=== PATIENT | male | born 1955 | race Caucasian/White ===

== ENCOUNTER → 2019-01-05 | Outpatient (CLI) | payer MEDICARE ==
[2019-01-05 12:55] LABS: HEMATOCRIT 32.3 % (37.9-51.0); HEMOGLOBIN 10.9 g/dL (13.5-17.0); MEAN CORPUSCULAR HEMOGLOBIN 32.9 pg (27.0-33.4); MEAN CORPUSCULAR HGB CONC 33.8 g/dL (32.0-36.0); MEAN CORPUSCULAR VOLUME 97 fl (80-97); PLATELET COUNT 109 10^3/uL (150-450); RED BLOOD COUNT 3.33 10^6/uL (4.35-5.55); WHITE BLOOD COUNT 2.5 10^3/uL (4.0-10.5)
[2019-01-05 13:21] LABS: ALANINE AMINOTRANSFERASE 32 U/L (21-72); ALBUMIN 4.1 g/dL (3.5-5.0); ALKALINE PHOSPHATASE 86 U/L (38-126); ANION GAP 9 (5-19); ASPARTATE AMINO TRANSFERASE 22 U/L (17-59); BILIRUBIN,DIRECT 0.2 mg/dL (0.0-0.4); BILIRUBIN,TOTAL 0.6 mg/dL (0.2-1.3); BLOOD UREA NITROGEN 23 mg/dL (7-20); CALCIUM 9.2 mg/dL (8.4-10.2); CARBON DIOXIDE 27 mmol/L (22-30); CHLORIDE 104 mmol/L (98-107); GLUCOSE 143 mg/dL (75-110); POTASSIUM 4.3 mmol/L (3.6-5.0); SODIUM 139.6 mmol/L (137-145)
[2019-01-06 14:39] LABS: FREE KAPPA LIGHT CHAINS 277.8 mg/L (3.3-19.4); FREE LAMBDA LIGHT CHAINS 7.5 mg/L (5.7-26.3)
[2019-01-06 14:58] LABS: KAPPA LAMBDA RATIO 37.04 (0.26-1.65)
== END ==
LOC: OD 11:47
PROVIDERS: ATTEND Internal Medicine
DX: C90.00 Multiple myeloma not having achieved remission (principal)
CPT/HCPCS: 36415; 80053; 83883; 85027

== ENCOUNTER 2019-01-14 23:12 | Emergency (ER) | payer MEDICARE ==
--- NOTE | 2019-01-14 23:46 | ER Document Report ---
ED Medical Screen (RME) - General Chief Complaint: Respiratory Distress Stated Complaint: DIFFICULTY BREATHING Time Seen by Provider: 01/14/19 23:42 Primary Care Provider: VADIM MORTENSEN [Primary Care Provider] - Follow up as needed Notes: 63-year-old obese male with numerous medical problems mostly of concern right now is multiple myeloma on chemotherapy. Patient presents with upper respiratory symptoms for the past week and a half or 2 and this evening felt like he was not getting enough oxygen prior to arrival. He has a low-grade fever. He is dyspneic. I have treated and performed a rapid initial assessment of this patient. A comprehensive ED assessment and evaluation of the patient, analysis of test results and completion of medical decision making process will be conducted by additional ED providers. PHYSICAL EXAMINATION: GENERAL: Well-appearing, well-nourished and in no acute distress. A&Ox4. Answers questions appropriately. LUNGS: Diminished bilaterally HEART: Regular rate and rhythm without murmurs, rubs, gallops. ABDOMEN: Obese Extremities: Edematous NEUROLOGICAL: Normal speech, normal gait. PSYCH: Normal mood, normal affect. TRAVEL OUTSIDE OF THE [place] IN LAST 30 DAYS: No Past Medical History - Social History Chew tobacco use (# tins/day): No Frequency of alcohol use: None Drug Abuse: None Renal/ Medical History: Denies: Hx Peritoneal Dialysis Physical Exam - Vital signs Vitals: Temp Pulse Resp BP Pulse Ox 100.5 F H 80 28 H 137/69 H 97 01/14/19 23:16 01/14/19 23:16 01/14/19 23:16 01/14/19 23:16 01/14/19 23:16 Course - Vital Signs Vital signs: Temp Pulse Resp BP Pulse Ox 100.5 F H 80 28 H 137/69 H 97 01/14/19 23:16 01/14/19 23:16 01/14/19 23:16 01/14/19 23:16 01/14/19 23:16 Doctor's Discharge - Discharge Referrals: VADIM MORTENSEN [Primary Care Provider] - Follow up as needed
[2019-01-15] MEDS ORDERED: IPRATROPIUM/ALBUTEROL 0.5-2.5 MG/3 ML AMPUL NEB ONE (00:19)
[2019-01-15] MEDS ORDERED: ACETAMINOPHEN 325 MG TABLET PO ONE (00:20)
--- NOTE | 2019-01-15 00:23 | ER Document Report ---
ED General - General Chief Complaint: Respiratory Distress Stated Complaint: DIFFICULTY BREATHING Time Seen by Provider: 01/14/19 23:42 Primary Care Provider: VADIM MORTENSEN [NO LOCAL MD] - Follow up as needed Notes: Patient is a 63-year-old male who presents with complaint of cough and congestion. He said cough and congestion approximately week but today feel unwell and then spiked a fever and therefore came to the ER. He has a history of multiple myeloma. He is currently visiting from [place]. He is on dexamethaso ne 20 mg a week. He gets this on Friday. He also takes an oral chemotherapy medication. He said runny nose cough and congestion. Difficulty breathing worsened today and he felt as if he was not getting good air into his lungs. No abdominal pain. No chest pain. No other complaints at this time. He is a former smoker. No history of COPD or asthma. TRAVEL OUTSIDE OF THE [place] IN LAST 30 DAYS: No - Related Data Allergies/Adverse Reactions: acetaminophen Adverse Reaction (Verified 01/15/19 00:35) Past Medical History - Social History Smoking Status: Former Smoker Chew tobacco use (# tins/day): No Frequency of alcohol use: None Drug Abuse: None Family History: Reviewed & Not Pertinent Patient has suicidal ideation: No Patient has homicidal ideation: No - Past Medical History Cardiac Medical History: Reports: Hx Hypercholesterolemia, Hx Hypertension Denies: Hx Heart Attack Endocrine Medical History: Reports: Hx Diabetes Mellitus Type 2 Renal/ Medical History: Denies: Hx Peritoneal Dialysis Past Surgical History: Reports: Hx Appendectomy, Hx Kidney (Renal Surgery) - 1 removed as child, Hx Orthopedic Surgery - L knee, Hx Tonsillectomy Review of Systems - Review of Systems Notes: My Normal Review Basic REVIEW OF SYSTEMS: CONSTITUTIONAL : Fever EENT: Nasal congestion CARDIOVASCULAR: Denies chest pain. RESPIRATORY: Cough. Difficulty breathing. GASTROINTESTINAL: Denies abdominal pain. Denies nausea, vomiting, or diarrhea. MUSCULOSKELETAL: Denies neck or back pain or joint pain or swelling. SKIN: Denies rash or skin lesions. NEUROLOGICAL: Denies altered mental status or loss of consciousness. Denies headache. Denies weakness or paralysis or loss of use of either side. Denies problems with gait or speech. Denies sensory or motor loss. ALL OTHER SYSTEMS REVIEWED AND NEGATIVE. Physical Exam - Vital signs Vitals: Temp Pulse Resp BP Pulse Ox 100.5 F H 80 28 H 137/69 H 97 01/14/19 23:16 01/14/19 23:16 01/14/19 23:16 01/14/19 23:16 01/14/19 23:16 - Notes Notes: General Appearance: Well nourished, alert, cooperative, no acute distress, no obvious discomfort. Vitals: reviewed, See vital signs table. Head: no swelling or tenderness to the head Eyes: PERRL, EOMI, Conjuctiva clear Mouth: No decreasd moisture Throat: No tonsillar inflammation, No airway obstruction, No lymphadenopathy Lungs: Coarse breath sounds. Fair air exchange. Heart: Normal rate, Regular rythm, No murmur, no rub Abdomen: Normal BS, soft, No rigidity, No abdominal tenderness, Extremities: strength 5/5 in all extremities, good pulses in all extremities, no swelling or tenderness in the extremities, no edema. Skin: warm, dry, appropriate color, no rash Neuro: speech clear, oriented x 3, normal affect, responds appropriately to questions. Course - Re-evaluation Re-evalutation: 01/15/19 04:48 On reevaluation patient's lung soto are still coarse but is moving more air. He is no longer requiring oxygen at rest. His oxygen saturation is currently 93-94% at rest: however, typically wears 3 L of oxygen all the time even during the day. I will place him on this as this makes suction more around the range of 96-97%. Heart rate is under control. He is receiving a last bag of magnesium. After this I will ambulate him to see how he does. 01/15/19 04:53 - Vital Signs Vital signs: Temp Pulse Resp BP Pulse Ox 98.2 F 76 18 99/66 L 97 01/15/19 03:11 01/15/19 02:58 01/15/19 05:01 01/15/19 05:01 01/15/19 05:01 - Laboratory Result Diagrams: 01/15/19 00:20 01/15/19 00:20 Laboratory results interpreted by me: 01/15/19 01/15/19 00:20 00:20 RBC 3.64 L Hgb 11.6 L Hct 35.3 L RDW 14.7 H Plt Count 87 L Lymphocytes % (Manual) 12 L Monocytes % (Manual) 18 H Chloride 96 L Carbon Dioxide 34 H BUN 26 H Total Protein 5.9 L - EKG Interpretation by Me Additional EKG results interpreted by me: 01/15/19 00:46 EKG is reviewed and interpreted by me. EKG shows sinus rhythm with a rate of [address] segment elevation or depression. No ischemic T wave inversions. KS interval, QRS duration, QT intervals are within normal range. Discharge - Discharge Clinical Impression: Bronchitis Condition: Good Disposition: HOME, SELF-CARE Additional Instructions: INHALED BRONCHODILATORS: You have received a treatment of and/or prescription for an inhaled bronchodilator -- a medication which stimulates the airways in the lung to di late. This improves the flow of air in asthma, bronchitis, and emphysema. These medicines have some similarity to adrenaline, and can cause similar side effects: shakiness, racing heart, and a sense of nervousness. These side effects decrease with time. Contact your doctor if these side effects are severe. Do not over-use the medicine. Too-frequent use of the inhaler may make it ineffective. Call your doctor if the inhaler is not controlling your symptoms at the prescribed doses. STEROID MEDICATION: You have been given an injection of or oral medicine of the cortisone/st eroid class. This medication is used to control inflammation or allergy. Burt t is usually only given for a short period of time, until the acute process subsides. There are usually no side effects from short-term use of cortisone-like medications. Some persons feel an increased sense of well-being and are not sleepy at bedtime. Long-term use of cortisone medications is best avoided, unless required for a severe condition. If your condition does not remit, or relapses after the course of corticosteroid medication, you should consult your physician. ANTIBIOTIC THERAPY: You have been given an antibiotic prescription. It's important that you take all the medication, unless instructed otherwise by your physician. Failure to complete the entire course can result in relapse of your condition. Common side effects of antibiotics include nausea, intestinal cramping, or diarrhea. Women may develop vaginal yeast infections, and babies can get yeast (thrush) in the mouth following the use of antibiotics. Contact your physician if you develop significant side effects from this medication. Allergy to this antibiotic can result in hives, wheezing, faintness, or itching. If symptoms of allergy occur, stop the medication and call your doctor. AZITHROMYCIN: Azithromycin (Zithromax) is a broad spectrum antibiotic in the same class as erythromycin. It can treat a variety of bacterial infections, but is most frequently used for respiratory infections. Azithromycin is extremely long-lasting. It accumulates in body tissues and continues to kill bacteria for many days. In order to improve absorption, Azithromycin should be taken at least one hour before or two hours after a meal. It does not have the same strong tendency to upset the stomach as erythromycin and is usually very well tolerated. Patients who have had a rash or other true allergic reactions to erythromycin should not take this medication. Call if you develop gastrointes tinal distress, severe diarrhea, rash, hives, itching, or shortness of breath. If you smoke, you should stop smoking. The tar and chemicals in cigarette smoke are harmful. Smoking has been shown to cause: emphysema chronic bronchitis lung cancer mouth and throat cancer stomach and pancreas cancer premature aging defects In addition, smoking increases ear and lung infections in children of smokers. FOLLOW-UP CARE: If you have been referred to a physician for follow-up care, call the physicians office for an appointment as you were instructed or within the next two days. If you experience worsening or a significant change in your symptoms, notify the physician immediately or return to the Emergency Department at any time for re-evaluation. Please have a low threshold to return to ER if you have worsening difficulty breathing, tightness in your lungs not improving with albuterol treatment, whee zing or difficulty breathing not improving with albuterol inhaler. I have placed you on an antibiotic. Please take it as prescribed. Your next dose is not due till tomorrow. Please follow-up with your doctor in 3-5 days for reevaluation. He is using inhaler as 2 puffs as needed for wheezing and difficulty breathing not to exceed 2 puffs every 2 hours. Prescriptions: Azithromycin [Zithromax 250 mg Tablet] 250 mg PO DAILY #4 tablet
[2019-01-15] MEDS ORDERED: IBUPROFEN 600 MG TABLET PO ONE (00:40)
[2019-01-15 00:45] LABS: HEMATOCRIT 35.3 % (37.9-51.0); HEMOGLOBIN 11.6 g/dL (13.5-17.0); MEAN CORPUSCULAR HEMOGLOBIN 31.9 pg (27.0-33.4); MEAN CORPUSCULAR HGB CONC 32.8 g/dL (32.0-36.0); MEAN CORPUSCULAR VOLUME 97 fl (80-97); RED BLOOD COUNT 3.64 10^6/uL (4.35-5.55); RED CELL DISTRIBUTION WIDTH 14.7 % (11.5-14.0); WHITE BLOOD COUNT 4.1 10^3/uL (4.0-10.5)
[2019-01-15 00:49] LABS: PLATELET COUNT 87 10^3/uL (150-450)
[2019-01-15 00:51] LABS: BLOOD UREA NITROGEN 26 mg/dL (7-20); GLUCOSE 91 mg/dL (75-110)
[2019-01-15 00:52] LABS: ALANINE AMINOTRANSFERASE 33 U/L (21-72); ALKALINE PHOSPHATASE 62 U/L (38-126); ANION GAP 8 (5-19); ASPARTATE AMINO TRANSFERASE 26 U/L (17-59); BILIRUBIN,DIRECT 0.2 mg/dL (0.0-0.4); BILIRUBIN,TOTAL 0.6 mg/dL (0.2-1.3); CARBON DIOXIDE 34 mmol/L (22-30); CHLORIDE 96 mmol/L (98-107); POTASSIUM 4.8 mmol/L (3.6-5.0); SODIUM 137.5 mmol/L (137-145); TOTAL PROTEIN 5.9 g/dL (6.3-8.2)
[2019-01-15 01:04] LABS: ABSOLUTE LYMPHOCYTES# (MANUAL) 0.5 10^3/uL (0.5-4.7); ABSOLUTE MONOCYTES # (MANUAL) 0.7 10^3/uL (0.1-1.4); ABSOLUTE NEUTROPHILS# (MANUAL) 2.8 10^3/uL (1.7-8.2); BAND NEUTROPHILS % (MANUAL) 4 % (3-5); BASOPHILS % (MANUAL) 0 % (0-2); EOSINOPHILS % (MANUAL) 1 % (0-6); LYMPHOCYTES % (MANUAL) 12 % (13-45); MONOCYTES % (MANUAL) 18 % (3-13); SEGMENTED NEUTROPHILS % (MAN) 64 % (42-78); TOTAL CELLS COUNTED 100
[2019-01-15 01:06] LABS: PLATELET COMMENT DECREASED; RBC MORPHOLOGY COMMENT NORMO-CYTIC/CHROMIC; TOXIC VACUOLATION PRESENT
--- NOTE | 2019-01-15 01:22 | RADIOLOGY REPORT (SQ) ---
EXAM DESCRIPTION: XR CHEST 1 VIEW COMPLETED DATE/TME: 01/14/2019 23:42 CLINICAL HISTORY: 63 years, Male, SOB COMPARISON: None. NUMBER OF VIEWS: 1 TECHNIQUE: Portable chest LIMITATIONS: None. FINDINGS: Heart size is normal. Sevuqd-y-Mcee catheter in place. Osteopenia. No pneumothorax. Old right rib fractures are suggested. Minor scarring in the left midlung. IMPRESSION: No acute cardiopulmonary process copyright 2010 [employer]- All Rights Reserved
[2019-01-15 01:26] LABS: A TYPE INFLUENZA AG NEGATIVE (NEGATIVE); B INFLUENZA AG NEGATIVE (NEGATIVE)
[2019-01-15 01:41] LABS: VENOUS BLOOD BASE EXCESS 2.6 mmol/L; VENOUS BLOOD PCO2 46.6 mmHg (35-63); VENOUS BLOOD PH 7.4 (7.30-7.42)
[2019-01-15] MEDS ORDERED: ALBUTEROL SULFATE 0.083% NEB 2.5 MG/3 ML AMPUL NEB ONE (03:26)
[2019-01-15] MEDS: MAGNESIUM SULFATE/D5W 1 GM/100 ML RTUPB IV SCH ×2 (04:08→04:33)
[2019-01-15] MEDS ORDERED: AZITHROMYCIN 250 MG TABLET PO ONE (05:50)
[2019-01-15] MEDS ORDERED: ALBUTEROL SULFATE HFA (90 MCG/PUFF) 8 GM MDI (1 MDI/ER DISP) IH ONE (05:50)
[2019-01-15 07:00] VITALS: BP 107/70
--- NOTE | 2019-01-15 07:43 | EKG REPORT ---
SEVERITY:- NORMAL ECG - SINUS RHYTHM : Confirmed by: Meño Pinedo MD 15-Jan-2019 07:42:44
== END 2019-01-15 06:50 | disposition home or self-care (01) ==
LOC: ER 23:12
DX: J40 Bronchitis, not specified as acute or chronic (principal); R06.02 Shortness of breath; R05 Cough; R09.81 Nasal congestion; R09.89 Other specified symptoms and signs involving the circulatory and respiratory systems; Z87.891 Personal history of nicotine dependence; I10 Essential (primary) hypertension; E11.9 Type 2 diabetes mellitus without complications
CPT/HCPCS: 93005; 36591; 94640 ×2; 99285; 96365; 36415; 85025; 80053; 82803; 87804; 71045; 93010; A9270 ×4; J3475; J3490; J7620

== ENCOUNTER → 2019-01-19 | Outpatient (CLI) | payer MEDICARE ==
[2019-01-19 10:19] LABS: HEMATOCRIT 33.8 % (37.9-51.0); HEMOGLOBIN 11.4 g/dL (13.5-17.0); MEAN CORPUSCULAR HEMOGLOBIN 32.1 pg (27.0-33.4); MEAN CORPUSCULAR HGB CONC 33.7 g/dL (32.0-36.0); MEAN CORPUSCULAR VOLUME 95 fl (80-97); RED BLOOD COUNT 3.54 10^6/uL (4.35-5.55); WHITE BLOOD COUNT 2.1 10^3/uL (4.0-10.5)
[2019-01-19 10:46] LABS: ALANINE AMINOTRANSFERASE 36 U/L (21-72); ALBUMIN 3.9 g/dL (3.5-5.0); ALKALINE PHOSPHATASE 63 U/L (38-126); ANION GAP 9 (5-19); ASPARTATE AMINO TRANSFERASE 25 U/L (17-59); BILIRUBIN,DIRECT 0.2 mg/dL (0.0-0.4); BILIRUBIN,TOTAL 0.5 mg/dL (0.2-1.3); BLOOD UREA NITROGEN 20 mg/dL (7-20); CARBON DIOXIDE 29 mmol/L (22-30); CHLORIDE 101 mmol/L (98-107); GLUCOSE 116 mg/dL (75-110); PLATELET COUNT 94 10^3/uL (150-450); POTASSIUM 4.4 mmol/L (3.6-5.0); SODIUM 138.7 mmol/L (137-145); TOTAL PROTEIN 6.4 g/dL (6.3-8.2)
== END ==
LOC: OD 09:29
PROVIDERS: ATTEND Internal Medicine
DX: C90.00 Multiple myeloma not having achieved remission (principal)
CPT/HCPCS: 36415; 80053; 85027

== ENCOUNTER 2019-06-30 09:06 | Outpatient (CLI) | payer MEDICARE ==
[~2019-06-30 09:06] MED LIST: DENOSUMAB 120 MG in SYRINGE, DISPOSABLE, 1 EACH SUBCUT PRN; DENOSUMAB INJ/PF 120 MG/1.7 ML SDV SUBCUT PRN
[2019-06-30 09:26] VITALS: BP 118/78
== END 2019-06-30 09:54 | disposition home or self-care (01) ==
LOC: II 09:06 → 5TH 09:45 → II 09:54
PROVIDERS: ATTEND Internal Medicine Hematology & Oncology
PROC: 3E0130M Introduction of Antineoplastic, Monoclonal Antibody, into Subcutaneous Tissue, Percutaneous Approach (ICD-10-PCS; principal; 2019-06-30)
DX: C90.00 Multiple myeloma not having achieved remission (principal)
CPT/HCPCS: 96401; J3490; J0897

== ENCOUNTER → 2019-07-19 | Outpatient (CLI) | payer MEDICARE ==
--- NOTE | 2019-07-19 16:14 | RADIOLOGY REPORT (SQ) ---
EXAM DESCRIPTION: BONE SURVEY COMPLETE COMPLETED DATE/TIME: 07/19/2019 3:57 pm REASON FOR STUDY: C90.00 MULTIPLE MYELOMA NOT HAVING ACHIEVED REMISSION C90.00 MULTIPLE MYELOMA NOT HAVING ACHIEVED REMISSION COMPARISON: None. TECHNIQUE: Images of the axial and proximal appendicular skeleton are obtained, along with lateral s kull and frontal chest films. LIMITATIONS: None. FINDINGS: AP CHEST: There is a lytic lesion the distal left clavicle. Metastatic disease cannot be excluded. LATERAL SKULL: Lytic lesions in the frontal bone bilaterally. Metastatic disease cannot be excluded. Less likely these may represent venous lakes. AP BOTH HUMERI: No worrisome bone lesions. TWO-VIEW LUMBAR SPINE: L1 compression deformity. This could be osteoporotic or pathologic. Correlat ion with MRI is recommended. TWO-VIEW THORACIC SPINE: Multiple wedge deformities in the dorsal spine. No focal lytic or sclerotic lesions. These could be secondary to osteoporosis. Pathologic fractures cannot be excluded. AP PELVIS: No worrisome bone lesions. AP BOTH FEMURS: No worrisome bone lesions. OTHER: No other significant finding. IMPRESSION: 1. Lytic lesion in the distal left clavicle metastatic disease cannot be excluded. 2. Multiple lucencies in the frontal bones bilaterally. Metastatic disease cannot be excluded. 3. Multiple compression deformities in the dorsal and lumbar spine. This could be secondary to oste oporosis. Pathologic fractures cannot be excluded. TECHNICAL DOCUMENTATION: JOB ID: [id number]- All Rights Reserved Reading location - IP/workstation name: [email or web address]
== END ==
LOC: RAD 12:50
PROVIDERS: ATTEND Internal Medicine Hematology & Oncology
DX: C90.00 Multiple myeloma not having achieved remission (principal)
CPT/HCPCS: 77075

== ENCOUNTER 2019-11-03 10:43 | Inpatient (IN) | payer MEDICARE, OTHER ==
[2019-11-03] MEDS ORDERED: DEXTROSE 50%-WATER 25 GM/50 ML DISP.SYRIN IV PRN ×2 (14:06)
[2019-11-03] MEDS ORDERED: DEXTROSE 40% GEL 15 GM TUBE PO PRN ×2 (14:06)
[2019-11-03] MEDS ORDERED: GLUCAGON,HUMAN RECOMB 1 MG INJ IM PRN (14:06)
[2019-11-03] MEDS ORDERED: VANCOMYCIN HCL 0 MG in DEXTROSE 5%-WATER 250 ML IV NR (14:15)
--- NOTE | 2019-11-03 14:25 | PDOC H&P ---
History of Present Illness Admission Date/PCP: 11/03/19 10:43 ORA WILL MD History of Present Illness: VERONIQUE SOLIZ is a 64 year old male who has apparent cellulitis of the left lower leg. Patient states about 5 to 7 days ago he noticed a sore or scab on the left lower leg, though he is not sure of any particular trauma. And he has had more edema to the left lower leg as well as redness. Patient has a history of venous stasis and always has some edema to the lower extremities, he has more so now to the left lower leg as well as more redness. Patient has failed outpatient antibiotics Augmentin last 72 hours and therefore is admitted for IV antibiotics. Patient has a history of multiple myeloma that was diagnosed in around 2015. Patient has had surgery on his left knee with a arthroscopy in and I believe a total knee revision 2015. Appetite is see that was treated in February 2019. Patient also has chronic pain from his multiple myeloma for which she takes methadone 20 mg twice daily. According to the family patient is also had a history of CHF several years ago. I have told the family that we will initiate treatment for his cellulitis with IV antibiotics, following blood cultures. Also within the next day or 2 probably order a MRI or plain films of the left lower extremity looking for osteomyelitis. Also will possibly consult infectious disease in the next 48 to 72 hours based on culture results. Hematology/oncology will also see the patient daily. Past Medical History Cardiac Medical History: Reports: Hyperlipidema, Hypertension Denies: Myocardial Infarction Endocrine Medical History: Reports: Diabetes Mellitus Type 2 Past Surgical History Past Surgical History: Reports: Appendectomy, Orthopedic Surgery - L knee, Tonsillectomy Social History Smoking Status: Former Smoker - Advance Directive Resuscitation Status: Full Code Family History Family History: Reviewed & Not Pertinent Parental Family History Reviewed: No Children Family History Reviewed: No Sibling(s) Family History Reviewed.: No Medication/Allergy Home Medications: Azithromycin [Zithromax 250 mg Tablet] 250 mg PO DAILY #4 tablet 01/15/19 Allergies/Adverse Reactions: acetaminophen Adverse Reaction (Verified 01/15/19 00:35) Review of Systems Constitutional: ABSENT: chills, fever(s), headache(s), weight gain, weight loss Cardiovascular: ABSENT: chest pain, dyspnea on exertion, edema, orthropnea, palpitations Respiratory: ABSENT: cough, hemoptysis Integumentary: PRESENT: erythema, wounds, other - Edema left lower extremity 1- 2+ Neurological: ABSENT: abnormal gait, abnormal speech, confusion, dizziness, focal weakness, syncope Psychiatric: ABSENT: anxiety, depression, homidical ideation, suicidal ideation Physical Exam Vital Signs: Temp Pulse Resp BP Pulse Ox 98.7 F 66 19 128/66 H 98 11/03/19 10:52 11/03/19 10:52 11/03/19 10:52 11/03/19 10:52 11/03/19 10:52 Intake & Output 11/02/19 11/03/19 11/04/19 06:59 06:59 06:59 Weight 132.3 kg General appearance: PRESENT: no acute distress, well-developed, well-nourished Respiratory exam: PRESENT: clear to auscultation pat. ABSENT: rales, rhonchi, wheezes Cardiovascular exam: PRESENT: RRR. ABSENT: diastolic murmur, rubs, systolic murmur Extremities exam: PRESENT: tenderness, +2 edema - Of lower extremity, other - Venous stasis to the left lower leg She has a scab or eschar area to the lateral aspect of the left lower leg, no sign of drainage Neurological exam: PRESENT: alert, awake, oriented to person, oriented to place, oriented to time, oriented to situation, CN II-XII grossly intact. ABSENT: motor sensory deficit Psychiatric exam: PRESENT: appropriate affect, normal mood. ABSENT: homicidal ideation, suicidal ideation Assessment and Plan - Diagnosis (1) Cellulitis Is this a current diagnosis for this admission?: Yes (2) Venous stasis Is this a current diagnosis for this admission?: Yes (3) Multiple myeloma Is this a current diagnosis for this admission?: Yes (4) History of hepatitis C Is this a current diagnosis for this admission?: Yes (5) Chronic pain Is this a current diagnosis for this admission?: Yes (6) Thrombocytopenia Is this a current diagnosis for this admission?: Yes - Plan Summary Summary: Will have lab draw blood cultures, check baseline labs. Start patient on IV antibiotics. Possibly in the next 48 hours to radiographs of the left lower ex tremity, possibly consult infectious disease - Time Time Spent with patient: 35 or more minutes
--- NOTE | 2019-11-03 14:35 | RADIOLOGY REPORT (SQ) ---
EXAM DESCRIPTION: CHEST 2 VIEWS COMPLETED DATE/TIME: 11/03/2019 2:24 pm REASON FOR STUDY: hypoxia Myeloma COMPARISON: Bone survey 07/19/2019 AP chest 01/15/2019 EXAM PARAMETERS: NUMBER OF VIEWS: two views TECHNIQUE: Digital Frontal and Lateral radiographic views of the chest acquired. RADIATION DOSE: NA LIMITATIONS: none FINDINGS: LUNGS AND PLEURA: Focal increased density over the anterior right 3rd rib/ right-sided per manent central line. It is difficult to discern whether there is a rib lesion or lung lesions/focal right upper lobe infiltrate in this area. Remainder of the lungs are grossly clear. No pleural effusion. No pneumothorax. MEDIASTINUM AND HILAR STRUCTURES: No masses or contour abnormalities. HEART AND VASCULAR STRUCTURES: Heart normal size. No evidence for failure. BONES: Multiple bilateral rib fractures, lytic lesion versus fracture distal left clavicle HARDWARE: Right-sided permanent central line tip superior vena cava OTHER: No other significant finding. IMPRESSION: Increased density over the anterior 3rd rib on the right. Difficult to discern whether there is a focal infiltrate or pulmonary nodule or rib fracture. TECHNICAL DOCUMENTATION: JOB ID: [id number] [employer]- All Rights Reserved Reading location - IP/workstation name: [email or web address]
[2019-11-03] MEDS ORDERED: INFLUENZA QUAD (6MOS+) 2019-20 VAC 0.5 ML SYR IM ONE (15:27)
[2019-11-03 15:37] LABS: ABSOLUTE EOSINOPHILS # (AUTO) 0.1 10^3/uL (0.0-0.6); ABSOLUTE LYMPHOCYTES (AUTO) 0.7 10^3/uL (0.5-4.7); ABSOLUTE MONOCYTES (AUTO) 0.8 10^3/uL (0.1-1.4); ABSOLUTE NEUT (AUTO) 0.5 10^3/uL (1.7-8.2); EOSINOPHILS % (AUTO) 3.5 % (0-6); HEMATOCRIT 31.2 % (37.9-51.0); HEMOGLOBIN 10.7 g/dL (13.5-17.0); MEAN CORPUSCULAR HEMOGLOBIN 33.9 pg (27.0-33.4); MEAN CORPUSCULAR HGB CONC 34.1 g/dL (32.0-36.0); MEAN CORPUSCULAR VOLUME 100 fl (80-97); MONOCYTES % (AUTO) 35.9 % (3-13); RED BLOOD COUNT 3.14 10^6/uL (4.35-5.55); RED CELL DISTRIBUTION WIDTH 15.6 % (11.5-14.0); SEGMENTED NEUTROPHILS % (AUTO) 25.6 % (42-78); TOTAL CELLS COUNTED % (AUTO) 100 %; WHITE BLOOD COUNT 2.1 10^3/uL (4.0-10.5)
[2019-11-03 15:54] LABS: ALKALINE PHOSPHATASE 40 U/L (38-126); ANION GAP 9 (5-19); ASPARTATE AMINO TRANSFERASE 22 U/L (17-59); BILIRUBIN,DIRECT 0.2 mg/dL (0.0-0.4); BILIRUBIN,TOTAL 1.2 mg/dL (0.2-1.3); BLOOD UREA NITROGEN 21 mg/dL (7-20); CALCIUM 8.8 mg/dL (8.4-10.2); CARBON DIOXIDE 29 mmol/L (22-30); CHLORIDE 101 mmol/L (98-107); GLUCOSE 106 mg/dL (75-110); TOTAL PROTEIN 6.4 g/dL (6.3-8.2)
[2019-11-03 16:14] LABS: PLATELET COUNT 69 10^3/uL (150-450)
[2019-11-03] MEDS: INSULIN LISPRO 100 UNIT/ML 3 ML VIAL SUBCUT SCH ×2 (17:14→21:24)
[2019-11-03] MEDS: VANCOMYCIN HCL 1,000 MG in DEXTROSE 5%-WATER 250 ML IV SCH (17:32)
[2019-11-03 20:43] LABS: INTERNATIONAL RATION (INR) 1.11; PROTHROMBIN TIME 14.4 SEC (11.4-15.4)
[2019-11-03] MEDS: FUROSEMIDE 20 MG TABLET PO SCH (21:22)
[2019-11-03] MEDS: GABAPENTIN 300 MG CAPSULE PO SCH (21:23)
[2019-11-03] MEDS: CEFEPIME 1 GM/D5W RTU 1 GM/50 ML RTUPB IV SCH (21:23)
[2019-11-03] MEDS: METHADONE HCL 10 MG TABLET PO SCH (21:23)
[2019-11-03 22:07] LABS: APPEARANCE,URINE CLEAR; BILIRUBIN,URINE NEGATIVE (NEGATIVE); COLOR,URINE YELLOW; GLUCOSE, URINE NEGATIVE (NEGATIVE); KETONES,URINE NEGATIVE (NEGATIVE); PROTEIN,URINE NEGATIVE (NEGATIVE); UROBILINOGEN,URINE NEGATIVE mg/dL (<2.0)
[2019-11-04] MEDS: VANCOMYCIN HCL 1,000 MG in DEXTROSE 5%-WATER 250 ML IV SCH ×2 (05:13→17:08)
[2019-11-04] MEDS: INSULIN LISPRO 100 UNIT/ML 3 ML VIAL SUBCUT SCH ×4 (07:21→21:30)
[2019-11-04] MEDS: SPIRONOLACTONE 25 MG TABLET PO SCH (07:23)
[2019-11-04] MEDS ORDERED: POMALIDOMIDE 4 MG PO SCH (07:45)
--- NOTE | 2019-11-04 07:58 | PDOC CONSULTATION ---
Consultation Consult Date: 11/04/19 Provider Consulted: ORA WILL Consult reason:: Hematology/Oncology consultation was requested for patient on active chemotherapy for multiple myeloma with cellulites. History of Present Illness Admission Date/PCP: 11/03/19 10:43 ORA WILL MD History of Present Illness: VERONIQUE SOLIZ is a 64 year old male who was diagnosed with multiple myeloma in February of 2017. Most recently he has been receiving Kyprolis/Pomalyst/Dexamethasone with good response. Most recent doses were 2018. His treatment has been on hold for mild fever. 4 days ago, he presented to my office with a wound on his left lower leg which had become swollen, red, and painful. He was started on Augmentin for cellulitis, but after 3 days, there was no improvement and erythema was spreading. He is now admitted for IV antibiotics for the cellulitis. Today, he states that it is no worse, but no better. Still painful. No other complaints, except not able to sleep in the hospital. Past Medical History Cardiac Medical History: Reports: Hyperlipidema, Hypertension Denies: Myocardial Infarction Pulmonary Medical History: Reports: Sleep Apnea Endocrine Medical History: Reports: Diabetes Mellitus Type 2 Musculoskeltal Medical History: Reports: Other - osteoporosis Psychiatric Medical History: Reports: Depression Infectious Medical History: Reports: Hepatitis C Past Surgical History Past Surgical History: Reports: Appendectomy, Orthopedic Surgery - L knee, Tonsillectomy, Other - Nephrectomy, port placement Social History Occupation: retired punch operator Smoking Status: Former Smoker Electronic Cigarette use?: No Last Time Smoked: 1988. 30 pack year history Frequency of Alcohol Use: None Hx Recreational Drug Use: No Drugs: None Hx Prescription Drug Abuse: No Past Social History Note: 3 daughters, 3 grandkids, no pets. - Advance Directive Resuscitation Status: Full Code Family History Family History: Reviewed & Not Pertinent Parental Family History Reviewed: Yes - Parents both living Children Family History Reviewed: No Sibling(s) Family History Reviewed.: Yes - Sister with alcoholism Medication/Allergy Home Medications: Atorvastatin Calcium [Lipitor 20 mg Tablet] 20 mg PO QHS 11/03/19 Carfilzomib [Kyprolis] 0 mg IV .ON HOLD 11/03/19 Cholecalciferol (Vitamin D3) [Vitamin D3 2000 unit Tablet] 2,000 unit PO DAILY 11/03/19 Citalopram Hydrobromide [Celexa 40 mg Tablet] 40 mg PO DAILY 11/03/19 Dexamethasone [Decadron] 20 mg PO .ON HOLD 11/03/19 Docusate Sodium [Colace 100 mg Capsule] 100 mg PO DAILY 11/03/19 Furosemide [Lasix 40 mg Tablet] 40 mg PO QAM 11/03/19 Gabapentin [Neurontin 300 mg Capsule] 600 mg PO Q12 11/03/19 Metformin HCl [Glucophage] 500 mg PO [id number] 11/03/19 Methadone HCl [Dolophine 10 Mg Tablet] 20 mg PO Q12 11/03/19 Omeprazole Magnesium [Prilosec Otc] 20 mg PO QAM 11/03/19 Pomalidomide [Pomalyst] 4 mg PO .ON HOLD 11/03/19 Spironolactone [Aldactone] 50 mg PO DAILY 11/03/19 Allergies/Adverse Reactions: acetaminophen Adverse Reaction (Verified 01/15/19 00:35) Review of Systems Constitutional: PRESENT: fever(s), headache(s) Eyes: ABSENT: visual disturbances Ears: ABSENT: hearing changes Nose, Mouth, and Throat: ABSENT: sore throat Cardiovascular: ABSENT: chest pain Respiratory: ABSENT: dyspnea Gastrointestinal: ABSENT: nausea Genitourinary: ABSENT: dysuria Musculoskeletal: PRESENT: as per HPI Integumentary: PRESENT: as per HPI Neurological: ABSENT: confusion, weakness Hematologic/Lymphatic: ABSENT: easy bleeding Physical Exam Vital Signs: Temp Pulse Resp BP Pulse Ox 98.0 F 65 19 121/75 99 11/04/19 02:00 11/04/19 02:00 11/04/19 02:00 11/04/19 02:00 11/04/19 02:00 Intake & Output 11/03/19 11/04/19 11/05/19 06:59 06:59 06:59 Intake Total 910 Balance 910 Weight 132.5 kg General appearance: PRESENT: no acute distress, morbidly obese Head exam: PRESENT: normocephalic Eye exam: PRESENT: EOMI Mouth exam: PRESENT: tongue midline Neck exam: ABSENT: lymphadenopathy, tenderness Respiratory exam: PRESENT: clear to auscultation pat, unlabored Cardiovascular exam: PRESENT: RRR Extremities exam: PRESENT: other - Bilateral venous stasis changes. Left calf markedly swollen with erythema and pain. Neurological exam: PRESENT: alert, awake Psychiatric exam: PRESENT: appropriate affect Skin exam: PRESENT: normal color Results Laboratory Results: 11/03/19 14:40 11/03/19 14:40 11/03/19 11/03/19 11/03/19 14:40 14:40 21:33 WBC 2.1 L RBC 3.14 L Hgb 10.7 L Hct 31.2 L MCV 100 H MCH 33.9 H MCHC 34.1 RDW 15.6 H Plt Count 69 L Seg Neutrophils % 25.6 L Sodium 139.3 Potassium 5.0 Chloride 101 Carbon Dioxide 29 Anion Gap 9 BUN 21 H Creatinine 1.11 Est GFR ( Amer) > 60 Glucose 106 Calcium 8.8 Total Bilirubin 1.2 AST 22 Alkaline Phosphatase 40 Total Protein 6.4 Albumin 4.0 Urine Color YELLOW Urine Appearance CLEAR Urine pH 6.0 Ur Specific [place] 1.010 Urine Protein NEGATIVE Urine Glucose (UA) NEGATIVE Urine Ketones NEGATIVE Urine Blood NEGATIVE Urine RBC (Auto) 1 Impressions: Chest X-Ray 11/03/19 00:00 IMPRESSION: Increased density over the anterior 3rd rib on the right. Difficult to discern whether there is a focal infiltrate or pulmonary nodule or rib fracture. Assessment & Plan - Diagnosis (1) Cellulitis Qualifiers: Site of cellulitis of extremity: lower extremity Laterality: left Is this a current diagnosis for this admission?: Yes Plan: Agree with current antibiotics. Blood cultures pending. He has been afebrile. (2) History of hepatitis C Is this a current diagnosis for this admission?: Yes Plan: Was cleared as of February 2019. (3) Multiple myeloma Qualifiers: Multiple myeloma remission status: unspecified Qualified Code(s): C90.00 - Multiple myeloma not having achieved remission Is this a current diagnosis for this admission?: Yes Plan: He has had stable disease, but all chemo and Dex are on hold while on antibiotics for cellulites. - Plan Summary Plan Summary: Consider US of the leg, if no significant improvement.
[2019-11-04] MEDS ORDERED: FUROSEMIDE 40 MG TABLET PO SCH (08:00)
[2019-11-04 08:08] LABS: HEMATOCRIT 31.9 % (37.9-51.0); HEMOGLOBIN 10.7 g/dL (13.5-17.0); MEAN CORPUSCULAR HEMOGLOBIN 33.4 pg (27.0-33.4); MEAN CORPUSCULAR HGB CONC 33.5 g/dL (32.0-36.0); MEAN CORPUSCULAR VOLUME 100 fl (80-97); WHITE BLOOD COUNT 2.2 10^3/uL (4.0-10.5)
[2019-11-04] MEDS: METFORMIN HCL 500 MG TABLET PO SCH (08:21)
[2019-11-04 08:30] LABS: ANION GAP 10 (5-19); BLOOD UREA NITROGEN 17 mg/dL (7-20); CALCIUM 8.5 mg/dL (8.4-10.2); CARBON DIOXIDE 31 mmol/L (22-30); CHLORIDE 97 mmol/L (98-107); GLUCOSE 101 mg/dL (75-110); POTASSIUM 4.5 mmol/L (3.6-5.0)
[2019-11-04 08:42] LABS: ABSOLUTE LYMPHOCYTES# (MANUAL) 0.8 10^3/uL (0.5-4.7); ABSOLUTE MONOCYTES # (MANUAL) 0.6 10^3/uL (0.1-1.4); BASOPHILS % (MANUAL) 1 % (0-2); EOSINOPHILS % (MANUAL) 2 % (0-6); LYMPHOCYTES % (MANUAL) 36 % (13-45); SEGMENTED NEUTROPHILS % (MAN) 31 % (42-78); TOTAL CELLS COUNTED 100
[2019-11-04 08:55] LABS: ANISOCYTOSIS 1+; OVALOCYTES SLIGHT; PLATELET COMMENT DECREASED; POLYCHROMASIA SLIGHT
[2019-11-04 08:56] LABS: PLATELET COUNT 72 10^3/uL (150-450)
[2019-11-04 08:58] LABS: MONOCYTES % (MANUAL) 28 % (3-13)
[2019-11-04 09:18] LABS: ROULEAUX SLIGHT
[2019-11-04] MEDS ORDERED: (PENDING PHARMACY ID) (Spironolactone [Aldactone] 50 MG) PO SCH (10:00)
[2019-11-04] MEDS ORDERED: (PENDING PHARMACY ID) (Citalopram Hydrobromide [Celexa 40 Mg Tablet] 40 MG) PO SCH (10:00)
[2019-11-04] MEDS ORDERED: GABAPENTIN 300 MG CAPSULE PO SCH (10:00)
[2019-11-04] MEDS ORDERED: METFORMIN HCL 500 MG TABLET PO SCH (10:00)
[2019-11-04] MEDS ORDERED: (PENDING PHARMACY ID) (Cholecalciferol (Vitamin D3) [Vitamin D3 2000 Unit Tablet] 2,000 UN PO SCH (10:00)
[2019-11-04] MEDS ORDERED: METHADONE HCL 10 MG TABLET PO SCH (10:00)
[2019-11-04] MEDS: DOCUSATE SODIUM 100 MG CAPSULE PO SCH (10:02)
[2019-11-04] MEDS: GABAPENTIN 300 MG CAPSULE PO SCH ×2 (10:02→21:31)
[2019-11-04] MEDS: PANTOPRAZOLE SODIUM 20 MG TABLET.DR PO SCH (10:02)
[2019-11-04] MEDS: FUROSEMIDE 40 MG TABLET PO SCH (10:02)
[2019-11-04] MEDS: CEFEPIME 1 GM/D5W RTU 1 GM/50 ML RTUPB IV SCH ×2 (10:03→21:32)
[2019-11-04] MEDS: METHADONE HCL 10 MG TABLET PO SCH ×2 (10:03→21:31)
[2019-11-04] MEDS: CITALOPRAM HYDROBROMIDE 20 MG TABLET PO SCH (10:03)
[2019-11-04] MEDS: CHOLECALCIFEROL (D3) 1,000 UNIT (25 MCG) TABLET PO SCH (10:03)
--- NOTE | 2019-11-04 14:02 | PDOC PROGRESS REPORT ---
Subjective Progress Note for:: 11/04/19 Reason For Visit: CELLULITIS,MULTLIPLE MYELOMA,VENOUS STASIS,HISTORY 11/04/2019 Primary complaint is cellulitis of the left lower extremity, failure as outpatient treatment Physical Exam Vital Signs: Temp Pulse Resp BP Pulse Ox 98.7 F 64 19 121/69 100 11/04/19 10:00 11/04/19 10:00 11/04/19 10:00 11/04/19 10:00 11/04/19 10:00 Intake & Output 11/03/19 11/04/19 11/05/19 06:59 06:59 06:59 Intake Total 910 524 Balance 910 524 Weight 132.5 kg General appearance: PRESENT: no acute distress Respiratory exam: PRESENT: clear to auscultation pat. ABSENT: rales, rhonchi, wheezes Cardiovascular exam: PRESENT: RRR. ABSENT: diastolic murmur, rubs, systolic murmur Extremities exam: PRESENT: tenderness, +2 edema - Left lower extremity, other - Erythema Neurological exam: PRESENT: alert, awake, oriented to person, oriented to place, oriented to time, oriented to situation, CN II-XII grossly intact. ABSENT: motor sensory deficit Psychiatric exam: PRESENT: appropriate affect, normal mood. ABSENT: homicidal ideation, suicidal ideation Results Laboratory Results: 11/04/19 07:53 11/04/19 07:53 11/03/19 11/03/19 11/03/19 14:40 14:40 21:33 WBC 2.1 L RBC 3.14 L Hgb 10.7 L Hct 31.2 L MCV 100 H MCH 33.9 H MCHC 34.1 RDW 15.6 H Plt Count 69 L Seg Neutrophils % 25.6 L Sodium 139.3 Potassium 5.0 Chloride 101 Carbon Dioxide 29 Anion Gap 9 BUN 21 H Creatinine 1.11 Est GFR ( Amer) > 60 Glucose 106 Calcium 8.8 Total Bilirubin 1.2 AST 22 Alkaline Phosphatase 40 Total Protein 6.4 Albumin 4.0 Urine Color YELLOW Urine Appearance CLEAR Urine pH 6.0 Ur Specific [place] 1.010 Urine Protein NEGATIVE Urine Glucose (UA) NEGATIVE Urine Ketones NEGATIVE Urine Blood NEGATIVE Urine RBC (Auto) 1 11/04/19 11/04/19 07:53 07:53 WBC 2.2 L RBC 3.20 L Hgb 10.7 L Hct 31.9 L MCV 100 H MCH 33.4 MCHC 33.5 RDW 16.0 H Plt Count 72 L Seg Neutrophils % Not Reportable Sodium 138.2 Potassium 4.5 Chloride 97 L Carbon Dioxide 31 H Anion Gap 10 BUN 17 Creatinine 1.14 Est GFR ( Amer) > 60 Glucose 101 Calcium 8.5 Total Bilirubin AST Alkaline Phosphatase Total Protein Albumin Urine Color Urine Appearance Urine pH Ur Specific [place] Urine Protein Urine Glucose (UA) Urine Ketones Urine Blood Urine RBC (Auto) Impressions: Chest X-Ray 11/03/19 00:00 IMPRESSION: Increased density over the anterior 3rd rib on the right. D ifficult to discern whether there is a focal infiltrate or pulmonary nodule or rib fracture. Assessment and Plan - Diagnosis (1) Cellulitis Qualifiers: Site of cellulitis of extremity: lower extremity Laterality: left Is this a current diagnosis for this admission?: Yes (2) Venous stasis Is this a current diagnosis for this admission?: Yes (3) Multiple myeloma Qualifiers: Multiple myeloma remission status: unspecified Qualified Code(s): C90.00 - Multiple myeloma not having achieved remission Is this a current diagnosis for this admission?: Yes (4) History of hepatitis C Is this a current diagnosis for this admission?: Yes (5) Chronic pain Is this a current diagnosis for this admission?: Yes (6) Thrombocytopenia Is this a current diagnosis for this admission?: Yes - Plan Summary Summary: Will have lab draw blood cultures, check baseline labs. Start patient on IV antibiotics. Possibly in the next 48 hours to radiographs of the left lower extremity, possibly consult infectious disease 11/04/2019 We will repeat labs in the morning Blood cultures are still pending should have a pulmonary by tomorrow morning Patient is keeping his left lower leg elevated up on 2 pillows. Currently on vancomycin and cefepime, as well as IV Lasix Patient also on Lovenox, 40 mg subcu daily Patient on culture results as well as clinical findings may proceed with a venous Doppler tomorrow to the left lower extremity, and/or plain films to the tibia fibula and left ankle Patient has a significant history of venous stasis to both lower extremities for many years. Patient has had hardware in the left knee. Patient has had several wounds that were slow to heal in the past as well. Patient's daughter was in the room this morning during discussion - Time Time Spent with patient: 25-34 minutes
[2019-11-04] MEDS: FUROSEMIDE 20 MG TABLET PO SCH (21:32)
[2019-11-04] MEDS: ATORVASTATIN CALCIUM 20 MG TABLET PO SCH (21:32)
[2019-11-05] MEDS: VANCOMYCIN HCL 1,000 MG in DEXTROSE 5%-WATER 250 ML IV SCH ×2 (05:35→17:55)
[2019-11-05 06:11] LABS: INTERNATIONAL RATION (INR) 1.12; PROTHROMBIN TIME 14.5 SEC (11.4-15.4)
[2019-11-05 06:12] LABS: PARTIAL THROMBOPLASTIN TIME 28.6 SEC (23.5-35.8)
[2019-11-05 06:15] LABS: HEMOGLOBIN 10.8 g/dL (13.5-17.0); MEAN CORPUSCULAR HEMOGLOBIN 33.4 pg (27.0-33.4); MEAN CORPUSCULAR HGB CONC 33.8 g/dL (32.0-36.0); MEAN CORPUSCULAR VOLUME 99 fl (80-97); RED BLOOD COUNT 3.24 10^6/uL (4.35-5.55); RED CELL DISTRIBUTION WIDTH 15.8 % (11.5-14.0); WHITE BLOOD COUNT 2.3 10^3/uL (4.0-10.5)
[2019-11-05 06:29] LABS: ANION GAP 9 (5-19); BLOOD UREA NITROGEN 20 mg/dL (7-20); CALCIUM 8.7 mg/dL (8.4-10.2); CARBON DIOXIDE 31 mmol/L (22-30); CHLORIDE 98 mmol/L (98-107); GLUCOSE 116 mg/dL (75-110); POTASSIUM 4.6 mmol/L (3.6-5.0)
[2019-11-05 06:51] LABS: PLATELET COUNT 77 10^3/uL (150-450)
[2019-11-05 06:54] LABS: ABSOLUTE MONOCYTES # (MANUAL) 0.7 10^3/uL (0.1-1.4); BASOPHILS % (MANUAL) 0 % (0-2); EOSINOPHILS % (MANUAL) 3 % (0-6); LYMPHOCYTES % (MANUAL) 38 % (13-45); MONOCYTES % (MANUAL) 29 % (3-13); SEGMENTED NEUTROPHILS % (MAN) 26 % (42-78); TOTAL CELLS COUNTED 100
[2019-11-05 06:55] LABS: PLATELET COMMENT DECREASED
[2019-11-05 06:56] LABS: ROULEAUX SLIGHT
[2019-11-05] MEDS: INSULIN LISPRO 100 UNIT/ML 3 ML VIAL SUBCUT SCH ×4 (07:14→22:00)
[2019-11-05] MEDS: METFORMIN HCL 500 MG TABLET PO SCH (07:22)
[2019-11-05] MEDS: SPIRONOLACTONE 25 MG TABLET PO SCH (07:22)
--- NOTE | 2019-11-05 08:46 | PDOC PROGRESS REPORT ---
Subjective Progress Note for:: 11/05/19 Subjective:: Patient states leg is about the same. Not much change. ROS: He denies dyspnea, nausea, diarrhea. Will try to walk in wills today. Appetite is good. He asks that he NOT receive a diuretic before bed. Reason For Visit: CELLULITIS,MULTLIPLE MYELOMA,VENOUS STASIS,HISTORY Physical Exam Vital Signs: Temp Pulse Resp BP Pulse Ox 97.4 F 69 16 122/71 100 11/05/19 03:57 11/05/19 03:57 11/05/19 03:57 11/05/19 03:57 11/05/19 03:57 Intake & Output 11/04/19 11/05/19 11/06/19 06:59 06:59 06:59 Intake Total 910 1544 250 Balance 910 1544 250 Weight 132.5 kg 132.6 kg General appearance: PRESENT: obese Head exam: PRESENT: normocephalic Eye exam: PRESENT: EOMI Respiratory exam: PRESENT: unlabored Extremities exam: PRESENT: other - LLE with erythema and edema as previous Results Laboratory Results: 11/05/19 05:53 11/05/19 05:53 11/04/19 11/05/19 11/05/19 07:53 05:53 05:53 WBC 2.2 L 2.3 L RBC 3.20 L 3.24 L Hgb 10.7 L 10.8 L Hct 31.9 L 32.0 L MCV 100 H 99 H MCH 33.4 33.4 MCHC 33.5 33.8 RDW 16.0 H 15.8 H Plt Count 72 L 77 L Seg Neutrophils % Not Reportable Sodium 137.5 Potassium 4.6 Chloride 98 Carbon Dioxide 31 H Anion Gap 9 BUN 20 Creatinine 1.19 Est GFR ( Amer) > 60 Glucose 116 H Calcium 8.7 Impressions: Chest X-Ray 11/03/19 00:00 IMPRESSION: Increased density over the anterior 3rd rib on the right. Difficult to discern whether there is a focal infiltrate or pulmonary nodule or rib fracture. Assessment & Plan - Diagnosis (1) Cellulitis Qualifiers: Site of cellulitis of extremity: lower extremity Laterality: left Is this a current diagnosis for this admission?: Yes Plan: Continue antibiotics. Blood cultures are NGTD. (2) History of hepatitis C Is this a current diagnosis for this admission?: No (3) Multiple myeloma Qualifiers: Multiple myeloma remission status: unspecified Qualified Code(s): C90.00 - Multiple myeloma not having achieved remission Is this a current diagnosis for this admission?: Yes Plan: All treatment on hold. He still has pancytopenia and Neutropenia, but no fevers. - Time Time Spent with patient: 15-24 minutes - Plan Summary Plan Summary: I will change his qHS dose of Lasix to q Noon. Continue all other treatments. I have encouraged him to walk in wills as much as possible.
[2019-11-05] MEDS: ENOXAPARIN SODIUM INJ 40 MG/0.4 ML DISP.SYRIN SUBCUT SCH (09:34)
[2019-11-05] MEDS: CITALOPRAM HYDROBROMIDE 20 MG TABLET PO SCH (09:40)
[2019-11-05] MEDS: DOCUSATE SODIUM 100 MG CAPSULE PO SCH (09:41)
[2019-11-05] MEDS: METHADONE HCL 10 MG TABLET PO SCH ×2 (09:41→21:22)
[2019-11-05] MEDS: CHOLECALCIFEROL (D3) 1,000 UNIT (25 MCG) TABLET PO SCH (09:42)
[2019-11-05] MEDS: FUROSEMIDE 40 MG TABLET PO SCH (09:42)
[2019-11-05] MEDS: GABAPENTIN 300 MG CAPSULE PO SCH ×2 (09:42→21:23)
[2019-11-05] MEDS: PANTOPRAZOLE SODIUM 20 MG TABLET.DR PO SCH (09:42)
[2019-11-05] MEDS: CEFEPIME 1 GM/D5W RTU 1 GM/50 ML RTUPB IV SCH ×2 (09:42→21:22)
--- NOTE | 2019-11-05 11:56 | RADIOLOGY REPORT (SQ) ---
EXAM DESCRIPTION: ANKLE LEFT AP/LATERAL; TIB FIB BILAT 2 VIEWS COMPLETED DATE/TIME: 11/05/2019 11:36 am REASON FOR STUDY: R/O OSTEO COMPARISON: None. FINDINGS: Two views right tibia and fibula: Normal. Two views left tibia and fibula: Intact knee arthroplasty as assessed. Normal. Two views left ankle: Generalized soft tissue swelling. Otherwise normal. TECHNICAL DOCUMENTATION: JOB ID: [id number] Reading location - IP/workstation name: [email or web address]
--- NOTE | 2019-11-05 11:56 | RADIOLOGY REPORT (SQ) ---
EXAM DESCRIPTION: ANKLE LEFT AP/LATERAL; TIB FIB BILAT 2 VIEWS COMPLETED DATE/TIME: 11/05/2019 11:36 am REASON FOR STUDY: R/O OSTEO COMPARISON: None. FINDINGS: Two views right tibia and fibula: Normal. Two views left tibia and fibula: Intact knee arthroplasty as assessed. Normal. Two views left ankle: Generalized soft tissue swelling. Otherwise normal. TECHNICAL DOCUMENTATION: JOB ID: [id number] Reading location - IP/workstation name: [email or web address]
[2019-11-05] MEDS: FUROSEMIDE 20 MG TABLET PO SCH (12:38)
[2019-11-05 13:43] LABS: PATH REVIEW PATHOLOGIST REVIEWED
--- NOTE | 2019-11-05 13:57 | PDOC PROGRESS REPORT ---
Subjective Progress Note for:: 11/05/19 Reason For Visit: CELLULITIS,MULTLIPLE MYELOMA,VENOUS STASIS,HISTORY 11/05/2019 Loudest in the left lower leg, improving Physical Exam Vital Signs: Temp Pulse Resp BP Pulse Ox 98.2 F 69 18 111/67 99 11/05/19 12:00 11/05/19 12:00 11/05/19 12:00 11/05/19 12:00 11/05/19 12:00 Intake & Output 11/04/19 11/05/19 11/06/19 06:59 06:59 06:59 Intake Total 910 1544 540 Balance 910 1544 540 Weight 132.5 kg 132.6 kg General appearance: PRESENT: no acute distress Respiratory exam: PRESENT: clear to auscultation pat. ABSENT: rales, rhonchi, wheezes Cardiovascular exam: PRESENT: RRR. ABSENT: diastolic murmur, rubs, systolic murmur Extremities exam: PRESENT: tenderness - Significantly less edema of the left lower extremity, as well as less redness Family was in the room when I examined him and they agree, +1 edema Neurological exam: PRESENT: alert, awake, oriented to person, oriented to place, oriented to time, oriented to situation, CN II-XII grossly intact. ABSENT: motor sensory deficit Psychiatric exam: PRESENT: appropriate affect, normal mood. ABSENT: homicidal ideation, suicidal ideation Results Laboratory Results: 11/05/19 05:53 11/05/19 05:53 11/05/19 11/05/19 05:53 05:53 WBC 2.3 L RBC 3.24 L Hgb 10.8 L Hct 32.0 L MCV 99 H MCH 33.4 MCHC 33.8 RDW 15.8 H Plt Count 77 L Seg Neutrophils % Not Reportable Sodium 137.5 Potassium 4.6 Chloride 98 Carbon Dioxide 31 H Anion Gap 9 BUN 20 Creatinine 1.19 Est GFR ( Amer) > 60 Glucose 116 H Calcium 8.7 Impressions: Chest X-Ray 11/03/19 00:00 IMPRESSION: Increased density over the anterior 3rd rib on the right. Difficult to discern whether there is a focal infiltrate or pulmonary nodule or rib fracture. Assessment and Plan - Diagnosis (1) Cellulitis Qualifiers: Site of cellulitis of extremity: lower extremity Laterality: left Is this a current diagnosis for this admission?: Yes (2) Venous stasis Is this a current diagnosis for this admission?: Yes (3) Multiple myeloma Qualifiers: Multiple myeloma remission status: unspecified Qualified Code(s): C90.00 - Multiple myeloma not having achieved remission Is this a current diagnosis for this admission?: Yes (4) History of hepatitis C Is this a current diagnosis for this admission?: No (5) Chronic pain Is this a current diagnosis for this admission?: Yes (6) Thrombocytopenia Is this a current diagnosis for this admission?: Yes - Plan Summary Summary: Will have lab draw blood cultures, check baseline labs. Start patient on IV antibiotics. Possibly in the next 48 hours to radiographs of the left lower extremity, possibly consult infectious disease 11/04/2019 We will repeat labs in the morning Blood cultures are still pending should have a pulmonary by tomorrow morning Patient is keeping his left lower leg elevated up on 2 pillows. Currently on vancomycin and cefepime, as well as IV Lasix Patient also on Lovenox, 40 mg subcu daily Patient on culture results as well as clinical findings may proceed with a venous Doppler tomorrow to the left lower extremity, and/or plain films to the tibia fibula and left ankle Patient has a significant history of venous stasis to both lower extremities for many years. Patient has had hardware in the left knee. Patient has had several wounds that were slow to heal in the past as well. Patient's daughter was in the room this morning during discussion 11/05/2019 Vital signs stable temperature 97.4 pulse 69 blood pressure 122/71 O2 sat 100% Rays of the left lower extremity showed no evidence of osteomyelitis His left lower extremity edema and redness is improving Culture still no growth on the pulmonary reports Possibly DC IV antibiotics tomorrow switch to p.o. DC nighttime dose of Lasix - Time Time Spent with patient: 25-34 minutes
[2019-11-05 18:50] LABS: VANCOMYCIN,TROUGH 13.7 ug/mL (5.0-20.0)
[2019-11-05] MEDS: ATORVASTATIN CALCIUM 20 MG TABLET PO SCH (21:23)
[2019-11-06] MEDS: VANCOMYCIN HCL 1,000 MG in DEXTROSE 5%-WATER 250 ML IV SCH (05:43)
[2019-11-06] MEDS: INSULIN LISPRO 100 UNIT/ML 3 ML VIAL SUBCUT SCH ×4 (07:50→22:00)
[2019-11-06] MEDS: METFORMIN HCL 500 MG TABLET PO SCH (08:01)
[2019-11-06] MEDS: SPIRONOLACTONE 25 MG TABLET PO SCH (08:01)
[2019-11-06] MEDS: CITALOPRAM HYDROBROMIDE 20 MG TABLET PO SCH (10:09)
[2019-11-06] MEDS: METHADONE HCL 10 MG TABLET PO SCH ×2 (10:10→21:20)
[2019-11-06] MEDS: CHOLECALCIFEROL (D3) 1,000 UNIT (25 MCG) TABLET PO SCH (10:10)
[2019-11-06] MEDS: FUROSEMIDE 40 MG TABLET PO SCH (10:10)
[2019-11-06] MEDS: GABAPENTIN 300 MG CAPSULE PO SCH ×2 (10:10→21:20)
[2019-11-06] MEDS: PANTOPRAZOLE SODIUM 20 MG TABLET.DR PO SCH (10:11)
[2019-11-06] MEDS: DOCUSATE SODIUM 100 MG CAPSULE PO SCH (10:11)
[2019-11-06] MEDS: CEFEPIME 1 GM/D5W RTU 1 GM/50 ML RTUPB IV SCH (10:11)
--- NOTE | 2019-11-06 10:28 | PDOC PROGRESS REPORT ---
Subjective Progress Note for:: 11/06/19 Reason For Visit: CELLULITIS,MULTLIPLE MYELOMA,VENOUS STASIS,HISTORY 11/06/2019 Cellulitis left lower extremity Physical Exam Vital Signs: Temp Pulse Resp BP Pulse Ox 97.9 F 70 15 102/67 96 11/06/19 07:22 11/06/19 07:22 11/06/19 07:22 11/06/19 07:22 11/06/19 07:22 Intake & Output 11/05/19 11/06/19 11/07/19 06:59 06:59 06:59 Intake Total 1544 1530 250 Output Total 225 Balance 1544 1305 250 Weight 132.6 kg 129.6 kg General appearance: PRESENT: no acute distress, other - Patient sitting up on the side of the bed eating breakfast Respiratory exam: PRESENT: clear to auscultation pat. ABSENT: rales, rhonchi, wheezes Cardiovascular exam: PRESENT: RRR. ABSENT: diastolic murmur, rubs, systolic murmur Extremities exam: PRESENT: +1 edema - Left lower extremity, still slight redness, still discoloration secondary to venous stasis, chronic Neurological exam: PRESENT: alert, awake, oriented to person, oriented to place, oriented to time, oriented to situation, CN II-XII grossly intact. ABSENT: motor sensory deficit Psychiatric exam: PRESENT: appropriate affect, normal mood. ABSENT: homicidal ideation, suicidal ideation Results Laboratory Results: 11/05/19 05:53 11/05/19 17:48 11/05/19 17:48 Creatinine 1.05 Est GFR ( Amer) > 60 Impressions: Chest X-Ray 11/03/19 00:00 IMPRESSION: Increased density over the anterior 3rd rib on the right. Difficult to discern whether there is a focal infiltrate or pulmonary nodule or rib fracture. Assessment and Plan - Diagnosis (1) Cellulitis Qualifiers: Site of cellulitis of extremity: lower extremity Laterality: left Is this a current diagnosis for this admission?: Yes (2) Venous stasis Is this a current diagnosis for this admission?: Yes (3) Multiple myeloma Qualifiers: Multiple myeloma remission status: unspecified Qualified Code(s): C90.00 - Multiple myeloma not having achieved remission Is this a current diagnosis for this admission?: Yes (4) History of hepatitis C Is this a current diagnosis for this admission?: No (5) Chronic pain Is this a current diagnosis for this admission?: Yes (6) Thrombocytopenia Is this a current diagnosis for this admission?: Yes - Plan Summary Summary: Will have lab draw blood cultures, check baseline labs. Start patient on IV antibiotics. Possibly in the next 48 hours to radiographs of the left lower extremity, possibly consult infectious disease 11/04/2019 We will repeat labs in the morning Blood cultures are still pending should have a pulmonary by tomorrow morning Patient is keeping his left lower leg elevated up on 2 pillows. Currently on vancomycin and cefepime, as well as IV Lasix Patient also on Lovenox, 40 mg subcu daily Patient on culture results as well as clinical findings may proceed with a venous Doppler tomorrow to the left lower extremity, and/or plain films to the tibia fibula and left ankle Patient has a significant history of venous stasis to both lower extremities for many years. Patient has had hardware in the left knee. Patient has had several wounds that were slow to heal in the past as well. Patient's daughter was in the room this morning during discussion 11/05/2019 Vital signs stable temperature 97.4 pulse 69 blood pressure 122/71 O2 sat 100% XRays of the left lower extremity showed no evidence of osteomyelitis His left lower extremity edema and redness is improving Culture still show no growth on the preliminary reports Possibly DC IV antibiotics tomorrow switch to p.o. DC nighttime dose of Lasix 11/06/2019 Patient received his morning dose of vancomycin, will now DC IV vancomycin Patient received his morning dose of IV cefepime, will now DC IV cefepime Will change patient to p.o. Lasix O2 sats were between 96 and 98% on 3 L. This is what patient uses at home, which are 97.9 blood pressure 102/67, ALT 70 Going to start clindamycin 600 mg 3 times daily for 6 days, will be a total of 10 days of antibiotics since hospitalization - Time Time Spent with patient: 35 or more minutes
--- NOTE | 2019-11-06 11:24 | PDOC PROGRESS REPORT ---
Subjective Progress Note for:: 11/06/19 Subjective:: No acute events overnight Reason For Visit: CELLULITIS,MULTLIPLE MYELOMA,VENOUS STASIS,HISTORY Physical Exam Vital Signs: Temp Pulse Resp BP Pulse Ox 97.9 F 70 15 102/67 96 11/06/19 07:22 11/06/19 07:22 11/06/19 07:22 11/06/19 07:22 11/06/19 07:22 Intake & Output 11/05/19 11/06/19 11/07/19 06:59 06:59 06:59 Intake Total 1544 1530 250 Output Total 225 Balance 1544 1305 250 Weight 132.6 kg 129.6 kg General appearance: PRESENT: no acute distress, well-developed, well-nourished Head exam: PRESENT: atraumatic, normocephalic Eye exam: PRESENT: conjunctiva pink, EOMI, PERRLA. ABSENT: scleral icterus Ear exam: PRESENT: normal external ear exam Mouth exam: PRESENT: moist, tongue midline Neck exam: ABSENT: carotid bruit, JVD, lymphadenopathy, thyromegaly Respiratory exam: PRESENT: clear to auscultation pat. ABSENT: rales, rhonchi, wheezes Cardiovascular exam: PRESENT: RRR. ABSENT: diastolic murmur, rubs, systolic murmur Pulses: PRESENT: normal dorsalis pedis pul Vascular exam: PRESENT: normal capillary refill GI/Abdominal exam: PRESENT: normal bowel sounds, soft. ABSENT: distended, guarding, mass, organolmegaly, rebound, tenderness Rectal exam: PRESENT: deferred Extremities exam: PRESENT: full ROM. ABSENT: calf tenderness, clubbing, pedal edema Neurological exam: PRESENT: alert, awake, oriented to person, oriented to place, oriented to time, oriented to situation, CN II-XII grossly intact. ABSENT: motor sensory deficit Psychiatric exam: PRESENT: appropriate affect, normal mood. ABSENT: homicidal ideation, suicidal ideation Skin exam: PRESENT: dry, intact, warm. ABSENT: cyanosis, rash Results Laboratory Results: 11/05/19 05:53 11/05/19 17:48 11/05/19 17:48 Creatinine 1.05 Est GFR ( Amer) > 60 Impressions: Chest X-Ray 11/03/19 00:00 IMPRESSION: Increased density over the anterior 3rd rib on the right. Difficult to discern whether there is a focal infiltrate or pulmonary nodule or rib fracture. Assessment & Plan - Diagnosis (1) Multiple myeloma Qualifiers: Multiple myeloma remission status: not in remission Qualified Code(s): C90.00 - Multiple myeloma not having achieved remission Is this a current diagnosis for this admission?: Yes Plan: Holding therapy, patient is still pancytopenic, he will need to recover his counts before we can start therapy back and infection should improve as well. We told him that he would be off therapy for at least 2 weeks most likely but will need weekly CBCs through our office for the next few weeks as well. We will see him back in 1 to 2 weeks post discharge. - Time Time Spent with patient: 35 or more minutes
[2019-11-06] MEDS: ENOXAPARIN SODIUM INJ 40 MG/0.4 ML DISP.SYRIN SUBCUT SCH (12:36)
[2019-11-06] MEDS: FUROSEMIDE 20 MG TABLET PO SCH (17:00)
[2019-11-06] MEDS: CLINDAMYCIN HCL 150 MG CAPSULE PO SCH ×2 (17:00→21:27)
[2019-11-06] MEDS: ATORVASTATIN CALCIUM 20 MG TABLET PO SCH (21:20)
[2019-11-07] MEDS: CLINDAMYCIN HCL 150 MG CAPSULE PO SCH (05:46)
[2019-11-07 08:19] LABS: INTERNATIONAL RATION (INR) 1.12; PARTIAL THROMBOPLASTIN TIME 29.2 SEC (23.5-35.8); PROTHROMBIN TIME 14.5 SEC (11.4-15.4)
[2019-11-07 08:24] LABS: HEMATOCRIT 30.4 % (37.9-51.0); HEMOGLOBIN 10.3 g/dL (13.5-17.0); MEAN CORPUSCULAR HEMOGLOBIN 33.7 pg (27.0-33.4); MEAN CORPUSCULAR VOLUME 99 fl (80-97); RED BLOOD COUNT 3.07 10^6/uL (4.35-5.55); RED CELL DISTRIBUTION WIDTH 15.4 % (11.5-14.0)
[2019-11-07 08:35] LABS: ANION GAP 8 (5-19); BLOOD UREA NITROGEN 23 mg/dL (7-20); CALCIUM 8.4 mg/dL (8.4-10.2); CARBON DIOXIDE 34 mmol/L (22-30); CHLORIDE 97 mmol/L (98-107); GLUCOSE 126 mg/dL (75-110); POTASSIUM 4.3 mmol/L (3.6-5.0)
[2019-11-07 08:44] LABS: PLATELET COUNT 75 10^3/uL (150-450)
[2019-11-07 08:46] LABS: ABSOLUTE LYMPHOCYTES# (MANUAL) 0.7 10^3/uL (0.5-4.7); ABSOLUTE MONOCYTES # (MANUAL) 0.4 10^3/uL (0.1-1.4); BASOPHILS % (MANUAL) 2 % (0-2); EOSINOPHILS % (MANUAL) 4 % (0-6); LYMPHOCYTES % (MANUAL) 42 % (13-45); MONOCYTES % (MANUAL) 26 % (3-13); SEGMENTED NEUTROPHILS % (MAN) 26 % (42-78); TOTAL CELLS COUNTED 50
[2019-11-07 08:49] LABS: ANISOCYTOSIS SLIGHT; OVALOCYTES SLIGHT; PLATELET COMMENT DECREASED
[2019-11-07] MEDS: GABAPENTIN 300 MG CAPSULE PO SCH (09:54)
[2019-11-07] MEDS: PANTOPRAZOLE SODIUM 20 MG TABLET.DR PO SCH (09:54)
[2019-11-07] MEDS: SPIRONOLACTONE 25 MG TABLET PO SCH (09:55)
[2019-11-07] MEDS: DOCUSATE SODIUM 100 MG CAPSULE PO SCH (09:55)
[2019-11-07] MEDS: FUROSEMIDE 40 MG TABLET PO SCH (09:55)
[2019-11-07] MEDS: METFORMIN HCL 500 MG TABLET PO SCH (09:56)
[2019-11-07] MEDS: CITALOPRAM HYDROBROMIDE 20 MG TABLET PO SCH (09:56)
[2019-11-07] MEDS: CHOLECALCIFEROL (D3) 1,000 UNIT (25 MCG) TABLET PO SCH (09:56)
[2019-11-07] MEDS: METHADONE HCL 10 MG TABLET PO SCH (09:56)
[2019-11-07] MEDS: INSULIN LISPRO 100 UNIT/ML 3 ML VIAL SUBCUT SCH ×2 (09:57→11:12)
[2019-11-07] MEDS: ENOXAPARIN SODIUM INJ 40 MG/0.4 ML DISP.SYRIN SUBCUT SCH (10:02)
[2019-11-07] MEDS: FUROSEMIDE 20 MG TABLET PO SCH (12:17)
--- NOTE | 2019-11-07 12:32 | PDOC DISCHARGE SUMMARY ---
Impression - Admit/DC Date/PCP Admission Date/Primary Care Provider: 11/03/19 10:43 ORA WILL MD Discharge Date: 11/07/19 - Discharge Diagnosis (1) Cellulitis Is this a current diagnosis for this admission?: Yes (2) Venous stasis Is this a current diagnosis for this admission?: Yes (3) Multiple myeloma Is this a current diagnosis for this admission?: Yes (4) History of hepatitis C Is this a current diagnosis for this admission?: No (5) Chronic pain Is this a current diagnosis for this admission?: Yes (6) Thrombocytopenia Is this a current diagnosis for this admission?: Yes - Assessment Summary: Will have lab draw blood cultures, check baseline labs. Start patient on IV antibiotics. Possibly in the next 48 hours to radiographs of the left lower extremity, possibly consult infectious disease 11/04/2019 We will repeat labs in the morning Blood cultures are still pending should have a pulmonary by tomorrow morning Patient is keeping his left lower leg elevated up on 2 pillows. Currently on vancomycin and cefepime, as well as IV Lasix Patient also on Lovenox, 40 mg subcu daily Patient on culture results as well as clinical findings may proceed with a venous Doppler tomorrow to the left lower extremity, and/or plain films to the tibia fibula and left ankle Patient has a significant history of venous stasis to both lower extremities for many years. Patient has had hardware in the left knee. Patient has had several wounds that were slow to heal in the past as well. Patient's daughter was in the room this morning during discussion 11/05/2019 Vital signs stable temperature 97.4 pulse 69 blood pressure 122/71 O2 sat 100% XRays of the left lower extremity showed no evidence of osteomyelitis His left lower extremity edema and redness is improving Culture still show no growth on the preliminary reports Possibly DC IV antibiotics tomorrow switch to p.o. DC nighttime dose of Lasix 11/06/2019 Patient received his morning dose of vancomycin, will now DC IV vancomycin Patient received his morning dose of IV cefepime, will now DC IV cefepime Will change patient to p.o. Lasix O2 sats were between 96 and 98% on 3 L. This is what patient uses at home, which are 97.9 blood pressure 102/67, ALT 70 Going to start clindamycin 600 mg 3 times daily for 6 days, will be a total of 10 days of antibiotics since hospitalization 11/07/2019 Patient's left lower extremity continues to improve, less redness, less edema, and less pain. I written a prescription for clindamycin 100 mg 3 times daily for 6 days Patient will continue to keep his left leg elevated, moist heating pad as necessary Follow-up with Dr. Bonilla later this week. Continue his regular home meds Cultures are all negative, x-rays are negative for osteomyelitis - Additional Information Resuscitation Status: Full Code Discharge Diet: Diabetic Discharge Activity: Balance Activity w/Rest, Bedrest, No Driving, Keep Legs Elevated Referrals: ORA WILL MD [Primary Care Provider] - Prescriptions: Clindamycin HCl [Cleocin 150 mg Capsule] 300 mg PO Q8 5 Days #15 capsule Clindamycin HCl 300 mg PO Q8 5 Days #15 capsule Home Medications: Atorvastatin Calcium [Lipitor 20 mg Tablet] 20 mg PO QHS 11/03/19 Carfilzomib [Kyprolis] 0 mg IV .ON HOLD 11/03/19 Cholecalciferol (Vitamin D3) [Vitamin D3 2000 unit Tablet] 2,000 unit PO DAILY 11/03/19 Citalopram Hydrobromide [Celexa 40 mg Tablet] 40 mg PO DAILY 11/03/19 Dexamethasone [Decadron] 20 mg PO .ON HOLD 11/03/19 Docusate Sodium [Colace 100 mg Capsule] 100 mg PO DAILY 11/03/19 Furosemide [Lasix 40 mg Tablet] 40 mg PO QAM 11/03/19 Gabapentin [Neurontin 300 mg Capsule] 600 mg PO Q12 11/03/19 Metformin HCl [Glucophage] 500 mg PO [id number] 11/03/19 Methadone HCl [Dolophine 10 mg Tablet] 20 mg PO Q12 11/03/19 Omeprazole Magnesium [Prilosec Otc] 20 mg PO QAM 11/03/19 Pomalidomide [Pomalyst] 4 mg PO .ON HOLD 11/03/19 Spironolactone [Aldactone] 50 mg PO DAILY 11/03/19 Clindamycin HCl 300 mg PO Q8 5 Days #15 capsule 11/07/19 Clindamycin HCl [Cleocin 150 mg Capsule] 300 mg PO Q8 5 Days #15 capsule 11/07/19 Furosemide [Lasix 40 mg Tablet] 40 mg PO DAILY tablet 11/07/19 Gabapentin [Neurontin 300 mg Capsule] 600 mg PO Q12 capsule 11/07/19 Methadone HCl [Dolophine 10 mg Tablet] 20 mg PO Q12 tablet 11/07/19 Spironolactone [Aldactone 25 mg Tablet] 50 mg PO QAM tablet 11/07/19 History of Present Illiness History of Present Illness: VERONIQUE SOLIZ is a 64 year old male who has apparent cellulitis of the left lower leg. Patient states about 5 to 7 days ago he noticed a sore or scab on the left lower leg, though he is not sure of any particular trauma. And he has had more edema to the left lower leg as well as redness. Patient has a history of venous stasis and always has some edema to the lower extremities, he has more so now to the left lower leg as well as more redness. Patient has failed outpatient antibiotics Augmentin last 72 hours and therefore is admitted for IV antibiotics. Patient has a history of multiple myeloma that was diagnosed in around 2015. Patient has had surgery on his left knee with a arthroscopy in and I believe a total knee revision 2015. Appetite is see that was treated in February 2019. Patient also has chronic pain from his multiple myeloma for which she takes methadone 20 mg twice daily. According to the family patient is also had a history of CHF several years ago. I have told the family that we will initiate treatment for his cellulitis with IV antibiotics, following blood cultures. Also within the next day or 2 pr obably order a MRI or plain films of the left lower extremity looking for osteomyelitis. Also will possibly consult infectious disease in the next 48 to 72 hours based on culture results. Hematology/oncology will also see the patient daily. Physical Exam Vital Signs: Temp Pulse Resp BP Pulse Ox 98.2 F 65 15 114/65 98 11/07/19 10:53 11/07/19 10:53 11/07/19 10:53 11/07/19 10:53 11/07/19 10:53 Intake & Output 11/06/19 11/07/19 11/08/19 06:59 06:59 06:59 Intake Total 1530 1606 Output Total 225 600 Balance 1305 1006 Weight 129.6 kg 134.5 kg Results Laboratory Results: WBC 1.7 10^3/uL (4.0-10.5) L 11/07/19 07:45 RBC 3.07 10^6/uL (4.35-5.55) L 11/07/19 07:45 Hgb 10.3 g/dL (13.5-17.0) L 11/07/19 07:45 Hct 30.4 % (37.9-51.0) L 11/07/19 07:45 MCV 99 fl (80-97) H 11/07/19 07:45 MCH 33.7 pg (27.0-33.4) H 11/07/19 07:45 MCHC 34.0 g/dL (32.0-36.0) 11/07/19 07:45 RDW 15.4 % (11.5-14.0) H 11/07/19 07:45 Plt Count 75 10^3/uL (150-450) L 11/07/19 07:45 Lymph % (Auto) Not Reportable 11/07/19 07:45 [place] % (Auto) Not Reportable 11/07/19 07:45 Eos % (Auto) Not Reportable 11/07/19 07:45 Baso % (Auto) Not Reportable 11/07/19 07:45 Absolute Neuts (auto) Not Reportable 11/07/19 07:45 Absolute Lymphs (auto) Not Reportable 11/07/19 07:45 Absolute Monos (auto) Not Reportable 11/07/19 07:45 Absolute Eos (auto) Not Reportable 11/07/19 07:45 Absolute Basos (auto) Not Reportable 11/07/19 07:45 Total Counted 50 11/07/19 07:45 Seg Neutrophils % Not Reportable 11/07/19 07:45 Seg Neuts % (Manual) 26 % (42-78) L 11/07/19 07:45 Lymphocytes % (Manual) 42 % (13-45) 11/07/19 07:45 Atypical Lymphs % 4 % (0) 11/05/19 05:53 Monocytes % (Manual) 26 % (3-13) H 11/07/19 07:45 Eosinophils % (Manual) 4 % (0-6) 11/07/19 07:45 Basophils % (Manual) 2 % (0-2) 11/07/19 07:45 Abs Neuts (Manual) 0.4 10^3/uL (1.7-8.2) L 11/07/19 07:45 Abs Lymphs (Manual) 0.7 10^3/uL (0.5-4.7) 11/07/19 07:45 Abs Monocytes (Manual) 0.4 10^3/uL (0.1-1.4) 11/07/19 07:45 Absolute Eos (Manual) 0.1 10^3/uL (0.0-0.6) 11/07/19 07:45 Abs Basophils (Manual) 0.0 10^3/uL (0.0-0.2) 11/07/19 07:45 Platelet Comment DECREASED 11/07/19 07:45 Polychromasia SLIGHT 11/04/19 07:53 Basophilic Stippling PRESENT 11/04/19 07:53 Anisocytosis SLIGHT 11/07/19 07:45 Macrocytosis 1+ 11/05/19 05:53 Ovalocytes SLIGHT 11/07/19 07:45 Rouleaux SLIGHT 11/05/19 05:53 PT 14.5 SEC (11.4-15.4) 11/07/19 07:45 INR 1.12 11/07/19 07:45 APTT 29.2 SEC (23.5-35.8) 11/07/19 07:45 Sodium 138.5 mmol/L (137-145) 11/07/19 07:45 Potassium 4.3 mmol/L (3.6-5.0) 11/07/19 07:45 Chloride 97 mmol/L (98-107) L 11/07/19 07:45 Carbon Dioxide 34 mmol/L (22-30) H 11/07/19 07:45 Anion Gap 8 (5-19) 11/07/19 07:45 BUN 23 mg/dL (7-20) H 11/07/19 07:45 Creatinine 1.03 mg/dL (0.52-1.25) 11/07/19 07:45 Est GFR ( Amer) > 60 (>60) 11/07/19 07:45 Est GFR (MDRD) Non-Af > 60 (>60) 11/07/19 07:45 Glucose 126 mg/dL (75-110) H 11/07/19 07:45 POC Glucose 108 mg/dL (70-110) 11/06/19 16:06 Hemoglobin A1c % 5.1 % (4.7-6.0) 11/03/19 14:40 Calcium 8.4 mg/dL (8.4-10.2) 11/07/19 07:45 Total Bilirubin 1.2 mg/dL (0.2-1.3) 11/03/19 14:40 Direct Bilirubin 0.2 mg/dL (0.0-0.4) 11/03/19 14:40 Neonat Total Bilirubin Not Reportable 11/03/19 14:40 Neonat Direct Bilirubin Not Reportable 11/03/19 14:40 Neonat Indirect Bili Not Reportable 11/03/19 14:40 AST 22 U/L (17-59) 11/03/19 14:40 ALT 18 U/L (<50) 11/03/19 14:40 Alkaline Phosphatase 40 U/L (38-126) 11/03/19 14:40 Total Protein 6.4 g/dL (6.3-8.2) 11/03/19 14:40 Albumin 4.0 g/dL (3.5-5.0) 11/03/19 14:40 Urine Color YELLOW 11/03/19 21:33 Urine Appearance CLEAR 11/03/19 21:33 Urine pH 6.0 (5.0-9.0) 11/03/19 21:33 Ur Specific [place] 1.010 11/03/19 21:33 Urine Protein NEGATIVE mg/dL (NEGATIVE) 11/03/19 21:33 Urine Glucose (UA) NEGATIVE mg/dL (NEGATIVE) 11/03/19 21:33 Urine Ketones NEGATIVE mg/dL (NEGATIVE) 11/03/19 21:33 Urine Blood NEGATIVE (NEGATIVE) 11/03/19 21:33 Urine Nitrite (Reflex) NEGATIVE (NEGATIVE) 11/03/19 21:33 Urine Bilirubin NEGATIVE (NEGATIVE) 11/03/19 21:33 Urine Urobilinogen NEGATIVE mg/dL (<2.0) 11/03/19 21:33 Leukocyte Esterase Rfl NEGATIVE (NEGATIVE) 11/03/19 21:33 Urine RBC (Auto) 1 /HPF 11/03/19 21:33 Urine WBC (Reflex) 1 /HPF 11/03/19 21:33 Urine Mucus (Auto) RARE /LPF 11/03/19 21:33 Urine Ascorbic Acid 20 (NEGATIVE) H 11/03/19 21:33 Time Trough Drawn 1748 11/05/19 17:48 Vancomycin Trough 13.7 ug/mL (5.0-20.0) 11/05/19 17:48 Slides for Path Review PATHOLOGIST REVIEWED 11/04/19 07:53 Impressions: Chest X-Ray 11/03/19 00:00 IMPRESSION: Increased density over the anterior 3rd rib on the right. Difficult to discern whether there is a focal infiltrate or pulmonary nodule or rib fracture. Stroke Is this a Stroke Patient?: No Acute Heart Failure - Is this a Heart Failure Patient?: No
[2019-11-07 12:52] VITALS: BP 114/64
[2019-11-08 12:50] LABS: WHITE BLOOD COUNT 1.7 10^3/uL (4.0-10.5)
[2019-11-09 10:46] LABS: PATH REVIEW PATHOLOGIST REVIEWED
== END 2019-11-07 13:02 | disposition home or self-care (01) | DRG 603 ==
LOC: 4S 10:43
PROVIDERS: ADMIT Hospitalist; ATTEND Hospitalist
DX: L03.116 Cellulitis of left lower limb (principal); C90.00 Multiple myeloma not having achieved remission; E78.5 Hyperlipidemia, unspecified; I10 Essential (primary) hypertension; E11.8 Type 2 diabetes mellitus with unspecified complications; D69.6 Thrombocytopenia, unspecified; I87.8 Other specified disorders of veins; G89.29 Other chronic pain; E66.01 Morbid (severe) obesity due to excess calories; Z79.84 Long term (current) use of oral hypoglycemic drugs; Z79.891 Long term (current) use of opiate analgesic; Z79.899 Other long term (current) drug therapy; Z86.19 Personal history of other infectious and parasitic diseases
CPT/HCPCS: 36415; 71046; 80048; 80053; 80202; 81001; 82565; 82962; 83036; 85025; 85610; 85730; 87040; J0692; J3370; J3490; J7060

== ENCOUNTER → 2019-11-11 | Outpatient (CLI) | payer MEDICARE, OTHER ==
--- NOTE | 2019-11-12 17:25 | EKG REPORT ---
SEVERITY:- OTHERWISE NORMAL ECG - SINUS RHYTHM BORDERLINE LEFT AXIS DEVIATION : Confirmed by: Luis Velasquez 12-Nov-2019 17:24:58
== END ==
LOC: OD 13:09
PROVIDERS: ATTEND Pain Medicine Pain Medicine
DX: R94.31 Abnormal electrocardiogram [ECG] [EKG] (principal)
CPT/HCPCS: 93005; 93010

== ENCOUNTER → 2019-12-21 | Outpatient (CLI) | payer MEDICARE, OTHER ==
[2019-12-21 13:26] LABS: ARTERIAL BLOOD BASE EXCESS 2.6 mmol/L; ARTERIAL BLOOD H2CO3 1.65 mmol/L (1.05-1.35); ARTERIAL BLOOD HCO3 29.2 mmol/L (20-24); ARTERIAL BLOOD O2 SATURATION 85.3 % (94-98); ARTERIAL BLOOD PCO2 54.7 mmHg (35-45); ARTERIAL BLOOD PH 7.35 (7.35-7.45); ARTERIAL BLOOD PO2 53.4 mmHg (80-100); ARTERIAL BLOOD TOTAL CO2 30.9 mmol/L (23-27)
[2019-12-21 13:36] LABS: ARTERIAL BLOOD FIO2 3L
== END ==
LOC: OD 12:26
PROVIDERS: ATTEND Internal Medicine Pulmonary Disease
DX: J96.11 Chronic respiratory failure with hypoxia (principal); C90.00 Multiple myeloma not having achieved remission
CPT/HCPCS: 36600; 82803

== ENCOUNTER → 2020-01-06 | Outpatient (CLI) | payer MEDICARE, OTHER ==
[2020-01-06 10:38] LABS: ARTERIAL BLOOD BASE EXCESS -0.3 mmol/L; ARTERIAL BLOOD H2CO3 1.57 mmol/L (1.05-1.35); ARTERIAL BLOOD HCO3 26.4 mmol/L (20-24); ARTERIAL BLOOD O2 SATURATION 97.4 % (94-98); ARTERIAL BLOOD PCO2 52.2 mmHg (35-45); ARTERIAL BLOOD PH 7.32 (7.35-7.45); ARTERIAL BLOOD PO2 106.4 mmHg (80-100)
[2020-01-06 10:39] LABS: ARTERIAL BLOOD FIO2 4L
== END ==
LOC: OD 09:39
PROVIDERS: ATTEND Internal Medicine Pulmonary Disease
DX: J96.11 Chronic respiratory failure with hypoxia (principal)
CPT/HCPCS: 36600; 82803

== ENCOUNTER 2020-01-31 15:25 | Observation (INO) | payer MEDICARE, OTHER ==
--- NOTE | 2020-01-31 15:51 | ER Document Report ---
ED Medical Screen (RME) - General Chief Complaint: General Weakness Stated Complaint: WEAKNESS,CONFUSION Time Seen by Provider: 01/31/20 15:38 Primary Care Provider: EMILIA MARTINEZ MD [Primary Care Provider] - Follow up as needed Mode of Arrival: Wheelchair Information source: Patient Notes: 64-year-old male patient currently undergoing chemotherapy for multiple myeloma presenting to the emergency department chief complaint of shortness of breath, fever, lethargy and fatigue. Patient's also reports patient has had a significant weight gain in the last week. She states that this occurs after he has a "strong chemotherapy run". He has just ended a 3-week round of chemotherapy. Patient is alert, awake, answering questions appropriately. I have greeted and performed a rapid initial assessment of this patient. A comprehensive ED assessment and evaluation of the patient, analysis of test results and completion of the medical decision making process will be conducted by additional ED providers. I have specifically instructed the patient or family members with the patient to immediately return to any nursing staff should anything change in the patient's condition or with their chief complaint. TRAVEL OUTSIDE OF THE [place] IN LAST 30 DAYS: No - Related Data Allergies/Adverse Reactions: acetaminophen Adverse Reaction (Verified 01/31/20 15:41) Past Medical History - Social History Chew tobacco use (# tins/day): No Frequency of alcohol use: None Drug Abuse: None - Past Medical History Cardiac Medical History: Reports: Hx Hypercholesterolemia, Hx Hypertension Denies: Hx Heart Attack Pulmonary Medical History: Reports: Hx Sleep Apnea Endocrine Medical History: Reports: Hx Diabetes Mellitus Type 2 Renal/ Medical History: Denies: Hx Peritoneal Dialysis Psychiatric Medical History: Reports: Hx Depression Past Surgical History: Reports: Hx Appendectomy, Hx Kidney (Renal Surgery) - 1 removed as child, Hx Orthopedic Surgery - L knee, Hx Tonsillectomy, Other - Nephrectomy, port placement Physical Exam - Vital signs Vitals: Temp Pulse Resp BP Pulse Ox 99.3 F 87 22 H 115/68 94 01/31/20 15:37 01/31/20 15:37 01/31/20 15:37 01/31/20 15:37 01/31/20 15:37 Course - Vital Signs Vital signs: Temp Pulse Resp BP Pulse Ox 99.3 F 87 22 H 115/68 94 01/31/20 15:37 01/31/20 15:37 01/31/20 15:37 01/31/20 15:37 01/31/20 15:37 Doctor's Discharge - Discharge Referrals: EMILIA MARTINEZ MD [Primary Care Provider] - Follow up as needed
--- NOTE | 2020-01-31 16:24 | ER Document Report ---
ED General - General Chief Complaint: General Weakness Stated Complaint: WEAKNESS,CONFUSION Time Seen by Provider: 01/31/20 15:38 Primary Care Provider: EMILIA MARTINEZ MD [Primary Care Provider] - Follow up as needed Mode of Arrival: Wheelchair Information source: Patient, Relative Notes: triage notes; pt comes to ed from home via pov brought by for c/o generalized weakness. Pt is currently doing chemo tx for multiple myeloma last treatment . pt is on 4LNC at home. 64-year-old male arrives with his with chief complaint of generalized weakness and a history of chemotherapy for multiple myeloma. Patient arrives with his daughter and . 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 Was never in the . Patient has been followed by Dr. Gaona for chemotherapy for the last 2 years. He also sees Dr. Nowak. Periodically a few times a year he gets congestive heart failure and takes Lasix for this; he is on CPAP and also is on continuous 3 L nasal cannula. Patient's grandchildren have a URI virus at this time and have been around patient. Patient last got chemotherapy 1 week ago. He takes both the IV form and oral form patient is fair historian but most of the past medical history is from his and daughter. Daughter also reports that the patient's Lasix has been given extra for the last 2 days for congestive failure anticipating this. TRAVEL OUTSIDE OF THE [place] IN LAST 30 DAYS: No - HPI Onset: Just prior to arrival - Related Data Allergies/Adverse Reactions: acetaminophen Adverse Reaction (Verified 01/31/20 15:41) Past Medical History - General Information source: Patient - Social History Smoking Status: Former Smoker - Patient began smoking when he was 10 years old and stopped after he was 30 years old Chew tobacco use (# tins/day): No Smoking Education Provided: Yes Frequency of alcohol use: None Drug Abuse: None Family History: Reviewed & Not Pertinent Patient has suicidal ideation: No Patient has homicidal ideation: No - Past Medical History Cardiac Medical History: Reports: Hx Hypercholesterolemia, Hx Hypertension Denies: Hx Heart Attack Pulmonary Medical History: Reports: Hx Sleep Apnea Endocrine Medical History: Reports: Hx Diabetes Mellitus Type 2 Renal/ Medical History: Denies: Hx Peritoneal Dialysis Psychiatric Medical History: Reports: Hx Depression Past Surgical History: Reports: Hx Appendectomy, Hx Kidney (Renal Surgery) - 1 removed as child, Hx Orthopedic Surgery - L knee, Hx Tonsillectomy, Other - Nephrectomy, port placement Review of Systems - Review of Systems Constitutional: Weakness EENT: No symptoms reported Cardiovascular: No symptoms reported, Orthopnea, Dyspnea Respiratory: See HPI, Short of breath Gastrointestinal: No symptoms reported Genitourinary: No symptoms reported Male Genitourinary: No symptoms reported Musculoskeletal: No symptoms reported Skin: No symptoms reported Hematologic/Lymphatic: See HPI, Other - Bilateral leg edema with +2 pitting with NURYS hose on bilaterally Neurological/Psychological: No symptoms reported Physical Exam - Vital signs Vitals: Temp Pulse Resp BP Pulse Ox 99.3 F 87 22 H 115/68 94 01/31/20 15:37 01/31/20 15:37 01/31/20 15:37 01/31/20 15:37 01/31/20 15:37 Interpretation: Normal - Notrees - General General appearance: Alert In distress: None - HEENT Head: Normocephalic Eyes: Normal Conjunctiva: Normal Cornea: Normal, Superficial foreign body Eyelashes: Normal Pupils: PERRL Nasal: Normal Mouth/Lips: Normal Mucous membranes: Normal - Respiratory Respiratory status: Depressed respirations, Tachypnea Chest status: Nontender Breath sounds: Normal Chest palpation: Normal - Cardiovascular Rhythm: Regular Heart sounds: Normal auscultation Murmur: No Friction rub: No [place] crunch: No - Abdominal Inspection: Normal Distension: No distension Bowel sounds: Normal Tenderness: Nontender Organomegaly: No organomegaly - Back Back: Normal - Extremities General upper extremity: Normal inspection General lower extremity: Tender, Edema - Neurological Neuro grossly intact: Yes Cognition: Normal Orientation: AAOx4 [place] Coma Scale Eye Opening: Spontaneous [place] Coma Scale Verbal: Oriented [place] Coma Scale Motor: Obeys Commands [place] Coma Scale Total: 15 Speech: Normal Cranial nerves: Normal Cerebellar coordination: Normal Motor strength normal: LUE, RUE, LLE, RLE - Psychological Associated symptoms: Normal affect - Skin Skin Temperature: Warm Skin Moisture: Dry Course - Vital Signs Vital signs: Temp Pulse Resp BP Pulse Ox 98.3 F 85 18 153/92 H 94 01/31/20 18:59 01/31/20 19:00 01/31/20 19:00 01/31/20 19:00 01/31/20 19:00 - Laboratory Result Diagrams: 01/31/20 16:30 01/31/20 16:30 Laboratory results interpreted by me: 01/31/20 01/31/20 01/31/20 16:30 16:30 16:30 WBC 3.1 L RBC 3.72 L Hgb 11.8 L Hct 35.7 L RDW 15.2 H Plt Count 41 L Seg Neuts % (Manual) 40 L Monocytes % (Manual) 26 H Abs Neuts (Manual) 1.3 L Carbonic Acid ABG pH ABG pCO2 ABG HCO3 ABG Total CO2 Sodium 136.4 L Potassium 5.5 H BUN 22 H Glucose 113 H Total Bilirubin 1.6 H Creatine Kinase 21 L NT-Pro-B Natriuret Pep 610 H Urine Urobilinogen Urine Ascorbic Acid 01/31/20 01/31/20 17:00 18:49 WBC RBC Hgb Hct RDW Plt Count Seg Neuts % (Manual) Monocytes % (Manual) Abs Neuts (Manual) Carbonic Acid 1.86 H ABG pH 7.29 L ABG pCO2 61.7 H ABG HCO3 28.8 H ABG Total CO2 30.7 H Sodium Potassium BUN Glucose Total Bilirubin Creatine Kinase NT-Pro-B Natriuret Pep Urine Urobilinogen 2.0 H Urine Ascorbic Acid 20 H - Diagnostic Test Radiology reviewed: Reports reviewed - EKG Interpretation by Me EKG shows normal: Sinus rhythm Critical Care Note - Critical Care Note Total time excluding time spent on procedures (mins): 90 Comments: I discussed this case with Dr. Wu and he advised half liter of IV fluids because of dehydration and family requested that the patient get ABG because of patient with sleep apnea and severe snoring at time of discussing case with daughter and around 1800. Family also advised that they could probably get fluid into the patient much better by p.o. Gatorade or Pedialyte Again spoke with Dr. Wu regarding increasing CO2 and very somnolent this ;the family wants him to be admitted now s carry here he said he has multiple myeloma . I spoke with Dr. Aquiles Ruiz he advises admission with COPD exace rbation Discharge - Discharge Clinical Impression: Venous stasis, Weakness, Dehydration, Sleep apnea in adult, Hypercapnia Multiple myeloma Qualifiers: Multiple myeloma remission status: unspecified Qualified Code(s): C90.00 - Multiple myeloma not having achieved remission CHF (congestive heart failure) Qualifiers: Heart failure type: unspecified Heart failure chronicity: unspecified Qualified Code(s): I50.9 - Heart failure, unspecified Condition: Good Disposition: ADMITTED INPATIENT Unit Admitted: Telemetry Referrals: EMILIA MARTINEZ MD [Primary Care Provider] - Follow up as needed
[2020-01-31 16:50] LABS: HEMATOCRIT 35.7 % (37.9-51.0); HEMOGLOBIN 11.8 g/dL (13.5-17.0); MEAN CORPUSCULAR HEMOGLOBIN 31.7 pg (27.0-33.4); MEAN CORPUSCULAR VOLUME 96 fl (80-97); RED BLOOD COUNT 3.72 10^6/uL (4.35-5.55); RED CELL DISTRIBUTION WIDTH 15.2 % (11.5-14.0); WHITE BLOOD COUNT 3.1 10^3/uL (4.0-10.5)
[2020-01-31 16:55] LABS: VENOUS BLOOD BASE EXCESS 0.3 mmol/L; VENOUS BLOOD HCO3 27.2 mmol/L (20-32); VENOUS BLOOD PCO2 53.3 mmHg (35-63); VENOUS BLOOD PH 7.33 (7.30-7.42)
[2020-01-31 17:02] LABS: ALBUMIN 4.3 g/dL (3.5-5.0); ALKALINE PHOSPHATASE 41 U/L (38-126); ANION GAP 7 (5-19); ASPARTATE AMINO TRANSFERASE 22 U/L (17-59); BILIRUBIN,DIRECT 0.1 mg/dL (0.0-0.4); BILIRUBIN,TOTAL 1.6 mg/dL (0.2-1.3); BLOOD UREA NITROGEN 22 mg/dL (7-20); CALCIUM 8.9 mg/dL (8.4-10.2); CARBON DIOXIDE 28 mmol/L (22-30); CHLORIDE 101 mmol/L (98-107); CREATINE KINASE 21 U/L (55-170); GLUCOSE 113 mg/dL (75-110); POTASSIUM 5.5 mmol/L (3.6-5.0); TOTAL PROTEIN 6.9 g/dL (6.3-8.2)
--- NOTE | 2020-01-31 17:04 | RADIOLOGY REPORT (SQ) ---
EXAM DESCRIPTION: CHEST SINGLE VIEW COMPLETED DATE/TIME: 01/31/2020 4:48 pm REASON FOR STUDY: shortness of breath COMPARISON: 11/03/2019 EXAM PARAMETERS: NUMBER OF VIEWS: One view. TECHNIQUE: Single frontal radiographic view of the chest acquired. RADIATION DOSE: NA LIMITATIONS: None. FINDINGS: LUNGS AND PLEURA: No opacities, masses or pneumothorax. No pleural effusion. MEDIASTINUM AND HILAR STRUCTURES: No masses. Contour normal. HEART AND VASCULAR STRUCTURES: Borderline cardiomegaly is present BONES: No acute findings. HARDWARE: There is a right chest wall injection catheter in place. The tip of the catheter is not we ll visualized on this exam. OTHER: No other significant finding. IMPRESSION: NO ACUTE RADIOGRAPHIC FINDING IN THE CHEST. No significant change from prior exam. TECHNICAL DOCUMENTATION: JOB ID: [id number] [employer]- All Rights Reserved Reading location - IP/workstation name: [email or web address]
[2020-01-31 17:14] LABS: NT PRO BNP 610 pg/mL (<125)
[2020-01-31 17:16] LABS: TROPONIN I < 0.012 ng/mL
[2020-01-31 17:17] LABS: A TYPE INFLUENZA AG NEGATIVE (NEGATIVE); B INFLUENZA AG NEGATIVE (NEGATIVE)
[2020-01-31 17:21] LABS: PLATELET COUNT 41 10^3/uL (150-450)
[2020-01-31 17:26] LABS: APPEARANCE,URINE CLEAR; BILIRUBIN,URINE NEGATIVE (NEGATIVE); COLOR,URINE YELLOW; GLUCOSE, URINE NEGATIVE (NEGATIVE); KETONES,URINE NEGATIVE (NEGATIVE); PROTEIN,URINE NEGATIVE (NEGATIVE); URINE SPECIFIC GRAVITY 1.015
[2020-01-31 17:29] LABS: ABSOLUTE LYMPHOCYTES# (MANUAL) 0.8 10^3/uL (0.5-4.7); ABSOLUTE MONOCYTES # (MANUAL) 0.8 10^3/uL (0.1-1.4); BASOPHILS % (MANUAL) 0 % (0-2); EOSINOPHILS % (MANUAL) 6 % (0-6); LYMPHOCYTES % (MANUAL) 21 % (13-45); METAMYELOCYTES % (MANUAL) 1 % (0-1); NUCLEATED RED BLOOD CELLS 1 /100 WBC (0); SEGMENTED NEUTROPHILS % (MAN) 40 % (42-78); TOTAL CELLS COUNTED 100
[2020-01-31 17:31] LABS: ANISOCYTOSIS SLIGHT; OVALOCYTES SLIGHT; PLATELET COMMENT DECREASED; POIKILOCYTOSIS SLIGHT
[2020-01-31 17:33] LABS: MONOCYTES % (MANUAL) 26 % (3-13)
[2020-01-31 19:08] LABS: ARTERIAL BLOOD H2CO3 1.86 mmol/L (1.05-1.35); ARTERIAL BLOOD HCO3 28.8 mmol/L (20-24); ARTERIAL BLOOD PCO2 61.7 mmHg (35-45); ARTERIAL BLOOD PH 7.29 (7.35-7.45); ARTERIAL BLOOD TOTAL CO2 30.7 mmol/L (23-27)
[2020-01-31 19:09] LABS: ARTERIAL BLOOD FIO2 36%
[2020-01-31] MEDS ORDERED: DEXTROSE 50%-WATER 25 GM/50 ML DISP.SYRIN IV PRN ×2 (19:48)
[2020-01-31] MEDS ORDERED: MAG HYDROX/AL HYDROX/SIMETH SUSP 30 ML UDCUP PO PRN (19:48)
[2020-01-31] MEDS ORDERED: DEXTROSE 40% GEL 15 GM TUBE PO PRN ×2 (19:48)
[2020-01-31] MEDS ORDERED: IPRATROPIUM/ALBUTEROL 0.5-2.5 MG/3 ML AMPUL NEB PRN (19:48)
[2020-01-31] MEDS ORDERED: MAGNESIUM HYDROXIDE SUSP 30 ML UDCUP PO PRN (19:48)
[2020-01-31] MEDS ORDERED: GLUCAGON,HUMAN RECOMB 1 MG INJ IM PRN (19:48)
[2020-01-31 20:24] LABS: URINE AMPHETAMINES SCREEN NEGATIVE; URINE BARBITURATES SCREEN NEGATIVE; URINE BENZODIAZEPINES SCREEN NEGATIVE; URINE COCAINE SCREEN NEGATIVE; URINE MARIJUANA (THC) SCREEN NEGATIVE; URINE PHENCYCLIDINE SCREEN NEGATIVE
[2020-01-31 20:25] LABS: URINE METHADONE SCREEN UNCONFIRMED POSITIVE
[2020-01-31] MEDS ORDERED: LACTULOSE SYRUP 20 GM/30 ML UDCUP PO ONE (20:30)
[2020-01-31] MEDS: HEPARIN SOD (PORCINE) 5,000 UNIT/ML 1 ML VIAL SUBCUT SCH (22:59)
[2020-01-31] MEDS: CEFEPIME 1 GM/D5W RTU 1 GM/50 ML RTUPB IV SCH (23:17)
[2020-01-31] MEDS: GABAPENTIN 400 MG CAPSULE PO SCH (23:18)
[2020-01-31] MEDS ORDERED: INFLUENZA QUAD (6MOS+) 2019-20 VAC 0.5 ML SYR IM ONE (23:37)
--- NOTE | 2020-02-01 04:00 | PDOC H&P ---
History of Present Illness Admission Date/PCP: 01/31/20 20:38 EMILIA MARTINEZ MD Patient complains of: Weakness and lethargy History of Present Illness: VERONIQUE SOLIZ is a 64 year old male with a past medical history of diabetes, bronchiectasis, multiple myeloma, on methadone, morbid obesity, obstructive sleep apnea and thrombocytopenia. He presents with fatigue and lethargy prompting evaluation in the emergency department where he is found to have persistent altered mental status and placed on BiPAP. Labs reveal hyperkalemia, thrombocytopenia, ABG reveals hypercapnic respiratory failure. Patient's at bedside verifies recent titration of methadone by pain management. Patient denies complaints but admits constipation verified by at bedside. He is referred to the hospitalist for admission. Patient's daughter a nurse requests an update in the morning. Past Medical History Cardiac Medical History: Reports: Hyperlipidema, Hypertension Denies: Myocardial Infarction Pulmonary Medical History: Reports: Bronchitis, Sleep Apnea Endocrine Medical History: Reports: Diabetes Mellitus Type 2 Psychiatric Medical History: Reports: Depression Past Surgical History Past Surgical History: Reports: Appendectomy, Orthopedic Surgery - L knee, Tonsillectomy, Other - Nephrectomy, port placement Social History Information Source: Patient Lives with: Spouse/Significant other Smoking Status: Former Smoker Electronic Cigarette use?: No Frequency of Alcohol Use: None Hx Recreational Drug Use: No Drugs: None Hx Prescription Drug Abuse: No - Advance Directive Resuscitation Status: Full Code Family History Family History: Hypertension Parental Family History Reviewed: Yes Children Family History Reviewed: Yes Sibling(s) Family History Reviewed.: Yes Medication/Allergy Home Medications: Atorvastatin Calcium [Lipitor 20 mg Tablet] 20 mg PO QHS 11/03/19 Cholecalciferol (Vitamin D3) [Vitamin D3 2000 unit Tablet] 2,000 unit PO DAILY 11/03/19 Citalopram Hydrobromide [Celexa 40 mg Tablet] 40 mg PO DAILY 11/03/19 Dexamethasone [Decadron] 20 mg PO TH@0800 11/03/19 Docusate Sodium [Colace 100 mg Capsule] 100 mg PO DAILY 11/03/19 Furosemide [Lasix 40 mg Tablet] 40 mg PO QAM 11/03/19 Metformin HCl [Glucophage] 500 mg PO ACBRKFST 11/03/19 Methadone HCl [Dolophine 10 mg Tablet] 20 mg PO Q12 11/03/19 Spironolactone [Aldactone] 50 mg PO DAILY 11/03/19 Carfilzomib [Kyprolis] 0 mg IV ASDIR PRN 01/31/20 Gabapentin [Neurontin 400 mg Capsule] 400 mg PO DAILY 01/31/20 Gabapentin [Neurontin 400 mg Capsule] 800 mg PO QHS 01/31/20 Polyethylene Glycol 3350 [Miralax Powder 17 gm/Packet] 1 packet PO DAILYP PRN 01/31/20 Pomalidomide [Pomalyst] 3 mg PO ASDIR PRN 01/31/20 Allergies/Adverse Reactions: acetaminophen Adverse Reaction (Verified 01/31/20 15:41) Review of Systems Constitutional: ABSENT: chills, fever(s), headache(s), weight gain, weight loss Eyes: ABSENT: visual disturbances Ears: ABSENT: hearing changes Cardiovascular: ABSENT: chest pain, dyspnea on exertion, edema, orthropnea, palpitations Respiratory: ABSENT: cough, hemoptysis Gastrointestinal: PRESENT: constipation. ABSENT: abdominal pain, diarrhea, hematemesis, hematochezia, nausea, vomiting Genitourinary: ABSENT: dysuria, hematuria Musculoskeletal: ABSENT: joint swelling Integumentary: ABSENT: rash, wounds Neurological: ABSENT: abnormal gait, abnormal speech, confusion, dizziness, focal weakness, syncope Psychiatric: ABSENT: anxiety, depression, homidical ideation, suicidal ideation Endocrine: ABSENT: cold intolerance, heat intolerance, polydipsia, polyuria Hematologic/Lymphatic: ABSENT: easy bleeding, easy bruising Physical Exam Vital Signs: Temp Pulse Resp BP Pulse Ox 98.6 F 69 17 128/73 H 98 01/31/20 23:17 01/31/20 23:38 01/31/20 23:17 01/31/20 23:17 01/31/20 23:17 Intake & Output 01/30/20 01/31/20 02/01/20 11:59 11:59 11:59 Weight 135.1 kg General appearance: PRESENT: cooperative, morbidly obese, severe distress, well- developed, well-nourished Head exam: PRESENT: atraumatic, normocephalic Eye exam: PRESENT: conjunctiva pink, EOMI, PERRLA. ABSENT: scleral icterus Ear exam: PRESENT: normal external ear exam Mouth exam: PRESENT: moist, tongue midline Neck exam: ABSENT: carotid bruit, JVD, lymphadenopathy, thyromegaly Respiratory exam: PRESENT: clear to auscultation pat. ABSENT: rales, rhonchi, wheezes Cardiovascular exam: PRESENT: RRR. ABSENT: diastolic murmur, rubs, systolic murmur Pulses: PRESENT: normal dorsalis pedis pul Vascular exam: PRESENT: normal capillary refill GI/Abdominal exam: PRESENT: normal bowel sounds, soft. ABSENT: distended, guarding, mass, organolmegaly, rebound, tenderness Rectal exam: PRESENT: deferred Extremities exam: PRESENT: full ROM, +1 edema, other - Chronic changes of venous stasis. ABSENT: calf tenderness, clubbing, pedal edema Neurological exam: PRESENT: alert, altered, awake, oriented to person, oriented to place, oriented to time, oriented to situation, CN II-XII grossly intact. ABSENT: motor sensory deficit Psychiatric exam: PRESENT: appropriate affect, normal mood. ABSENT: homicidal ideation, suicidal ideation Skin exam: PRESENT: dry, intact, warm. ABSENT: cyanosis, rash Results Laboratory Results: 01/31/20 16:30 01/31/20 16:30 01/31/20 01/31/20 01/31/20 16:30 16:30 16:30 WBC 3.1 L RBC 3.72 L Hgb 11.8 L Hct 35.7 L MCV 96 MCH 31.7 MCHC 33.0 RDW 15.2 H Plt Count 41 L Seg Neutrophils % Not Reportable Carbonic Acid HCO3/H2CO3 Ratio ABG pH ABG pCO2 ABG pO2 ABG HCO3 ABG O2 Saturation ABG Base Excess VBG pH VBG pCO2 VBG HCO3 VBG Base Excess FiO2 Sodium 136.4 L Potassium 5.5 H Chloride 101 Carbon Dioxide 28 Anion Gap 7 BUN 22 H Creatinine 0.81 Est GFR ( Amer) > 60 Glucose 113 H Lactic Acid 1.1 Calcium 8.9 Total Bilirubin 1.6 H AST 22 Alkaline Phosphatase 41 Total Protein 6.9 Albumin 4.3 Urine Color Urine Appearance Urine pH Ur Specific [place] Urine Protein Urine Glucose (UA) Urine Ketones Urine Blood Urine RBC (Auto) 01/31/20 01/31/20 01/31/20 16:30 17:00 18:35 WBC RBC Hgb Hct MCV MCH MCHC RDW Plt Count Seg Neutrophils % Carbonic Acid HCO3/H2CO3 Ratio ABG pH ABG pCO2 ABG pO2 ABG HCO3 ABG O2 Saturation ABG Base Excess VBG pH 7.33 VBG pCO2 53.3 VBG HCO3 27.2 VBG Base Excess 0.3 FiO2 Sodium Potassium Chloride Carbon Dioxide Anion Gap BUN Creatinine Est GFR ( Amer) Glucose Lactic Acid 0.8 Calcium Total Bilirubin AST Alkaline Phosphatase Total Protein Albumin Urine Color YELLOW Urine Appearance CLEAR Urine pH 6.0 Ur Specific [place] 1.015 Urine Protein NEGATIVE Urine Glucose (UA) NEGATIVE Urine Ketones NEGATIVE Urine Blood NEGATIVE Urine RBC (Auto) 3 01/31/20 01/31/20 18:49 21:44 WBC RBC Hgb Hct MCV MCH MCHC RDW Plt Count Seg Neutrophils % Carbonic Acid 1.86 H HCO3/H2CO3 Ratio 15:1 ABG pH 7.29 L ABG pCO2 61.7 H ABG pO2 85.0 ABG HCO3 28.8 H ABG O2 Saturation 95.0 ABG Base Excess 1.0 VBG pH VBG pCO2 VBG HCO3 VBG Base Excess FiO2 36% Sodium Potassium Chloride Carbon Dioxide Anion Gap BUN Creatinine Est GFR ( Amer) Glucose Lactic Acid 1.0 Calcium Total Bilirubin AST Alkaline Phosphatase Total Protein Albumin Urine Color Urine Appearance Urine pH Ur Specific [place] Urine Protein Urine Glucose (UA) Urine Ketones Urine Blood Urine RBC (Auto) 01/31/20 01/31/20 01/31/20 16:30 16:30 21:15 Creatine Kinase 21 L Troponin I < 0.012 < 0.012 NT-Pro-B Natriuret Pep 610 H Impressions: Chest X-Ray 01/31/20 15:51 IMPRESSION: NO ACUTE RADIOGRAPHIC FINDING IN THE CHEST. No significant change from prior exam. Assessment and Plan - Diagnosis (1) Diabetes Qualifiers: Diabetes mellitus type: type 2 Is this a current diagnosis for this admission?: Yes Plan: Follow-up outpatient medication reconciliation, Humalog sliding scale ordered (2) Constipation Is this a current diagnosis for this admission?: Yes Plan: Complicated by opiate dependence, MiraLAX, milk of magnesia, Fleet enema as needed (3) Hyperkalemia Is this a current diagnosis for this admission?: Yes Plan: Complicated by Aldactone and constipation. No peak T waves, Aldactone held, MiraLAX ordered. Follow-up chemistry (4) Hypercapnia Is this a current diagnosis for this admission?: Yes Plan: Complicated by morbid obesity, obstructive sleep apnea and narcotics. BiPAP ordered, narcotics held, suggest resumption of methadone at a lower dose from 20 twice daily to 10 twice daily (5) Multiple myeloma Qualifiers: Multiple myeloma remission status: unspecified Qualified Code(s): C90.00 - Multiple myeloma not having achieved remission Is this a current diagnosis for this admission?: Yes Plan: Outpatient follow-up with Dr. Wu (6) Sleep apnea in adult Is this a current diagnosis for this admission?: Yes Plan: BiPAP and education, limit medications reducing respiratory drive (7) Venous stasis Is this a current diagnosis for this admission?: Yes Plan: NURYS stockings (8) Thrombocytopenia Is this a current diagnosis for this admission?: Yes Plan: No evidence for bleeding, chronic, complicated by multiple myeloma, follow-up CBC - Time Time Spent with patient: 25-34 minutes - Inpatient Certification Medical Necessity: Need Close Monitoring Due to Risk of Patient Decompensation
[2020-02-01] MEDS: HEPARIN SOD (PORCINE) 5,000 UNIT/ML 1 ML VIAL SUBCUT SCH ×3 (05:51→22:21)
[2020-02-01 06:34] LABS: ANION GAP 6 (5-19); BLOOD UREA NITROGEN 21 mg/dL (7-20); CALCIUM 8.5 mg/dL (8.4-10.2); CARBON DIOXIDE 29 mmol/L (22-30); CHLORIDE 101 mmol/L (98-107); GLUCOSE 89 mg/dL (75-110); POTASSIUM 4.8 mmol/L (3.6-5.0)
[2020-02-01 06:35] LABS: HEMOGLOBIN 11.6 g/dL (13.5-17.0); MEAN CORPUSCULAR HEMOGLOBIN 32.6 pg (27.0-33.4); MEAN CORPUSCULAR HGB CONC 34.2 g/dL (32.0-36.0); MEAN CORPUSCULAR VOLUME 95 fl (80-97); RED BLOOD COUNT 3.56 10^6/uL (4.35-5.55); RED CELL DISTRIBUTION WIDTH 15.2 % (11.5-14.0); WHITE BLOOD COUNT 2.6 10^3/uL (4.0-10.5)
[2020-02-01 07:11] LABS: PLATELET COUNT 39 10^3/uL (150-450)
[2020-02-01 07:22] LABS: ABSOLUTE LYMPHOCYTES# (MANUAL) 0.6 10^3/uL (0.5-4.7); ABSOLUTE MONOCYTES # (MANUAL) 0.9 10^3/uL (0.1-1.4); BAND NEUTROPHILS % (MANUAL) 1 % (3-5); BASOPHILS % (MANUAL) 1 % (0-2); EOSINOPHILS % (MANUAL) 4 % (0-6); LYMPHOCYTES % (MANUAL) 23 % (13-45); MONOCYTES % (MANUAL) 35 % (3-13); SEGMENTED NEUTROPHILS % (MAN) 36 % (42-78); TOTAL CELLS COUNTED 100
[2020-02-01 07:27] LABS: ANISOCYTOSIS SLIGHT; OVALOCYTES SLIGHT; PLATELET COMMENT DECREASED; TEAR DROP CELLS SLIGHT
[2020-02-01] MEDS: KETOROLAC TROMETHAMINE INJ/PF 30 MG/1 ML SDV IV PRN (10:53)
[2020-02-01] MEDS: CEFEPIME 1 GM/D5W RTU 1 GM/50 ML RTUPB IV SCH ×2 (10:57→22:20)
[2020-02-01] MEDS: CITALOPRAM HYDROBROMIDE 20 MG TABLET PO SCH (10:57)
[2020-02-01] MEDS: FUROSEMIDE 40 MG TABLET PO SCH (10:57)
[2020-02-01] MEDS: GABAPENTIN 400 MG CAPSULE PO SCH ×2 (10:57→22:21)
[2020-02-01] MEDS: POLYETHYLENE GLYCOL 3350 POWDER 17 GM/1 PACKET PO SCH (10:58)
[2020-02-01] MEDS: DOCUSATE SODIUM 100 MG CAPSULE PO SCH ×3 (10:58→20:53)
[2020-02-01] MEDS: INSULIN LISPRO 100 UNIT/ML 3 ML VIAL SUBCUT SCH ×3 (10:59→20:52)
[2020-02-01 11:21] LABS: PATH REVIEW PATHOLOGIST REVIEWED
--- NOTE | 2020-02-01 12:03 | EKG REPORT ---
SEVERITY:- OTHERWISE NORMAL ECG - SINUS RHYTHM BORDERLINE LEFT AXIS DEVIATION : Confirmed by: Luis Velasquez 01-Feb-2020 12:02:49
[2020-02-01] MEDS ORDERED: METHADONE HCL 10 MG TABLET PO ONE (15:09)
--- NOTE | 2020-02-01 19:35 | PDOC CONSULTATION ---
Consultation Consult Date: 02/01/20 Provider Consulted: ORA WILL Consult reason:: Hematology/Oncology consultation was requested for patient on active treatment for cancer who presents with hypoxia History of Present Illness Admission Date/PCP: 01/31/20 20:38 EMILIA MARTINEZ MD History of Present Illness: VERONIQUE SOLIZ is a 64 year old male who was diagnosed with multiple Myeloma in February 2017. He has been on active chemotherapy as outpatient and has had stable disease. He also follows with pain management and is on Methadone. Yesterday, his called our office concerned about his breathing and not being able to wake him up. She brought him to the ED and he was found to have hypercapnia, hypoxia, and altered mental status. He was started on CPAP and currently, is feeling much better. However, he states that he would like to stop the vicious shinnecock of back and forth to the hospital. Past Medical History Cardiac Medical History: Reports: Hyperlipidema, Hypertension Denies: Myocardial Infarction Pulmonary Medical History: Reports: Bronchitis, Sleep Apnea Endocrine Medical History: Reports: Diabetes Mellitus Type 2 Psychiatric Medical History: Reports: Depression Past Surgical History Past Surgical History: Reports: Appendectomy, Orthopedic Surgery - L knee, Tonsillectomy, Other - Nephrectomy, port placement Social History Lives with: Spouse/Significant other Smoking Status: Former Smoker Electronic Cigarette use?: No Frequency of Alcohol Use: None Hx Recreational Drug Use: No Drugs: None Hx Prescription Drug Abuse: No - Advance Directive Resuscitation Status: Full Code Family History Family History: Hypertension Parental Family History Reviewed: Yes Children Family History Reviewed: No Sibling(s) Family History Reviewed.: No Medication/Allergy Home Medications: Atorvastatin Calcium [Lipitor 20 mg Tablet] 20 mg PO QHS 11/03/19 Cholecalciferol (Vitamin D3) [Vitamin D3 2000 unit Tablet] 2,000 unit PO DAILY 11/03/19 Citalopram Hydrobromide [Celexa 40 mg Tablet] 40 mg PO DAILY 11/03/19 Dexamethasone [Decadron] 20 mg PO TH@0800 11/03/19 Docusate Sodium [Colace 100 mg Capsule] 100 mg PO DAILY 11/03/19 Furosemide [Lasix 40 mg Tablet] 40 mg PO QAM 11/03/19 Metformin HCl [Glucophage] 500 mg PO ACBRKFST 11/03/19 Methadone HCl [Dolophine 10 mg Tablet] 20 mg PO Q12 11/03/19 Spironolactone [Aldactone] 50 mg PO DAILY 11/03/19 Carfilzomib [Kyprolis] 0 mg IV ASDIR PRN 01/31/20 Gabapentin [Neurontin 400 mg Capsule] 400 mg PO DAILY 01/31/20 Gabapentin [Neurontin 400 mg Capsule] 800 mg PO QHS 01/31/20 Polyethylene Glycol 3350 [Miralax Powder 17 gm/Packet] 1 packet PO DAILYP PRN 01/31/20 Pomalidomide [Pomalyst] 3 mg PO ASDIR PRN 01/31/20 Allergies/Adverse Reactions: acetaminophen Adverse Reaction (Verified 01/31/20 15:41) Review of Systems Constitutional: ABSENT: fever(s), headache(s) Eyes: ABSENT: visual disturbances Ears: ABSENT: hearing changes Nose, Mouth, and Throat: ABSENT: sore throat Cardiovascular: ABSENT: chest pain Respiratory: PRESENT: dyspnea Gastrointestinal: ABSENT: constipation, nausea Genitourinary: ABSENT: dysuria Musculoskeletal: ABSENT: back pain Integumentary: ABSENT: rash Neurological: PRESENT: confusion Physical Exam Vital Signs: Temp Pulse Resp BP Pulse Ox 98.6 F 59 L 17 118/64 100 02/01/20 12:11 02/01/20 12:11 02/01/20 12:11 02/01/20 12:11 02/01/20 12:11 Intake & Output 01/31/20 02/01/20 02/02/20 06:59 06:59 06:59 Intake Total 135 527 Output Total 600 350 Balance -465 177 Weight 135.1 kg General appearance: PRESENT: no acute distress, morbidly obese Exam: 64 year old male. Head exam: PRESENT: normocephalic Eye exam: PRESENT: EOMI Mouth exam: PRESENT: tongue midline Neck exam: ABSENT: tenderness Respiratory exam: PRESENT: clear to auscultation pat, unlabored Cardiovascular exam: PRESENT: RRR GI/Abdominal exam: PRESENT: normal bowel sounds, soft. ABSENT: tenderness Extremities exam: ABSENT: pedal edema Neurological exam: PRESENT: alert, awake Psychiatric exam: PRESENT: appropriate affect Skin exam: PRESENT: normal color Results Laboratory Results: 02/01/20 05:58 02/01/20 05:58 01/31/20 02/01/20 02/01/20 21:44 05:58 05:58 WBC 2.6 L RBC 3.56 L Hgb 11.6 L Hct 34.0 L MCV 95 MCH 32.6 MCHC 34.2 RDW 15.2 H Plt Count 39 L Seg Neutrophils % Not Reportable Sodium 135.8 L Potassium 4.8 Chloride 101 Carbon Dioxide 29 Anion Gap 6 BUN 21 H Creatinine 0.69 Est GFR ( Amer) > 60 Glucose 89 Lactic Acid 1.0 Calcium 8.5 01/31/20 01/31/20 01/31/20 16:30 16:30 21:15 Creatine Kinase 21 L Troponin I < 0.012 < 0.012 NT-Pro-B Natriuret Pep 610 H Impressions: Chest X-Ray 01/31/20 15:51 IMPRESSION: NO ACUTE RADIOGRAPHIC FINDING IN THE CHEST. No significant change from prior exam. Assessment & Plan - Diagnosis (1) Hypercapnia Is this a current diagnosis for this admission?: Yes Plan: Now resolved. This may be multifactoral, but certainly the methadone is contributing. It may be that another agent is competing with the methadone for elimination and this is why it only happens occasionally. I am not sure when he was first started on the methadone, but I agree with plans to decrease the dose. (2) Multiple myeloma Qualifiers: Multiple myeloma remission status: unspecified Qualified Code(s): C90.00 - Multiple myeloma not having achieved remission Is this a current diagnosis for this admission?: Yes Plan: All treatment on hold until after discharge. (3) Sleep apnea in adult Is this a current diagnosis for this admission?: Yes Plan: CPAP. He needs to loose weight, but unsure if this is a reasonable goal. (4) Chronic pain Is this a current diagnosis for this admission?: Yes Plan: I agree with decreasing the methadone dose. He follows with pain clinic. I will defer to them. (5) Thrombocytopenia Is this a current diagnosis for this admission?: Yes Plan: This is chronic and due to his Myeloma and treatment. May transfuse for PLT <10 or active bleeding. No indication at this time. - Plan Summary Plan Summary: Please call with any questions or concerns. I will follow as outpatient, or later this week if patient is still in house.
--- NOTE | 2020-02-01 19:58 | PDOC PROGRESS REPORT ---
Subjective Progress Note for:: 02/01/20 Subjective:: No adverse events overnight. His mental status has improved. His daughter said that he has a BiPAP at home but they do not know what the settings are and they moved recently and she thinks that his settings have been altered somehow and that the BiPAP is not been effective because the patient normally sleeps pretty good and has not been sleeping well at home since the move. When he had the BiPAP on here, he slept very well. There is also been some discussion of consulting with his pain clinic doctor about altering his medication regimen to get him off methadone and onto something else. Reason For Visit: HYPERCAPNIC RESP FAILURE MADI MORBID OBESITY Physical Exam Vital Signs: Temp Pulse Resp BP Pulse Ox 98.6 F 59 L 17 118/64 100 02/01/20 12:11 02/01/20 12:11 02/01/20 12:11 02/01/20 12:11 02/01/20 12:11 Intake & Output 01/31/20 02/01/20 02/02/20 06:59 06:59 06:59 Intake Total 135 527 Output Total 600 350 Balance -465 177 Weight 135.1 kg General appearance: PRESENT: no acute distress, cooperative, disheveled, morbidly obese Respiratory exam: PRESENT: decreased breath sounds, symmetrical, unlabored. ABSENT: accessory muscle use, chest wall tenderness, crackles, prolonged expiratory phas, retraction, rhonchi, tachypnea, wheezes Cardiovascular exam: PRESENT: RRR, +S1, +S2 Pulses: PRESENT: normal carotid pulses Vascular exam: PRESENT: normal capillary refill GI/Abdominal exam: PRESENT: normal bowel sounds, soft. ABSENT: distended, guarding, rebound, tenderness Extremities exam: ABSENT: clubbing, pedal edema Musculoskeletal exam: PRESENT: normal inspection. ABSENT: deformity Neurological exam: PRESENT: alert, awake, oriented to person, oriented to place, oriented to situation Psychiatric exam: PRESENT: appropriate affect Skin exam: PRESENT: dry, warm Results Laboratory Results: 02/01/20 05:58 02/01/20 05:58 01/31/20 02/01/20 02/01/20 21:44 05:58 05:58 WBC 2.6 L RBC 3.56 L Hgb 11.6 L Hct 34.0 L MCV 95 MCH 32.6 MCHC 34.2 RDW 15.2 H Plt Count 39 L Seg Neutrophils % Not Reportable Sodium 135.8 L Potassium 4.8 Chloride 101 Carbon Dioxide 29 Anion Gap 6 BUN 21 H Creatinine 0.69 Est GFR ( Amer) > 60 Glucose 89 Lactic Acid 1.0 Calcium 8.5 01/31/20 01/31/20 01/31/20 16:30 16:30 21:15 Creatine Kinase 21 L Troponin I < 0.012 < 0.012 NT-Pro-B Natriuret Pep 610 H Impressions: Chest X-Ray 01/31/20 15:51 IMPRESSION: NO ACUTE RADIOGRAPHIC FINDING IN THE CHEST. No significant change from prior exam. Assessment and Plan - Diagnosis (1) Acute hypercapnic respiratory failure due to obstructive sleep apnea Is this a current diagnosis for this admission?: Yes Plan: I think a combination of been ineffective settings on his BiPAP combined with his what appears to be severe obstructive sleep apnea, with a contribution from his pain medication, is responsible for his current condition. He improved with BiPAP on settings of 16/8. I can very easily see him as being on settings of 20/6 at home. I recommended that he follow-up with his layout mechanic, and they do have a visit scheduled for Dr. Pacheco. I told him to take the machine with him to the visit and that he may require another titration study. Also think that his pain medication should be examined by his pain specialist in light of these comorbid conditions. (2) Multiple myeloma Qualifiers: Multiple myeloma remission status: unspecified Qualified Code(s): C90.00 - Multiple myeloma not having achieved remission Is this a current diagnosis for this admission?: Yes Plan: He will resume treatment as an outpatient (3) Chronic pain Is this a current diagnosis for this admission?: Yes Plan: As noted above - Time Time Spent with patient: 25-34 minutes
[2020-02-01] MEDS ORDERED: ATORVASTATIN CALCIUM 20 MG TABLET PO SCH (22:00)
[2020-02-01] MEDS: METHADONE HCL 10 MG TABLET PO SCH (22:20)
[2020-02-02] MEDS: HEPARIN SOD (PORCINE) 5,000 UNIT/ML 1 ML VIAL SUBCUT SCH ×2 (05:22→13:23)
[2020-02-02] MEDS: INSULIN LISPRO 100 UNIT/ML 3 ML VIAL SUBCUT SCH ×3 (08:50→16:13)
[2020-02-02] MEDS: DOCUSATE SODIUM 100 MG CAPSULE PO SCH ×2 (09:08→09:09)
[2020-02-02] MEDS: FUROSEMIDE 40 MG TABLET PO SCH (09:09)
[2020-02-02] MEDS: CITALOPRAM HYDROBROMIDE 20 MG TABLET PO SCH (09:09)
[2020-02-02] MEDS: GABAPENTIN 400 MG CAPSULE PO SCH (09:09)
[2020-02-02] MEDS: METHADONE HCL 10 MG TABLET PO SCH (09:10)
[2020-02-02] MEDS: CEFEPIME 1 GM/D5W RTU 1 GM/50 ML RTUPB IV SCH (09:13)
[2020-02-02] MEDS: POLYETHYLENE GLYCOL 3350 POWDER 17 GM/1 PACKET PO SCH (09:13)
[2020-02-02] MEDS: KETOROLAC TROMETHAMINE INJ/PF 30 MG/1 ML SDV IV PRN ×2 (09:18→16:21)
[2020-02-02] MEDS ORDERED: CHOLECALCIFEROL (D3) 1,000 UNIT (25 MCG) TABLET PO SCH (10:00)
[2020-02-02] MEDS ORDERED: SPIRONOLACTONE 25 MG TABLET PO SCH (10:00)
[2020-02-02] MEDS ORDERED: (PENDING PHARMACY ID) (Spironolactone [Aldactone] 50 MG) PO SCH (10:00)
[2020-02-02] MEDS ORDERED: (PENDING PHARMACY ID) (Cholecalciferol (Vitamin D3) [Vitamin D3 2000 Unit Tablet] 2,000 UN PO SCH (10:00)
[2020-02-02 12:01] LABS: ARTERIAL BLOOD BASE EXCESS 1.6 mmol/L; ARTERIAL BLOOD H2CO3 1.83 mmol/L (1.05-1.35); ARTERIAL BLOOD HCO3 29.2 mmol/L (20-24); ARTERIAL BLOOD O2 SATURATION 97.5 % (94-98); ARTERIAL BLOOD PCO2 60.9 mmHg (35-45); ARTERIAL BLOOD PO2 110.9 mmHg (80-100); ARTERIAL BLOOD TOTAL CO2 31.1 mmol/L (23-27)
[2020-02-02 12:33] VITALS: BP 121/76
[2020-02-02 12:59] LABS: ARTERIAL BLOOD FIO2 4L
--- NOTE | 2020-02-02 18:56 | PDOC DISCHARGE SUMMARY ---
Impression - Admit/DC Date/PCP Admission Date/Primary Care Provider: 01/31/20 20:38 EMILIA MARTINEZ MD Discharge Date: 02/02/20 - Discharge Diagnosis (1) Acute hypercapnic respiratory failure due to obstructive sleep apnea Is this a current diagnosis for this admission?: Yes (2) Multiple myeloma Is this a current diagnosis for this admission?: Yes (3) Chronic pain Is this a current diagnosis for this admission?: Yes - Additional Information Resuscitation Status: Full Code Discharge Diet: Cardiac, Diabetic Discharge Activity: Activity As Tolerated, Balance Activity w/Rest Referrals: EFRAIN PACHECO MD [ACTIVE STAFF] - (3-5 days) EMILIA MARTINEZ MD [Primary Care Provider] - 02/09/20 2:15 pm Home Medications: Atorvastatin Calcium [Lipitor 20 mg Tablet] 20 mg PO QHS 11/03/19 Cholecalciferol (Vitamin D3) [Vitamin D3 2000 unit Tablet] 2,000 unit PO DAILY 11/03/19 Citalopram Hydrobromide [Celexa 40 mg Tablet] 40 mg PO DAILY 11/03/19 Dexamethasone [Decadron] 20 mg PO TH@0800 11/03/19 Docusate Sodium [Colace 100 mg Capsule] 100 mg PO DAILY 11/03/19 Furosemide [Lasix 40 mg Tablet] 40 mg PO QAM 11/03/19 Metformin HCl [Glucophage] 500 mg PO [id number] 11/03/19 Methadone HCl [Dolophine 10 mg Tablet] 20 mg PO Q12 11/03/19 Spironolactone [Aldactone] 50 mg PO DAILY 11/03/19 Carfilzomib [Kyprolis] 0 mg IV ASDIR PRN 01/31/20 Gabapentin [Neurontin 400 mg Capsule] 400 mg PO DAILY 01/31/20 Gabapentin [Neurontin 400 mg Capsule] 800 mg PO QHS 01/31/20 Polyethylene Glycol 3350 [Miralax Powder 17 gm/Packet] 1 packet PO DAILYP PRN 01/31/20 Pomalidomide [Pomalyst] 3 mg PO ASDIR PRN 01/31/20 History of Present Illiness History of Present Illness: VERONIQUE SOLIZ is a 64 year old male with a past medical history of diabetes, bronchiectasis, multiple myeloma, on methadone, morbid obesity, obstructive sleep apnea and thrombocytopenia. He presents with fatigue and lethargy prompting evaluation in the emergency department where he is found to have persistent altered mental status and placed on BiPAP. Labs reveal hyperkalemia, thrombocytopenia, ABG reveals hypercapnic respiratory failure. Patient's at bedside verifies recent titration of methadone by pain management. Patient denies complaints but admits constipation verified by at bedside. He is referred to the hospitalist for admission. Patient's daughter a nurse requests an update in the morning. Hospital Course Hospital Course: He improved with BiPAP. His blood gas did not show much improvement but clinically he had gotten better. We held his methadone and initially and gave him a lesser dose on his first day in the hospital and got him back on his regular dosing regimen. He was encouraged to talk to his pain management doctor about altering his regimen. He also said that he is moved from [place] and since then he does not think his BiPAP is working right. He has an appointment coming up with patrol police sergeant, I believe Dr. Pacheco. And I encouraged him to take the device with the power cord to the appointment, and that he may require another titration study. I do believe he does well with BiPAP if his home BiPAP can get set appropriately then he may be able to avoid further CO2 retention. His labs and examination were reassuring he was discharged in stable condition. Physical Exam Vital Signs: Temp Pulse Resp BP Pulse Ox 98.1 F 64 18 121/76 94 02/02/20 16:27 02/02/20 16:27 02/02/20 16:27 02/02/20 16:27 02/02/20 16:27 Intake & Output 02/01/20 02/02/20 02/03/20 06:59 06:59 06:59 Intake Total 135 677 340 Output Total 600 350 Balance -465 327 340 Weight 135.1 kg 137 kg General appearance: PRESENT: no acute distress, cooperative, disheveled, morbidly obese Respiratory exam: PRESENT: decreased breath sounds, symmetrical, unlabored. ABSENT: accessory muscle use, chest wall tenderness, crackles, prolonged expiratory phas, retraction, rhonchi, tachypnea, wheezes Cardiovascular exam: PRESENT: RRR, +S1, +S2 Pulses: PRESENT: normal carotid pulses Vascular exam: PRESENT: normal capillary refill GI/Abdominal exam: PRESENT: normal bowel sounds, soft. ABSENT: distended, guarding, rebound, tenderness Extremities exam: ABSENT: clubbing, pedal edema Musculoskeletal exam: PRESENT: normal inspection. ABSENT: deformity Neurological exam: PRESENT: alert, awake, oriented to person, oriented to place, oriented to situation Psychiatric exam: PRESENT: appropriate affect Skin exam: PRESENT: dry, warm Results Laboratory Results: WBC 2.6 10^3/uL (4.0-10.5) L 02/01/20 05:58 RBC 3.56 10^6/uL (4.35-5.55) L 02/01/20 05:58 Hgb 11.6 g/dL (13.5-17.0) L 02/01/20 05:58 Hct 34.0 % (37.9-51.0) L 02/01/20 05:58 MCV 95 fl (80-97) 02/01/20 05:58 MCH 32.6 pg (27.0-33.4) 02/01/20 05:58 MCHC 34.2 g/dL (32.0-36.0) 02/01/20 05:58 RDW 15.2 % (11.5-14.0) H 02/01/20 05:58 Plt Count 39 10^3/uL (150-450) L 02/01/20 05:58 Lymph % (Auto) Not Reportable 02/01/20 05:58 Bullitt % (Auto) Not Reportable 02/01/20 05:58 Eos % (Auto) Not Reportable 02/01/20 05:58 Baso % (Auto) Not Reportable 02/01/20 05:58 Absolute Neuts (auto) Not Reportable 02/01/20 05:58 Absolute Lymphs (auto) Not Reportable 02/01/20 05:58 Absolute Monos (auto) Not Reportable 02/01/20 05:58 Absolute Eos (auto) Not Reportable 02/01/20 05:58 Absolute Basos (auto) Not Reportable 02/01/20 05:58 Total Counted 100 02/01/20 05:58 Seg Neutrophils % Not Reportable 02/01/20 05:58 Seg Neuts % (Manual) 36 % (42-78) L 02/01/20 05:58 Band Neutrophils % 1 % (3-5) L 02/01/20 05:58 Lymphocytes % (Manual) 23 % (13-45) 02/01/20 05:58 Atypical Lymphs % 6 % (0) 01/31/20 16:30 Monocytes % (Manual) 35 % (3-13) H 02/01/20 05:58 Eosinophils % (Manual) 4 % (0-6) 02/01/20 05:58 Basophils % (Manual) 1 % (0-2) 02/01/20 05:58 Metamyelocytes % 1 % (0-1) 01/31/20 16:30 Abs Neuts (Manual) 1.0 10^3/uL (1.7-8.2) L 02/01/20 05:58 Abs Lymphs (Manual) 0.6 10^3/uL (0.5-4.7) 02/01/20 05:58 Abs Monocytes (Manual) 0.9 10^3/uL (0.1-1.4) 02/01/20 05:58 Absolute Eos (Manual) 0.1 10^3/uL (0.0-0.6) 02/01/20 05:58 Abs Basophils (Manual) 0.0 10^3/uL (0.0-0.2) 02/01/20 05:58 Nucleated RBCs 1 /100 WBC (0) 01/31/20 16:30 Platelet Comment DECREASED 02/01/20 05:58 Poikilocytosis SLIGHT 01/31/20 16:30 Anisocytosis SLIGHT 02/01/20 05:58 Tear Drop Cells SLIGHT 02/01/20 05:58 Ovalocytes SLIGHT 02/01/20 05:58 Carbonic Acid 1.83 mmol/L (1.05-1.35) H 02/02/20 11:30 HCO3/H2CO3 Ratio 15:1 02/02/20 11:30 ABG pH 7.30 (7.35-7.45) L 02/02/20 11:30 ABG pCO2 60.9 mmHg (35-45) H 02/02/20 11:30 ABG pO2 110.9 mmHg (80-100) H 02/02/20 11:30 ABG HCO3 29.2 mmol/L (20-24) H 02/02/20 11:30 ABG Total CO2 31.1 mmol/L (23-27) H 02/02/20 11:30 ABG O2 Saturation 97.5 % (94-98) 02/02/20 11:30 ABG Base Excess 1.6 mmol/L 02/02/20 11:30 VBG pH 7.33 (7.30-7.42) 01/31/20 16:30 VBG pCO2 53.3 mmHg (35-63) 01/31/20 16:30 VBG HCO3 27.2 mmol/L (20-32) 01/31/20 16:30 VBG Base Excess 0.3 mmol/L 01/31/20 16:30 FiO2 4L 02/02/20 11:30 Sodium 135.8 mmol/L (137-145) L 02/01/20 05:58 Potassium 4.8 mmol/L (3.6-5.0) 02/01/20 05:58 Chloride 101 mmol/L (98-107) 02/01/20 05:58 Carbon Dioxide 29 mmol/L (22-30) 02/01/20 05:58 Anion Gap 6 (5-19) 02/01/20 05:58 BUN 21 mg/dL (7-20) H 02/01/20 05:58 Creatinine 0.69 mg/dL (0.52-1.25) 02/01/20 05:58 Est GFR ( Amer) > 60 (>60) 02/01/20 05:58 Est GFR (MDRD) Non-Af > 60 (>60) 02/01/20 05:58 Glucose 89 mg/dL (75-110) 02/01/20 05:58 POC Glucose 129 mg/dL (70-110) H 02/02/20 16:07 Lactic Acid 1.0 mmol/L (0.7-2.1) 01/31/20 21:44 Calcium 8.5 mg/dL (8.4-10.2) 02/01/20 05:58 Total Bilirubin 1.6 mg/dL (0.2-1.3) H 01/31/20 16:30 Direct Bilirubin 0.1 mg/dL (0.0-0.4) 01/31/20 16:30 Neonat Total Bilirubin Not Reportable 01/31/20 16:30 Neonat Direct Bilirubin Not Reportable 01/31/20 16:30 Neonat Indirect Bili Not Reportable 01/31/20 16:30 AST 22 U/L (17-59) 01/31/20 16:30 ALT 26 U/L (<50) 01/31/20 16:30 Alkaline Phosphatase 41 U/L (38-126) 01/31/20 16:30 Creatine Kinase 21 U/L (55-170) L 01/31/20 16:30 Troponin I < 0.012 ng/mL 01/31/20 21:15 NT-Pro-B Natriuret Pep 610 pg/mL (<125) H 01/31/20 16:30 Total Protein 6.9 g/dL (6.3-8.2) 01/31/20 16:30 Albumin 4.3 g/dL (3.5-5.0) 01/31/20 16:30 Urine Color YELLOW 01/31/20 17:00 Urine Appearance CLEAR 01/31/20 17:00 Urine pH 6.0 (5.0-9.0) 01/31/20 17:00 Ur Specific [place] 1.015 01/31/20 17:00 Urine Protein NEGATIVE mg/dL (NEGATIVE) 01/31/20 17:00 Urine Glucose (UA) NEGATIVE mg/dL (NEGATIVE) 01/31/20 17:00 Urine Ketones NEGATIVE mg/dL (NEGATIVE) 01/31/20 17:00 Urine Blood NEGATIVE (NEGATIVE) 01/31/20 17:00 Urine Nitrite (Reflex) NEGATIVE (NEGATIVE) 01/31/20 17:00 Urine Bilirubin NEGATIVE (NEGATIVE) 01/31/20 17:00 Urine Urobilinogen 2.0 mg/dL (<2.0) H 01/31/20 17:00 Leukocyte Esterase Rfl NEGATIVE (NEGATIVE) 01/31/20 17:00 Urine RBC (Auto) 3 /HPF 01/31/20 17:00 Urine Bacteria (Auto) TRACE /HPF 01/31/20 17:00 Urine WBC (Reflex) < 1 /HPF 01/31/20 17:00 Urine Mucus (Auto) RARE /LPF 01/31/20 17:00 Urine Ascorbic Acid 20 (NEGATIVE) H 01/31/20 17:00 Urine Opiates Screen NEGATIVE 01/31/20 17:00 Urine Methadone Screen UNCONFIRMED POSITIVE 01/31/20 17:00 Ur Barbiturates Screen NEGATIVE 01/31/20 17:00 Ur Phencyclidine Scrn NEGATIVE 01/31/20 17:00 Ur Amphetamines Screen NEGATIVE 01/31/20 17:00 U Benzodiazepines Scrn NEGATIVE 01/31/20 17:00 Urine Cocaine Screen NEGATIVE 01/31/20 17:00 U Marijuana (THC) Screen NEGATIVE 01/31/20 17:00 Influenza A (Rapid) NEGATIVE (NEGATIVE) 01/31/20 16:46 Influenza B (Rapid) NEGATIVE (NEGATIVE) 01/31/20 16:46 Slides for Path Review PATHOLOGIST REVIEWED 01/31/20 16:30 01/31/20 01/31/20 16:30 21:15 Troponin I < 0.012 < 0.012 NT-Pro-B Natriuret Pep 610 H Impressions: Chest X-Ray 01/31/20 15:51 IMPRESSION: NO ACUTE RADIOGRAPHIC FINDING IN THE CHEST. No significant change from prior exam. Plan Time Spent: Greater than 30 Minutes Stroke Is this a Stroke Patient?: No Acute Heart Failure - Is this a Heart Failure Patient?: No
== END 2020-02-02 17:24 | disposition home health service (06) ==
LOC: ER 15:25 → EH 20:38 → INTOOBSV 20:38 → 5 22:51
PROVIDERS: ADMIT Internal Medicine; ATTEND Internal Medicine
DX: J96.02 Acute respiratory failure with hypercapnia (principal); G47.33 Obstructive sleep apnea (adult) (pediatric); C90.00 Multiple myeloma not having achieved remission; G89.29 Other chronic pain; E11.9 Type 2 diabetes mellitus without complications; E87.5 Hyperkalemia; D69.6 Thrombocytopenia, unspecified; E66.01 Morbid (severe) obesity due to excess calories; E78.5 Hyperlipidemia, unspecified; I11.0 Hypertensive heart disease with heart failure; I50.9 Heart failure, unspecified; F32.9 Major depressive disorder, single episode, unspecified; R41.0 Disorientation, unspecified; K59.00 Constipation, unspecified; I87.8 Other specified disorders of veins; E86.0 Dehydration; Z79.891 Long term (current) use of opiate analgesic; Z79.899 Other long term (current) drug therapy; Z87.891 Personal history of nicotine dependence; Z90.5 Acquired absence of kidney; Z82.49 Family history of ischemic heart disease and other diseases of the circulatory system; Z90.49 Acquired absence of other specified parts of digestive tract
CPT/HCPCS: 93005; 99291; 99292; 36415 ×2; 87040; 82962 ×2; 82803 ×3; 82550; 83605; 85025 ×2; 80048; 80053; 81001; 84484; 80307; 87804; 83880; 71045; 94799; 93010; 36600 ×2; 94660 ×3; 94667; 94640; G0378 ×4; A9270 ×16; J1885; J0692 ×3; J3490; J7620

== ENCOUNTER → 2020-05-08 | Outpatient (CLI) | payer MEDICARE, OTHER ==
--- NOTE | 2020-05-09 10:13 | RADIOLOGY REPORT (SQ) ---
EXAM DESCRIPTION: MRI ABDOMEN COMBO IMAGES COMPLETED DATE/TIME: 05/08/2020 10:53 am REASON FOR STUDY: (R94.5)ABNORMAL RESULTS OF LIVER FUNCTION STUDIES;(K76.89)OTHER SPECIFIED D I85.00 ESOPHAGEAL VARICES WITHOUT BLEEDING R94.5 ABNORMAL RESULTS OF LIVER FUNCTION STUDIES B19.20 UNSPE CIFIED VIRAL HEPATITIS C WITHOUT HEPATIC COMA COMPARISON: None. TECHNIQUE: Multiplanar multisequence imaging performed without and with contrast including sagittal, axial and coronal T2, axial T1, axial gradient fat sat T1, axial, sagittal and coronal fat sat T1 po st contrast. CONTRAST TYPE AND DOSE: 20 mL Prohance. RENAL FUNCTION: Not indicated. ACR Type II contrast agent associated with few, if any, unconfounded cases of NSF LIMITATIONS: No comparison imaging of any kind FINDINGS: LIVER: Liver is normal size. No fatty infiltration. 3 cm craniocaudad by 3.5 cm transverse by 3 cm AP solid mass segment 6 right lobe liver. This is wel l-circumscribed, isointense to liver on precontrast T1 weighted images, nearly isointense to liver on T2 weighted images, with peripheral rim enhancement which does not completely fill in. This does no t represent a hemangioma, but rather a solid mass, possibly an at adenoma or focal nodular hyperplasi a. Metastatic lesion or primary liver tumor are possible but considered less likely. No dilated intrahepatic ducts. CBD normal. No choledocholithiasis Normal flow voids in the splenic vein, superior mesenteric vein, portal vein, hepatic veins. SPLEEN: 14 cm greatest length. No focal lesions PANCREAS: No masses. No adjacent inflammation or peripancreatic fluid collections. Pancreatic duct no t dilated. GALLBLADDER: No masses. No stones. No gallbladder wall thickening or pericholecystic fluid. ADRENAL GLANDS: No significant masses or asymmetry. RIGHT KIDNEY AND URETER: No masses. No hydronephrosis. 1.5 cm cyst right lower pole kidney. LEFT KIDNEY AND URETER: Surgically absent. AORTA AND VESSELS: No aneurysm. No dissection. Renal arteries, SMA, celiac without stenosis. RETROPERITONEUM: No retroperitoneal adenopathy, hemorrhage or masses. BOWEL: Not well seen ABDOMINAL WALL AND PERITONEUM: No hernias. No free fluid. BONES: Chronic L1 upper endplate compression deformity, without significant contrast enhancement OTHER: No other significant finding. IMPRESSION: 3.5 x 3 cm mass, right lobe liver segment 6. Abnormal but nonspecific. At adenoma, foc al nodular hyperplasia are possible. Less likely primary tumor or metastatic tumor. TECHNICAL DOCUMENTATION: JOB ID: [id number] 2010 [employer]- All Rights Reserved Reading location - IP/workstation name: [email or web address]
== END ==
LOC: RAD 09:02
PROVIDERS: ATTEND Internal Medicine Gastroenterology
DX: R94.5 Abnormal results of liver function studies (principal); K76.89 Other specified diseases of liver
CPT/HCPCS: 82565; 74183; A9576; J1642

== ENCOUNTER → 2020-05-22 | Outpatient (CLI) | payer MEDICARE, OTHER ==
--- NOTE | 2020-05-22 17:34 | EKG REPORT ---
SEVERITY:- OTHERWISE NORMAL ECG - SINUS RHYTHM BORDERLINE LEFT AXIS DEVIATION : Confirmed by: Jolynn Dobbs MD 22-May-2020 17:34:06
== END ==
LOC: OD 15:58
PROVIDERS: ATTEND Physician Assistant Medical
DX: R94.31 Abnormal electrocardiogram [ECG] [EKG] (principal); K74.69 Other cirrhosis of liver; K76.89 Other specified diseases of liver
CPT/HCPCS: 36415; 82105; 93005; 93010

== ENCOUNTER 2020-06-12 02:25 | Inpatient (IN) | payer MEDICARE, OTHER ==
[2020-06-12] MEDS ORDERED: MORPHINE SULFATE 10 MG/ML INJ IV ONE ×2 (04:08→07:16)
[2020-06-12 04:26] LABS: HEMATOCRIT 40.8 % (37.9-51.0); HEMOGLOBIN 13.8 g/dL (13.5-17.0); MEAN CORPUSCULAR HEMOGLOBIN 31.9 pg (27.0-33.4); MEAN CORPUSCULAR HGB CONC 33.7 g/dL (32.0-36.0); MEAN CORPUSCULAR VOLUME 95 fl (80-97); RED BLOOD COUNT 4.32 10^6/uL (4.35-5.55); RED CELL DISTRIBUTION WIDTH 14.2 % (11.5-14.0); WHITE BLOOD COUNT 3.7 10^3/uL (4.0-10.5)
[2020-06-12] MEDS ORDERED: IBUPROFEN 600 MG TABLET PO ONE (04:30)
[2020-06-12] MEDS ORDERED: ONDANSETRON HCL INJ/PF 4 MG/2 ML SDV IV ONE ×2 (04:30→07:16)
[2020-06-12 04:41] LABS: PLATELET COUNT 58 10^3/uL (150-450)
[2020-06-12 04:44] LABS: ABSOLUTE LYMPHOCYTES# (MANUAL) 0.3 10^3/uL (0.5-4.7); BAND NEUTROPHILS % (MANUAL) 7 % (3-5); BASOPHILS % (MANUAL) 0 % (0-2); EOSINOPHILS % (MANUAL) 0 % (0-6); LYMPHOCYTES % (MANUAL) 8 % (13-45); MONOCYTES % (MANUAL) 28 % (3-13); SEGMENTED NEUTROPHILS % (MAN) 57 % (42-78); TOTAL CELLS COUNTED 100
[2020-06-12 04:45] LABS: ANISOCYTOSIS 1+; PLATELET COMMENT DECREASED; POLYCHROMASIA 1+
[2020-06-12 05:25] LABS: ALBUMIN 2.1 g/dL (3.5-5.0); ASPARTATE AMINO TRANSFERASE 24 U/L (17-59); BILIRUBIN,TOTAL 1.1 mg/dL (0.2-1.3); BLOOD UREA NITROGEN 18 mg/dL (7-20); GLUCOSE 88 mg/dL (75-110); TOTAL PROTEIN 4.2 g/dL (6.3-8.2)
[2020-06-12 05:32] LABS: CARBON DIOXIDE 18 mmol/L (22-30); CHLORIDE 116 mmol/L (98-107)
[2020-06-12 05:33] LABS: ALKALINE PHOSPHATASE < 20 U/L (38-126)
[2020-06-12 05:35] LABS: ANION GAP 2 (5-19); CALCIUM 4.7 mg/dL (8.4-10.2)
[2020-06-12] MEDS ORDERED: POTASSIUM CHLORIDE 10 MEQ TABLET.ER PO ONE (05:58)
[2020-06-12] MEDS ORDERED: CALCIUM GLUCONATE 1000 MG/10 ML INJ IV ONE (05:59)
[2020-06-12 06:59] LABS: APPEARANCE,URINE CLEAR; BILIRUBIN,URINE NEGATIVE (NEGATIVE); COLOR,URINE AMBER; GLUCOSE, URINE NEGATIVE (NEGATIVE); KETONES,URINE TRACE mg/dL (NEGATIVE); PROTEIN,URINE 100 mg/dL (NEGATIVE); URINE SPECIFIC GRAVITY 1.025
[2020-06-12] MEDS ORDERED: PIPERACILLIN/TAZOBACTAM 3.375 GM VIAL IV ONE (07:07)
[2020-06-12] MEDS ORDERED: VANCOMYCIN HCL INJ 1000 MG VIAL IV ONE (07:07)
[2020-06-12] MEDS ORDERED: NORMAL SALINE 1000 ML 1,000 ML IV ONE (07:09)
--- NOTE | 2020-06-12 07:15 | ER Document Report ---
ED General - General Chief Complaint: Leg Pain Stated Complaint: FEVER,DIARRHEA,HIPS Time Seen by Provider: 06/12/20 06:16 Primary Care Provider: EMILIA MARTINEZ MD [Primary Care Provider] - Follow up as needed Notes: 65 yom who presents to the ER with his complaining of left leg pain. Patient reports he began to have LLE pain this past Friday x7 days. Patient further reports increased pain since Friday in which this past Friday he has been "limping" on LLE when attempting to ambulate. Patient required assistance standing from vehicle and pivoting onto wheelchair in [facility] parking lot by medical staff. Patient presents with redness on left lateral outer aspect of lower extremity that extends from his meredith to his thigh. Redness is warm to touch and painful upon palpation. Patient has venous stasis present to bilateral LE's, as well. Patient reports history of cellulitis in the past. Patient and report discovering redness upon triage with this nurse. Patient also reports fever which began this evening with a temperature of 102.2 at home. Patient denies taking pain medication or tylenol/motrin for fever CIRCULATING NURSE. Pt presents with temperature of 100.4 in triage. Patient has a history of multiple myeloma in which patient is currently undergoing PO chemotherapy. Patient is scheduled PO chemo 21 days on and 7 days off. Patient is currently on day 3 of chemo. Patient on 2lom of oxygen via NC due to side effects of chemotherapy. Pt is alert and oriented x4. VSS in triage. Charge nurse, Isela DUPONT, aware that patient is in need of bed due to immunocompromised patient. TRAVEL OUTSIDE OF THE [place] IN LAST 30 DAYS: No - Related Data Allergies/Adverse Reactions: acetaminophen Adverse Reaction (Verified 01/31/20 15:41) Past Medical History - Social History Smoking Status: Never Smoker Chew tobacco use (# tins/day): No Frequency of alcohol use: None Drug Abuse: None Family History: Hypertension - Past Medical History Cardiac Medical History: Reports: Hx Hypercholesterolemia, Hx Hypertension Denies: Hx Heart Attack Pulmonary Medical History: Reports: Hx Bronchitis, Hx Sleep Apnea Endocrine Medical History: Reports: Hx Diabetes Mellitus Type 2 Renal/ Medical History: Denies: Hx Peritoneal Dialysis Psychiatric Medical History: Reports: Hx Depression Past Surgical History: Reports: Hx Appendectomy, Hx Kidney (Renal Surgery) - 1 removed as child, Hx Orthopedic Surgery - L knee, Hx Tonsillectomy, Other - Nephrectomy, port placement Review of Systems - Review of Systems Constitutional: Chills, Diaphoresis, Fever EENT: denies: Nose congestion Cardiovascular: denies: Dyspnea Respiratory: denies: Cough, Short of breath Gastrointestinal: Diarrhea, Nausea. denies: Vomiting Genitourinary: denies: Dysuria, Flank pain Musculoskeletal: Joint pain, Ankle swelling Skin: Rash -: Yes All other systems reviewed and negative Physical Exam - Vital signs Vitals: Temp Pulse Resp BP Pulse Ox 100.4 F 102 H 19 136/77 H 93 06/12/20 02:40 06/12/20 02:40 06/12/20 02:40 06/12/20 02:40 06/12/20 02:40 - Notes Notes: GENERAL_APPEARANCE: well_nourished, alert, cooperative, ill-appearing VITALS: reviewed, see vital signs table. HEAD: no_swelling\\tenderness on the head. EYES: PERRL, EOMI, conjunctiva_clear. NOSE: no_nasal_discharge. MOUTH: (-)decreased moisture. THROAT: no_tonsilar_inflammation, no_airway_obstruction. no_lymphadenopathy NECK: supple, no_neck_tenderness, (-)thyromegaly. BACK: no_back_tenderness. CHEST_WALL: no_chest_tenderness. LUNGS: no_wheezing, no_rales, no_rhonchi, (-)accessory muscle use, good air exchange bilateral. HEART: normal_rate, normal_rhythm, normal_S1, normal_S2, (-)S3, (-)S4, no_murmur, no_rub. ABDOMEN: normal_BS, soft, no_abd_tenderness, (-)guarding, (-)rebound, no_organomegaly, no_abd_masses. EXTREMITIES: Left leg is swollen red warm to touch there is increased redness on the left calf extending up to the left leg. It is tender throughout no crepitus is noted dorsalis pedis pulses present, 3+ edema lower extremity SKIN: Hot diaphoretic, good_color, pyelitis left lower extremity MENTAL_STATUS: speech_clear, oriented_X_3, normal_affect, responds_appropriately to questions. NEURO: Neg Motor or Sensory Deficits on exam, CN 2-12 intact, DTR 2+ symmetric x 4, No cerbellar signs Course - Re-evaluation Re-evalutation: 06/12/20 07:13 65-year-old male history multiple myeloma presents with cellulitis and swelling the left leg. The patient has fever. Sepsis protocol was started lactic acid blood cultures patient given Vanco and Zosyn. We will get a Doppler of his left lower extremities again since he is a cancer patient DVT is a consideration however this looks to be plainly cellulitis. I have measured his pulse dorsalis pedis and posterior tibial on the left. They are present. I doubt arterial occlusion at this time. The patient's potassium was low which was supplemented. Patient was given a liter of IV fluids he has had diarrhea also. IV fluids will help with this. - Vital Signs Vital signs: Temp Pulse Resp BP Pulse Ox 100.2 F 102 H 14 150/77 H 95 06/12/20 06:32 06/12/20 02:40 06/12/20 06:00 06/12/20 05:02 06/12/20 06:00 - Laboratory Result Diagrams: 06/12/20 03:32 06/12/20 04:22 Laboratory results interpreted by me: 06/12/20 06/12/20 06/12/20 03:32 04:22 06:29 WBC 3.7 L RBC 4.32 L RDW 14.2 H Plt Count 58 L Band Neutrophils % 7 H Lymphocytes % (Manual) 8 L Monocytes % (Manual) 28 H Abs Lymphs (Manual) 0.3 L Sodium 135.7 L Potassium 3.0 L* Chloride 116 H Carbon Dioxide 18 L Anion Gap 2 L Calcium 4.7 L* Alkaline Phosphatase < 20 L Total Protein 4.2 L Albumin 2.1 L Urine Protein 100 H Urine Ketones TRACE H Urine Blood MODERATE H Urine Urobilinogen 4.0 H - Diagnostic Test Radiology reviewed: Reports reviewed Radiology results interpreted by me: 06/12/20 08:42 Chest X-Ray 06/12/20 07:08 IMPRESSION: Negative chest allowing for low lung volumes. Hip X-Ray 06/12/20 07:08 IMPRESSION: Suspect soft tissue edema. No underlying bony abnormality. - EKG Interpretation by Me EKG shows normal: Sinus rhythm Critical Care Note - Critical Care Note Total time excluding time spent on procedures (mins): 33 Discharge - Discharge Clinical Impression: Cellulitis Qualifiers: Site of cellulitis: extremity Site of cellulitis of extremity: lower extremity Laterality: left Qualified Code(s): L03.116 - Cellulitis of left lower limb CHF (congestive heart failure) Qualifiers: Heart failure type: systolic Condition: Fair Disposition: ADMITTED INPATIENT Admitting Provider: Johanny (Hospitalist) Unit Admitted: Telemetry Referrals: EMILIA MARTINEZ MD [Primary Care Provider] - Follow up as needed ED Sepsis - Sepsis Documentation Sepsis Patient: Yes
--- NOTE | 2020-06-12 08:11 | RADIOLOGY REPORT (SQ) ---
EXAM DESCRIPTION: HIP LEFT AP/LATERAL IMAGES COMPLETED DATE/TIME: 06/12/2020 7:56 am REASON FOR STUDY: fever pain COMPARISON: None. NUMBER OF VIEWS: Two views. TECHNIQUE: AP and frog-leg view of the left hip. LIMITATIONS: None. FINDINGS: MINERALIZATION: Normal. LEFT HIP: No fracture or dislocation. No worrisome bone lesions. No contour deformity. No joint spa ce narrowing. OPPOSITE HIP: No fracture or dislocation. No worrisome bone lesions. SOFT TISSUES: No focal soft tissue mass. Mild soft tissue edema cannot be excluded. OTHER: No other significant finding. IMPRESSION: Suspect soft tissue edema. No underlying bony abnormality. TECHNICAL DOCUMENTATION: JOB ID: [id number] 2010 [employer]- All Rights Reserved Reading location - IP/workstation name: [email or web address]
--- NOTE | 2020-06-12 08:11 | RADIOLOGY REPORT (SQ) ---
EXAM DESCRIPTION: CHEST SINGLE VIEW IMAGES COMPLETED DATE/TIME: 06/12/2020 7:56 am REASON FOR STUDY: fever pain COMPARISON: 01/31/2020 EXAM PARAMETERS: NUMBER OF VIEWS: One view. TECHNIQUE: Single frontal radiographic view of the chest acquired. RADIATION DOSE: NA LIMITATIONS: Low lung volumes. FINDINGS: LUNGS AND PLEURA: No opacities, masses or pneumothorax. No pleural effusion. MEDIASTINUM AND HILAR STRUCTURES: No masses. Contour normal. HEART AND VASCULAR STRUCTURES: Heart normal in size. Normal vasculature. BONES: No acute findings. HARDWARE: [id number] remains in place. OTHER: No other significant finding. IMPRESSION: Negative chest allowing for low lung volumes. TECHNICAL DOCUMENTATION: JOB ID: [id number] 2010 [employer]- All Rights Reserved Reading location - IP/workstation name: [email or web address]
[2020-06-12] MEDS ORDERED: MAG HYDROX/AL HYDROX/SIMETH SUSP 30 ML UDCUP PO ONE (09:10)
[2020-06-12] MEDS ORDERED: LIDOCAINE 2% VISCOUS SOLN 15 ML UDCUP PO ONE (09:11)
--- NOTE | 2020-06-12 10:03 | RADIOLOGY REPORT (SQ) ---
EXAM DESCRIPTION: VENOUS UNILATERAL LOWER IMAGES COMPLETED DATE/TIME: 06/12/2020 9:49 am REASON FOR STUDY: Left leg swelling COMPARISON: None. TECHNIQUE: Dynamic and static morejon scale and color images acquired of the left leg venous system. Se lected spectral images acquired with additional compression and augmentation maneuvers. The contralat eral common femoral vein and saphenofemoral junction were also imaged. Images stored on PACS. LIMITATIONS: None. FINDINGS: COMMON FEMORAL: Normal phasicity, compression and augmentation. No visualized echogenic ma terial on morejon scale. No defects on color images. FEMORAL: Normal compression and augmentation. No visualized echogenic material on morejon scale. No defe cts on color images. POPLITEAL: Normal compression, augmentation. No visualized echogenic material on morejon scale. No defec ts on color images. CALF VESSELS: Normal compression, augmentation. No visualized echogenic material on morejon scale. No de fects on color images. GSV and SSV: Normal compression, augmentation. No visualized echogenic material on morejon scale. No def ects on color images. ANY DEEP VENOUS INSUFFICIENCY: Not evaluated. ANY EVIDENCE OF POPLITEAL CYST: No. OTHER: No other significant finding. CONTRALATERAL COMMON FEMORAL VEIN AND SAPHENOFEMORAL JUNCTION: Normal phasicity, compression and augmentation. No visualized echogenic material on morejon scale. No de fects on color images. IMPRESSION: NO EVIDENCE DVT OR SVT IN THE LEFT LEG. TECHNICAL DOCUMENTATION: JOB ID: [id number] 2010 [employer]- All Rights Reserved Reading location - IP/workstation name: [email or web address]
[2020-06-12] MEDS ORDERED: IBUPROFEN 600 MG TABLET PO PRN (11:06)
[2020-06-12] MEDS ORDERED: MAG HYDROX/AL HYDROX/SIMETH SUSP 30 ML UDCUP PO PRN (11:06)
[2020-06-12] MEDS ORDERED: IPRATROPIUM/ALBUTEROL 0.5-2.5 MG/3 ML AMPUL NEB PRN (11:06)
[2020-06-12] MEDS ORDERED: ONDANSETRON HCL INJ/PF 4 MG/2 ML SDV IV PRN (11:06)
[2020-06-12] MEDS ORDERED: MAGNESIUM HYDROXIDE SUSP 30 ML UDCUP PO PRN (11:06)
[2020-06-12] MEDS ORDERED: POLYETHYLENE GLYCOL 3350 POWDER 17 GM/1 PACKET PO PRN (11:48)
[2020-06-12] MEDS ORDERED: DEXTROSE 40% GEL 15 GM TUBE PO PRN ×2 (11:52)
[2020-06-12] MEDS ORDERED: DEXTROSE 50%-WATER 25 GM/50 ML DISP.SYRIN IV PRN ×2 (11:52)
[2020-06-12] MEDS ORDERED: GLUCAGON,HUMAN RECOMB 1 MG INJ IM PRN (11:52)
--- NOTE | 2020-06-12 11:54 | PDOC H&P ---
History of Present Illness Admission Date/PCP: 06/12/20 09:18 EMILIA MARTINEZ MD Patient complains of: Severe cellulitis left leg with underlying multiple myeloma History of Present Illness: VERONIQUE SOLIZ is a 65 year old male with a very complex medical history inclu ding multiple myeloma with multiple bony metastases and associated pain as well as neutropenia and thrombocytopenia. History of hepatitis C with cirrhosis and nonalcoholic steatohepatitis. There is a question of cardiac function as well. He also is being monitored for his QT interval. He has endoscopy yearly to monitor for esophageal varices and has imaging yearly to follow-up on a mass on his liver. He sees Dr. Pacheco for what is likely sleep apnea and obesity hypoventilation syndrome as well as possible COPD. 2 to 3 days ago the patient began to notice some redness in his left leg. He was having increasing pain. He was rototilling in the backyard and the pain may have started after this. On Friday he had trouble walking because of the pain in his leg. He temporarily used a cane. Yesterday he began having diarrhea and last night had a fever of 102.9F. Approximately 5 to 6 months ago he had a similar infection in his left leg. When I spoke to his daughter, who is a nurse, she believes that this is the third episode. He has had 2 surgeries on the left knee in the past. The left leg has swelling and significant erythema. His legs have pigment deposition distally from chronic edema. His white blood cell count is low at 3.7 but he does have 7% bands. Platelet count is low at 58,000. Hemoglobin is 13.8. He exhibited hypokalemia (3.0) hypocalcemia (4.7 with albumin 2.1) and hyponatremia. Blood cultures have been obtained. His blood pressures have been running on the low side but he did get a liter of fluid bolus. He will be admitted to telemetry. We will continue antibiotic his thrombocytopenia is chronic as is his hypoxemia. His lactic acid was normal. Serum creatinine was normal. His total bilirubin is normal as well therefore he does not meet criteria for sepsis although he is quite ill. We will continue his vancomycin and Zosyn at this time. There is no fluid or discharge from his leg to culture. With his immune system compromised we would like the broadest spectrum possible. Past Medical History Cardiac Medical History: Reports: Hyperlipidema, Hypertension Denies: Myocardial Infarction Pulmonary Medical History: Reports: Bronchitis, Chronic Obstructive Pulmonary Disease (COPD), Sleep Apnea, Other - Obesity hypoventilation EENT Medical History: Denies: Eyes, Ears, Nose Neurological Medical History: Denies: Hemorrhagic CVA, Ischemic CVA Endocrine Medical History: Reports: Other - Hyperlipidemia Renal/ Medical History: Denies: Chronic Kidney Disease, Nephrolithiasis Malignancy Medical History: Reports: Other - Multiple myeloma with bone metastases GI Medical History: Reports: Cirrhosis - Nonalcoholic steatohepatitis with cirrhosis, Hepatitis - Hepatitis C Musculoskeltal Medical History: Reports: Other - Chronic pain from bone metastases Skin Medical History: Denies: Eczema, Psoriasis Psychiatric Medical History: Reports: Alcohol Dependency, Depression, Substance Abuse, Tobacco Dependency Psychiatric History Note: Remote history (greater than 30 years ago) of alcohol, tobacco and recreational drugs Traumatic Medical History: Reports: None Hematology: Reports: Neutropenia, Other - Thrombocytopenia Infectious Medical History: Reports: Hepatitis C Past Surgical History Past Surgical History: Reports: Appendectomy, Orthopedic Surgery - L knee, Tonsillectomy, Other - Nephrectomy, port placement Social History Information Source: Patient, Relative - Patient's , [facility] [place] Records Lives with: Spouse/Significant other Smoking Status: Former Smoker Electronic Cigarette use?: No Frequency of Alcohol Use: None Hx Recreational Drug Use: No - Remote history greater than 30 years ago Drugs: None Hx Prescription Drug Abuse: No - Chronic pain medication for bony metastases - Advance Directive Resuscitation Status: Full Code Family History Family History: Hypertension, Other - Sister with bleeding varices, alcohol liver disease Parental Family History Reviewed: Yes - Still alive Children Family History Reviewed: Yes - Psoriatic arthritis, asthma Sibling(s) Family History Reviewed.: Yes Medication/Allergy Home Medications: Atorvastatin Calcium [Lipitor 20 mg Tablet] 20 mg PO QHS 11/03/19 Cholecalciferol (Vitamin D3) [Vitamin D3 2000 unit Tablet] 2,000 unit PO DAILY 11/03/19 Citalopram Hydrobromide [Celexa 40 mg Tablet] 40 mg PO DAILY 11/03/19 Dexamethasone [Decadron] 20 mg PO TH@0800 11/03/19 Docusate Sodium [Colace 100 mg Capsule] 100 mg PO DAILY 11/03/19 Furosemide [Lasix 40 mg Tablet] 40 mg PO QAM 11/03/19 Metformin HCl [Glucophage] 500 mg PO DAILY 11/03/19 Methadone HCl [Dolophine 10 mg Tablet] 10 mg PO Q12 11/03/19 Spironolactone [Aldactone] 50 mg PO DAILY 11/03/19 Gabapentin [Neurontin 400 mg Capsule] 800 mg PO Q12 01/31/20 Polyethylene Glycol 3350 [Miralax Powder 17 gm/Packet] 1 packet PO DAILYP PRN 01/31/20 Pomalidomide [Pomalyst] 3 mg PO ASDIR PRN 01/31/20 Hydromorphone HCl [Dilaudid] 4 mg PO DAILYP PRN 06/12/20 Ondansetron HCl [Zofran 8 mg Tablet] 8 mg PO DAILYP PRN 06/12/20 Umeclidinium Brm/Vilanterol Tr [Anoro Ellipta 62.5-25 Mcg INH] 1 puff PO BID 06/12/20 Allergies/Adverse Reactions: acetaminophen Adverse Reaction (Verified 01/31/20 15:41) Review of Systems All systems: reviewed and no additional remarkable complaints except as stated Constitutional: PRESENT: fever(s), weakness, other - Decreased appetite Cardiovascular: PRESENT: edema Gastrointestinal: PRESENT: diarrhea Musculoskeletal: PRESENT: back pain - Rib pain Integumentary: PRESENT: erythema Physical Exam Vital Signs: Temp Pulse Resp BP Pulse Ox 97.7 F 102 H 15 120/70 98 06/12/20 11:47 06/12/20 02:40 06/12/20 11:04 06/12/20 11:04 06/12/20 11:04 Intake & Output 06/11/20 06/12/20 06/13/20 06:59 06:59 06:59 Intake Total 1000 Balance 1000 Weight 134.263 kg General appearance: PRESENT: cooperative, mild distress, morbidly obese, well- developed Head exam: PRESENT: atraumatic, normocephalic Eye exam: PRESENT: conjunctiva pink, EOMI. ABSENT: scleral icterus Ear exam: PRESENT: normal external ear exam. ABSENT: bleeding, drainage Mouth exam: PRESENT: dry mucosa, tongue midline Respiratory exam: PRESENT: rales - Faint at bases, symmetrical, unlabored. ABSENT: rhonchi, tachypnea, wheezes Cardiovascular exam: PRESENT: RRR, +S1, +S2, systolic murmur - Possible faint murmur. ABSENT: bradycardia, diastolic murmur, irregular rhythm Pulses: PRESENT: normal radial pulses, +1 pedal pulses bilateral GI/Abdominal exam: PRESENT: distended, normal bowel sounds, soft. ABSENT: guarding, tenderness Rectal exam: PRESENT: deferred Gentrourinary exam: ABSENT: indwelling catheter Extremities exam: PRESENT: pedal edema, +1 edema - Left leg greater than right, other - Very tender lateral left leg Musculoskeletal exam: PRESENT: tenderness. ABSENT: normal inspection Neurological exam: PRESENT: alert, awake, oriented to person, oriented to place, oriented to time, oriented to situation, CN II-XII grossly intact. ABSENT: altered Psychiatric exam: PRESENT: flat affect. ABSENT: agitated, anxious Focused psych exam: ABSENT: delusional, paranoid, restlessness Skin exam: PRESENT: erythema, other - Pigment deposition bilateral lower legs from chronic edema Results Laboratory Results: 06/12/20 03:32 06/12/20 04:22 06/12/20 06/12/20 06/12/20 03:32 03:32 03:32 WBC 3.7 L RBC 4.32 L Hgb 13.8 Hct 40.8 MCV 95 MCH 31.9 MCHC 33.7 RDW 14.2 H Plt Count 58 L Seg Neutrophils % Not Reportable Sodium Cancelled Potassium Cancelled Chloride Cancelled Carbon Dioxide Cancelled Anion Gap Cancelled BUN Cancelled Creatinine Cancelled Est GFR ( Amer) Cancelled Est GFR (Non-Af Amer) Cancelled Glucose Cancelled Lactic Acid 1.5 Calcium Cancelled Total Bilirubin Cancelled AST Cancelled Alkaline Phosphatase Cancelled Total Protein Cancelled Albumin Cancelled Urine Color Urine Appearance Urine pH Ur Specific [place] Urine Protein Urine Glucose (UA) Urine Ketones Urine Blood Urine RBC (Auto) 06/12/20 06/12/20 04:22 06:29 WBC RBC Hgb Hct MCV MCH MCHC RDW Plt Count Seg Neutrophils % Sodium 135.7 L Potassium 3.0 L* Chloride 116 H Carbon Dioxide 18 L Anion Gap 2 L BUN 18 Creatinine 0.66 Est GFR ( Amer) > 60 Est GFR (Non-Af Amer) Glucose 88 Lactic Acid Calcium 4.7 L* Total Bilirubin 1.1 AST 24 Alkaline Phosphatase < 20 L Total Protein 4.2 L Albumin 2.1 L Urine Color DARRON Urine Appearance CLEAR Urine pH 5.0 Ur Specific [place] 1.025 Urine Protein 100 H Urine Glucose (UA) NEGATIVE Urine Ketones TRACE H Urine Blood MODERATE H Urine RBC (Auto) 3 Impressions: Chest X-Ray 06/12/20 07:08 IMPRESSION: Negative chest allowing for low lung volumes. Hip X-Ray 06/12/20 07:08 IMPRESSION: Suspect soft tissue edema. No underlying bony abnormality. Venous Doppler Study 06/12/20 07:08 IMPRESSION: NO EVIDENCE DVT OR SVT IN THE LEFT LEG. Assessment and Plan - Diagnosis (1) Cellulitis of left leg Is this a current diagnosis for this admission?: Yes Plan: This is the second or third admission for severe cellulitis of the left leg. He will be on vancomycin and Zosyn. This will give broad-spectrum coverage in immunocompromised patient. (2) Multiple myeloma Qualifiers: Multiple myeloma remission status: unspecified Qualified Code(s): C90.00 - Multiple myeloma not having achieved remission Is this a current diagnosis for this admission?: Yes Plan: Patient of Dr. Bonilla. He is currently getting high-dose dexamethasone weekly as well as Pomalyst 3 mg daily for 3 weeks and then 1 week off. He is currently on day 3 of this cycle. A consult was placed on Dr. Bonilla will be seeing the patient tomorrow. She did inform me that she is going to hold the Decadron and Pomalyst. The patient has multiple bony metastases causing chronic pain. (3) Hypocalcemia Is this a current diagnosis for this admission?: Yes Plan: Calcium is only 4.7. Despite a low albumin it still does not correct into the normal range. He was given IV calcium in the emergency department. I will continue oral calcium supplements and we will monitor his calcium levels. Consider checking an ionized calcium. We will investigate further due to the multiple electrolytes abnormal (4) Hypokalemia Is this a current diagnosis for this admission?: Yes Plan: Serum potassium was also quite low. We will supplement and monitor closely. We will further investigate due to the multiple electrolyte abnormalities (5) Thrombocytopenia Is this a current diagnosis for this admission?: Yes Plan: Likely secondary to the chemotherapy. Will monitor closely. No DVT prophylaxis with heparin or Lovenox at this time. (6) Leukopenia Qualifiers: Neutropenia type: unspecified Is this a current diagnosis for this admission?: Yes Plan: Secondary to chemotherapy. Continue to monitor. (7) Hyponatremia Is this a current diagnosis for this admission?: Yes Plan: Very mild. Will monitor. Will likely correct on its own. (8) Chronic pain Qualifiers: Chronic pain type: due to neoplasm Qualified Code(s): G89.3 - Neoplasm related pain (acute) (chronic) Is this a current diagnosis for this admission?: Yes Plan: Mostly secondary to bony metastases. Continue methadone with Dilaudid for breakthrough pain (9) Sleep apnea in adult Is this a current diagnosis for this admission?: Yes Plan: The patient sees Tara. He is on Trelegy at home. We will continue [facility] hospital. Dr. Pacheco will be consulting. (10) Morbid obesity with alveolar hypoventilation Is this a current diagnosis for this admission?: Yes Plan: As above. I have ordered that the patient utilize BiPAP at night and anytime that he is sleeping during the day (11) COPD (chronic obstructive pulmonary disease) Qualifiers: COPD type: unspecified COPD Qualified Code(s): J44.9 - Chronic obstructive pulmonary disease, unspecified Is this a current diagnosis for this admission?: Yes Plan: We will utilize the Trelegy inhaler at this time. He is on Anoro at home. (12) Leg edema Is this a current diagnosis for this admission?: Yes Plan: The patient is daily furosemide. His left leg is larger than the right due to the cellulitis. We will monitor his intake and output, continue the furosemide and I have ordered an echocardiogram to assess his cardiac function. - Time Time Spent with patient: 35 or more minutes Medications reviewed and adjusted accordingly: Yes Anticipated discharge: Home with Homehealth Within: Other - Unknown but likely 5 to 7 days - Inpatient Certification Based on my medical assessment, after consideration of the patient's comorbidit ies, presenting symptoms, or acuity I expect that the services needed warrant INPATIENT care.: Yes I certify that my determination is in accordance with my understanding of Me lida's requirements for reasonable and necessary INPATIENT services [42 CFR 412.3e].: Yes Medical Necessity: Significant Comorbidiites Make Outpatient Treatment Too Risky, Need Close Monitoring Due to Risk of Patient Decompensation, Need For IV Fluids, Need For Continuous Telemetry Monitoring, Need for Nebulizer Therapy and Monitoring of Response, Need for Pain Control, Need for IV Antibiotics, Risk of Complication if Not Cared For in Hospital Post Hospital Care: D/C [employer] Documentation
[2020-06-12] MEDS ORDERED: POMALIDOMIDE 3 MG PO SCH (12:00)
[2020-06-12] MEDS ORDERED: VANCOMYCIN HCL 0 MG in DEXTROSE 5%-WATER 250 ML IV NR (12:15)
[2020-06-12] MEDS: PIPERACILLIN SODIUM/TAZOBACTAM 3.375 GM in NORMAL SALINE 100 ML IV SCH ×2 (15:37→20:06)
[2020-06-12 16:57] LABS: INTERNATIONAL RATION (INR) 1.26; PROTHROMBIN TIME 15.8 SEC (11.4-15.4)
[2020-06-12 17:08] LABS: ALBUMIN 3.3 g/dL (3.5-5.0); BLOOD UREA NITROGEN 29 mg/dL (7-20); CALCIUM 7.3 mg/dL (8.4-10.2); GLUCOSE 132 mg/dL (75-110); PHOSPHORUS 2.1 mg/dL (2.5-4.5)
[2020-06-12] MEDS: VANCOMYCIN HCL 1,000 MG in DEXTROSE 5%-WATER 250 ML IV SCH (17:12)
[2020-06-12] MEDS: CALCIUM CARBONATE 600 MG TABLET PO SCH (17:12)
[2020-06-12 17:13] LABS: PARTIAL THROMBOPLASTIN TIME < 23.0 SEC (23.5-35.8)
[2020-06-12 17:14] LABS: CHLORIDE 101 mmol/L (98-107)
[2020-06-12 17:19] LABS: ANION GAP 4 (5-19); CARBON DIOXIDE 28 mmol/L (22-30)
--- NOTE | 2020-06-12 17:22 | ADVANCED CARE ---
- Diagnosis (1) Cellulitis of left leg Diagnosis Current: Yes (2) Multiple myeloma Diagnosis Current: Yes (3) Hypocalcemia Diagnosis Current: Yes (4) Hypokalemia Diagnosis Current: Yes (5) Thrombocytopenia Diagnosis Current: Yes (6) Leukopenia Diagnosis Current: Yes (7) Hyponatremia Diagnosis Current: Yes (8) Chronic pain Diagnosis Current: Yes (9) Sleep apnea in adult Diagnosis Current: Yes (10) Morbid obesity with alveolar hypoventilation Diagnosis Current: Yes (11) COPD (chronic obstructive pulmonary disease) Diagnosis Current: Yes (12) Leg edema Diagnosis Current: Yes Attendance: Discussion was held at the bedside with patient's present Resuscitation Status: Full Code Discussion: In light of his multiple comorbidities I felt it was appropriate to discuss CODE STATUS and advanced care planning further. We reviewed the initial decision for full CODE STATUS. I have explained a typical post catastrophic event especially in a patient with multiple severe comorbidities. The patient's explained that if anything were to happen they would want full resuscitation efforts and based on the patient's recovery and prognosis post event they would make further decisions. I did point out that it would be very helpful to establish a living will so that the patient can make determinations about disposition. I also explained that they can designate a second decision-maker. His daughter is a nurse. I did speak with her at length on the phone about the patient during the admission process. Care Planning Goals: Further review realistic expectations and post catastrophic event prognosis Document(s) Completed: None Time Spent: 20 minutes
[2020-06-12 17:27] LABS: POTASSIUM 4.8 mmol/L (3.6-5.0)
[2020-06-12] MEDS: HYDROMORPHONE HCL INJ/PF 2 MG/ML AMPULE IV PRN (19:50)
--- NOTE | 2020-06-12 20:56 | XCELERA REPORT ---
[address] [address] Transthoracic Echocardiogram Report Name: VERONIQUE SOLIZ Age: 65 yrs Gender: Male : 1955 Patient Status: Inpatient Patient Location: [address] [place] [address] Study Date: 06/12/2020 05:21 PM Height: 66 in Weight: 296 lb BSA: 2.4 m2 Procedure: A complete two-dimensional transthoracic echocardiogram was performed (2D, M-mode, spectral and color flow Doppler). Images were not obtained from all of the standard acoustic windows due to the limited scope of the study. Images from the parasternal window were difficult to obtain and are suboptimal in quality. The apical views were not obtained due to lung artifact. Reason For Study: Assess function Hx cirrhosis, mult myeloma, failur Ordering Physician: CRISTEL BANKS Performed By: Ai Izquierdo Interpretation Summary Technically difficult study for interpretation due to poor echocardiographic windows. The apical views were not obtained due to lung artifact. The left ventricle is grossly normal size. Grossly normal systolic function. Doppler measurements suggest impaired left ventricular relaxation, which is associated with grade I/IV or mild diastolic dysfunction. Regional wall motion abnormalities cannot be excluded due to limited visualization. Mild LAE. Cannot coment on valvular abnormalities due to the poor quality of the study. Trace to mild MR. No prior studies for comparison. MMode/2D Measurements & Calculations RVDd: 3.9 cm LVIDd: 6.3 cm FS: 40.3 % Ao root diam: 3.6 cm IVSd: 0.94 cm LVIDs: 3.8 cm EDV(Teich): 200.6 ml Ao root area: 10.1 cm2 LVPWd: 1.1 cm ESV(Teich): 60.2 ml LA dimension: 4.3 cm EF(Teich): 70.0 % Doppler Measurements & Calculations MV E max ángel: MV P1/2t max ángel: Ao V2 max: LV V1 max P.5 cm/sec 83.3 cm/sec 150.8 cm/sec 4.5 mmHg MV A max ángel: MV P1/2t: 102.4 msec Ao max PG: LV V1 max: 74.0 cm/sec MVA(P1/2t): 2.1 cm2 9.1 mmHg 106.6 cm/sec MV E/A: 0.88 MV dec slope: 238.1 cm/sec2 MV dec time: 0.19 sec PA V2 max: MV P1/2t-pr_phl: 120.9 cm/sec 102.4 msec PA max P.8 mmHg Left Ventricle The left ventricle is grossly normal size. Grossly normal systolic function. Doppler measurements suggest impaired left ventricular relaxation, which is associated with grade I/IV or mild diastolic dysfunction. Regional wall motion abnormalities cannot be excluded due to limited visualization. Right Ventricle The right ventricle is normal in size, thickness and function. The right ventricular systolic function is normal. Atria The right atrium is normal. The left atrium is mildly dilated. Not well visualized. Mitral Valve The mitral valve is not well visualized. There is no evidence of mitral valve prolapse. There is no mitral valve stenosis. There is a trace to mild amount of mitral regurgitation. Aortic Valve The aortic valve is not well visualized secondary to technical limitations. There is no aortic valve stenosis. No aortic regurgitation is present. Tricuspid Valve The tricuspid valve is not well visualized secondary to technical limitations. There is no tricuspid stenosis. Pulmonic Valve The pulmonic valve is not well visualized. There is no pulmonic valvular stenosis. There is no pulmonic valvular regurgitation. Effusions There is no pericardial effusion. There is no pleural effusion. : CRISTEL BANKS Antonio
--- NOTE | 2020-06-12 21:12 | EKG REPORT ---
SEVERITY:- BORDERLINE ECG - SINUS RHYTHM BORDERLINE LEFT AXIS DEVIATION BORDERLINE PROLONGED QT INTERVAL : Confirmed by: Abdirahman Oleary MD 12-Jun-2020 21:11:53
[2020-06-12] MEDS: METHADONE HCL 10 MG TABLET PO SCH (21:31)
[2020-06-12] MEDS: GABAPENTIN 400 MG CAPSULE PO SCH (21:31)
[2020-06-12] MEDS: ATORVASTATIN CALCIUM 20 MG TABLET PO SCH (21:31)
[2020-06-12] MEDS ORDERED: METHADONE HCL 10 MG TABLET PO SCH (22:00)
[2020-06-13] MEDS: VANCOMYCIN HCL 1,000 MG in DEXTROSE 5%-WATER 250 ML IV SCH ×3 (01:53→17:09)
[2020-06-13] MEDS: PIPERACILLIN SODIUM/TAZOBACTAM 3.375 GM in NORMAL SALINE 100 ML IV SCH ×4 (03:51→20:04)
[2020-06-13 05:38] LABS: HEMATOCRIT 36.2 % (37.9-51.0); HEMOGLOBIN 12.1 g/dL (13.5-17.0); MEAN CORPUSCULAR HEMOGLOBIN 31.6 pg (27.0-33.4); MEAN CORPUSCULAR HGB CONC 33.5 g/dL (32.0-36.0); MEAN CORPUSCULAR VOLUME 94 fl (80-97); RED BLOOD COUNT 3.84 10^6/uL (4.35-5.55); RED CELL DISTRIBUTION WIDTH 13.9 % (11.5-14.0); WHITE BLOOD COUNT 2.8 10^3/uL (4.0-10.5)
[2020-06-13 05:48] LABS: ALBUMIN 3.2 g/dL (3.5-5.0); BLOOD UREA NITROGEN 24 mg/dL (7-20); CALCIUM 7.2 mg/dL (8.4-10.2); GLUCOSE 113 mg/dL (75-110); POTASSIUM 4.2 mmol/L (3.6-5.0)
[2020-06-13 05:53] LABS: CARBON DIOXIDE 28 mmol/L (22-30); CHLORIDE 100 mmol/L (98-107)
[2020-06-13 05:58] LABS: ANION GAP 5 (5-19)
[2020-06-13 06:03] LABS: PLATELET COUNT 47 10^3/uL (150-450)
[2020-06-13 06:11] LABS: ABSOLUTE LYMPHOCYTES# (MANUAL) 0.4 10^3/uL (0.5-4.7); ABSOLUTE MONOCYTES # (MANUAL) 0.3 10^3/uL (0.1-1.4); BAND NEUTROPHILS % (MANUAL) 9 % (3-5); BASOPHILS % (MANUAL) 0 % (0-2); EOSINOPHILS % (MANUAL) 0 % (0-6); LYMPHOCYTES % (MANUAL) 15 % (13-45); MONOCYTES % (MANUAL) 10 % (3-13); SEGMENTED NEUTROPHILS % (MAN) 65 % (42-78); TOTAL CELLS COUNTED 100
[2020-06-13 06:13] LABS: ANISOCYTOSIS 2+; OVALOCYTES 2+; PLATELET COMMENT ADEQUATE; POIKILOCYTOSIS 2+; SCHISTOCYTES SLIGHT; TEAR DROP CELLS 1+; TOXIC GRANULATION 1+; TOXIC VACUOLATION PRESENT
[2020-06-13] MEDS: INSULIN LISPRO 100 UNIT/ML 3 ML VIAL SUBCUT SCH (08:18)
--- NOTE | 2020-06-13 08:22 | PDOC CONSULTATION ---
Consultation Consult Date: 06/13/20 Provider Consulted: ORA WILL Consult reason:: Hematology/Oncology consultation was requested for patient on active treatment for multiple myeloma who was admitted for cellulitis. History of Present Illness Admission Date/PCP: 06/12/20 09:18 EMILIA MARTINEZ MD History of Present Illness: VERONIQUE SOLIZ is a 65 year old male who was diagnosed with multiple myeloma in February 2017. Most recently, he has been stable on Pomalyst and Dexamethasone. He started his most recent cycle on 06/08/2020. Each cycle is 28 days. He had been doing well until a few days ago when his leg became red and painful. He has been admitted to the hospital previously for cellulitis similar to this episode. He was started on appropriate antibiotics and today the area of erythema is much less than the inked margin from yesterday. He states that he is feeling better and is sitting up on the side of the bed eating his breakfast. He is ambulating without difficulty and has no other complaints. Past Medical History Cardiac Medical History: Reports: Hyperlipidema, Hypertension Denies: Myocardial Infarction Pulmonary Medical History: Reports: Bronchitis, Chronic Obstructive Pulmonary Disease (COPD), Sleep Apnea, Other - Obesity hypoventilation EENT Medical History: Reports: Other - Thrombocytopenia Denies: Eyes, Ears, Nose Neurological Medical History: Denies: Hemorrhagic CVA, Ischemic CVA Endocrine Medical History: Reports: Diabetes Mellitus Type 2, Other - Hyperlipidemia Renal/ Medical History: Denies: Chronic Kidney Disease, Nephrolithiasis Malignancy Medical History: Reports: Other - Multiple myeloma with bone metastases GI Medical History: Reports: Cirrhosis - Nonalcoholic steatohepatitis with cirrhosis, Hepatitis - Hepatitis C Musculoskeltal Medical History: Reports: Other - Chronic pain from bone metastas es Skin Medical History: Denies: Eczema, Psoriasis Psychiatric Medical History: Reports: Alcohol Dependency, Depression, Substance Abuse, Tobacco Dependency Traumatic Medical History: Reports: None Hematology: Reports: Neutropenia, Other - Thrombocytopenia Infectious Medical History: Reports: Hepatitis C Past Surgical History Past Surgical History: Reports: Appendectomy, Orthopedic Surgery - L knee, Tonsillectomy, Other - Nephrectomy, port placement Social History Lives with: Spouse/Significant other Smoking Status: Former Smoker Electronic Cigarette use?: No Frequency of Alcohol Use: None Hx Recreational Drug Use: No - Remote history greater than 30 years ago Drugs: None Hx Prescription Drug Abuse: No - Chronic pain medication for bony metastases - Advance Directive Resuscitation Status: Full Code Family History Family History: Hypertension, Other - Sister with bleeding varices, alcohol liver disease Parental Family History Reviewed: Yes - Mother and father are still living. Children Family History Reviewed: No Sibling(s) Family History Reviewed.: Yes - Sister of alcoholism Medication/Allergy Home Medications: Atorvastatin Calcium [Lipitor 20 mg Tablet] 20 mg PO QHS 11/03/19 Cholecalciferol (Vitamin D3) [Vitamin D3 2000 unit Tablet] 2,000 unit PO DAILY 11/03/19 Citalopram Hydrobromide [Celexa 40 mg Tablet] 40 mg PO DAILY 11/03/19 Dexamethasone [Decadron] 20 mg PO TH@0800 11/03/19 Docusate Sodium [Colace 100 mg Capsule] 100 mg PO DAILY 11/03/19 Furosemide [Lasix 40 mg Tablet] 40 mg PO QAM 11/03/19 Metformin HCl [Glucophage] 500 mg PO DAILY 11/03/19 Methadone HCl [Dolophine 10 mg Tablet] 10 mg PO Q12 11/03/19 Spironolactone [Aldactone] 50 mg PO DAILY 11/03/19 Gabapentin [Neurontin 400 mg Capsule] 800 mg PO Q12 01/31/20 Polyethylene Glycol 3350 [Miralax Powder 17 gm/Packet] 1 packet PO DAILYP PRN 01/31/20 Pomalidomide [Pomalyst] 3 mg PO ASDIR PRN 01/31/20 Hydromorphone HCl [Dilaudid] 4 mg PO DAILYP PRN 06/12/20 Ondansetron HCl [Zofran 8 mg Tablet] 8 mg PO DAILYP PRN 06/12/20 Umeclidinium Brm/Vilanterol Tr [Anoro Ellipta 62.5-25 Mcg INH] 1 puff PO BID 06/12/20 Allergies/Adverse Reactions: acetaminophen Adverse Reaction (Verified 01/31/20 15:41) Review of Systems Constitutional: ABSENT: fever(s), headache(s) Eyes: ABSENT: visual disturbances Ears: ABSENT: hearing changes Nose, Mouth, and Throat: ABSENT: sore throat Cardiovascular: ABSENT: chest pain Respiratory: ABSENT: dyspnea Gastrointestinal: PRESENT: diarrhea, heartburn Genitourinary: ABSENT: dysuria Integumentary: PRESENT: as per HPI Neurological: ABSENT: confusion, dizziness Hematologic/Lymphatic: ABSENT: easy bleeding Physical Exam Vital Signs: Temp Pulse Resp BP Pulse Ox 97.9 F 76 16 125/79 100 06/13/20 03:52 06/13/20 03:52 06/13/20 03:52 06/13/20 03:52 06/13/20 03:52 Intake & Output 06/12/20 06/13/20 06/14/20 06:59 06:59 06:59 Intake Total 2516 Output Total 950 Balance 1566 Weight 134.263 kg 126.5 kg General appearance: PRESENT: no acute distress, morbidly obese Exam: 65 year old male. Head exam: PRESENT: atraumatic, normocephalic Eye exam: PRESENT: EOMI Mouth exam: PRESENT: moist Neck exam: ABSENT: lymphadenopathy, tenderness Respiratory exam: PRESENT: clear to auscultation pat, unlabored Cardiovascular exam: PRESENT: RRR GI/Abdominal exam: PRESENT: soft. ABSENT: tenderness Extremities exam: PRESENT: other - Bilateral venous stasis changes and woody edema in both ankles. Neurological exam: PRESENT: alert, awake Psychiatric exam: PRESENT: appropriate affect Skin exam: PRESENT: other - Erythema over left lateral thigh. Improved from inked margins. Results Laboratory Results: 06/13/20 04:50 06/13/20 04:50 06/12/20 06/13/20 06/13/20 16:28 04:50 04:50 WBC 2.8 L RBC 3.84 L Hgb 12.1 L Hct 36.2 L MCV 94 MCH 31.6 MCHC 33.5 RDW 13.9 Plt Count 47 L Seg Neutrophils % Not Reportable Sodium 132.6 L 132.8 L Potassium 4.8 D 4.2 Chloride 101 100 Carbon Dioxide 28 D 28 Anion Gap 4 L 5 BUN 29 H 24 H Creatinine 1.20 1.12 Est GFR ( Amer) > 60 > 60 Glucose 132 H 113 H Calcium 7.3 L 7.2 L Ionized Calcium Kole Phosphorus 2.1 L 2.0 L Magnesium 2.1 2.2 Albumin 3.3 L 3.2 L 06/13/20 04:50 WBC RBC Hgb Hct MCV MCH MCHC RDW Plt Count Seg Neutrophils % Sodium Potassium Chloride Carbon Dioxide Anion Gap BUN Creatinine Est GFR ( Amer) Glucose Calcium Ionized Calcium Kole 1.08 L Phosphorus Magnesium Albumin Impressions: Chest X-Ray 06/12/20 07:08 IMPRESSION: Negative chest allowing for low lung volumes. Hip X-Ray 06/12/20 07:08 IMPRESSION: Suspect soft tissue edema. No underlying bony abnormality. Venous Doppler Study 06/12/20 07:08 IMPRESSION: NO EVIDENCE DVT OR SVT IN THE LEFT LEG. Assessment & Plan - Diagnosis (1) Cellulitis of left leg Is this a current diagnosis for this admission?: Yes Plan: Agree with primary team. Antibiotics to continue. He will also need DVT prophylaxis. I will defer to primary team. (2) Multiple myeloma Qualifiers: Multiple myeloma remission status: in remission Qualified Code(s): C90.01 - Multiple myeloma in remission Is this a current diagnosis for this admission?: Yes Plan: Currently myeloma numbers have been very stable on treatment. I will hold all treatment while on antibiotics. I will follow as outpatient and restart these medications once discharged.
[2020-06-13] MEDS: POTASSIUM CHLORIDE 10 MEQ TABLET.ER PO SCH (09:04)
[2020-06-13] MEDS: METHADONE HCL 10 MG TABLET PO SCH ×2 (09:04→21:21)
[2020-06-13] MEDS: FUROSEMIDE 40 MG TABLET PO SCH (09:04)
[2020-06-13] MEDS: SPIRONOLACTONE 25 MG TABLET PO SCH (09:04)
[2020-06-13] MEDS: CALCIUM CARBONATE 600 MG TABLET PO SCH ×2 (09:04→17:09)
[2020-06-13] MEDS: GABAPENTIN 400 MG CAPSULE PO SCH ×2 (09:04→21:21)
[2020-06-13] MEDS: CITALOPRAM HYDROBROMIDE 20 MG TABLET PO SCH (09:05)
[2020-06-13] MEDS: CHOLECALCIFEROL (D3) 1,000 UNIT (25 MCG) TABLET PO SCH (09:05)
[2020-06-13] MEDS: HYDROMORPHONE HCL INJ/PF 2 MG/ML AMPULE IV PRN ×2 (09:05→20:39)
[2020-06-13] MEDS: METFORMIN HCL 500 MG TABLET PO SCH (09:05)
[2020-06-13] MEDS: DOCUSATE SODIUM 100 MG CAPSULE PO SCH (09:05)
--- NOTE | 2020-06-13 09:44 | EKG REPORT ---
SEVERITY:- OTHERWISE NORMAL ECG - SINUS RHYTHM BORDERLINE LEFT AXIS DEVIATION : Confirmed by: Luis Velasquez 13-Jun-2020 09:43:53
[2020-06-13] MEDS ORDERED: (PENDING PHARMACY ID) (Cholecalciferol (Vitamin D3) [Vitamin D3 2000 Unit Tablet] 2,000 UN PO SCH (10:00)
[2020-06-13] MEDS ORDERED: (PENDING PHARMACY ID) (Spironolactone [Aldactone] 50 MG) PO SCH (10:00)
[2020-06-13] MEDS ORDERED: (PENDING PHARMACY ID) (Citalopram Hydrobromide [Celexa 40 Mg Tablet] 40 MG) PO SCH (10:00)
--- NOTE | 2020-06-13 10:12 | CDI QUERY ---
CDI Query CDI Review: Documentation in the Medical Record indicates: Height: 5 ft 6 in Weight: 134.3 kg (295.4 lbs) Calculated BMI: 47.6 kg/m2 The following is also documented in the Medical Record: Morbid obesity with alveolar hypoventilation Labs: Total Protein 4.2 Albumin 2.1 Based on your medical judgement, can you further clarify in the Progress Notes the diagnosis associated with these findings: Morbid Obesity / BMI 47.6 kg /m2 Morbid obesity with alveolar hypoventilation / BMI 47.6 kg /m2 Other condition (please specify) None of the above / Not applicable Based on your medical judgement, can you further clarify in the Progress Notes the diagnosis associated with these findings: Malnutrition (please note degree: mild, moderate, severe) Protein calorie malnutrition Hypo-albuminemia Unable to determine Other Thank you for your consideration. LAUREN LoweryN RN Clinical [employer] Physician Advisor
[2020-06-13] MEDS: FLUTICASONE/UMECLIDIN/VILANTER 100-62.5-25 MCG/DOSE IH SCH (10:30)
[2020-06-13 11:08] LABS: VANCOMYCIN,TROUGH 9.6 ug/mL (5.0-20.0)
--- NOTE | 2020-06-13 11:48 | PDOC PROGRESS REPORT ---
Subjective Progress Note for:: 06/13/20 Subjective:: Sitting at the edge of the bed eating lunch. Comfortable. He is on his baseline oxygen supplementation of 4 L nasal cannula per minute. Reason For Visit: CELLULITIS,MULTIPLE MYELOMA,HEP C,GARCIA,CIRRHOSIS, Physical Exam Vital Signs: Temp Pulse Resp BP Pulse Ox 98.6 F 88 17 105/62 98 06/13/20 07:50 06/13/20 07:50 06/13/20 07:50 06/13/20 07:50 06/13/20 07:50 Intake & Output 06/12/20 06/13/20 06/14/20 06:59 06:59 06:59 Intake Total 2516 100 Output Total 950 Balance 1566 100 Weight 134.263 kg 126.5 kg General appearance: PRESENT: no acute distress, cooperative, morbidly obese, well-developed Head exam: PRESENT: atraumatic, normocephalic Ear exam: PRESENT: normal external ear exam. ABSENT: bleeding, drainage Mouth exam: PRESENT: moist, tongue midline Respiratory exam: PRESENT: clear to auscultation pat, symmetrical, unlabored. ABSENT: accessory muscle use, prolonged expiratory phas, rales, rhonchi, tachypnea, wheezes Cardiovascular exam: PRESENT: RRR, +S1, other - Occasional irregular beat Extremities exam: PRESENT: pedal edema - Bilaterally, +1 edema - Left leg Skin exam: PRESENT: erythema Results Laboratory Results: 06/13/20 04:50 06/13/20 10:25 06/12/20 06/13/20 06/13/20 16:28 04:50 04:50 WBC 2.8 L RBC 3.84 L Hgb 12.1 L Hct 36.2 L MCV 94 MCH 31.6 MCHC 33.5 RDW 13.9 Plt Count 47 L Seg Neutrophils % Not Reportable Sodium 132.6 L 132.8 L Potassium 4.8 D 4.2 Chloride 101 100 Carbon Dioxide 28 D 28 Anion Gap 4 L 5 BUN 29 H 24 H Creatinine 1.20 1.12 Est GFR ( Amer) > 60 > 60 Glucose 132 H 113 H Calcium 7.3 L 7.2 L Ionized Calcium Kole Phosphorus 2.1 L 2.0 L Magnesium 2.1 2.2 Albumin 3.3 L 3.2 L 07/21/20 07/21/20 04:50 10:25 WBC RBC Hgb Hct MCV MCH MCHC RDW Plt Count Seg Neutrophils % Sodium Potassium Chloride Carbon Dioxide Anion Gap BUN Creatinine 1.14 Est GFR ( Amer) > 60 Glucose Calcium Ionized Calcium Kole 1.08 L Phosphorus Magnesium Albumin Impressions: Chest X-Ray 06/12/20 07:08 IMPRESSION: Negative chest allowing for low lung volumes. Hip X-Ray 06/12/20 07:08 IMPRESSION: Suspect soft tissue edema. No underlying bony abnormality. Venous Doppler Study 06/12/20 07:08 IMPRESSION: NO EVIDENCE DVT OR SVT IN THE LEFT LEG. Assessment and Plan - Diagnosis (1) Cellulitis of left leg Is this a current diagnosis for this admission?: Yes Plan: Slightly improved today with less erythema and less pain. Continue antibiotic therapy. Should likely have a slightly longer course of antibiotics due to the recurrence of this infection. (2) Multiple myeloma Qualifiers: Multiple myeloma remission status: in remission Qualified Code(s): C90.01 - Multiple myeloma in remission Is this a current diagnosis for this admission?: Yes Plan: Appreciate Dr. Gaona's input. Dexamethasone and Pomylast currently on hold. Decreased white blood cell count and decreased platelets are concerning. Continue to monitor CBC. (3) Hypocalcemia Is this a current diagnosis for this admission?: Yes Plan: Improved with IV and p.o. calcium. We will continue p.o. calcium and monitor progress. (4) Hypokalemia Is this a current diagnosis for this admission?: Yes Plan: Corrected with potassium supplement. We will continue daily supplement and monitor potassium level closely. Adjust medications accordingly. (5) Thrombocytopenia Is this a current diagnosis for this admission?: Yes Plan: Platelet count dropped to 47,000. Holding on DVT prophylaxis due to thrombo cytopenia. We will continue to monitor platelet counts closely. (6) Leukopenia Qualifiers: Neutropenia type: unspecified Is this a current diagnosis for this admission?: Yes Plan: White blood cell count is down to. There are 9% bands. Will monitor closely as we treat his cellulitis. (7) Hyponatremia Is this a current diagnosis for this admission?: Yes Plan: Serum sodium is still low at 132. May need to fluid restrict as opposed to stopping furosemide. (8) Chronic pain Qualifiers: Chronic pain type: due to neoplasm Qualified Code(s): G89.3 - Neoplasm r elated pain (acute) (chronic) Is this a current diagnosis for this admission?: Yes Plan: Analgesic medication available. (9) Sleep apnea in adult Is this a current diagnosis for this admission?: Yes Plan: BiPAP at night. Nasal cannula during the day. (10) Morbid obesity with alveolar hypoventilation Is this a current diagnosis for this admission?: Yes Plan: Due to BMI of 45.0. Continue BiPAP at night and nasal cannula oxygen during the day (11) COPD (chronic obstructive pulmonary disease) Qualifiers: COPD type: unspecified COPD Qualified Code(s): J44.9 - Chronic obstructive pulmonary disease, unspecified Is this a current diagnosis for this admission?: Yes Plan: Continue Trelegy inhaler and as needed nebulizer treatments (12) Leg edema Is this a current diagnosis for this admission?: Yes Plan: Most likely secondary to low albumin and morbid obesity (BMI 45). Cannot rule out venous insufficiency. The left leg is currently more swollen than the right due to the infection. Elevate legs when possible. On the left flank pain decreases then consider return to compression stockings. (13) Hypoalbuminemia Is this a current diagnosis for this admission?: Yes Plan: Due to chronic malignancy. Consider protein supplements. - Time Time Spent with patient: 15-24 minutes Medications reviewed and adjusted accordingly: Yes Anticipated discharge: Home Within: within 72 hours
[2020-06-13] MEDS: ATORVASTATIN CALCIUM 20 MG TABLET PO SCH (21:21)
[2020-06-14] MEDS: VANCOMYCIN HCL 1,000 MG in DEXTROSE 5%-WATER 250 ML IV SCH ×3 (01:08→18:34)
[2020-06-14] MEDS: PIPERACILLIN SODIUM/TAZOBACTAM 3.375 GM in NORMAL SALINE 100 ML IV SCH ×4 (02:57→20:37)
[2020-06-14] MEDS: HYDROMORPHONE HCL INJ/PF 2 MG/ML AMPULE IV PRN ×3 (07:24→20:38)
[2020-06-14 07:46] LABS: ANION GAP 5 (5-19); BLOOD UREA NITROGEN 22 mg/dL (7-20); CALCIUM 7.6 mg/dL (8.4-10.2); CARBON DIOXIDE 27 mmol/L (22-30); CHLORIDE 101 mmol/L (98-107); GLUCOSE 108 mg/dL (75-110); PHOSPHORUS 2.2 mg/dL (2.5-4.5); POTASSIUM 4.3 mmol/L (3.6-5.0)
[2020-06-14 07:55] LABS: HEMATOCRIT 32.3 % (37.9-51.0); HEMOGLOBIN 10.8 g/dL (13.5-17.0); MEAN CORPUSCULAR HEMOGLOBIN 31.4 pg (27.0-33.4); MEAN CORPUSCULAR HGB CONC 33.4 g/dL (32.0-36.0); MEAN CORPUSCULAR VOLUME 94 fl (80-97); RED BLOOD COUNT 3.44 10^6/uL (4.35-5.55); RED CELL DISTRIBUTION WIDTH 14.2 % (11.5-14.0); WHITE BLOOD COUNT 2.7 10^3/uL (4.0-10.5)
[2020-06-14 08:39] LABS: PLATELET COUNT 54 10^3/uL (150-450)
[2020-06-14 08:42] LABS: ABSOLUTE LYMPHOCYTES# (MANUAL) 0.4 10^3/uL (0.5-4.7); ABSOLUTE MONOCYTES # (MANUAL) 0.4 10^3/uL (0.1-1.4); BAND NEUTROPHILS % (MANUAL) 3 % (3-5); BASOPHILS % (MANUAL) 0 % (0-2); EOSINOPHILS % (MANUAL) 0 % (0-6); LYMPHOCYTES % (MANUAL) 13 % (13-45); MONOCYTES % (MANUAL) 16 % (3-13); SEGMENTED NEUTROPHILS % (MAN) 67 % (42-78); TOTAL CELLS COUNTED 100
[2020-06-14 08:43] LABS: ANISOCYTOSIS SLIGHT; POLYCHROMASIA SLIGHT; TEAR DROP CELLS SLIGHT
[2020-06-14 08:44] LABS: BURR CELLS SLIGHT; OVALOCYTES SLIGHT; PLATELET COMMENT DECREASED
[2020-06-14] MEDS: DOCUSATE SODIUM 100 MG CAPSULE PO SCH (09:01)
[2020-06-14] MEDS: METFORMIN HCL 500 MG TABLET PO SCH (09:02)
[2020-06-14] MEDS: GABAPENTIN 400 MG CAPSULE PO SCH ×2 (09:02→22:25)
[2020-06-14] MEDS: POTASSIUM CHLORIDE 10 MEQ TABLET.ER PO SCH (09:02)
[2020-06-14] MEDS: CITALOPRAM HYDROBROMIDE 20 MG TABLET PO SCH (09:02)
[2020-06-14] MEDS: METHADONE HCL 10 MG TABLET PO SCH ×3 (09:02→22:25)
[2020-06-14] MEDS: SPIRONOLACTONE 25 MG TABLET PO SCH (09:02)
[2020-06-14] MEDS: FUROSEMIDE 40 MG TABLET PO SCH (09:02)
[2020-06-14] MEDS: CALCIUM CARBONATE 600 MG TABLET PO SCH ×2 (09:02→18:35)
[2020-06-14] MEDS: FLUTICASONE/UMECLIDIN/VILANTER 100-62.5-25 MCG/DOSE IH SCH (09:03)
[2020-06-14] MEDS: CHOLECALCIFEROL (D3) 1,000 UNIT (25 MCG) TABLET PO SCH (09:03)
[2020-06-14] MEDS: INSULIN LISPRO 100 UNIT/ML 3 ML VIAL SUBCUT SCH (09:03)
--- NOTE | 2020-06-14 13:30 | PDOC PROGRESS REPORT ---
Subjective Progress Note for:: 06/14/20 Subjective:: Patient is having increased pain in the left leg. It is definitely more swollen at this point. He is tolerating the antibiotics without problems. His white blood cell count and platelet count appear to be starting an upward trend. Reason For Visit: CELLULITIS,MULTIPLE MYELOMA,HEP C,GARCIA,CIRRHOSIS, Physical Exam Vital Signs: Temp Pulse Resp BP Pulse Ox 98.7 F 77 18 107/57 L 97 06/14/20 11:06 06/14/20 11:06 06/14/20 11:06 06/14/20 11:06 06/14/20 11:06 Intake & Output 06/13/20 06/14/20 06/15/20 06:59 06:59 06:59 Intake Total 2516 2120 850 Output Total 950 500 Balance 1566 1620 850 Weight 126.5 kg 126.5 kg Respiratory exam: PRESENT: clear to auscultation pat Cardiovascular exam: PRESENT: RRR Extremities exam: PRESENT: joint swelling, +2 edema Musculoskeletal exam: PRESENT: tenderness, other - The patient's leg is more swollen than yesterday. This is from the thigh. The knee to the foot. It is more tender/painful today as well. Results Laboratory Results: 06/14/20 06:50 06/14/20 06:50 06/14/20 06/14/20 06:50 06:50 WBC 2.7 L RBC 3.44 L Hgb 10.8 L Hct 32.3 L MCV 94 MCH 31.4 MCHC 33.4 RDW 14.2 H Plt Count 54 L Seg Neutrophils % Not Reportable Sodium 132.8 L Potassium 4.3 Chloride 101 Carbon Dioxide 27 Anion Gap 5 BUN 22 H Creatinine 0.95 Est GFR ( Amer) > 60 Glucose 108 Calcium 7.6 L Phosphorus 2.2 L Magnesium 2.1 Albumin 3.0 L Impressions: Chest X-Ray 06/12/20 07:08 IMPRESSION: Negative chest allowing for low lung volumes. Hip X-Ray 06/12/20 07:08 IMPRESSION: Suspect soft tissue edema. No underlying bony abnormality. Venous Doppler Study 06/12/20 07:08 IMPRESSION: NO EVIDENCE DVT OR SVT IN THE LEFT LEG. Assessment and Plan - Diagnosis (1) Cellulitis of left leg Is this a current diagnosis for this admission?: Yes Plan: Left leg is bigger today. Orthopedic surgery will evaluate. Continue vancomycin and Zosyn. (2) Multiple myeloma Qualifiers: Multiple myeloma remission status: in remission Qualified Code(s): C90.01 - Multiple myeloma in remission Is this a current diagnosis for this admission?: Yes Plan: Appreciate Dr. Gaona's input. Dexamethasone and Pomylast currently on hold. Decreased white blood cell count and decreased platelets are concerning. Continue to monitor CBC. (3) Hypocalcemia Is this a current diagnosis for this admission?: Yes Plan: Improved. Continue oral calcium supplement (4) Hypokalemia Is this a current diagnosis for this admission?: Yes Plan: Potassium is normal. Continue supplement (5) Thrombocytopenia Is this a current diagnosis for this admission?: Yes Plan: Improved. Currently 54,000. Resume DVT prophylaxis. (6) Leukopenia Qualifiers: Neutropenia type: unspecified Is this a current diagnosis for this admission?: Yes Plan: No significant change. Continue to monitor closely while on antibiotics. (7) Hyponatremia Is this a current diagnosis for this admission?: Yes Plan: Unchanged from yesterday. Continue to monitor. (8) Chronic pain Qualifiers: Chronic pain type: due to neoplasm Qualified Code(s): G89.3 - Neoplasm related pain (acute) (chronic) Is this a current diagnosis for this admission?: Yes Plan: Pain the left leg is worse. Increase analgesics (9) Sleep apnea in adult Is this a current diagnosis for this admission?: Yes Plan: BiPAP at night. Nasal cannula during the day. (10) Morbid obesity with alveolar hypoventilation Is this a current diagnosis for this admission?: Yes Plan: Due to BMI of 45.0. Continue BiPAP at night and nasal cannula oxygen during the day (11) COPD (chronic obstructive pulmonary disease) Qualifiers: COPD type: unspecified COPD Qualified Code(s): J44.9 - Chronic obstructive pulmonary disease, unspecified Is this a current diagnosis for this admission?: Yes Plan: Continue Trelegy inhaler and as needed nebulizer treatments (12) Leg edema Is this a current diagnosis for this admission?: Yes Plan: Slightly worse. Will consider increasing diuretics based on blood pressure and kidney function and minimizing IV fluids. (13) Hypoalbuminemia Is this a current diagnosis for this admission?: Yes Plan: Due to chronic malignancy. Consider protein supplements. - Time Time Spent with patient: 15-24 minutes Medications reviewed and adjusted accordingly: Yes Anticipated discharge: Home Within: Other - 4 to 5 days
[2020-06-14] MEDS ORDERED: FUROSEMIDE INJ/PF 20 MG/2 ML SDV IV SCH (14:00)
[2020-06-14] MEDS: HEPARIN SOD (PORCINE) 5,000 UNIT/ML 1 ML VIAL SUBCUT SCH ×2 (15:06→22:21)
[2020-06-14] MEDS: FUROSEMIDE INJ/PF 20 MG/2 ML SDV IV SCH ×2 (15:06→22:25)
--- NOTE | 2020-06-14 17:40 | PDOC CONSULTATION ---
Consultation Consult Date: 06/14/20 Provider Consulted: BETITO HERNÁNDEZ JR History of Present Illness Admission Date/PCP: 06/12/20 09:18 EMILIA MARTINEZ MD History of Present Illness: VERONIQUE SOLIZ is a 65 year old male with a complicated medical history including recurrent left lower extremity cellulitis. He reports that about 5 to 6 days ago he began to notice redness in his left leg he was having increasing pain and then subsequently this past Friday had difficulty walking due to the increasing pain and swelling. He began using a cane and then reported a fever prior to presenting to the hospital. Similar episode occurred 5 to 6 months ago he reports that in the interval he had no erythema but he did have the "brown spot" of venous stasis changes that is been there for years. According to his daughter this is the third episode in the last 5 to 6 months. He has a history of a left total knee arthroplasty. He reports pain is aching and burning in the left lower extremity, which is difficult to differentiate because it is diffuse. He believes some may be coming from his knee but also from the lower leg as well as the thigh. He was able to ambulate on his leg up until the time of hospitalization. He also has a complicated history including multiple myeloma with bony metastases as well as neutropenia and thrombocytopenia hepatitis C with cirrhosis, nonalcoholic steatohepatitis, esophageal varices, a potential mass on his liver, sleep apnea, obesity hypoventilation syndrome, COPD, diabetes. Past Medical History Cardiac Medical History: Reports: Hyperlipidema, Hypertension Denies: Myocardial Infarction Pulmonary Medical History: Reports: Bronchitis, Chronic Obstructive Pulmonary Disease (COPD), Sleep Apnea, Other - Obesity hypoventilation EENT Medical History: Reports: Other - Thrombocytopenia Denies: Eyes, Ears, Nose Neurological Medical History: Denies: Hemorrhagic CVA, Ischemic CVA Endocrine Medical History: Reports: Diabetes Mellitus Type 2, Other - Hyperlipidemia Renal/ Medical History: Denies: Chronic Kidney Disease, Nephrolithiasis Malignancy Medical History: Reports: Other - Multiple myeloma with bone metastases GI Medical History: Reports: Cirrhosis - Nonalcoholic steatohepatitis with cirrhosis, Hepatitis - Hepatitis C Musculoskeltal Medical History: Reports: Other - Chronic pain from bone metastases Skin Medical History: Denies: Eczema, Psoriasis Psychiatric Medical History: Reports: Alcohol Dependency, Depression, Substance Abuse, Tobacco Dependency Traumatic Medical History: Reports: None Hematology: Reports: Neutropenia, Other - Thrombocytopenia Infectious Medical History: Reports: Hepatitis C Past Surgical History Past Surgical History: Reports: Appendectomy, Orthopedic Surgery - L knee, Tonsillectomy, Other - Nephrectomy, port placement Social History Lives with: Spouse/Significant other Smoking Status: Former Smoker Electronic Cigarette use?: No Frequency of Alcohol Use: None Hx Recreational Drug Use: No - Remote history greater than 30 years ago Drugs: None Hx Prescription Drug Abuse: No - Chronic pain medication for bony metastases - Advance Directive Resuscitation Status: Full Code Family History Family History: Hypertension, Other - Sister with bleeding varices, alcohol liver disease Parental Family History Reviewed: No Children Family History Reviewed: NA Sibling(s) Family History Reviewed.: NA Medication/Allergy Home Medications: Atorvastatin Calcium [Lipitor 20 mg Tablet] 20 mg PO QHS 11/03/19 Cholecalciferol (Vitamin D3) [Vitamin D3 2000 unit Tablet] 2,000 unit PO DAILY 11/03/19 Citalopram Hydrobromide [Celexa 40 mg Tablet] 40 mg PO DAILY 11/03/19 Dexamethasone [Decadron] 20 mg PO TH@0800 11/03/19 Docusate Sodium [Colace 100 mg Capsule] 100 mg PO DAILY 11/03/19 Furosemide [Lasix 40 mg Tablet] 40 mg PO QAM 11/03/19 Metformin HCl [Glucophage] 500 mg PO DAILY 11/03/19 Methadone HCl [Dolophine 10 mg Tablet] 10 mg PO Q12 11/03/19 Spironolactone [Aldactone] 50 mg PO DAILY 11/03/19 Gabapentin [Neurontin 400 mg Capsule] 800 mg PO Q12 01/31/20 Polyethylene Glycol 3350 [Miralax Powder 17 gm/Packet] 1 packet PO DAILYP PRN 01/31/20 Pomalidomide [Pomalyst] 3 mg PO ASDIR PRN 01/31/20 Hydromorphone HCl [Dilaudid] 4 mg PO DAILYP PRN 06/12/20 Ondansetron HCl [Zofran 8 mg Tablet] 8 mg PO DAILYP PRN 06/12/20 Umeclidinium Brm/Vilanterol Tr [Anoro Ellipta 62.5-25 Mcg INH] 1 puff PO BID 06/12/20 Allergies/Adverse Reactions: acetaminophen Adverse Reaction (Verified 01/31/20 15:41) Review of Systems Review of Systems: Constitutional: ABSENT: anorexia, chills, night sweats, Present: Fever Cardiovascular: ABSENT: chest pain Respiratory: ABSENT: dyspnea Gastrointestinal: ABSENT: vomiting Genitourinary: ABSENT: dysuria Integumentary: Present: Rash left lower extremity, bilateral venous stasis changes. Neurological: ABSENT: confusion, memory loss, numbness Psychiatric: ABSENT: hallucinations Hematologic/Lymphatic: Present: Easy bleeding Physical Exam Vital Signs: Temp Pulse Resp BP Pulse Ox 97.8 F 83 18 106/66 93 06/14/20 15:42 06/14/20 15:42 06/14/20 15:42 06/14/20 15:42 06/14/20 15:42 Intake & Output 06/13/20 06/14/20 06/15/20 06:59 06:59 06:59 Intake Total 2516 2120 950 Output Total 950 500 Balance 1566 1620 950 Weight 126.5 kg 126.5 kg Physical Exam: General appearance: PRESENT: no acute distress, cooperative, well-nourished, obese Head exam: PRESENT: atraumatic, normocephalic Eye exam: PRESENT: EOMI Ear exam: PRESENT: normal external ear exam Mouth exam: PRESENT: neck supple Neck exam: ABSENT: tracheal deviation Respiratory exam: PRESENT: symmetrical, unlabored. ABSENT: accessory muscle use, wheezes Pulses: PRESENT: normal radial pulses, normal dorsalis pedis pulse Vascular exam: PRESENT: normal capillary refill GI/Abdominal exam: ABSENT: distended, firm Extremities exam: PRESENT: full ROM of bilateral shoulders, elbows wrists, hips without pain Musculoskeletal exam: PRESENT: full ROM, normal inspection of all 4 extremities aside from that noted below. Neurological exam: PRESENT: alert, awake, oriented to person, oriented to place, oriented to time Psychiatric exam: PRESENT: appropriate affect. ABSENT: agitated Focused psych exam: ABSENT: catatonic Skin exam: PRESENT: intact. ABSENT: dry All as above aside from that noted in the HPI and the following: Left lower extremity No palpable knee effusion. There is erythema and cellulitis present from the dorsum of the foot all the way up to the left hip. This is severe distal to the knee with skin maceration. Much of the anterior knee is spared from cellulitis patient is able to range his knee through full extension to mid range without much knee pain he does report tenseness in the skin with range of motion. He has full intact motor function to the left lower extremity, as well as intact but diminished sensation through all periphery. Pulses are faint but cap refill is less than 2 seconds Results Laboratory Results: 06/14/20 06:50 06/14/20 06:50 06/14/20 06/14/20 06:50 06:50 WBC 2.7 L RBC 3.44 L Hgb 10.8 L Hct 32.3 L MCV 94 MCH 31.4 MCHC 33.4 RDW 14.2 H Plt Count 54 L Seg Neutrophils % Not Reportable Sodium 132.8 L Potassium 4.3 Chloride 101 Carbon Dioxide 27 Anion Gap 5 BUN 22 H Creatinine 0.95 Est GFR ( Amer) > 60 Glucose 108 Calcium 7.6 L Phosphorus 2.2 L Magnesium 2.1 Albumin 3.0 L Impressions: Chest X-Ray 06/12/20 07:08 IMPRESSION: Negative chest allowing for low lung volumes. Hip X-Ray 06/12/20 07:08 IMPRESSION: Suspect soft tissue edema. No underlying bony abnormality. Venous Doppler Study 06/12/20 07:08 IMPRESSION: NO EVIDENCE DVT OR SVT IN THE LEFT LEG. Assessment & Plan - Diagnosis (1) Cellulitis Qualifiers: Site of cellulitis: extremity Site of cellulitis of extremity: lower extremity Laterality: left Qualified Code(s): L03.116 - Cellulitis of left lower limb Plan: At this time the cellulitis is severe and diffuse bite infection appears to spare the intra-articular portion of the knee. There is no overt effusion or indication at this time for aspiration -I recommend following the patient on continued antibiotics and if no improvement in the next 2 to 3 days we will consider aspiration of the left knee. Given the extent of cellulitis I would be very hesitant to introduce a needle unless absolutely necessary so as not to inoculate the knee. -X-ray of the knee is pending. -We will continue to monitor
--- NOTE | 2020-06-14 19:11 | RADIOLOGY REPORT (SQ) ---
EXAM DESCRIPTION: KNEE LEFT 3 VIEWS IMAGES COMPLETED DATE/TIME: 06/14/2020 6:25 pm REASON FOR STUDY: swelling COMPARISON: None. NUMBER OF VIEWS: Three views. TECHNIQUE: AP, lateral, and sunrise patella radiographic images acquired of the left knee. LIMITATIONS: None. FINDINGS: MINERALIZATION: Normal. BONES: Total knee replacement in good position. JOINT: No effusion. SOFT TISSUES: No soft tissue swelling. No radio-opaque foreign body. OTHER: No other significant finding. IMPRESSION: NEGATIVE STUDY OF THE LEFT KNEE. NO RADIOGRAPHIC EVIDENCE OF ACUTE INJURY. TECHNICAL DOCUMENTATION: JOB ID: [id number] 2010 [employer]- All Rights Reserved Reading location - IP/workstation name: [email or web address]
[2020-06-14] MEDS: ATORVASTATIN CALCIUM 20 MG TABLET PO SCH (22:26)
[2020-06-15] MEDS: VANCOMYCIN HCL 1,000 MG in DEXTROSE 5%-WATER 250 ML IV SCH ×3 (01:49→18:24)
[2020-06-15] MEDS: PIPERACILLIN SODIUM/TAZOBACTAM 3.375 GM in NORMAL SALINE 100 ML IV SCH ×4 (03:26→21:57)
[2020-06-15] MEDS: HEPARIN SOD (PORCINE) 5,000 UNIT/ML 1 ML VIAL SUBCUT SCH ×3 (05:10→21:59)
[2020-06-15] MEDS: METHADONE HCL 10 MG TABLET PO SCH ×3 (05:21→21:57)
[2020-06-15] MEDS: FUROSEMIDE INJ/PF 20 MG/2 ML SDV IV SCH ×3 (05:22→21:58)
[2020-06-15 06:06] LABS: ALBUMIN 3.1 g/dL (3.5-5.0); ANION GAP 5 (5-19); BLOOD UREA NITROGEN 21 mg/dL (7-20); CALCIUM 8.6 mg/dL (8.4-10.2); CARBON DIOXIDE 31 mmol/L (22-30); CHLORIDE 95 mmol/L (98-107); GLUCOSE 106 mg/dL (75-110); PHOSPHORUS 3.2 mg/dL (2.5-4.5); POTASSIUM 4.2 mmol/L (3.6-5.0)
[2020-06-15 06:13] LABS: ABSOLUTE EOSINOPHILS # (AUTO) 0.1 10^3/uL (0.0-0.6); ABSOLUTE LYMPHOCYTES (AUTO) 0.4 10^3/uL (0.5-4.7); ABSOLUTE MONOCYTES (AUTO) 0.7 10^3/uL (0.1-1.4); ABSOLUTE NEUT (AUTO) 2.5 10^3/uL (1.7-8.2); BASOPHILS % (AUTO) 0.4 % (0-2); EOSINOPHILS % (AUTO) 1.5 % (0-6); HEMATOCRIT 33.1 % (37.9-51.0); HEMOGLOBIN 11.1 g/dL (13.5-17.0); LYMPHOCYTES % (AUTO) 10.7 % (13-45); MEAN CORPUSCULAR HEMOGLOBIN 31.5 pg (27.0-33.4); MEAN CORPUSCULAR HGB CONC 33.7 g/dL (32.0-36.0); MEAN CORPUSCULAR VOLUME 94 fl (80-97); MONOCYTES % (AUTO) 19.9 % (3-13); RED BLOOD COUNT 3.54 10^6/uL (4.35-5.55); RED CELL DISTRIBUTION WIDTH 13.8 % (11.5-14.0); SEGMENTED NEUTROPHILS % (AUTO) 67.5 % (42-78); TOTAL CELLS COUNTED % (AUTO) 100 %; WHITE BLOOD COUNT 3.7 10^3/uL (4.0-10.5)
[2020-06-15 07:05] LABS: PLATELET COUNT 70 10^3/uL (150-450)
[2020-06-15] MEDS ORDERED: DEXAMETHASONE 4 MG TABLET PO SCH (08:00)
[2020-06-15] MEDS: INSULIN LISPRO 100 UNIT/ML 3 ML VIAL SUBCUT SCH (08:15)
--- NOTE | 2020-06-15 08:16 | PDOC PROGRESS REPORT ---
Subjective Progress Note for:: 06/15/20 Subjective:: Patient very sleepy this morning, but no new complaints. He denies getting up and walking much. Reason For Visit: CELLULITIS,MULTIPLE MYELOMA,HEP C,GARCIA,CIRRHOSIS, Physical Exam Vital Signs: Temp Pulse Resp BP Pulse Ox 98.4 F 82 18 111/71 97 06/14/20 23:51 06/15/20 07:00 06/15/20 04:03 06/14/20 23:51 06/14/20 23:51 Intake & Output 06/14/20 06/15/20 06/16/20 06:59 06:59 06:59 Intake Total 2120 2366 Output Total 500 300 Balance 1620 2066 Weight 126.5 kg 126.5 kg General appearance: PRESENT: no acute distress, morbidly obese Head exam: PRESENT: normocephalic Respiratory exam: PRESENT: clear to auscultation pat, unlabored Cardiovascular exam: PRESENT: RRR GI/Abdominal exam: PRESENT: soft. ABSENT: tenderness Extremities exam: PRESENT: other - chronic edema bilaterally. Venous stasis changes. 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 Neurological exam: PRESENT: alert, awake Psychiatric exam: PRESENT: appropriate affect Results Laboratory Results: 06/15/20 05:10 06/15/20 05:10 06/14/20 06/15/20 06/15/20 06:50 05:10 05:10 WBC 2.7 L 3.7 L RBC 3.44 L 3.54 L Hgb 10.8 L 11.1 L Hct 32.3 L 33.1 L MCV 94 94 MCH 31.4 31.5 MCHC 33.4 33.7 RDW 14.2 H 13.8 Plt Count 54 L 70 L Seg Neutrophils % Not Reportable 67.5 Sodium 131.1 L Potassium 4.2 Chloride 95 L Carbon Dioxide 31 H Anion Gap 5 BUN 21 H Creatinine 1.23 Est GFR ( Amer) > 60 Glucose 106 Calcium 8.6 Phosphorus 3.2 Magnesium 1.7 Albumin 3.1 L Impressions: Chest X-Ray 06/12/20 07:08 IMPRESSION: Negative chest allowing for low lung volumes. Hip X-Ray 06/12/20 07:08 IMPRESSION: Suspect soft tissue edema. No underlying bony abnormality. Venous Doppler Study 06/12/20 07:08 IMPRESSION: NO EVIDENCE DVT OR SVT IN THE LEFT LEG. Knee X-Ray 06/14/20 00:00 IMPRESSION: NEGATIVE STUDY OF THE LEFT KNEE. NO RADIOGRAPHIC EVIDENCE OF ACUTE INJURY. Assessment & Plan - Diagnosis (1) Cellulitis of left leg Is this a current diagnosis for this admission?: Yes Plan: Agree with current antibiotics. PLT remain >50. Would start Lovenox 40 mg daily, unless procedure is planned. (2) Multiple myeloma Qualifiers: Multiple myeloma remission status: in remission Qualified Code(s): C90.01 - Multiple myeloma in remission Is this a current diagnosis for this admission?: Yes Plan: all chemo and steroids on hold while on ABX. - Time Time Spent with patient: 15-24 minutes
[2020-06-15] MEDS ORDERED: ONDANSETRON HCL INJ/PF 4 MG/2 ML SDV IV PRN (10:30)
[2020-06-15] MEDS: CALCIUM CARBONATE 600 MG TABLET PO SCH ×2 (10:40→18:24)
[2020-06-15] MEDS: METFORMIN HCL 500 MG TABLET PO SCH (10:40)
[2020-06-15] MEDS: POTASSIUM CHLORIDE 10 MEQ TABLET.ER PO SCH (10:43)
[2020-06-15] MEDS: CHOLECALCIFEROL (D3) 1,000 UNIT (25 MCG) TABLET PO SCH (10:43)
[2020-06-15] MEDS: SPIRONOLACTONE 25 MG TABLET PO SCH (10:43)
[2020-06-15] MEDS: CITALOPRAM HYDROBROMIDE 20 MG TABLET PO SCH (10:44)
[2020-06-15] MEDS: DOCUSATE SODIUM 100 MG CAPSULE PO SCH (10:44)
[2020-06-15] MEDS: GABAPENTIN 400 MG CAPSULE PO SCH ×2 (10:44→21:56)
[2020-06-15] MEDS: FLUTICASONE/UMECLIDIN/VILANTER 100-62.5-25 MCG/DOSE IH SCH (10:45)
--- NOTE | 2020-06-15 11:47 | PDOC PROGRESS REPORT ---
Subjective Progress Note for:: 06/15/20 Subjective:: And examined this morning in the hospital. No acute changes overnight. He continues to report severe left lower leg pain that does radiate proximally to the thigh however this is diffuse she has no acute other symptomatic changes. Reason For Visit: CELLULITIS,MULTIPLE MYELOMA,HEP C,GARCIA,CIRRHOSIS, Physical Exam Vital Signs: Temp Pulse Resp BP Pulse Ox 97.9 F 78 17 109/68 97 06/15/20 07:18 06/15/20 07:18 06/15/20 07:18 06/15/20 07:18 06/15/20 11:06 Intake & Output 06/14/20 06/15/20 06/16/20 06:59 06:59 06:59 Intake Total 2120 2366 100 Output Total 500 300 Balance 1620 2066 100 Weight 126.5 kg 126.5 kg Physical Exam: No acute distress, alert and oriented x3 Left lower extremity Skin erythema has been marked, no progression overnight, no overt resolution either. There is no changes in the exam the patient still has the ability to perform endrange knee of range of motion without severe pain there is no palpable effusion. Left lower extremity is neurovascular intact there is no fluctuant collection palpable. Results Laboratory Results: 06/15/20 05:10 06/15/20 05:10 06/15/20 06/15/20 05:10 05:10 WBC 3.7 L RBC 3.54 L Hgb 11.1 L Hct 33.1 L MCV 94 MCH 31.5 MCHC 33.7 RDW 13.8 Plt Count 70 L Seg Neutrophils % 67.5 Sodium 131.1 L Potassium 4.2 Chloride 95 L Carbon Dioxide 31 H Anion Gap 5 BUN 21 H Creatinine 1.23 Est GFR ( Amer) > 60 Glucose 106 Calcium 8.6 Phosphorus 3.2 Magnesium 1.7 Albumin 3.1 L Impressions: Chest X-Ray 06/12/20 07:08 IMPRESSION: Negative chest allowing for low lung volumes. Hip X-Ray 06/12/20 07:08 IMPRESSION: Suspect soft tissue edema. No underlying bony abnormality. Venous Doppler Study 06/12/20 07:08 IMPRESSION: NO EVIDENCE DVT OR SVT IN THE LEFT LEG. Knee X-Ray 06/14/20 00:00 IMPRESSION: NEGATIVE STUDY OF THE LEFT KNEE. NO RADIOGRAPHIC EVIDENCE OF ACUTE INJURY. Assessment & Plan - Diagnosis (1) Cellulitis Qualifiers: Site of cellulitis: extremity Site of cellulitis of extremity: lower extremity Laterality: left Qualified Code(s): L03.116 - Cellulitis of left lower limb Is this a current diagnosis for this admission?: Yes Plan: This appears to be mostly cellulitis at this time I do not believe that there is any intra-articular pathology to examine further at this moment. If there is a CT scan we could include the knee in order to evaluate for any potential effusion. I would continue to hold off on aspirating the knee unless there is an increasing concern for intra-articular pathology - Time Time Spent with patient: Less than 15 minutes
[2020-06-15 18:07] LABS: VANCOMYCIN,TROUGH 17.3 ug/mL (5.0-20.0)
[2020-06-15] MEDS: HYDROMORPHONE HCL INJ/PF 2 MG/ML AMPULE IV PRN (21:58)
[2020-06-15] MEDS: ATORVASTATIN CALCIUM 20 MG TABLET PO SCH (22:15)
--- NOTE | 2020-06-15 22:49 | PDOC PROGRESS REPORT ---
Subjective Progress Note for:: 06/15/20 Subjective:: Patient is resting in bed is a avaps BiPAP. His leg is still markedly swollen and painful. Reason For Visit: CELLULITIS,MULTIPLE MYELOMA,HEP C,GARCIA,CIRRHOSIS, Physical Exam Vital Signs: Temp Pulse Resp BP Pulse Ox 98.4 F 83 25 H 113/63 98 06/15/20 19:10 06/15/20 19:10 06/15/20 19:10 06/15/20 19:10 06/15/20 19:10 Intake & Output 06/14/20 06/15/20 06/16/20 06:59 06:59 06:59 Intake Total 2120 2366 1760 Output Total 106 895 0270 Balance 1620 2066 -690 Weight 126.5 kg 126.5 kg General appearance: PRESENT: cooperative, mild distress, morbidly obese, well- developed Head exam: PRESENT: atraumatic, normocephalic Ear exam: PRESENT: normal external ear exam. ABSENT: bleeding, drainage Mouth exam: PRESENT: moist, tongue midline Respiratory exam: PRESENT: clear to auscultation pat, symmetrical, unlabored. ABSENT: rales, rhonchi, tachypnea, wheezes Cardiovascular exam: PRESENT: RRR, +S1, +S2. ABSENT: irregular rhythm GI/Abdominal exam: PRESENT: distended - Protuberant abdomen, normal bowel sounds, soft. ABSENT: guarding, tenderness Rectal exam: PRESENT: deferred Gentrourinary exam: ABSENT: indwelling catheter Extremities exam: PRESENT: other - Marked left leg edema Musculoskeletal exam: PRESENT: ambulatory. ABSENT: normal inspection Neurological exam: PRESENT: alert, awake, oriented to person, oriented to place, oriented to time, oriented to situation, CN II-XII grossly intact Psychiatric exam: PRESENT: appropriate affect. ABSENT: agitated, anxious Focused psych exam: ABSENT: delusional, paranoid, restlessness Skin exam: PRESENT: dry, erythema - Still with marked erythema along the lateral aspect of the left leg and posteriorly., intact - No bullous lesions or weeping, warm, other - Pigment deposition bilateral lower legs Results Laboratory Results: 06/15/20 05:10 06/15/20 17:26 06/15/20 06/15/20 06/15/20 05:10 05:10 17:26 WBC 3.7 L RBC 3.54 L Hgb 11.1 L Hct 33.1 L MCV 94 MCH 31.5 MCHC 33.7 RDW 13.8 Plt Count 70 L Seg Neutrophils % 67.5 Sodium 131.1 L Potassium 4.2 Chloride 95 L Carbon Dioxide 31 H Anion Gap 5 BUN 21 H Creatinine 1.23 1.22 Est GFR ( Amer) > 60 > 60 Glucose 106 Calcium 8.6 Phosphorus 3.2 Magnesium 1.7 Albumin 3.1 L Impressions: Chest X-Ray 06/12/20 07:08 IMPRESSION: Negative chest allowing for low lung volumes. Hip X-Ray 06/12/20 07:08 IMPRESSION: Suspect soft tissue edema. No underlying bony abnormality. Venous Doppler Study 06/12/20 07:08 IMPRESSION: NO EVIDENCE DVT OR SVT IN THE LEFT LEG. Knee X-Ray 06/14/20 00:00 IMPRESSION: NEGATIVE STUDY OF THE LEFT KNEE. NO RADIOGRAPHIC EVIDENCE OF ACUTE INJURY. Assessment and Plan - Diagnosis (1) Cellulitis of left leg Is this a current diagnosis for this admission?: Yes Plan: Going to add clindamycin for its bacteriocidal effects. I would like to see it on board for several days to see if it makes a difference. (2) Multiple myeloma Qualifiers: Multiple myeloma remission status: in remission Qualified Code(s): C90.01 - Multiple myeloma in remission Is this a current diagnosis for this admission?: Yes Plan: Continue to hold chemotherapy (3) Hypocalcemia Is this a current diagnosis for this admission?: Yes Plan: Resolved. Serum calcium is normal. (4) Hypokalemia Is this a current diagnosis for this admission?: Yes Plan: Corrected. Continue to monitor and supplement (5) Thrombocytopenia Is this a current diagnosis for this admission?: Yes Plan: Slowly improving (6) Leukopenia Qualifiers: Neutropenia type: unspecified Is this a current diagnosis for this admission?: Yes Plan: Better today. White count is up to 3.7. (7) Hyponatremia Is this a current diagnosis for this admission?: Yes Plan: Still low at 131. Review of intake and output shows that the patient hardly drinks more than 1 L of fluid daily so no fluid restriction at this time (8) Chronic pain Qualifiers: Chronic pain type: due to neoplasm Qualified Code(s): G89.3 - Neoplasm related pain (acute) (chronic) Is this a current diagnosis for this admission?: Yes Plan: Reasonably controlled on current regimen (9) Sleep apnea in adult Is this a current diagnosis for this admission?: Yes Plan: Continue BiPAP/AVAPS (10) Morbid obesity with alveolar hypoventilation Is this a current diagnosis for this admission?: Yes Plan: Due to BMI of 45.0. Continue BiPAP/AVAPS at night and if sleeping during the day. Use nasal cannula oxygen during the day (11) COPD (chronic obstructive pulmonary disease) Qualifiers: COPD type: unspecified COPD Qualified Code(s): J44.9 - Chronic obstructive pulmonary disease, unspecified Is this a current diagnosis for this admission?: Yes Plan: Continue current treatment regimen. Patient is stable. (12) Leg edema Is this a current diagnosis for this admission?: Yes Plan: There is still marked swelling in the left leg. With all of the inflammation I am going to check a creatinine kinase levels to make sure there is no myositis. Elevate the legs when possible. We may need to try small doses of diuretics. (13) Hypoalbuminemia Is this a current diagnosis for this admission?: Yes Plan: Due to chronic malignancy. Consider protein supplements. - Time Time Spent with patient: 15-24 minutes Medications reviewed and adjusted accordingly: Yes Anticipated Discharge Disposition: Home, Self Care Anticipated Discharge: Other Other Anticipated Discharge Timeframe: Unknown. Possibly 3 to 4 days. Based on response to antibiotics.
[2020-06-16] MEDS: PIPERACILLIN SODIUM/TAZOBACTAM 3.375 GM in NORMAL SALINE 100 ML IV SCH ×4 (02:45→21:42)
[2020-06-16] MEDS: VANCOMYCIN HCL 1,000 MG in DEXTROSE 5%-WATER 250 ML IV SCH ×3 (02:45→17:07)
[2020-06-16] MEDS: HYDROMORPHONE HCL INJ/PF 2 MG/ML AMPULE IV PRN ×4 (03:17→22:09)
[2020-06-16] MEDS: FUROSEMIDE INJ/PF 20 MG/2 ML SDV IV SCH ×3 (05:30→21:41)
[2020-06-16] MEDS: METHADONE HCL 10 MG TABLET PO SCH ×3 (05:30→21:41)
[2020-06-16] MEDS: HEPARIN SOD (PORCINE) 5,000 UNIT/ML 1 ML VIAL SUBCUT SCH ×3 (05:31→21:38)
--- NOTE | 2020-06-16 07:54 | PDOC PROGRESS REPORT ---
Subjective Progress Note for:: 06/16/20 Subjective:: Patient states that he is slowly getting better. He still has a good bit of pain, but he slept well last night. He is eating his breakfast this morning. He has not been able to walk in hallway yet. ROS: No dyspnea. No diarrhea. Reason For Visit: CELLULITIS,MULTIPLE MYELOMA,HEP C,GARCIA,CIRRHOSIS, Physical Exam Vital Signs: Temp Pulse Resp BP Pulse Ox 98.5 F 75 20 110/54 L 98 06/16/20 00:00 06/16/20 02:00 06/16/20 00:00 06/16/20 00:00 06/16/20 04:12 Intake & Output 06/15/20 06/16/20 06/17/20 06:59 06:59 06:59 Intake Total 2366 2210 Output Total 300 3765 Balance 2066 -1555 Weight 126.5 kg 126.5 kg General appearance: PRESENT: no acute distress, morbidly obese Head exam: PRESENT: normocephalic Respiratory exam: PRESENT: unlabored Neurological exam: PRESENT: alert, awake Psychiatric exam: PRESENT: appropriate affect Skin exam: PRESENT: normal color Results Laboratory Results: 06/15/20 05:10 06/15/20 17:26 06/15/20 17:26 Creatinine 1.22 Est GFR ( Amer) > 60 Impressions: Chest X-Ray 06/12/20 07:08 IMPRESSION: Negative chest allowing for low lung volumes. Hip X-Ray 06/12/20 07:08 IMPRESSION: Suspect soft tissue edema. No underlying bony abnormality. Venous Doppler Study 06/12/20 07:08 IMPRESSION: NO EVIDENCE DVT OR SVT IN THE LEFT LEG. Knee X-Ray 06/14/20 00:00 IMPRESSION: NEGATIVE STUDY OF THE LEFT KNEE. NO RADIOGRAPHIC EVIDENCE OF ACUTE INJURY. Assessment & Plan - Diagnosis (1) Cellulitis of left leg Is this a current diagnosis for this admission?: Yes Plan: Slowly improving. Continue ABX. Afebrile. Cultures have remained NGTD. (2) Multiple myeloma Qualifiers: Multiple myeloma remission status: in remission Qualified Code(s): C90.01 - Multiple myeloma in remission Is this a current diagnosis for this admission?: Yes Plan: All chemo and Dex are on hold. His blood counts are improving. He is on DVT prophylaxis. - Time Time Spent with patient: 15-24 minutes - Plan Summary Plan Summary: OK for discharge from my standpoint, once able to walk in the hallway. Dr. Wu covering over the weekend. Please call if needed.
[2020-06-16] MEDS: INSULIN LISPRO 100 UNIT/ML 3 ML VIAL SUBCUT SCH (08:31)
[2020-06-16] MEDS: CHOLECALCIFEROL (D3) 1,000 UNIT (25 MCG) TABLET PO SCH (09:21)
[2020-06-16] MEDS: CITALOPRAM HYDROBROMIDE 20 MG TABLET PO SCH (09:22)
[2020-06-16] MEDS: CALCIUM CARBONATE 600 MG TABLET PO SCH ×2 (09:22→17:07)
[2020-06-16] MEDS: POTASSIUM CHLORIDE 10 MEQ TABLET.ER PO SCH (09:22)
[2020-06-16] MEDS: GABAPENTIN 400 MG CAPSULE PO SCH ×2 (09:22→21:41)
[2020-06-16] MEDS: CLINDAMYCIN 900 MG/D5W RTU 900 MG/50 ML RTUPB IV SCH ×2 (09:22→17:07)
[2020-06-16] MEDS: SPIRONOLACTONE 25 MG TABLET PO SCH (09:22)
[2020-06-16] MEDS: METFORMIN HCL 500 MG TABLET PO SCH (09:22)
[2020-06-16] MEDS: DOCUSATE SODIUM 100 MG CAPSULE PO SCH (09:22)
[2020-06-16] MEDS: FLUTICASONE/UMECLIDIN/VILANTER 100-62.5-25 MCG/DOSE IH SCH (09:23)
--- NOTE | 2020-06-16 13:02 | PDOC PROGRESS REPORT ---
Subjective Progress Note for:: 06/16/20 Subjective:: Patient appears much improved today, he reports improvement in pain and overall left lower extremity symptoms. He appears more comfortable Reason For Visit: CELLULITIS,MULTIPLE MYELOMA,HEP C,GARCIA,CIRRHOSIS, Physical Exam Vital Signs: Temp Pulse Resp BP Pulse Ox 98.7 F 84 18 104/47 L 97 06/16/20 11:38 06/16/20 11:38 06/16/20 11:38 06/16/20 11:38 06/16/20 11:38 Intake & Output 06/15/20 06/16/20 06/17/20 06:59 06:59 06:59 Intake Total 2366 2210 636 Output Total 300 3765 400 Balance 2066 -1555 236 Weight 126.5 kg 126.5 kg Physical Exam: Left lower extremity Skin erythema has been marked, appears to be considerable resolution overnight. Still has the ability to perform endrange knee of range of motion without severe pain there is no palpable effusion. Left lower extremity is neurovascular intac t there is no fluctuant collection palpable. Results Laboratory Results: 06/15/20 05:10 06/15/20 17:26 06/15/20 17:26 Creatinine 1.22 Est GFR ( Amer) > 60 Impressions: Chest X-Ray 06/12/20 07:08 IMPRESSION: Negative chest allowing for low lung volumes. Hip X-Ray 06/12/20 07:08 IMPRESSION: Suspect soft tissue edema. No underlying bony abnormality. Venous Doppler Study 06/12/20 07:08 IMPRESSION: NO EVIDENCE DVT OR SVT IN THE LEFT LEG. Knee X-Ray 06/14/20 00:00 IMPRESSION: NEGATIVE STUDY OF THE LEFT KNEE. NO RADIOGRAPHIC EVIDENCE OF ACUTE INJURY. Assessment & Plan - Diagnosis (1) Cellulitis Qualifiers: Site of cellulitis: extremity Site of cellulitis of extremity: lower ex tremity Laterality: left Qualified Code(s): L03.116 - Cellulitis of left lower limb Is this a current diagnosis for this admission?: Yes Plan: At this point the cellulitis appears to be resolving. Infection appears to have spared the left total knee arthroplasty. Please contact me with any other concerns or needs - Time Time Spent with patient: Less than 15 minutes
--- NOTE | 2020-06-16 13:05 | PDOC PROGRESS REPORT ---
Subjective Progress Note for:: 06/16/20 Subjective:: The patient's leg is still swollen and there is still significant erythema however the patient feels that it is not as painful Reason For Visit: CELLULITIS,MULTIPLE MYELOMA,HEP C,GARCIA,CIRRHOSIS, Physical Exam Vital Signs: Temp Pulse Resp BP Pulse Ox 98.7 F 84 18 104/47 L 97 06/16/20 11:38 06/16/20 11:38 06/16/20 11:38 06/16/20 11:38 06/16/20 11:38 Intake & Output 06/15/20 06/16/20 06/17/20 06:59 06:59 06:59 Intake Total 2366 2210 636 Output Total 300 3765 400 Balance 2066 -1555 236 Weight 126.5 kg 126.5 kg General appearance: PRESENT: no acute distress, cooperative, morbidly obese, well-developed Head exam: PRESENT: atraumatic, normocephalic Ear exam: PRESENT: normal external ear exam. ABSENT: bleeding, drainage Mouth exam: PRESENT: moist, tongue midline Respiratory exam: PRESENT: clear to auscultation pat, symmetrical, unlabored. ABSENT: rales, rhonchi, tachypnea, wheezes Cardiovascular exam: PRESENT: RRR, +S1, +S2. ABSENT: irregular rhythm GI/Abdominal exam: PRESENT: distended - Protuberant abdomen, normal bowel sounds, soft. ABSENT: tenderness Rectal exam: PRESENT: deferred Gentrourinary exam: ABSENT: indwelling catheter Extremities exam: PRESENT: other - Still with marked edema in the left leg Musculoskeletal exam: ABSENT: normal inspection Neurological exam: PRESENT: alert, awake, oriented to person, oriented to place, oriented to time, oriented to situation, CN II-XII grossly intact. ABSENT: altered Psychiatric exam: PRESENT: appropriate affect. ABSENT: agitated, anxious Focused psych exam: ABSENT: delusional, paranoid, restlessness Skin exam: PRESENT: dry, erythema - Still with marked erythema on the left leg, warm Results Laboratory Results: 06/15/20 05:10 06/15/20 17:26 06/15/20 17:26 Creatinine 1.22 Est GFR ( Amer) > 60 Impressions: Chest X-Ray 06/12/20 07:08 IMPRESSION: Negative chest allowing for low lung volumes. Hip X-Ray 06/12/20 07:08 IMPRESSION: Suspect soft tissue edema. No underlying bony abnormality. Venous Doppler Study 06/12/20 07:08 IMPRESSION: NO EVIDENCE DVT OR SVT IN THE LEFT LEG. Knee X-Ray 06/14/20 00:00 IMPRESSION: NEGATIVE STUDY OF THE LEFT KNEE. NO RADIOGRAPHIC EVIDENCE OF ACUTE INJURY. Assessment and Plan - Diagnosis (1) Cellulitis of left leg Is this a current diagnosis for this admission?: Yes Plan: Clindamycin was added last night. Hopefully within a day or 2 we will see a significant change. (2) Multiple myeloma Qualifiers: Multiple myeloma remission status: in remission Qualified Code(s): C90.01 - Multiple myeloma in remission Is this a current diagnosis for this admission?: Yes Plan: Continue to hold chemotherapy at this time (3) Hypocalcemia Is this a current diagnosis for this admission?: Yes Plan: Continue oral calcium supplement. Serum calcium normal. (4) Hypokalemia Is this a current diagnosis for this admission?: Yes Plan: Continue daily potassium chloride supplement. Serum potassium is normal. 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 No changes in regimen. (9) Sleep apnea in adult Is this a current diagnosis for this admission?: Yes Plan: Continue current respiratory treatment AVAPS (10) Morbid obesity with alveolar hypoventilation Is this a current diagnosis for this admission?: Yes Plan: As above (11) COPD (chronic obstructive pulmonary disease) Qualifiers: COPD type: unspecified COPD Qualified Code(s): J44.9 - Chronic obstructive pulmonary disease, unspecified Is this a current diagnosis for this admission?: Yes Plan: Continue Trelegy daily with as needed nebulizers (12) Leg edema Is this a current diagnosis for this admission?: Yes Plan: Still on Spironolactone. May need intermittent furosemide dosing. I believe in the infection is under better control the swelling will decrease (13) Hypoalbuminemia Is this a current diagnosis for this admission?: Yes Plan: Due to chronic malignancy. Consider protein supplements. - Time Time Spent with patient: 15-24 minutes Medications reviewed and adjusted accordingly: Yes Anticipated Discharge Disposition: Home, Self Care Anticipated Discharge: within 72 hours
[2020-06-16] MEDS: ATORVASTATIN CALCIUM 20 MG TABLET PO SCH (21:41)
[2020-06-16] MEDS ORDERED: CLINDAMYCIN 900 MG/D5W RTU 900 MG/50 ML RTUPB IV SCH (23:30)
[2020-06-17] MEDS: CLINDAMYCIN 900 MG/D5W RTU 900 MG/50 ML RTUPB IV SCH ×3 (01:00→17:56)
[2020-06-17] MEDS: VANCOMYCIN HCL 1,000 MG in DEXTROSE 5%-WATER 250 ML IV SCH ×3 (02:26→17:58)
[2020-06-17] MEDS: PIPERACILLIN SODIUM/TAZOBACTAM 3.375 GM in NORMAL SALINE 100 ML IV SCH ×4 (03:57→21:17)
[2020-06-17] MEDS: HYDROMORPHONE HCL INJ/PF 2 MG/ML AMPULE IV PRN ×4 (04:40→17:57)
[2020-06-17 05:06] LABS: HEMOGLOBIN 11.8 g/dL (13.5-17.0); MEAN CORPUSCULAR HEMOGLOBIN 31.6 pg (27.0-33.4); MEAN CORPUSCULAR HGB CONC 33.8 g/dL (32.0-36.0); MEAN CORPUSCULAR VOLUME 94 fl (80-97); PLATELET COUNT 107 10^3/uL (150-450); RED BLOOD COUNT 3.74 10^6/uL (4.35-5.55); RED CELL DISTRIBUTION WIDTH 13.9 % (11.5-14.0); WHITE BLOOD COUNT 5.5 10^3/uL (4.0-10.5)
[2020-06-17] MEDS: FUROSEMIDE INJ/PF 20 MG/2 ML SDV IV SCH ×3 (05:06→21:17)
[2020-06-17] MEDS: METHADONE HCL 10 MG TABLET PO SCH ×3 (05:07→21:17)
[2020-06-17] MEDS: HEPARIN SOD (PORCINE) 5,000 UNIT/ML 1 ML VIAL SUBCUT SCH ×3 (05:07→21:04)
[2020-06-17 05:26] LABS: ANION GAP 5 (5-19); BLOOD UREA NITROGEN 21 mg/dL (7-20); CALCIUM 9.2 mg/dL (8.4-10.2); CARBON DIOXIDE 38 mmol/L (22-30); CHLORIDE 89 mmol/L (98-107); CREATINE KINASE 25 U/L (55-170); GLUCOSE 131 mg/dL (75-110); POTASSIUM 4.4 mmol/L (3.6-5.0)
[2020-06-17 05:33] LABS: ABSOLUTE LYMPHOCYTES# (MANUAL) 0.5 10^3/uL (0.5-4.7); ABSOLUTE MONOCYTES # (MANUAL) 0.9 10^3/uL (0.1-1.4); BAND NEUTROPHILS % (MANUAL) 2 % (3-5); BASOPHILS % (MANUAL) 0 % (0-2); EOSINOPHILS % (MANUAL) 3 % (0-6); LYMPHOCYTES % (MANUAL) 7 % (13-45); MONOCYTES % (MANUAL) 16 % (3-13); SEGMENTED NEUTROPHILS % (MAN) 70 % (42-78); TOTAL CELLS COUNTED 100; TOXIC VACUOLATION PRESENT
[2020-06-17 05:34] LABS: PLATELET COMMENT DECREASED; RBC MORPHOLOGY COMMENT NORMO-CYTIC/CHROMIC
[2020-06-17] MEDS: INSULIN LISPRO 100 UNIT/ML 3 ML VIAL SUBCUT SCH ×3 (07:52→21:04)
[2020-06-17] MEDS: FLUTICASONE/UMECLIDIN/VILANTER 100-62.5-25 MCG/DOSE IH SCH (09:44)
[2020-06-17] MEDS: CHOLECALCIFEROL (D3) 1,000 UNIT (25 MCG) TABLET PO SCH (09:45)
[2020-06-17] MEDS: CALCIUM CARBONATE 600 MG TABLET PO SCH ×2 (09:45→17:58)
[2020-06-17] MEDS: METFORMIN HCL 500 MG TABLET PO SCH (09:46)
[2020-06-17] MEDS: DOCUSATE SODIUM 100 MG CAPSULE PO SCH (09:46)
[2020-06-17] MEDS: GABAPENTIN 400 MG CAPSULE PO SCH ×2 (09:46→21:17)
[2020-06-17] MEDS: SPIRONOLACTONE 25 MG TABLET PO SCH (09:46)
[2020-06-17] MEDS: POTASSIUM CHLORIDE 10 MEQ TABLET.ER PO SCH (09:46)
[2020-06-17] MEDS: CITALOPRAM HYDROBROMIDE 20 MG TABLET PO SCH (09:46)
--- NOTE | 2020-06-17 16:15 | PDOC PROGRESS REPORT ---
Subjective Progress Note for:: 06/17/20 Subjective:: Patient still complains of pain in his left leg. Reason For Visit: CELLULITIS,MULTIPLE MYELOMA,HEP C,GARCIA,CIRRHOSIS, Physical Exam Vital Signs: Temp Pulse Resp BP Pulse Ox 98.3 F 76 18 108/63 98 06/17/20 10:58 06/17/20 10:58 06/17/20 10:58 06/17/20 10:58 06/17/20 10:58 Intake & Output 06/16/20 06/17/20 06/18/20 06:59 06:59 06:59 Intake Total 2210 2872 780 Output Total 3765 4295 500 Balance -1555 -253 280 Weight 126.5 kg 127.2 kg General appearance: PRESENT: no acute distress, cooperative Neck exam: ABSENT: full ROM Respiratory exam: PRESENT: unlabored. ABSENT: accessory muscle use, retraction, tachypnea GI/Abdominal exam: PRESENT: soft. ABSENT: rebound, rigid, tenderness Extremities exam: PRESENT: other - Significant erythema and swelling of his left lower extremity Neurological exam: PRESENT: alert, awake Results Laboratory Results: 06/17/20 04:48 06/17/20 04:48 06/17/20 06/17/20 04:48 04:48 WBC 5.5 RBC 3.74 L Hgb 11.8 L Hct 35.0 L MCV 94 MCH 31.6 MCHC 33.8 RDW 13.9 Plt Count 107 L Seg Neutrophils % Not Reportable Sodium 132.3 L Potassium 4.4 Chloride 89 L Carbon Dioxide 38 H Anion Gap 5 BUN 21 H Creatinine 0.99 Est GFR ( Amer) > 60 Glucose 131 H Calcium 9.2 06/12/20 06:06 Blood Blood Culture - Final NO GROWTH IN 5 DAYS 06/12/20 03:22 Blood Blood Culture - Final NO GROWTH IN 5 DAYS 06/17/20 04:48 Creatine Kinase 25 L Impressions: Chest X-Ray 06/12/20 07:08 IMPRESSION: Negative chest allowing for low lung volumes. Hip X-Ray 06/12/20 07:08 IMPRESSION: Suspect soft tissue edema. No underlying bony abnormality. Venous Doppler Study 06/12/20 07:08 IMPRESSION: NO EVIDENCE DVT OR SVT IN THE LEFT LEG. Knee X-Ray 06/14/20 00:00 IMPRESSION: NEGATIVE STUDY OF THE LEFT KNEE. NO RADIOGRAPHIC EVIDENCE OF ACUTE INJURY. Assessment and Plan - Diagnosis (1) Cellulitis of left leg Is this a current diagnosis for this admission?: Yes Plan: Currently on vancomycin, Zosyn and clindamycin recently added. Area has been demarcated that we will monitor for improvement. Patient's leukocytopenia on CBC seems to have resolved. Pain control as needed. (2) COPD (chronic obstructive pulmonary disease) Qualifiers: COPD type: unspecified COPD Qualified Code(s): J44.9 - Chronic obstructive pulmonary disease, unspecified Is this a current diagnosis for this admission?: Yes Plan: Continue Trelegy daily with as needed nebulizers. Patient has chronic hypoxic respiratory failure and is on about 3 L nasal cannula at home. Will de-escalate nasal cannula from 4 to 3 L. (3) Hypocalcemia Is this a current diagnosis for this admission?: Yes Plan: Continue oral calcium supplement. Serum calcium normal. (4) Sleep apnea in adult Is this a current diagnosis for this admission?: Yes Plan: Continue current respiratory treatment AVAPS (5) Morbid obesity with alveolar hypoventilation Is this a current diagnosis for this admission?: Yes Plan: As above (6) Multiple myeloma Qualifiers: Multiple myeloma remission status: in remission Qualified Code(s): C90.01 - Multiple myeloma in remission Is this a current diagnosis for this admission?: Yes Plan: Continue to hold chemotherapy at this time - Time Time Spent with patient: Less than 15 minutes Anticipated Discharge Disposition: Home, Self Care Anticipated Discharge: within 72 hours
[2020-06-17] MEDS: ATORVASTATIN CALCIUM 20 MG TABLET PO SCH (21:17)
[2020-06-18] MEDS: CLINDAMYCIN 900 MG/D5W RTU 900 MG/50 ML RTUPB IV SCH ×3 (01:03→17:47)
[2020-06-18] MEDS: VANCOMYCIN HCL 1,000 MG in DEXTROSE 5%-WATER 250 ML IV SCH ×3 (02:15→17:47)
[2020-06-18] MEDS: PIPERACILLIN SODIUM/TAZOBACTAM 3.375 GM in NORMAL SALINE 100 ML IV SCH ×4 (03:35→20:32)
[2020-06-18] MEDS: HEPARIN SOD (PORCINE) 5,000 UNIT/ML 1 ML VIAL SUBCUT SCH ×3 (05:40→22:20)
[2020-06-18] MEDS: FUROSEMIDE INJ/PF 20 MG/2 ML SDV IV SCH (06:06)
[2020-06-18] MEDS: METHADONE HCL 10 MG TABLET PO SCH ×3 (06:06→22:17)
[2020-06-18] MEDS: HYDROMORPHONE HCL INJ/PF 2 MG/ML AMPULE IV PRN ×3 (06:06→15:33)
[2020-06-18 06:24] LABS: HEMATOCRIT 33.8 % (37.9-51.0); HEMOGLOBIN 11.3 g/dL (13.5-17.0); MEAN CORPUSCULAR HEMOGLOBIN 31.2 pg (27.0-33.4); MEAN CORPUSCULAR HGB CONC 33.4 g/dL (32.0-36.0); MEAN CORPUSCULAR VOLUME 94 fl (80-97); PLATELET COUNT 136 10^3/uL (150-450); RED BLOOD COUNT 3.62 10^6/uL (4.35-5.55); RED CELL DISTRIBUTION WIDTH 13.9 % (11.5-14.0); WHITE BLOOD COUNT 5.5 10^3/uL (4.0-10.5)
[2020-06-18 06:52] LABS: ANION GAP 6 (5-19); BLOOD UREA NITROGEN 23 mg/dL (7-20); CARBON DIOXIDE 38 mmol/L (22-30); CHLORIDE 88 mmol/L (98-107); GLUCOSE 129 mg/dL (75-110); POTASSIUM 4.6 mmol/L (3.6-5.0)
[2020-06-18 07:04] LABS: ABSOLUTE LYMPHOCYTES# (MANUAL) 0.6 10^3/uL (0.5-4.7); ABSOLUTE MONOCYTES # (MANUAL) 0.8 10^3/uL (0.1-1.4); BAND NEUTROPHILS % (MANUAL) 5 % (3-5); BASOPHILS % (MANUAL) 2 % (0-2); EOSINOPHILS % (MANUAL) 0 % (0-6); LYMPHOCYTES % (MANUAL) 6 % (13-45); MONOCYTES % (MANUAL) 15 % (3-13); SEGMENTED NEUTROPHILS % (MAN) 67 % (42-78); TOTAL CELLS COUNTED 100
[2020-06-18 07:06] LABS: OVALOCYTES SLIGHT; PLATELET CLUMPS PRESENT; PLATELET COMMENT DECREASED
[2020-06-18 07:14] LABS: C-REACTIVE PROTEIN 183.8 mg/L (<10.0); CALCIUM 8.9 mg/dL (8.4-10.2)
[2020-06-18 07:18] LABS: ERYTHROCYTE SEDIMENTATION RATE 86 mm/hr (0-20)
[2020-06-18] MEDS: INSULIN LISPRO 100 UNIT/ML 3 ML VIAL SUBCUT SCH ×4 (07:32→22:12)
[2020-06-18] MEDS: CHOLECALCIFEROL (D3) 1,000 UNIT (25 MCG) TABLET PO SCH (09:38)
[2020-06-18] MEDS: FLUTICASONE/UMECLIDIN/VILANTER 100-62.5-25 MCG/DOSE IH SCH (09:38)
[2020-06-18] MEDS: GABAPENTIN 400 MG CAPSULE PO SCH ×2 (09:38→22:21)
[2020-06-18] MEDS: DOCUSATE SODIUM 100 MG CAPSULE PO SCH (09:38)
[2020-06-18] MEDS: CALCIUM CARBONATE 600 MG TABLET PO SCH ×2 (09:38→17:47)
[2020-06-18] MEDS: CITALOPRAM HYDROBROMIDE 20 MG TABLET PO SCH (09:38)
[2020-06-18] MEDS: SPIRONOLACTONE 25 MG TABLET PO SCH (09:39)
[2020-06-18] MEDS: METFORMIN HCL 500 MG TABLET PO SCH (09:39)
[2020-06-18] MEDS: POTASSIUM CHLORIDE 10 MEQ TABLET.ER PO SCH (09:39)
[2020-06-18 10:12] LABS: VANCOMYCIN,TROUGH 14.3 ug/mL (5.0-20.0)
--- NOTE | 2020-06-18 16:15 | RADIOLOGY REPORT (SQ) ---
EXAM DESCRIPTION: CT LEFT LOWER EXTREMITY WITH IMAGES COMPLETED DATE/TIME: 06/18/2020 2:45 pm REASON FOR STUDY: worsening left led cellulitis desp abx. ?Fascitis COMPARISON: left knee radiograph, 06/14/2020 TECHNIQUE: CT scan of the entire left lower extremity performed without intravenous or oral contrast . Images reviewed with soft tissue and bone windows. Reconstructed coronal and sagittal MPR images reviewed. All images stored on PACS. CONTRAST TYPE AND DOSE: 75 mL Omnipaque 350 RENAL FUNCTION: GFR > 60. LIMITATIONS: Motion obscures detail particularly in the lower leg. FINDINGS: There is a left knee arthroplasty with components in good alignment. Beam hardening artif act and motion obscures some detail. There is no definite evidence of hardware loosening or subsiden ce. No acute fracture or cortical disruption. Normal femoroacetabular alignment. The ankle joint h as normal alignment and appearance. Normal bone mineral density. There is diffuse circumferential skin thickening and subcutaneous edema involving the lower leg from the mid calf to ankle. No focal drainable abscess. Small amount of edema at the lateral aspect of t he knee joint. No definite joint effusion. Visualized intraperitoneal contents appear normal. No inguinal adenopathy. IMPRESSION: 1. Diffuse skin thickening and subcutaneous edema involving the lower leg mid calf distally. No foca l drainable abscess. 2. Left knee arthroplasty with no CT evidence of hardware complication. TECHNICAL DOCUMENTATION: JOB ID: [id number] [employer]- All Rights Reserved Reading location - IP/workstation name: [email or web address]
--- NOTE | 2020-06-18 18:20 | PDOC PROGRESS REPORT ---
Subjective Progress Note for:: 06/18/20 Subjective:: Patient's pain is still significant. States that he feels the swelling is mildly better. Honestly no thorough improvement in terms of appearance. Reason For Visit: CELLULITIS,MULTIPLE MYELOMA,HEP C,GARCIA,CIRRHOSIS, Physical Exam Vital Signs: Temp Pulse Resp BP Pulse Ox 99.4 F 100 20 122/68 92 06/18/20 15:28 06/18/20 15:28 06/18/20 15:28 06/18/20 15:28 06/18/20 15:28 Intake & Output 06/17/20 06/18/20 06/19/20 06:59 06:59 06:59 Intake Total 2872 2650 760 Output Total 3125 1200 450 Balance -253 1450 310 Weight 127.2 kg 127.2 kg General appearance: PRESENT: no acute distress, cooperative Neck exam: ABSENT: JVD Respiratory exam: PRESENT: symmetrical, unlabored. ABSENT: accessory muscle use, retraction, tachypnea GI/Abdominal exam: PRESENT: soft. ABSENT: ascites, distended, tenderness Extremities exam: PRESENT: other - Significant redness and erythema in patient's leg left mostly in lower leg but also down the posterior region of his left thigh as well. Some evidence of darkening of skin similar to stasis dermatitis but no necrosis. Significantly tender on even light palpation. Neurological exam: PRESENT: alert, awake, oriented to person, oriented to place, oriented to time Psychiatric exam: ABSENT: agitated, anxious Results Laboratory Results: 06/18/20 06:05 06/18/20 09:30 06/18/20 06/18/20 06/18/20 06:05 06:05 09:30 WBC 5.5 RBC 3.62 L Hgb 11.3 L Hct 33.8 L MCV 94 MCH 31.2 MCHC 33.4 RDW 13.9 Plt Count 136 L Seg Neutrophils % Not Reportable Sodium 131.5 L Potassium 4.6 Chloride 88 L Carbon Dioxide 38 H Anion Gap 6 BUN 23 H Creatinine 1.00 0.98 Est GFR ( Amer) > 60 > 60 Glucose 129 H Calcium 8.9 C-Reactive Protein 183.8 H 06/17/20 04:48 Creatine Kinase 25 L Impressions: Chest X-Ray 06/12/20 07:08 IMPRESSION: Negative chest allowing for low lung volumes. Hip X-Ray 06/12/20 07:08 IMPRESSION: Suspect soft tissue edema. No underlying bony abnormality. Venous Doppler Study 06/12/20 07:08 IMPRESSION: NO EVIDENCE DVT OR SVT IN THE LEFT LEG. Knee X-Ray 06/14/20 00:00 IMPRESSION: NEGATIVE STUDY OF THE LEFT KNEE. NO RADIOGRAPHIC EVIDENCE OF ACUTE INJURY. Lower Extremity CT 06/18/20 00:00 IMPRESSION: 1. Diffuse skin thickening and subcutaneous edema involving the lower leg mid calf distally. No focal drainable abscess. 2. Left knee arthroplasty with no CT evidence of hardware complication. Assessment and Plan - Diagnosis (1) Cellulitis of left leg Is this a current diagnosis for this admission?: Yes Plan: Currently on vancomycin, Zosyn and clindamycin While patient's bandemia has resolved and he is leukopenia has resolved and also now afebrile, the appearance of his cellulitis does not seem significantly improved. I obtained a CT of the leg which does not show any significant findings for necrotizing fasciitis or gangrenous cellulitis. I will give IV antibiotics a few more days to see if any improvement. I will trend CRP and ESR markers (2) COPD (chronic obstructive pulmonary disease) Qualifiers: COPD type: unspecified COPD Qualified Code(s): J44.9 - Chronic obstructive pulmonary disease, unspecified Is this a current diagnosis for this admission?: Yes Plan: Continue Trelegy daily with as needed nebulizers. Patient has chronic hypoxic respiratory failure and is on about 3 L nasal cannula at home. Currently maint aining adequate sats on 3 L nasal cannula. Nocturnal BiPAP (3) Hypocalcemia Is this a current diagnosis for this admission?: Yes Plan: Continue oral calcium supplement. Serum calcium normal. (4) Sleep apnea in adult Is this a current diagnosis for this admission?: Yes Plan: Continue current respiratory treatment AVAPS nocturnally (5) Morbid obesity with alveolar hypoventilation Is this a current diagnosis for this admission?: Yes (6) Multiple myeloma Qualifiers: Multiple myeloma remission status: in remission Qualified Code(s): C90.01 - Multiple myeloma in remission Is this a current diagnosis for this admission?: Yes Plan: Continue to hold chemotherapy at this time - Time Time Spent with patient: 15-24 minutes Anticipated Discharge Disposition: Home, Self Care Anticipated Discharge: Other - undetermined
[2020-06-18] MEDS: ATORVASTATIN CALCIUM 20 MG TABLET PO SCH (22:21)
[2020-06-19] MEDS: CLINDAMYCIN 900 MG/D5W RTU 900 MG/50 ML RTUPB IV SCH ×3 (01:09→18:25)
[2020-06-19] MEDS: HYDROMORPHONE HCL INJ/PF 2 MG/ML AMPULE IV PRN ×3 (01:09→14:19)
[2020-06-19] MEDS: VANCOMYCIN HCL 1,000 MG in DEXTROSE 5%-WATER 250 ML IV SCH ×4 (02:18→19:32)
[2020-06-19] MEDS: PIPERACILLIN SODIUM/TAZOBACTAM 3.375 GM in NORMAL SALINE 100 ML IV SCH ×3 (04:09→21:05)
[2020-06-19] MEDS: METHADONE HCL 10 MG TABLET PO SCH ×3 (05:18→22:23)
[2020-06-19] MEDS: HEPARIN SOD (PORCINE) 5,000 UNIT/ML 1 ML VIAL SUBCUT SCH ×3 (05:19→22:22)
[2020-06-19 06:28] LABS: BLOOD UREA NITROGEN 23 mg/dL (7-20); CALCIUM 8.4 mg/dL (8.4-10.2); GLUCOSE 131 mg/dL (75-110); POTASSIUM 4.4 mmol/L (3.6-5.0)
[2020-06-19 06:31] LABS: CARBON DIOXIDE 39 mmol/L (22-30); CHLORIDE 90 mmol/L (98-107)
[2020-06-19 06:45] LABS: ANION GAP 3 (5-19); C-REACTIVE PROTEIN 167.6 mg/L (<10.0)
--- NOTE | 2020-06-19 07:40 | PDOC PROGRESS REPORT ---
Subjective Progress Note for:: 06/19/20 Subjective:: Mr. Richard is sleeping this morning on exam. Appears comfortable in bed. Reason For Visit: CELLULITIS,MULTIPLE MYELOMA,HEP C,GARCIA,CIRRHOSIS, Physical Exam Vital Signs: Temp Pulse Resp BP Pulse Ox 98.5 F 81 23 H 118/79 93 06/19/20 00:45 06/19/20 02:00 06/19/20 04:11 06/18/20 23:13 06/18/20 23:13 Intake & Output 06/18/20 06/19/20 06/20/20 06:59 06:59 06:59 Intake Total 2650 2180 Output Total 1200 905 Balance 1450 1275 Weight 127.2 kg 128.5 kg Physical Exam: No acute distress Left lower extremity -No increased swelling to the left knee, no palpable effusion -Still substantial amount of cellulitis in the left lower extremity now mostly localized distal to the knee. There is significant recession of erythema from prior skin markings in comparison to my last visit 3 days ago Results Laboratory Results: 06/18/20 06:05 06/19/20 05:30 06/18/20 06/19/20 09:30 05:30 Sodium 131.5 L Potassium 4.4 Chloride 90 L Carbon Dioxide 39 H Anion Gap 3 L BUN 23 H Creatinine 0.98 1.00 Est GFR ( Amer) > 60 > 60 Glucose 131 H Calcium 8.4 C-Reactive Protein 167.6 H 06/17/20 04:48 Creatine Kinase 25 L Impressions: Chest X-Ray 06/12/20 07:08 IMPRESSION: Negative chest allowing for low lung volumes. Hip X-Ray 06/12/20 07:08 IMPRESSION: Suspect soft tissue edema. No underlying bony abnormality. Venous Doppler Study 06/12/20 07:08 IMPRESSION: NO EVIDENCE DVT OR SVT IN THE LEFT LEG. Knee X-Ray 06/14/20 00:00 IMPRESSION: NEGATIVE STUDY OF THE LEFT KNEE. NO RADIOGRAPHIC EVIDENCE OF ACUTE INJURY. Lower Extremity CT 06/18/20 00:00 IMPRESSION: 1. Diffuse skin thickening and subcutaneous edema involving the lower leg mid calf distally. No focal drainable abscess. 2. Left knee arthroplasty with no CT evidence of hardware complication. Assessment & Plan - Diagnosis (1) Cellulitis Qualifiers: Site of cellulitis: extremity Site of cellulitis of extremity: lower extremity Laterality: left Qualified Code(s): L03.116 - Cellulitis of left lower limb Is this a current diagnosis for this admission?: Yes Plan: Reviewing the patient's exam and recent CT scan I do not appreciate any significant effusion of the left knee indicative of left knee periprosthetic joint infection as the potential nidus for his ongoing cellulitis. Please contact me with any further questions or concerns - Time Time Spent with patient: Less than 15 minutes
--- NOTE | 2020-06-19 08:11 | PDOC PROGRESS REPORT ---
Subjective Progress Note for:: 06/19/20 Subjective:: Patient states he is feeling better. CPAP still in place. He has been afebrile for several days. He reports he is eating well without dyspnea. Reason For Visit: CELLULITIS,MULTIPLE MYELOMA,HEP C,GARCIA,CIRRHOSIS, Physical Exam Vital Signs: Temp Pulse Resp BP Pulse Ox 98.5 F 81 23 H 118/79 93 06/19/20 00:45 06/19/20 02:00 06/19/20 04:11 06/18/20 23:13 06/18/20 23:13 Intake & Output 06/18/20 06/19/20 06/20/20 06:59 06:59 06:59 Intake Total 2650 2180 Output Total 1200 905 Balance 1450 1275 Weight 127.2 kg 128.5 kg General appearance: PRESENT: morbidly obese Head exam: PRESENT: normocephalic Respiratory exam: PRESENT: unlabored Extremities exam: PRESENT: +2 edema Neurological exam: PRESENT: alert, awake Psychiatric exam: PRESENT: appropriate affect Skin exam: PRESENT: other - Cellulitis not significantly changed, but he also has chronic venous stasis changes, so somewhat difficult to assess overall. Results Laboratory Results: 06/18/20 06:05 06/19/20 05:30 06/18/20 06/19/20 09:30 05:30 Sodium 131.5 L Potassium 4.4 Chloride 90 L Carbon Dioxide 39 H Anion Gap 3 L BUN 23 H Creatinine 0.98 1.00 Est GFR ( Amer) > 60 > 60 Glucose 131 H Calcium 8.4 C-Reactive Protein 167.6 H 06/17/20 04:48 Creatine Kinase 25 L Impressions: Chest X-Ray 06/12/20 07:08 IMPRESSION: Negative chest allowing for low lung volumes. Hip X-Ray 06/12/20 07:08 IMPRESSION: Suspect soft tissue edema. No underlying bony abnormality. Venous Doppler Study 06/12/20 07:08 IMPRESSION: NO EVIDENCE DVT OR SVT IN THE LEFT LEG. Knee X-Ray 06/14/20 00:00 IMPRESSION: NEGATIVE STUDY OF THE LEFT KNEE. NO RADIOGRAPHIC EVIDENCE OF ACUTE INJURY. Lower Extremity CT 06/18/20 00:00 IMPRESSION: 1. Diffuse skin thickening and subcutaneous edema involving the lower leg mid calf distally. No focal drainable abscess. 2. Left knee arthroplasty with no CT evidence of hardware complication. Assessment & Plan - Diagnosis (1) Cellulitis of left leg Is this a current diagnosis for this admission?: Yes Plan: As per Primary team. (2) Multiple myeloma Qualifiers: Multiple myeloma remission status: in remission Qualified Code(s): C90.01 - Multiple myeloma in remission Is this a current diagnosis for this admission?: Yes Plan: All treatment on hold. His CBC looks good today. - Time Time Spent with patient: Less than 15 minutes
[2020-06-19] MEDS: INSULIN LISPRO 100 UNIT/ML 3 ML VIAL SUBCUT SCH ×4 (08:32→22:20)
[2020-06-19] MEDS: CHOLECALCIFEROL (D3) 1,000 UNIT (25 MCG) TABLET PO SCH (09:28)
[2020-06-19] MEDS: FUROSEMIDE 40 MG TABLET PO SCH (09:28)
[2020-06-19] MEDS: SPIRONOLACTONE 25 MG TABLET PO SCH (09:28)
[2020-06-19] MEDS: CALCIUM CARBONATE 600 MG TABLET PO SCH ×2 (09:28→18:33)
[2020-06-19] MEDS: DOCUSATE SODIUM 100 MG CAPSULE PO SCH (09:29)
[2020-06-19] MEDS: POTASSIUM CHLORIDE 10 MEQ TABLET.ER PO SCH (09:29)
[2020-06-19] MEDS: CITALOPRAM HYDROBROMIDE 20 MG TABLET PO SCH (09:29)
[2020-06-19] MEDS: FLUTICASONE/UMECLIDIN/VILANTER 100-62.5-25 MCG/DOSE IH SCH (09:29)
[2020-06-19] MEDS: GABAPENTIN 400 MG CAPSULE PO SCH ×2 (09:29→22:23)
--- NOTE | 2020-06-19 18:58 | PDOC PROGRESS REPORT ---
Subjective Progress Note for:: 06/19/20 Subjective:: Patient feels well and feels mild improvement of his erythema. Reason For Visit: CELLULITIS,MULTIPLE MYELOMA,HEP C,GARCIA,CIRRHOSIS, Physical Exam Vital Signs: Temp Pulse Resp BP Pulse Ox 97.8 F 68 16 118/68 96 06/19/20 07:47 06/19/20 07:47 06/19/20 07:47 06/19/20 07:47 06/19/20 09:21 Intake & Output 06/18/20 06/19/20 06/20/20 06:59 06:59 06:59 Intake Total 2650 2180 50 Output Total 1200 905 Balance 1450 1275 50 Weight 127.2 kg 128.5 kg General appearance: PRESENT: no acute distress, cooperative Neck exam: ABSENT: JVD Respiratory exam: PRESENT: clear to auscultation pat Extremities exam: PRESENT: other - Significant erythema of his left lower leg as well as posterior portion of his left thigh with swelling. Tender over calf and meredith. Does seem somewhat improved from yesterday. Results Laboratory Results: 06/18/20 06:05 06/19/20 05:30 06/19/20 05:30 Sodium 131.5 L Potassium 4.4 Chloride 90 L Carbon Dioxide 39 H Anion Gap 3 L BUN 23 H Creatinine 1.00 Est GFR ( Amer) > 60 Glucose 131 H Calcium 8.4 C-Reactive Protein 167.6 H 06/17/20 04:48 Creatine Kinase 25 L Impressions: Chest X-Ray 06/12/20 07:08 IMPRESSION: Negative chest allowing for low lung volumes. Hip X-Ray 06/12/20 07:08 IMPRESSION: Suspect soft tissue edema. No underlying bony abnormality. Venous Doppler Study 06/12/20 07:08 IMPRESSION: NO EVIDENCE DVT OR SVT IN THE LEFT LEG. Knee X-Ray 06/14/20 00:00 IMPRESSION: NEGATIVE STUDY OF THE LEFT KNEE. NO RADIOGRAPHIC EVIDENCE OF ACUTE INJURY. Lower Extremity CT 06/18/20 00:00 IMPRESSION: 1. Diffuse skin thickening and subcutaneous edema involving the lower leg mid calf distally. No focal drainable abscess. 2. Left knee arthroplasty with no CT evidence of hardware complication. Assessment and Plan - Diagnosis (1) Cellulitis of left leg Is this a current diagnosis for this admission?: Yes Plan: Currently on vancomycin, Zosyn and clindamycin patient's bandemia has resolved and he is leukopenia has resolved and also now afebrile, CT of the leg showed no evidence of necrotizing fasciitis or gangrene or cellulitis but did show very extensive soft tissue swelling from his cellulitis. It seems he will need a few more days of IV antibiotics. The level of his cellulitis is very extensive and he is immunosuppressed nature may be compromising healing of his infection. I will trend CRP and ESR markers (2) COPD (chronic obstructive pulmonary disease) Qualifiers: COPD type: unspecified COPD Qualified Code(s): J44.9 - Chronic obstructive pulmonary disease, unspecified Is this a current diagnosis for this admission?: Yes Plan: Continue Trelegy daily with as needed nebulizers. Patient has chronic hypoxic respiratory failure and is on about 3 L nasal cannula at home. Currently maintaining adequate sats on 3 L nasal cannula. Nocturnal BiPAP (3) Hypocalcemia Is this a current diagnosis for this admission?: Yes Plan: Continue oral calcium supplement. Serum calcium normal. (4) Sleep apnea in adult Is this a current diagnosis for this admission?: Yes Plan: Continue current respiratory treatment AVAPS nocturnally (5) Morbid obesity with alveolar hypoventilation Is this a current diagnosis for this admission?: Yes (6) Multiple myeloma Qualifiers: Multiple myeloma remission status: in remission Qualified Code(s): C90.01 - Multiple myeloma in remission Is this a current diagnosis for this admission?: Yes Plan: Continue to hold chemotherapy at this time as per oncology - Time Time Spent with patient: Less than 15 minutes Anticipated Discharge Disposition: Home, Self Care Anticipated Discharge: Other - undetermined
[2020-06-19] MEDS: ATORVASTATIN CALCIUM 20 MG TABLET PO SCH (22:23)
[2020-06-20] MEDS: HYDROMORPHONE HCL INJ/PF 2 MG/ML AMPULE IV PRN ×3 (00:13→22:11)
[2020-06-20] MEDS: CLINDAMYCIN 900 MG/D5W RTU 900 MG/50 ML RTUPB IV SCH ×3 (01:33→18:06)
[2020-06-20] MEDS: VANCOMYCIN HCL 1,000 MG in DEXTROSE 5%-WATER 250 ML IV SCH ×3 (01:37→18:06)
[2020-06-20] MEDS: PIPERACILLIN SODIUM/TAZOBACTAM 3.375 GM in NORMAL SALINE 100 ML IV SCH ×4 (03:19→21:59)
[2020-06-20] MEDS: METHADONE HCL 10 MG TABLET PO SCH ×3 (06:47→22:06)
[2020-06-20] MEDS: HEPARIN SOD (PORCINE) 5,000 UNIT/ML 1 ML VIAL SUBCUT SCH ×3 (06:48→22:09)
[2020-06-20] MEDS: FLUTICASONE/UMECLIDIN/VILANTER 100-62.5-25 MCG/DOSE IH SCH (09:29)
[2020-06-20] MEDS: INSULIN LISPRO 100 UNIT/ML 3 ML VIAL SUBCUT SCH ×4 (09:30→22:27)
[2020-06-20] MEDS: POTASSIUM CHLORIDE 10 MEQ TABLET.ER PO SCH (10:59)
[2020-06-20] MEDS: CALCIUM CARBONATE 600 MG TABLET PO SCH ×2 (10:59→18:08)
[2020-06-20] MEDS: CHOLECALCIFEROL (D3) 1,000 UNIT (25 MCG) TABLET PO SCH (10:59)
[2020-06-20] MEDS: FUROSEMIDE 40 MG TABLET PO SCH (10:59)
[2020-06-20] MEDS: DOCUSATE SODIUM 100 MG CAPSULE PO SCH (10:59)
[2020-06-20] MEDS: CITALOPRAM HYDROBROMIDE 20 MG TABLET PO SCH (10:59)
[2020-06-20] MEDS: GABAPENTIN 400 MG CAPSULE PO SCH ×2 (10:59→22:07)
[2020-06-20] MEDS: SPIRONOLACTONE 25 MG TABLET PO SCH (11:00)
--- NOTE | 2020-06-20 16:31 | PDOC PROGRESS REPORT ---
Subjective Progress Note for:: 06/20/20 Reason For Visit: CELLULITIS,MULTIPLE MYELOMA,HEP C,GARCIA,CIRRHOSIS, Physical Exam Vital Signs: Temp Pulse Resp BP Pulse Ox 98.4 F 79 19 112/66 99 06/20/20 11:01 06/20/20 12:17 06/20/20 11:01 06/20/20 12:17 06/20/20 12:17 Intake & Output 06/19/20 06/20/20 06/21/20 06:59 06:59 06:59 Intake Total 2180 2190 1240 Output Total 905 1340 1700 Balance 1275 850 -460 Weight 128.5 kg 128.5 kg General appearance: PRESENT: no acute distress, cooperative Neck exam: ABSENT: JVD Respiratory exam: PRESENT: clear to auscultation pat, unlabored. ABSENT: wheezes Extremities exam: PRESENT: other - left swollen leg Neurological exam: PRESENT: alert, awake, oriented to person, oriented to place, oriented to time Results Laboratory Results: 06/18/20 06:05 06/19/20 05:30 06/17/20 04:48 Creatine Kinase 25 L Impressions: Chest X-Ray 06/12/20 07:08 IMPRESSION: Negative chest allowing for low lung volumes. Hip X-Ray 06/12/20 07:08 IMPRESSION: Suspect soft tissue edema. No underlying bony abnormality. Venous Doppler Study 06/12/20 07:08 IMPRESSION: NO EVIDENCE DVT OR SVT IN THE LEFT LEG. Knee X-Ray 06/14/20 00:00 IMPRESSION: NEGATIVE STUDY OF THE LEFT KNEE. NO RADIOGRAPHIC EVIDENCE OF ACUTE INJURY. Lower Extremity CT 06/18/20 00:00 IMPRESSION: 1. Diffuse skin thickening and subcutaneous edema involving the lower leg mid calf distally. No focal drainable abscess. 2. Left knee arthroplasty with no CT evidence of hardware complication. Assessment and Plan - Diagnosis (1) Cellulitis of left leg Is this a current diagnosis for this admission?: Yes Plan: Currently on vancomycin, Zosyn and clindamycin patient's bandemia has resolved and he is leukopenia has resolved and also now afebrile, CT of the leg showed no evidence of necrotizing fasciitis or gangrene or cellulitis but did show very extensive soft tissue swelling from his cellulitis. It seems he will need a few more days of IV antibiotics. The level of his cellulitis is very extensive and he is immunosuppressed nature may be compromising healing of his infection. I will trend CRP and ESR markers (2) COPD (chronic obstructive pulmonary disease) Qualifiers: COPD type: unspecified COPD Qualified Code(s): J44.9 - Chronic obstructive pulmonary disease, unspecified Is this a current diagnosis for this admission?: Yes Plan: Continue Trelegy daily with as needed nebulizers. Patient has chronic hypoxic respiratory failure and is on about 3 L nasal cannula at home. Currently maintaining adequate sats on 3 L nasal cannula. Nocturnal BiPAP (3) Hypocalcemia Is this a current diagnosis for this admission?: Yes (4) Sleep apnea in adult Is this a current diagnosis for this admission?: Yes (5) Morbid obesity with alveolar hypoventilation Is this a current diagnosis for this admission?: Yes (6) Multiple myeloma Qualifiers: Multiple myeloma remission status: in remission Qualified Code(s): C90.01 - Multiple myeloma in remission Is this a current diagnosis for this admission?: Yes - Time Time Spent with patient: Less than 15 minutes Anticipated Discharge Disposition: Home, Self Care Anticipated Discharge: within 72 hours
[2020-06-20] MEDS: ATORVASTATIN CALCIUM 20 MG TABLET PO SCH (22:05)
[2020-06-21] MEDS: VANCOMYCIN HCL 1,000 MG in DEXTROSE 5%-WATER 250 ML IV SCH ×3 (01:38→17:16)
[2020-06-21] MEDS: PIPERACILLIN SODIUM/TAZOBACTAM 3.375 GM in NORMAL SALINE 100 ML IV SCH ×4 (02:56→21:10)
[2020-06-21] MEDS: METHADONE HCL 10 MG TABLET PO SCH ×3 (07:19→21:11)
[2020-06-21] MEDS: HEPARIN SOD (PORCINE) 5,000 UNIT/ML 1 ML VIAL SUBCUT SCH ×3 (07:21→21:12)
[2020-06-21 08:05] LABS: VENOUS BLOOD BASE EXCESS 8.7 mmol/L; VENOUS BLOOD HCO3 36.6 mmol/L (20-32); VENOUS BLOOD PH 7.34 (7.30-7.42)
[2020-06-21 08:15] LABS: HEMATOCRIT 32.1 % (37.9-51.0); HEMOGLOBIN 10.6 g/dL (13.5-17.0); MEAN CORPUSCULAR HEMOGLOBIN 31.3 pg (27.0-33.4); MEAN CORPUSCULAR HGB CONC 33.1 g/dL (32.0-36.0); MEAN CORPUSCULAR VOLUME 95 fl (80-97); PLATELET COUNT 150 10^3/uL (150-450); RED BLOOD COUNT 3.39 10^6/uL (4.35-5.55); RED CELL DISTRIBUTION WIDTH 14.1 % (11.5-14.0); WHITE BLOOD COUNT 4.3 10^3/uL (4.0-10.5)
[2020-06-21 08:20] LABS: VENOUS BLOOD PCO2 68.8 mmHg (35-63)
[2020-06-21 08:30] LABS: BLOOD UREA NITROGEN 20 mg/dL (7-20); CALCIUM 8.2 mg/dL (8.4-10.2); CARBON DIOXIDE 36 mmol/L (22-30); CREATINE KINASE 34 U/L (55-170); GLUCOSE 90 mg/dL (75-110); POTASSIUM 4.7 mmol/L (3.6-5.0)
[2020-06-21 08:33] LABS: CHLORIDE 94 mmol/L (98-107)
[2020-06-21 08:36] LABS: ANION GAP 2 (5-19)
[2020-06-21 08:48] LABS: C-REACTIVE PROTEIN 130.8 mg/L (<10.0)
[2020-06-21 08:57] LABS: ABSOLUTE LYMPHOCYTES# (MANUAL) 0.3 10^3/uL (0.5-4.7); ABSOLUTE MONOCYTES # (MANUAL) 0.4 10^3/uL (0.1-1.4); BAND NEUTROPHILS % (MANUAL) 8 % (3-5); BASOPHILS % (MANUAL) 2 % (0-2); EOSINOPHILS % (MANUAL) 4 % (0-6); LYMPHOCYTES % (MANUAL) 4 % (13-45); METAMYELOCYTES % (MANUAL) 1 % (0-1); MONOCYTES % (MANUAL) 10 % (3-13); SEGMENTED NEUTROPHILS % (MAN) 66 % (42-78); TOTAL CELLS COUNTED 100
[2020-06-21 08:59] LABS: PLATELET COMMENT ADEQUATE
[2020-06-21 09:02] LABS: ANISOCYTOSIS SLIGHT; BURR CELLS SLIGHT; POIKILOCYTOSIS SLIGHT; POLYCHROMASIA SLIGHT
[2020-06-21 09:04] LABS: PROMYELOCYTES % (MANUAL) 2 % (0)
[2020-06-21] MEDS: INSULIN LISPRO 100 UNIT/ML 3 ML VIAL SUBCUT SCH ×4 (09:22→21:13)
[2020-06-21] MEDS: FUROSEMIDE 40 MG TABLET PO SCH (09:35)
[2020-06-21] MEDS: CALCIUM CARBONATE 600 MG TABLET PO SCH ×2 (09:35→17:17)
[2020-06-21] MEDS: GABAPENTIN 400 MG CAPSULE PO SCH ×2 (09:35→21:11)
[2020-06-21] MEDS: CITALOPRAM HYDROBROMIDE 20 MG TABLET PO SCH (09:35)
[2020-06-21] MEDS: SPIRONOLACTONE 25 MG TABLET PO SCH (09:35)
[2020-06-21] MEDS: METFORMIN HCL 500 MG TABLET PO SCH (09:36)
[2020-06-21] MEDS: CHOLECALCIFEROL (D3) 1,000 UNIT (25 MCG) TABLET PO SCH (09:36)
[2020-06-21] MEDS: POTASSIUM CHLORIDE 10 MEQ TABLET.ER PO SCH (09:36)
[2020-06-21] MEDS: DOCUSATE SODIUM 100 MG CAPSULE PO SCH (09:36)
[2020-06-21] MEDS: FLUTICASONE/UMECLIDIN/VILANTER 100-62.5-25 MCG/DOSE IH SCH (09:36)
[2020-06-21] MEDS: HYDROMORPHONE HCL INJ/PF 2 MG/ML AMPULE IV PRN ×2 (12:54→22:06)
--- NOTE | 2020-06-21 15:13 | PDOC PROGRESS REPORT ---
Subjective Progress Note for:: 06/21/20 Subjective:: Patient denies any fever or chills. Still having quite a bit of pain in his left leg. Would like to take a shower. Patient has bathroom privileges. Denies any shortness of breath at this time. Denies nausea vomiting. Reason For Visit: CELLULITIS,MULTIPLE MYELOMA,HEP C,GARCIA,CIRRHOSIS, Physical Exam Vital Signs: Temp Pulse Resp BP Pulse Ox 98.0 F 71 19 114/65 100 06/21/20 07:28 06/21/20 14:00 06/21/20 07:28 06/21/20 12:51 06/21/20 07:28 Intake & Output 06/20/20 06/21/20 06/22/20 06:59 06:59 06:59 Intake Total 2190 2370 690 Output Total 1340 2300 150 Balance 850 70 540 Weight 128.5 kg 128.5 kg General appearance: PRESENT: no acute distress, cooperative Neck exam: ABSENT: JVD Respiratory exam: PRESENT: unlabored. ABSENT: accessory muscle use, retraction, tachypnea GI/Abdominal exam: PRESENT: soft. ABSENT: rebound, rigid, tenderness Extremities exam: PRESENT: other - Significant swelling in his left leg with erythema surrounding his left lower leg as well as posterior section of left thi gh. Not much change between yesterday and today. Neurological exam: PRESENT: alert, awake Results Laboratory Results: 06/21/20 07:45 06/21/20 07:45 06/21/20 06/21/20 06/21/20 07:45 07:45 07:45 WBC 4.3 RBC 3.39 L Hgb 10.6 L Hct 32.1 L MCV 95 MCH 31.3 MCHC 33.1 RDW 14.1 H Plt Count 150 Seg Neutrophils % Not Reportable VBG pH 7.34 VBG pCO2 68.8 H* VBG HCO3 36.6 H VBG Base Excess 8.7 Sodium 132.1 L Potassium 4.7 Chloride 94 L Carbon Dioxide 36 H Anion Gap 2 L BUN 20 Creatinine 1.04 Est GFR ( Amer) > 60 Glucose 90 Calcium 8.2 L C-Reactive Protein 130.8 H 06/17/20 06/21/20 04:48 07:45 Creatine Kinase 25 L 34 L Impressions: Chest X-Ray 06/12/20 07:08 IMPRESSION: Negative chest allowing for low lung volumes. Hip X-Ray 06/12/20 07:08 IMPRESSION: Suspect soft tissue edema. No underlying bony abnormality. Venous Doppler Study 06/12/20 07:08 IMPRESSION: NO EVIDENCE DVT OR SVT IN THE LEFT LEG. Knee X-Ray 06/14/20 00:00 IMPRESSION: NEGATIVE STUDY OF THE LEFT KNEE. NO RADIOGRAPHIC EVIDENCE OF ACUTE INJURY. Lower Extremity CT 06/18/20 00:00 IMPRESSION: 1. Diffuse skin thickening and subcutaneous edema involving the lower leg mid calf distally. No focal drainable abscess. 2. Left knee arthroplasty with no CT evidence of hardware complication. Assessment and Plan - Diagnosis (1) Cellulitis of left leg Is this a current diagnosis for this admission?: Yes Plan: CT of the leg showed no evidence of necrotizing fasciitis or gangrene or cellulitis but did show very extensive soft tissue swelling from his cellulitis. Not much improvement noted between yesterday and today in terms of redness and swelling. Since patient has only very mild improvement daily. However his bandemia did resolve and patient has remained afebrile for the last few days. His CRP is also trending down gradually. CK is also unremarkable which speaks against muscle involvement/myositis. Continue vancomycin and Zosyn. Have discontinued clindamycin yesterday. We will plan to transition to oral antibiotics tomorrow very likely. Cellulitis is significantly complicated by severe lymphedema/venous insuffici ency of his left lower extremity as well as his multiple myeloma/immunosuppression. Receiving Lasix. We will try some compression wraps. Orthopedics recommends no intervention. I have asked surgery to evaluate as well to see if any intervention is needed. (2) COPD (chronic obstructive pulmonary disease) Qualifiers: COPD type: unspecified COPD Qualified Code(s): J44.9 - Chronic obstructive pulmonary disease, unspecified Is this a current diagnosis for this admission?: Yes Plan: Continue Trelegy daily with as needed nebulizers. Patient has chronic hypoxic and hypercapnic respiratory failure and is on about 3 L nasal cannula at home. Currently maintaining adequate sats on 3 L nasal cannula. Nocturnal avaps. Patient states he uses nocturnal BiPAP at home. (3) Hypocalcemia Is this a current diagnosis for this admission?: Yes (4) Sleep apnea in adult Is this a current diagnosis for this admission?: Yes (5) Morbid obesity with alveolar hypoventilation Is this a current diagnosis for this admission?: Yes (6) Multiple myeloma Qualifiers: Multiple myeloma remission status: in remission Qualified Code(s): C90.01 - Multiple myeloma in remission Is this a current diagnosis for this admission?: Yes - Time Time Spent with patient: Less than 15 minutes Anticipated Discharge Disposition: Home with Home Health Anticipated Discharge Timeframe: within 36 hours
[2020-06-21] MEDS: TRAMADOL HCL 50 MG TABLET PO PRN (15:41)
[2020-06-21] MEDS: ATORVASTATIN CALCIUM 20 MG TABLET PO SCH (21:11)
[2020-06-22] MEDS: PIPERACILLIN SODIUM/TAZOBACTAM 3.375 GM in NORMAL SALINE 100 ML IV SCH ×3 (02:30→14:13)
[2020-06-22] MEDS: VANCOMYCIN HCL 1,000 MG in DEXTROSE 5%-WATER 250 ML IV SCH ×2 (02:30→11:30)
[2020-06-22] MEDS: METHADONE HCL 10 MG TABLET PO SCH ×2 (06:41→13:12)
[2020-06-22] MEDS: HEPARIN SOD (PORCINE) 5,000 UNIT/ML 1 ML VIAL SUBCUT SCH ×2 (06:42→13:04)
--- NOTE | 2020-06-22 06:48 | PDOC CONSULTATION ---
Consultation Consult Date: 06/21/20 Provider Consulted: SURGICAL SURGICALIST Consult reason:: Lower extremity cellulitis/edema History of Present Illness Admission Date/PCP: 06/12/20 09:18 EMILIA MARTINEZ MD Patient complains of: 10-day history of swelling, erythema, and pain of the left lower extremity History of Present Illness: VERONIQUE SOLIZ is a 65 year old male seen in consultation at the request of the hospitalist service. 10 days ago, the patient began to have swelling, redness, and pain of the left lower extremity. This is not a new finding for his left lower extremity, however it is much more severe than it has ever been before. The patient has baseline chronic venous stasis and lymphedema in his lower extremity. He believes it to be associated with recurrent operations on the left lower extremity (orthopedic hardware). The patient has baseline swelling, brawny/woody changes of the leg (gaiter sign), and pitting edema. Patient reports that shortly after using a rotary tiller outside, he began to notice swelling and erythema of the leg. The swelling and erythema worsened. His pain worsened. He then presented to the hospital, admitted, and was started on antibiotics. Since presenting to the hospital, he has not had any significant worsening, however he does not have improvement either. He does have immunosuppression due to his multiple myeloma. He reports fevers at home, but no temperature elevation since presenting to the hospital. At this time, he denies fevers, chills, chest pain, shortness of breath, headache, nausea, vomiting, dizziness, orthostasis. He does report severe lower extremity pain (with palpation), edema. His pain is worse with palpation of the lower extremity and with walking. Past Medical History Cardiac Medical History: Reports: Hyperlipidema, Hypertension Denies: Myocardial Infarction Pulmonary Medical History: Reports: Bronchitis, Chronic Obstructive Pulmonary Disease (COPD), Sleep Apnea, Other - Obesity hypoventilation EENT Medical History: Reports: Other - Thrombocytopenia Denies: Eyes, Ears, Nose Neurological Medical History: Denies: Hemorrhagic CVA, Ischemic CVA Endocrine Medical History: Reports: Diabetes Mellitus Type 2, Other - Hyperlipidemia Renal/ Medical History: Denies: Chronic Kidney Disease, Nephrolithiasis Malignancy Medical History: Reports: Other - Multiple myeloma with bone metastases GI Medical History: Reports: Cirrhosis - Nonalcoholic steatohepatitis with cirrhosis, Hepatitis - Hepatitis C Musculoskeltal Medical History: Reports: Other - Chronic pain from bone metastases Skin Medical History: Denies: Eczema, Psoriasis Psychiatric Medical History: Reports: Alcohol Dependency, Depression, Substance Abuse, Tobacco Dependency Traumatic Medical History: Reports: None Hematology: Reports: Neutropenia, Other - Thrombocytopenia Infectious Medical History: Reports: Hepatitis C Past Surgical History Past Surgical History: Reports: Appendectomy, Orthopedic Surgery - L knee, Tonsillectomy, Other - Nephrectomy, port placement Social History Lives with: Spouse/Significant other Smoking Status: Former Smoker Electronic Cigarette use?: No Frequency of Alcohol Use: None Hx Recreational Drug Use: No - Remote history greater than 30 years ago Drugs: None Hx Prescription Drug Abuse: No - Chronic pain medication for bony metastases - Advance Directive Resuscitation Status: Full Code Family History Family History: Hypertension, Other - Sister with bleeding varices, alcohol liver disease Parental Family History Reviewed: Yes Children Family History Reviewed: Yes Sibling(s) Family History Reviewed.: Yes Medication/Allergy Home Medications: Atorvastatin Calcium [Lipitor 20 mg Tablet] 20 mg PO QHS 11/03/19 Cholecalciferol (Vitamin D3) [Vitamin D3 2000 unit Tablet] 2,000 unit PO DAILY 11/03/19 Citalopram Hydrobromide [Celexa 40 mg Tablet] 40 mg PO DAILY 11/03/19 Dexamethasone [Decadron] 20 mg PO TH@0800 11/03/19 Docusate Sodium [Colace 100 mg Capsule] 100 mg PO DAILY 11/03/19 Furosemide [Lasix 40 mg Tablet] 40 mg PO QAM 11/03/19 Metformin HCl [Glucophage] 500 mg PO DAILY 11/03/19 Methadone HCl [Dolophine 10 mg Tablet] 10 mg PO Q12 11/03/19 Spironolactone [Aldactone] 50 mg PO DAILY 11/03/19 Gabapentin [Neurontin 400 mg Capsule] 800 mg PO Q12 01/31/20 Polyethylene Glycol 3350 [Miralax Powder 17 gm/Packet] 1 packet PO DAILYP PRN 01/31/20 Pomalidomide [Pomalyst] 3 mg PO ASDIR PRN 01/31/20 Hydromorphone HCl [Dilaudid] 4 mg PO DAILYP PRN 06/12/20 Ondansetron HCl [Zofran 8 mg Tablet] 8 mg PO DAILYP PRN 07/20/20 Umeclidinium Brm/Vilanterol Tr [Anoro Ellipta 62.5-25 Mcg INH] 1 puff PO BID 06/12/20 Allergies/Adverse Reactions: acetaminophen Adverse Reaction (Verified 01/31/20 15:41) Review of Systems Constitutional: ABSENT: anorexia, chills, fatigue, fever(s) Eyes: ABSENT: visual disturbances Ears: ABSENT: hearing changes Nose, Mouth, and Throat: ABSENT: sore throat Cardiovascular: ABSENT: chest pain, dyspnea on exertion Respiratory: ABSENT: cough Gastrointestinal: ABSENT: abdominal pain, bloating, nausea, vomiting Genitourinary: ABSENT: dysuria Musculoskeletal: ABSENT: back pain Integumentary: PRESENT: erythema, other - Severe lower extremity edema and pain Neurological: ABSENT: confusion, convulsions, dizziness Psychiatric: ABSENT: anxiety Endocrine: ABSENT: cold intolerance, heat intolerance Hematologic/Lymphatic: ABSENT: easy bleeding, easy bruising Physical Exam Vital Signs: Temp Pulse Resp BP Pulse Ox 98.0 F 71 19 114/65 100 06/21/20 07:28 06/21/20 14:00 06/21/20 07:28 06/21/20 12:51 06/21/20 07:28 Intake & Output 06/20/20 06/21/20 06/22/20 06:59 06:59 06:59 Intake Total 2190 2370 690 Output Total 1340 2300 150 Balance 850 70 540 Weight 128.5 kg 128.5 kg General appearance: PRESENT: morbidly obese Head exam: PRESENT: atraumatic, normocephalic Eye exam: PRESENT: EOMI, PERRLA. ABSENT: scleral icterus Mouth exam: PRESENT: neck supple Neck exam: ABSENT: meningismus, tenderness, thyromegaly, tracheal deviation Respiratory exam: PRESENT: unlabored. ABSENT: tachypnea, wheezes Cardiovascular exam: ABSENT: tachycardia Pulses: PRESENT: normal radial pulses GI/Abdominal exam: PRESENT: soft. ABSENT: distended, firm, rigid, tenderness Rectal exam: PRESENT: deferred Extremities exam: PRESENT: other - Severe pitting edema of the left lower extremity, below the knee. There is erythema as well. Tenderness to palpation over the tibia. No pain with passive motion. Minimal sensory disruption of the left foot. Musculoskeletal exam: PRESENT: tenderness - Left lower extremity below the knee Neurological exam: PRESENT: alert, awake, oriented to person, oriented to place, oriented to time, oriented to situation Psychiatric exam: ABSENT: agitated, anxious, depressed Focused psych exam: ABSENT: delusional Skin exam: PRESENT: erythema. ABSENT: cyanosis, jaundice Results Laboratory Results: 06/21/20 07:45 06/21/20 07:45 06/21/20 06/21/20 06/21/20 07:45 07:45 07:45 WBC 4.3 RBC 3.39 L Hgb 10.6 L Hct 32.1 L MCV 95 MCH 31.3 MCHC 33.1 RDW 14.1 H Plt Count 150 Seg Neutrophils % Not Reportable VBG pH 7.34 VBG pCO2 68.8 H* VBG HCO3 36.6 H VBG Base Excess 8.7 Sodium 132.1 L Potassium 4.7 Chloride 94 L Carbon Dioxide 36 H Anion Gap 2 L BUN 20 Creatinine 1.04 Est GFR ( Amer) > 60 Glucose 90 Calcium 8.2 L C-Reactive Protein 130.8 H 06/17/20 06/21/20 04:48 07:45 Creatine Kinase 25 L 34 L Impressions: Chest X-Ray 06/12/20 07:08 IMPRESSION: Negative chest allowing for low lung volumes. Hip X-Ray 06/12/20 07:08 IMPRESSION: Suspect soft tissue edema. No underlying bony abnormality. Venous Doppler Study 06/12/20 07:08 IMPRESSION: NO EVIDENCE DVT OR SVT IN THE LEFT LEG. Knee X-Ray 06/14/20 00:00 IMPRESSION: NEGATIVE STUDY OF THE LEFT KNEE. NO RADIOGRAPHIC EVIDENCE OF ACUTE INJURY. Lower Extremity CT 06/18/20 00:00 IMPRESSION: 1. Diffuse skin thickening and subcutaneous edema involving the lower leg mid calf distally. No focal drainable abscess. 2. Left knee arthroplasty with no CT evidence of hardware complication. Assessment & Plan - Diagnosis (1) Lymphedema Is this a current diagnosis for this admission?: Yes (2) Cellulitis of left leg Is this a current diagnosis for this admission?: Yes (3) Venous stasis Is this a current diagnosis for this admission?: Yes - Plan Summary Plan Summary: This is a 65-year-old male with cellulitis after working outside. His swelling is severe. I believe this to be related to several factors. The patient has chronic venous stasis and likely lymphedema of the left lower extremity due to multiple orthopedic procedures. He also has significant immunosuppression due to his multiple myeloma. He has baseline swelling and gaiter sign. The patient developed cellulitis, and then left his leg in a dependent position for many hours. I believe this caused the constellation of symptoms that he is experiencing. I have reviewed the patient's CT scan of the leg. He does not have an obvious hematoma, abscess, or fluid collection in the subcutaneous space or myofascial compartments. I do not identify signs of compartment syndrome on examination. The patient's motor function is normal. His sensory function is essentially normal. He has no pain with passive motion. At this time, I do not believe surgical intervention will be helpful. Dr. Weinberg from orthopedics is also following. I have recommended elevation of the lower extremity, as well as graduated compression via Rogers wrap. This has been applied to the patient. Hopefully with compression and antibiotics, his symptoms will improve. Surgery will follow with you.
[2020-06-22] MEDS: INSULIN LISPRO 100 UNIT/ML 3 ML VIAL SUBCUT SCH ×2 (07:51→11:28)
--- NOTE | 2020-06-22 09:24 | PDOC PROGRESS REPORT ---
Subjective Progress Note for:: 06/22/20 Subjective:: Feels okay Reason For Visit: CELLULITIS,MULTIPLE MYELOMA,HEP C,GARCIA,CIRRHOSIS, Physical Exam Vital Signs: Temp Pulse Resp BP Pulse Ox 97.9 F 61 17 105/58 L 98 06/22/20 07:28 06/22/20 07:28 06/22/20 07:28 06/22/20 07:28 06/22/20 08:03 Intake & Output 06/21/20 06/22/20 06/23/20 06:59 06:59 06:59 Intake Total 2370 3180 Output Total 2300 2500 Balance 70 680 Weight 128.5 kg 128.5 kg Extremities exam: PRESENT: other - Left lower leg with diffuse edema and discoloration and erythema. No fluctuance no blistering no open sores. Results Laboratory Results: 06/21/20 07:45 06/21/20 07:45 06/17/20 06/21/20 04:48 07:45 Creatine Kinase 25 L 34 L Impressions: Chest X-Ray 06/12/20 07:08 IMPRESSION: Negative chest allowing for low lung volumes. Hip X-Ray 06/12/20 07:08 IMPRESSION: Suspect soft tissue edema. No underlying bony abnormality. Venous Doppler Study 06/12/20 07:08 IMPRESSION: NO EVIDENCE DVT OR SVT IN THE LEFT LEG. Knee X-Ray 06/14/20 00:00 IMPRESSION: NEGATIVE STUDY OF THE LEFT KNEE. NO RADIOGRAPHIC EVIDENCE OF ACUTE INJURY. Lower Extremity CT 06/18/20 00:00 IMPRESSION: 1. Diffuse skin thickening and subcutaneous edema involving the lower leg mid calf distally. No focal drainable abscess. 2. Left knee arthroplasty with no CT evidence of hardware complication. Assessment & Plan - Diagnosis (1) Venous stasis Is this a current diagnosis for this admission?: Yes Plan: Venous stasis along with cellulitis of the left leg. I see no role for surgical intervention. Patient would benefit from compression wraps and leg elevation. Surgery service signing off. Please call us for any questions or concerns. Recommend follow-up at the wound care clinic for possible Unna boot treatment as an outpatient. - Time Critical Time spent with patient: Less than 15 minutes Anticipated Discharge Disposition: Home, Self Care Anticipated Discharge Timeframe: within 24 hours
[2020-06-22] MEDS: DOCUSATE SODIUM 100 MG CAPSULE PO SCH (09:29)
[2020-06-22] MEDS: SPIRONOLACTONE 25 MG TABLET PO SCH (09:29)
[2020-06-22] MEDS: CITALOPRAM HYDROBROMIDE 20 MG TABLET PO SCH (09:30)
[2020-06-22] MEDS: CHOLECALCIFEROL (D3) 1,000 UNIT (25 MCG) TABLET PO SCH (09:30)
[2020-06-22] MEDS: HYDROMORPHONE HCL INJ/PF 2 MG/ML AMPULE IV PRN (09:30)
[2020-06-22] MEDS: METFORMIN HCL 500 MG TABLET PO SCH (09:30)
[2020-06-22] MEDS: CALCIUM CARBONATE 600 MG TABLET PO SCH (09:30)
[2020-06-22] MEDS: POTASSIUM CHLORIDE 10 MEQ TABLET.ER PO SCH (09:30)
[2020-06-22] MEDS: GABAPENTIN 400 MG CAPSULE PO SCH (09:30)
[2020-06-22] MEDS: FUROSEMIDE 40 MG TABLET PO SCH (09:31)
[2020-06-22] MEDS: FLUTICASONE/UMECLIDIN/VILANTER 100-62.5-25 MCG/DOSE IH SCH (09:31)
--- NOTE | 2020-06-22 13:21 | PDOC DISCHARGE SUMMARY ---
Impression - Admit/DC Date/PCP Admission Date/Primary Care Provider: 06/12/20 09:18 EMILIA MARTINEZ MD Discharge Date: 06/22/20 - Discharge Diagnosis (1) Cellulitis of left leg Is this a current diagnosis for this admission?: Yes (2) Venous stasis Is this a current diagnosis for this admission?: Yes (3) Venous stasis dermatitis of left lower extremity Is this a current diagnosis for this admission?: Yes (4) COPD (chronic obstructive pulmonary disease) Is this a current diagnosis for this admission?: Yes (5) Hypocalcemia Is this a current diagnosis for this admission?: Yes (6) Sleep apnea in adult Is this a current diagnosis for this admission?: Yes (7) Morbid obesity with alveolar hypoventilation Is this a current diagnosis for this admission?: Yes (8) Multiple myeloma Is this a current diagnosis for this admission?: Yes - Additional Information Resuscitation Status: Full Code Discharge Diet: As Tolerated Referrals: [facility] [Provider Group] ORA SILVA MD [ACTIVE STAFF] - 07/06/20 10:45 am Prescriptions: Sulfamethoxazole/Trimethoprim [Bactrim Ds Tablet] 1 each PO Q12 10 Days #20 tablet Hydromorphone HCl [Dilaudid 2 mg Tablet] 2 mg PO Q6HP PRN #14 tablet PRN Reason: Sennosides/Docusate 8.6-50 mg [Senna Plus Tablet] 2 tab PO DAILY #60 tab Home Medications: Atorvastatin Calcium [Lipitor 20 mg Tablet] 20 mg PO QHS 11/03/19 Cholecalciferol (Vitamin D3) [Vitamin D3 2000 unit Tablet] 2,000 unit PO DAILY 11/03/19 Citalopram Hydrobromide [Celexa 40 mg Tablet] 40 mg PO DAILY 11/03/19 Docusate Sodium [Colace 100 mg Capsule] 100 mg PO DAILY 11/03/19 Furosemide [Lasix 40 mg Tablet] 40 mg PO QAM 11/03/19 Metformin HCl [Glucophage] 500 mg PO DAILY 11/03/19 Methadone HCl [Dolophine 10 mg Tablet] 10 mg PO Q12 11/03/19 Spironolactone [Aldactone] 50 mg PO DAILY 11/03/19 Gabapentin [Neurontin 400 mg Capsule] 800 mg PO Q12 01/31/20 Polyethylene Glycol 3350 [Miralax Powder 17 gm/Packet] 1 packet PO DAILYP PRN 01/31/20 Ondansetron HCl [Zofran 8 mg Tablet] 8 mg PO DAILYP PRN 06/12/20 Umeclidinium Brm/Vilanterol Tr [Anoro Ellipta 62.5-25 Mcg INH] 1 puff PO BID 06/12/20 Hydromorphone HCl [Dilaudid 2 mg Tablet] 2 mg PO Q6HP PRN #14 tablet 06/22/20 Sennosides/Docusate 8.6-50 mg [Senna Plus Tablet] 2 tab PO DAILY #60 tab 06/22/20 Sulfamethoxazole/Trimethoprim [Bactrim Ds Tablet] 1 each PO Q12 10 Days #20 tablet 06/22/20 History of Present Illiness History of Present Illness: According to admitting provider: VERONIQUE SOLIZ is a 65 year old male with a very complex medical history including multiple myeloma with multiple bony metastases and associated pain as well as neutropenia and thrombocytopenia. History of hepatitis C with cirrhosis and nonalcoholic steatohepatitis. There is a question of cardiac function as well. He also is being monitored for his QT interval. He has endoscopy yearly to monitor for esophageal varices and has imaging yearly to follow-up on a mass on his liver. He sees Dr. Pacheco for what is likely sleep apnea and obesity hypoventilation syndrome as well as possible COPD. 2 to 3 days ago the patient began to notice some redness in his left leg. He was having increasing pain. He was rototilling in the backyard and the pain may have started after this. On Friday he had trouble walking because of the pain in his leg. He temporarily used a cane. Yesterday he began having diarrhea and last night had a fever of 102.9F. Approximately 5 to 6 months ago he had a similar infection in his left leg. When I spoke to his daughter, who is a nurse, she believes that this is the third episode. He has had 2 surgeries on the left knee in the past. The left leg has swelling and significant erythema. His legs have pigment deposition distally from chronic edema. His white blood cell count is low at 3.7 but he does have 7% bands. Platelet count is low at 58,000. Hemoglobin is 13.8. He exhibited hypokalemia (3.0) hypocalcemia (4.7 with albumin 2.1) and hyponatremia. Blood cultures have been obtained. His blood pressures have been running on the low side but he did get a liter of fluid bolus. He will be admitted to telemetry. We will continue antibiotic his thrombocytopenia is chronic as is his hypoxemia. His lactic acid was normal. Serum creatinine was normal. His total bilirubin is normal as well therefore he does not meet criteria for sepsis although he is quite ill. We will continue his vancomycin and Zosyn at this time. There is no fluid or discharge from his leg to culture. With his immune system compromised we would like the broadest spectrum possible. Hospital Course Hospital Course: Patient was admitted to the hospital with treatment of recurrent left leg cellu litis with accompanying significant venostasis of the left leg and portion of venostasis dermatitis. On initial presentation, patient was febrile with leukopenia and elevated bands. He was started on IV antibiotics for treatment of cellulitis. Initially put on broad-spectrum with Vanco and Zosyn given the extensive nature of his cellulitis. Oncology was consulted who recommended stopping patient's treatments for multiple myeloma due to current infection. Blood cultures were negative. Patient's leukopenia resolved and patient has bandemia also resolved. Also, his fever resolved with treatment. However the appearance of his cellulitis did not improve and patient was subsequently placed on clindamycin. CK level was obtained which was unremarkable making it unlikely of any myositis/muscle involvement. Due to minimal improvement noted, the CT of his leg was also obtained to rule out gangrene or cellulitis/fasciitis/necrotizing infection. CT only showed findings suggestive of extensive cellulitis but no drainable abscesses and no evidence of necrotizing infection. Patient received a very long course of IV antibiotics due to the slow improvement which may be in part due to his immunocompromise state from his multiple myeloma on immunosuppressants at home as well as the severity of his venous stasis and lymphedema. Patient was also seen by orthopedics given the fact that he had a prosthesis in his left knee and orthopedics recommended no surgical intervention was needed as it appeared that his left knee prosthesis was spared. Surgery was also consulted who evaluated p atient given poor improvement of his cellulitis and surgery only recommends graduated compression using Rogers bandages as well as follow-up in the [facility]. They recommend no surgical intervention is needed. Patient's leg has been wrapped with Rogers wraps. He is encouraged to elevate his leg at all times. He will continue to take his Lasix as before. He has received long course of IV antibiotics and at this point will be transitioned to oral Bactrim to be taken for 10 days. I have discussed this plan of care with him as well as his . His treatment for multiple myeloma would be on hold during the course of his antibiotic regimen and to follow-up with Dr. Silva regarding resumption of his treatment. I Have strongly recommended follow-up with a vascular surgeon as well to address his venous stasis/lymphedema. Physical Exam Vital Signs: Temp Pulse Resp BP Pulse Ox 97.5 F 66 17 117/68 100 06/22/20 12:21 06/22/20 12:21 06/22/20 12:21 06/22/20 12:21 06/22/20 12:21 Intake & Output 06/21/20 06/22/20 06/23/20 06:59 06:59 06:59 Intake Total 2370 3180 1070 Output Total 2300 2500 250 Balance 70 680 820 Weight 128.5 kg 128.5 kg General appearance: PRESENT: no acute distress, cooperative Neck exam: ABSENT: JVD Respiratory exam: PRESENT: clear to auscultation pat, unlabored. ABSENT: accessory muscle use, retraction Cardiovascular exam: PRESENT: +S1, +S2 Extremities exam: PRESENT: other - 3+ pitting and blanching edema in his left leg with erythema of his left lower leg as well as his posterior thigh. Also an area of stasis dermatitis noted in his left lower leg. Neurological exam: PRESENT: alert, awake, oriented to person, oriented to place, oriented to time Results Laboratory Results: WBC 4.3 10^3/uL (4.0-10.5) 06/21/20 07:45 RBC 3.39 10^6/uL (4.35-5.55) L 06/21/20 07:45 Hgb 10.6 g/dL (13.5-17.0) L 06/21/20 07:45 Hct 32.1 % (37.9-51.0) L 06/21/20 07:45 MCV 95 fl (80-97) 06/21/20 07:45 MCH 31.3 pg (27.0-33.4) 06/21/20 07:45 MCHC 33.1 g/dL (32.0-36.0) 06/21/20 07:45 RDW 14.1 % (11.5-14.0) H 06/21/20 07:45 Plt Count 150 10^3/uL (150-450) 06/21/20 07:45 Lymph % (Auto) Not Reportable 06/21/20 07:45 Harney % (Auto) Not Reportable 06/21/20 07:45 Eos % (Auto) Not Reportable 06/21/20 07:45 Baso % (Auto) Not Reportable 06/21/20 07:45 Absolute Neuts (auto) Not Reportable 06/21/20 07:45 Absolute Lymphs (auto) Not Reportable 06/21/20 07:45 Absolute Monos (auto) Not Reportable 06/21/20 07:45 Absolute Eos (auto) Not Reportable 06/21/20 07:45 Absolute Basos (auto) Not Reportable 06/21/20 07:45 Total Counted 100 06/21/20 07:45 Seg Neutrophils % Not Reportable 06/21/20 07:45 Seg Neuts % (Manual) 66 % (42-78) 06/21/20 07:45 Band Neutrophils % 8 % (3-5) H 06/21/20 07:45 Lymphocytes % (Manual) 4 % (13-45) L 06/21/20 07:45 Atypical Lymphs % 3 % (0) 06/21/20 07:45 Monocytes % (Manual) 10 % (3-13) 06/21/20 07:45 Eosinophils % (Manual) 4 % (0-6) 06/21/20 07:45 Basophils % (Manual) 2 % (0-2) 06/21/20 07:45 Metamyelocytes % 1 % (0-1) 06/21/20 07:45 Promyelocytes % 2 % (0) H 06/21/20 07:45 Abs Neuts (Manual) 3.3 10^3/uL (1.7-8.2) 06/21/20 07:45 Abs Lymphs (Manual) 0.3 10^3/uL (0.5-4.7) L 06/21/20 07:45 Abs Monocytes (Manual) 0.4 10^3/uL (0.1-1.4) 06/21/20 07:45 Absolute Eos (Manual) 0.2 10^3/uL (0.0-0.6) 06/21/20 07:45 Abs Basophils (Manual) 0.1 10^3/uL (0.0-0.2) 06/21/20 07:45 Toxic Granulation 1+ 06/13/20 04:50 Toxic Vacuolation PRESENT 06/17/20 04:48 Clumped Platelets PRESENT 06/18/20 06:05 Platelet Comment ADEQUATE 06/21/20 07:45 Polychromasia SLIGHT 06/21/20 07:45 Poikilocytosis SLIGHT 06/21/20 07:45 Anisocytosis SLIGHT 06/21/20 07:45 Tear Drop Cells SLIGHT 06/14/20 06:50 Ovalocytes SLIGHT 06/18/20 06:05 Maninder Cells SLIGHT 06/21/20 07:45 Schistocytes SLIGHT 06/13/20 04:50 RBC Morph Comment NORMO-CYTIC/CHROMIC 06/17/20 04:48 ESR 86 mm/hr (0-20) H 06/19/20 05:30 PT 15.8 SEC (11.4-15.4) H 06/12/20 16:28 INR 1.26 06/12/20 16:28 APTT 26.4 SEC (23.5-35.8) 06/12/20 17:41 VBG pH 7.34 (7.30-7.42) 06/21/20 07:45 VBG pCO2 68.8 mmHg (35-63) H* 06/21/20 07:45 VBG HCO3 36.6 mmol/L (20-32) H 06/21/20 07:45 VBG Base Excess 8.7 mmol/L 06/21/20 07:45 Sodium 132.1 mmol/L (137-145) L 06/21/20 07:45 Potassium 4.7 mmol/L (3.6-5.0) 06/21/20 07:45 Chloride 94 mmol/L (98-107) L 06/21/20 07:45 Carbon Dioxide 36 mmol/L (22-30) H 06/21/20 07:45 Anion Gap 2 (5-19) L 06/21/20 07:45 BUN 20 mg/dL (7-20) 06/21/20 07:45 Creatinine 1.04 mg/dL (0.52-1.25) 06/21/20 07:45 Est GFR ( Amer) > 60 (>60) 06/21/20 07:45 Est GFR (Non-Af Amer) Cancelled 06/12/20 03:32 Est GFR (MDRD) Non-Af > 60 (>60) 06/21/20 07:45 Glucose 90 mg/dL (75-110) 06/21/20 07:45 POC Glucose 141 mg/dL (70-110) H 06/22/20 10:42 Lactic Acid 1.5 mmol/L (0.7-2.1) 06/12/20 03:32 Calcium 8.2 mg/dL (8.4-10.2) L 06/21/20 07:45 Ionized Calcium Kole 1.08 mmol/L (1.14-1.30) L 06/13/20 04:50 Phosphorus 3.2 mg/dL (2.5-4.5) 06/15/20 05:10 Magnesium 1.7 mg/dL (1.6-2.3) 06/15/20 05:10 Total Bilirubin 1.1 mg/dL (0.2-1.3) 06/12/20 04:22 Direct Bilirubin 0.0 mg/dL (0.0-0.4) 06/12/20 04:22 Neonat Total Bilirubin Not Reportable 06/12/20 04:22 Neonat Direct Bilirubin 0.0 mg/dL (0.0-0.3) 06/12/20 04:22 Neonat Indirect Bili Not Reportable 06/12/20 04:22 AST 24 U/L (17-59) 06/12/20 04:22 ALT 13 U/L (<50) 06/12/20 04:22 Alkaline Phosphatase < 20 U/L (38-126) L 06/12/20 04:22 Creatine Kinase 34 U/L (55-170) L 06/21/20 07:45 C-Reactive Protein 130.8 mg/L (<10.0) H 06/21/20 07:45 Total Protein 4.2 g/dL (6.3-8.2) L 06/12/20 04:22 Albumin 3.1 g/dL (3.5-5.0) L 06/15/20 05:10 EGFR Cancelled 06/12/20 03:32 Urine Color DARRON 06/12/20 06:29 Urine Appearance CLEAR 06/12/20 06:29 Urine pH 5.0 (5.0-9.0) 06/12/20 06:29 Ur Specific [place] 1.025 06/12/20 06:29 Urine Protein 100 mg/dL (NEGATIVE) H 06/12/20 06:29 Urine Glucose (UA) NEGATIVE mg/dL (NEGATIVE) 06/12/20 06:29 Urine Ketones TRACE mg/dL (NEGATIVE) H 06/12/20 06:29 Urine Blood MODERATE (NEGATIVE) H 06/12/20 06:29 Urine Nitrite (Reflex) NEGATIVE (NEGATIVE) 06/12/20 06:29 Urine Bilirubin NEGATIVE (NEGATIVE) 06/12/20 06:29 Urine Urobilinogen 4.0 mg/dL (<2.0) H 06/12/20 06:29 Leukocyte Esterase Rfl NEGATIVE (NEGATIVE) 06/12/20 06:29 Urine RBC (Auto) 3 /HPF 06/12/20 06:29 Urine Bacteria (Auto) TRACE /HPF 06/12/20 06:29 Urine WBC (Reflex) < 1 /HPF 06/12/20 06:29 Squamous Epi Cells Auto <1 /HPF 06/12/20 06:29 Urine Mucus (Auto) OCC /LPF 06/12/20 06:29 Urine Ascorbic Acid NEGATIVE (NEGATIVE) 06/12/20 06:29 Time Trough Drawn 0930 06/18/20 09:30 Vancomycin Trough 14.3 ug/mL (5.0-20.0) 06/18/20 09:30 Impressions: Chest X-Ray 06/12/20 07:08 IMPRESSION: Negative chest allowing for low lung volumes. Hip X-Ray 06/12/20 07:08 IMPRESSION: Suspect soft tissue edema. No underlying bony abnormality. Venous Doppler Study 06/12/20 07:08 IMPRESSION: NO EVIDENCE DVT OR SVT IN THE LEFT LEG. Knee X-Ray 06/14/20 00:00 IMPRESSION: NEGATIVE STUDY OF THE LEFT KNEE. NO RADIOGRAPHIC EVIDENCE OF ACUTE INJURY. Lower Extremity CT 06/18/20 00:00 IMPRESSION: 1. Diffuse skin thickening and subcutaneous edema involving the lower leg mid calf distally. No focal drainable abscess. 2. Left knee arthroplasty with no CT evidence of hardware complication. Plan Time Spent: Greater than 30 Minutes Stroke Is this a Stroke Patient?: No Acute Heart Failure - Is this a Heart Failure Patient?: No
[2020-06-22 14:02] VITALS: BP 114/65
[2020-06-22 14:18] LABS: PATH REVIEW PATHOLOGIST REVIEWED
[2020-06-22] MEDS: TRAMADOL HCL 50 MG TABLET PO PRN (15:40)
== END 2020-06-22 16:23 | disposition home health service (06) | DRG 603 ==
LOC: ER 02:25 → EH 09:18 → 4N 12:10
PROVIDERS: ADMIT Hospitalist; ATTEND Internal Medicine
DX: L03.116 Cellulitis of left lower limb (principal); E66.2 Morbid (severe) obesity with alveolar hypoventilation; E87.1 Hypo-osmolality and hyponatremia; Z68.42 Body mass index [BMI] 45.0-49.9, adult; C90.01 Multiple myeloma in remission; I87.8 Other specified disorders of veins; B18.2 Chronic viral hepatitis C; K75.81 Nonalcoholic steatohepatitis (NASH); E87.6 Hypokalemia; E83.51 Hypocalcemia; D69.59 Other secondary thrombocytopenia; E78.5 Hyperlipidemia, unspecified; I10 Essential (primary) hypertension; J44.9 Chronic obstructive pulmonary disease, unspecified; F10.20 Alcohol dependence, uncomplicated; G89.3 Neoplasm related pain (acute) (chronic); Z92.25 Personal history of immunosuppression therapy; D72.819 Decreased white blood cell count, unspecified; E88.09 Other disorders of plasma-protein metabolism, not elsewhere classified; Z90.49 Acquired absence of other specified parts of digestive tract
CPT/HCPCS: 36415; 36591; 71045; 80048; 80053; 80069; 80202; 81001; 82330; 82550; 82565; 82803; 82962; 83605; 83735; 85025; 85610; 85652; 85730; 86140; 87040; 93005; 93010; 93306; 93971; 94660; 96365; 96367; 96375; 96376; 99291; J0610; J1170; J1642; J1644; J1815; J1940; J2270; J2405; J2543; J3370; J3490; J7030; J7050; J7060

== ENCOUNTER → 2020-07-07 | Outpatient (CLI) | payer MEDICARE ==
--- NOTE | 2020-07-07 13:52 | RADIOLOGY REPORT (SQ) ---
EXAM DESCRIPTION: ANKLE LEFT COMPLETE IMAGES COMPLETED DATE/TIME: 07/07/2020 1:42 pm REASON FOR STUDY: S93.402A SPRAIN OF UNSPECIFIED LIGAMENT OF LEFT ANKLE, INIT ENCNTR S93.402A SPRAI N OF UNSPECIFIED LIGAMENT OF LEFT ANKLE, INIT COMPARISON: None. NUMBER OF VIEWS: Three views. TECHNIQUE: AP, lateral, and oblique radiographic images acquired of the left ankle. LIMITATIONS: None. FINDINGS: MINERALIZATION: Normal. BONES: Fractures through the medial malleolus which extends through the articular surface. JOINTS: No effusions. SOFT TISSUES: Diffuse soft tissue edema. OTHER: No other significant finding. IMPRESSION: Fracture of the medial malleolus which extends through the tibial plafond. Diffuse soft tissue edema. TECHNICAL DOCUMENTATION: JOB ID: [id number] [employer]- All Rights Reserved Reading location - IP/workstation name: [email or web address]
== END ==
LOC: RAD 13:24
PROVIDERS: ATTEND Internal Medicine
DX: S93.402A Sprain of unspecified ligament of left ankle, initial encounter (principal); X58.XXXA Exposure to other specified factors, initial encounter; Y93.9 Activity, unspecified; Y92.9 Unspecified place or not applicable

== ENCOUNTER → 2020-07-11 | Outpatient (CLI) | payer MEDICARE ==
--- NOTE | 2020-07-12 11:31 | RADIOLOGY REPORT (SQ) ---
EXAM DESCRIPTION: ARTERIAL LOWER EXTREM BILAT IMAGES COMPLETED DATE/TIME: 07/11/2020 3:31 pm REASON FOR STUDY: LT CALF ULCER L97.222 NON-PRESSURE CHRONIC ULCER OF LEFT CALF W FAT LAYER COMPARISON: None. TECHNIQUE: Dynamic and static morejon scale and color images acquired of the lower extremity arteries. Additional selected spectral images recorded. LIMITATIONS: None. FINDINGS: RIGHT LEG: INFLOW ARTERIES: Normal, no obstruction evident. FEMORAL ARTERIES:Multiphasic waveforms. Normal, no velocity elevation to suggest focal stenosis. Norm al color Doppler evaluation. No aneurysm. POPLITEAL ARTERY:Multiphasic waveforms. Normal, no velocity elevation to suggest focal stenosis. Norm al color Doppler evaluation. No aneurysm. PATENT TIBIOPERONEAL TRUNK AND 3 VESSEL RUNOFF: Yes, normal vessels. OTHER: Retrograde flow is seen at the level of the toes. LEFT LEG: INFLOW ARTERIES: Normal, no obstruction evident. FEMORAL ARTERIES:Multiphasic waveforms. Normal, no velocity elevation to suggest focal stenosis. Norm al color Doppler evaluation. No aneurysm. POPLITEAL ARTERY:Multiphasic waveforms. Normal, no velocity elevation to suggest focal stenosis. Norm al color Doppler evaluation. No aneurysm. PATENT TIBIOPERONEAL TRUNK AND 3 VESSEL RUNOFF: Yes, normal vessels. OTHER: The distal anterior tibial arteries obscured by overlying bandaging material. Normal flow see n within the left dorsalis pedis. IMPRESSION: Multiphasic waveforms without flow limiting stenosis of the bilateral lower extremities demonstrating normal three-vessel runoff. Incidental finding of retrograde flow within the right foot at the level of the toes. TECHNICAL DOCUMENTATION: JOB ID: [id number] 2010 [employer]- All Rights Reserved Reading location - IP/workstation name: [email or web address]
== END ==
LOC: SP 09:00
PROVIDERS: ATTEND Nurse Practitioner Family
DX: L97.222 Non-pressure chronic ulcer of left calf with fat layer exposed (principal)
CPT/HCPCS: 93925

== ENCOUNTER 2020-07-15 16:14 | Emergency (ER) | payer MEDICARE ==
--- NOTE | 2020-07-15 16:45 | ER Document Report ---
ED General - General Stated Complaint: ALTERED MENTAL STATUS Time Seen by Provider: 07/15/20 16:26 Primary Care Provider: SHASHA ALCALA LEATHER TOGGLER, LEATHER TOGGLER [Primary Care Provider] - Follow up as needed Notes: 65-year-old man presents to the emergency department with a history of confusion and decreased responsiveness. His noted that his pulse oximetry at home was reading 44. He is on CPAP and 4 L of nasal cannula O2. Has a history of multiple myeloma, recently hospitalized with cellulitis, sustained a fracture to the left lower extremity ankle and foot. She states that he did eat breakfast. She has a short video on her telephone showing him in a very somnolent state. She called EMS, the patient was brought to the hospital for further evaluation and treatment. He states that he recalls the ambulance crew picking them up. He was given medication for nausea in route. He denies fever, chest pain or functional loss. To this exam he is alert and responsive able to answer questions appropriately. TRAVEL OUTSIDE OF THE [place] IN LAST 30 DAYS: No - Related Data Allergies/Adverse Reactions: acetaminophen Adverse Reaction (Verified 01/31/20 15:41) Past Medical History - Social History Smoking Status: Unknown if Ever Smoked Family History: Reviewed & Not Pertinent, Hypertension, Other - Sister with bleeding varices, alcohol liver disease - Past Medical History Cardiac Medical History: Reports: Hx Hypercholesterolemia, Hx Hypertension Denies: Hx Heart Attack Pulmonary Medical History: Reports: Hx Bronchitis, Hx COPD, Hx Sleep Apnea Endocrine Medical History: Reports: Hx Diabetes Mellitus Type 2 Renal/ Medical History: Denies: Hx Peritoneal Dialysis GI Medical History: Reports: Hx Cirrhosis - Nonalcoholic steatohepatitis with cirrhosis, Hx Hepatitis - Hepatitis C Skin Medical History: Denies Hx Eczema, Denies Hx Psoriasis Psychiatric Medical History: Reports: Hx Depression Infectious Medical History: Reports: Hx Hepatitis - Hepatitis C Past Surgical History: Reports: Hx Appendectomy, Hx Kidney (Renal Surgery) - 1 removed as child, Hx Orthopedic Surgery - L knee, Hx Tonsillectomy, Other - Nephrectomy, port placement Review of Systems - Review of Systems Notes: Constitutional: See HPI HENT: Negative for sore throat. Eyes: Negative for visual changes. Cardiovascular: Negative for chest pain. Respiratory: + Left-sided home O2, + home BiPAP Gastrointestinal: Negative for abdominal pain, vomiting or diarrhea. Genitourinary: Negative for dysuria. Musculoskeletal: Negative for back pain. Skin: Negative for rash. Neurological: Decreased responsiveness 10 point ROS negative except as marked above and in HPI. Physical Exam - Vital signs Vitals: Resp Pulse Ox 14 96 07/15/20 16:47 07/15/20 16:47 - Notes Notes: PHYSICAL EXAMINATION: Physical Exam: General: Overweight 65-year-old chronically ill-appearing man in no acute distress HEENT: NC/AT, pupils equal round and reactive to light, MM moist,nares clear, oropharynx clear, airway patent Neck: supple, no adenopathy, no masses. Good range of motion Lungs: clear, no wheezing, no rales no rhonchi CVS: Regular rate and rhythm no murmur gallop or rub Abdomen: Soft, active, nontender, no masses, no hepatosplenomegaly Ext: No edema, clubbing or cyanosis. Neuro: He is able to answer my questions appropriately, he is aware of the time, place and circumstance. Skin: Intact no open lesions, no rash Course - Re-evaluation Re-evalutation: 07/16/20 00:23 I have discussed this patient's care with Dr. Gaona oncology, reporting the CT findings of proximal lesions and lytic changes. There is no prior CT scan for comparison. No acute intervention is needed, patient will follow-up with oncology as an outpatient. Patient had been placed on BiPAP for some time in the emergency department is feeling much better. The and patient are comfortable going home where he has a BiPAP machine and home O2. He has been discharged home and will follow-up as needed. - Vital Signs Vital signs: Temp Pulse Resp BP Pulse Ox 98.0 F 18 109/72 98 07/15/20 16:48 07/15/20 20:55 07/15/20 23:01 07/15/20 23:01 - Laboratory Result Diagrams: 07/15/20 16:50 07/15/20 16:50 Laboratory results interpreted by me: 07/15/20 07/15/20 07/15/20 16:50 16:50 18:30 WBC 3.7 L RBC 4.12 L Hgb 12.4 L RDW 14.7 H Plt Count 97 L Lymph % (Auto) 7.6 L Absolute Lymphs (auto) 0.3 L Seg Neutrophils % 83.4 H Carbonic Acid 2.32 H ABG pH 7.26 L ABG pCO2 77.2 H* ABG HCO3 33.6 H ABG Total CO2 35.9 H Potassium 5.4 H BUN 24 H Glucose 151 H I have reviewed laboratory data and used this information for the treatment decisions regarding the patient. - Diagnostic Test Radiology reviewed: Image reviewed, Reports reviewed Radiology results interpreted by me: 07/16/20 00:21 CT noncontrast. External heterogeneous density lytic lesions in the frontal bone. 6.3 cm x 3.4 cm 4 cm in the craniocaudal dimension eroding through the inner table of the skull extending into the anterior floor of the left orbit root frontal sinus. There is an additional right parietal 1.6 cm mixed density lesion. Chest x-ray: No acute findings. - EKG Interpretation by Me Rate: Normal - EKG interpreted by Dr. Lee: Normal sinus rhythm, rate 80, QT interval normal,+ left axis deviation, , no acute ST or T wave abnormalities, no ischemic findings, there is no significant changes noted when compared to EKG from 05/2020.. Discharge - Discharge Clinical Impression: Hypercapnia Multiple myeloma Qualifiers: Multiple myeloma remission status: unspecified Qualified Code(s): C90.00 - Multiple myeloma not having achieved remission COPD (chronic obstructive pulmonary disease) Qualifiers: COPD type: unspecified COPD Qualified Code(s): J44.9 - Chronic obstructive pulmonary disease, unspecified Headache Qualifiers: Headache type: unspecified Headache chronicity pattern: episodic headache Intractability: not intractable Qualified Code(s): R51 - Headache Condition: Good Disposition: HOME, SELF-CARE Instructions: Chronic Obstructive Lung Disease ([facility]) Additional Instructions: You were seen in the emergency department today with altered mental status and elevated CO2. Please use your CPAP machine consistently. Please follow-up with your oncologist on Friday regarding treatment for the multiple myeloma. If you are having further difficulties or other concerns you may return to the emergency department for further treatment. HOME CARE INSTRUCTIONS & INFORMATION: Thank you for choosing us for your medical needs. We hope you're satisfied with the care you received. After you leave, you must properly care for your problem and, at the same time, observe its progress. Any condition can change. Some illnesses can change rapidly over hours or days. If your condition worsens, return to the Emergency Department or see your physician promptly. ABOUT YOUR X-RAYS AND EKG'S: If you had an EKG or X-rays taken, they have been read by the Emergency Physician. The X-rays and EKG's will also be read by a Radiologist or Placement Director within 24 hours. If discrepancies are noted, you will be notified by telephone. Please be certain the ED has a correct telephone number & address where you can be reached. Also, realize that some fractures or abnormalities do not show up on initial X-rays. If your symptoms continue, see your physician. ABOUT YOUR LABORATORY TEST: If you had laboratory tests, the results have been reviewed by the Emergency Physician. Some test results (for example cultures) may not be available for several days. You will be contacted if any test result shows you need additional treatment. Please be certain the ED has a correct telephone number and address where you can be reached. ABOUT YOUR MEDICATIONS: You will receive instructions on how to take your medicine on the prescription label you receive. Additional information may be provided by the Pharmacy. If you have questions afterwards, call the ED for clarification or further instructions. Some prescribed medications may cause drowsiness. Do not perform tasks such as driving a car or operating machinery without consulting your Pharmacist. If you feel you need a refill of pain medication, your condition will need re-evaluation. Please do not call for a refill of any medication. ABOUT YOUR SIGNATURE: Signature of this document acknowledges to followin. Understanding that you received emergency treatment and that you may be released before al medical problems are known or treated. Please be certain the ED has a correct phone number & address where you can be reached. 2. Acknowledgement that you will arrange for follow-up care as recommended. 3. Authorization for the Emergency Physician to provide information to your follow-up Physician in order to maximize your care. AT ANY TIME, IF YOUR SYMPTOMS CHANGE SIGNIFICANTLY OR WORSEN OR YOU DEVELOP NEW SYMPTOMS, RETURN TO THE EMERGENCY DEPARTMENT IMMEDIATELY FOR RE-EVALUATION. OUR GOAL IS TO PROVIDE EXCELLENT MEDICAL CARE! WE HOPE THAT WE HAVE MET YOUR EXPECTATIONS DURING YOUR EMERGENCY DEPARTMENT VISIT AND THAT YOU FEEL YOU HAVE RECEIVED EXCELLENT CARE! Referrals: SHASHA ALCALA NP, LEATHER TOGGLER [Primary Care Provider] - Follow up as needed
--- NOTE | 2020-07-15 17:08 | RADIOLOGY REPORT (SQ) ---
EXAM DESCRIPTION: CHEST SINGLE VIEW IMAGES COMPLETED DATE/TIME: 07/15/2020 4:29 pm REASON FOR STUDY: bed 1 sepsis protocol COMPARISON: 06/12/2020 TECHNIQUE: Single frontal radiographic view of the chest acquired. NUMBER OF VIEWS: One view. LIMITATIONS: None. FINDINGS: LUNGS AND PLEURA: No pneumothorax. No consolidation or pleural effusion. MEDIASTINUM AND HILAR STRUCTURES: Stable. HEART AND VASCULAR STRUCTURES: Stable. BONES: No acute findings. HARDWARE: Right chest port. OTHER: No other significant finding. IMPRESSION: NO ACUTE FINDINGS. TECHNICAL DOCUMENTATION: JOB ID: [id number] [place]-72 2010 [employer]- All Rights Reserved Reading location - IP/workstation name: [email or web address]
[2020-07-15 17:27] LABS: ABSOLUTE LYMPHOCYTES (AUTO) 0.3 10^3/uL (0.5-4.7); ABSOLUTE MONOCYTES (AUTO) 0.3 10^3/uL (0.1-1.4); ABSOLUTE NEUT (AUTO) 3.1 10^3/uL (1.7-8.2); BASOPHILS % (AUTO) 0.3 % (0-2); EOSINOPHILS % (AUTO) 0.4 % (0-6); HEMATOCRIT 38.2 % (37.9-51.0); HEMOGLOBIN 12.4 g/dL (13.5-17.0); LYMPHOCYTES % (AUTO) 7.6 % (13-45); MEAN CORPUSCULAR HEMOGLOBIN 30.1 pg (27.0-33.4); MEAN CORPUSCULAR HGB CONC 32.4 g/dL (32.0-36.0); MEAN CORPUSCULAR VOLUME 93 fl (80-97); MONOCYTES % (AUTO) 8.3 % (3-13); RED BLOOD COUNT 4.12 10^6/uL (4.35-5.55); RED CELL DISTRIBUTION WIDTH 14.7 % (11.5-14.0); SEGMENTED NEUTROPHILS % (AUTO) 83.4 % (42-78); TOTAL CELLS COUNTED % (AUTO) 100 %; WHITE BLOOD COUNT 3.7 10^3/uL (4.0-10.5)
[2020-07-15 17:28] LABS: INTERNATIONAL RATION (INR) 0.98; PROTHROMBIN TIME 13.2 SEC (11.4-15.4)
[2020-07-15 17:34] LABS: ALBUMIN 4.3 g/dL (3.5-5.0); ALKALINE PHOSPHATASE 57 U/L (38-126); ANION GAP 6 (5-19); ASPARTATE AMINO TRANSFERASE 28 U/L (17-59); BILIRUBIN,DIRECT 0.2 mg/dL (0.0-0.4); BILIRUBIN,TOTAL 0.8 mg/dL (0.2-1.3); BLOOD UREA NITROGEN 24 mg/dL (7-20); CALCIUM 8.9 mg/dL (8.4-10.2); CARBON DIOXIDE 30 mmol/L (22-30); CHLORIDE 102 mmol/L (98-107); GLUCOSE 151 mg/dL (75-110); POTASSIUM 5.4 mmol/L (3.6-5.0); TOTAL PROTEIN 7.1 g/dL (6.3-8.2)
[2020-07-15 17:55] LABS: PLATELET COUNT 97 10^3/uL (150-450)
[2020-07-15] MEDS ORDERED: HYDROMORPHONE HCL INJ/PF 2 MG/ML AMPULE IV ONE (18:00)
[2020-07-15 18:37] LABS: ARTERIAL BLOOD BASE EXCESS 4.1 mmol/L; ARTERIAL BLOOD H2CO3 2.32 mmol/L (1.05-1.35); ARTERIAL BLOOD HCO3 33.6 mmol/L (20-24); ARTERIAL BLOOD O2 SATURATION 95.3 % (94-98); ARTERIAL BLOOD PH 7.26 (7.35-7.45); ARTERIAL BLOOD PO2 90.6 mmHg (80-100); ARTERIAL BLOOD TOTAL CO2 35.9 mmol/L (23-27)
[2020-07-15 18:39] LABS: ARTERIAL BLOOD FIO2 2L; ARTERIAL BLOOD PCO2 77.2 mmHg (35-45)
--- NOTE | 2020-07-15 19:17 | RADIOLOGY REPORT (SQ) ---
EXAM DESCRIPTION: CT HEAD WITHOUT IMAGES COMPLETED DATE/TIME: 07/15/2020 6:55 pm REASON FOR STUDY: headache/multiple myeloma COMPARISON: None. TECHNIQUE: Axial images acquired through the brain without intravenous contrast. Images reviewed wit h bone, brain and subdural windows. Images stored on PACS. All CT scanners at this facility use dose modulation, iterative reconstruction, and/or weight based d osing when appropriate to reduce radiation dose to as low as reasonably achievable (ALARA). [facility]: Dose Right [facility]: CareDose [facility]: Dose Right [facility]: Teradose 4D [facility]: Smart [employer] RADIATION DOSE: CT Rad equipment meets quality standard of care and radiation dose reduction techniq ues were employed. CTDIvol: 53.2 mGy. DLP: 1177 mGy-cm.. LIMITATIONS: None. FINDINGS: VENTRICLES: Normal size and contour. CEREBRUM: No intracranial hemorrhage. No midline shift. Age appropriate white matter. No evidence for acute infarction. CEREBELLUM: No hemorrhage. No alteration of density. No evidence for acute infarction. EXTRA-AXIAL SPACES: No fluid collections. ORBITS AND GLOBE: Normal contour of globe without masses. CALVARIUM: Heterogeneous density lytic lesion in the frontal bone which measures 6.3 cm transverse by 3.4 cm thickness by 5.4 cm craniocaudad dimension, this erodes through the inner table of the skull and extends inferiorly into the left orbital roof and frontal sinus. An additional right parietal 1. 6 cm mixed density lytic lesion is present. OTHER: No other significant finding. IMPRESSION: Heterogeneous density lytic lesion in the frontal bone which measures 6.3 cm transverse by 3.4 cm thickness by 5.4 cm craniocaudad dimension, this erodes through the inner table of the skul l and extends inferiorly into the left orbital roof and frontal sinus. An additional right parietal 1.6 cm mixed density lytic lesion is present. No intracranial hemorrhage. EVIDENCE OF ACUTE STROKE: NO. TECHNICAL DOCUMENTATION: JOB ID: [id number] [place]-72 Quality ID # [id number]: Final reports with documentation of one or more dose reduction techniques (e.g., Au tomated exposure control, adjustment of the mA and/or kV according to patient size, use of iterative reconstruction technique) 2010 [employer]- All Rights Reserved Reading location - IP/workstation name: [email or web address]
[2020-07-15 23:08] VITALS: BP 109/72
--- NOTE | 2020-07-16 20:27 | EKG REPORT ---
SEVERITY:- OTHERWISE NORMAL ECG - SINUS RHYTHM LEFT AXIS DEVIATION : Confirmed by: Luis Velasquez 16-Jul-2020 20:27:07
== END 2020-07-15 23:36 | disposition home or self-care (01) ==
LOC: ER 16:14
DX: C90.00 Multiple myeloma not having achieved remission (principal); R06.89 Other abnormalities of breathing; R51 Headache; J44.9 Chronic obstructive pulmonary disease, unspecified; R41.82 Altered mental status, unspecified; R11.0 Nausea; Z88.8 Allergy status to other drugs, medicaments and biological substances; I10 Essential (primary) hypertension; E11.9 Type 2 diabetes mellitus without complications; Z99.81 Dependence on supplemental oxygen
CPT/HCPCS: 93005; 99285; 96374; 36415; 87040; 82803; 83605; 83735; 85025; 85610; 80053; 84484; 71045; 70450; 93010; J1170

== ENCOUNTER 2020-07-18 13:23 | Inpatient (IN) | payer MEDICARE, OTHER ==
[2020-07-18] MEDS ORDERED: PIPERACILLIN/TAZOBACTAM 4.5 GM VIAL IV ONE (13:42)
--- NOTE | 2020-07-18 13:48 | ER Document Report ---
ED General - General Chief Complaint: Fever Stated Complaint: FEVER/CELLUTITIS/CHNG IN MENTAL STATUS Time Seen by Provider: 07/18/20 13:32 Primary Care Provider: SHASHA ALCALA CANCELING MACHINE OPERATOR, CANCELING MACHINE OPERATOR [NURSE PRACTITIONER] - Follow up as needed Notes: 65-year-old male presents emergency department via EMS for altered mental status and a fever. Most history is obtained from daughter who arrived at bedside 20 to 30 minutes after the patient arrived. Per daughter the patient started becoming somewhat disoriented yesterday but became significantly more confused and disoriented this afternoon. She first noticed a fever this afternoon as well. EMS did administer 975 mg of acetaminophen by mouth. Daughter notes that the patient was treated for cellulitis of the left leg and discharged from the hospital in May, finished his Bactrim approximately 10 days ago and then was walking through the yard 7 to 10 days ago and twisted his left ankle and sustained a fracture of his left leg/ankle that was diagnosed on an outpatient x-ray. Has a first appointment with Dr. Weinberg tomorrow as an outpatient. This is the same ankle where the patient has had a pressure ulcer to the lateral aspect of the left leg where he had the recent cellulitis and that ulcer has been improving since discharge from the hospital on June 22. Of note patient was discharged from the emergency department 2 to 3 days ago with a COPD exacerbation and newly discovered lytic lesions of his skull associated with his multiple myeloma. Daughter states that they saw Dr. Bonilla yesterday and they are still not restarting any of his immunosuppressive therapy for the multiple myeloma. TRAVEL OUTSIDE OF THE [place] IN LAST 30 DAYS: No - Related Data Allergies/Adverse Reactions: acetaminophen Adverse Reaction (Verified 01/31/20 15:41) Past Medical History - General Information source: Relative, Emergency Med Personnel, [facility] Records - Social History Smoking Status: Former Smoker Frequency of alcohol use: None Drug Abuse: None Family History: Hypertension, Other - Sister with bleeding varices, alcohol live r disease - Past Medical History Cardiac Medical History: Reports: Hx Hypercholesterolemia, Hx Hypertension Denies: Hx Heart Attack Pulmonary Medical History: Reports: Hx Bronchitis, Hx COPD, Hx Sleep Apnea Endocrine Medical History: Reports: Hx Diabetes Mellitus Type 2 Renal/ Medical History: Denies: Hx Peritoneal Dialysis GI Medical History: Reports: Hx Cirrhosis - Nonalcoholic steatohepatitis with cirrhosis, Hx Hepatitis - Hepatitis C Skin Medical History: Denies Hx Eczema, Denies Hx Psoriasis Psychiatric Medical History: Reports: Hx Depression Infectious Medical History: Reports: Hx Hepatitis - Hepatitis C Past Surgical History: Reports: Hx Appendectomy, Hx Kidney (Renal Surgery) - 1 removed as child, Hx Orthopedic Surgery - L knee, Hx Tonsillectomy, Other - Nephrectomy, port placement Review of Systems - Review of Systems -: Yes ROS unobtainable due to patient's medical condition - Patient can provide no history to me whatsoever. Physical Exam - Vital signs Vitals: BP 133/95 H 07/18/20 13:26 Interpretation: Tachycardic, Febrile - Notes Notes: GENERAL: Awake, laying in bed, will make eye contact, mumbles, has difficulty answering questions. Mildly diaphoretic. HEAD: Normocephalic, atraumatic EYES: Pupils equal, round and reactive to light, extraocular movements intact. ENT: Oral mucosa moist, tongue midline. NECK: Full range of motion, supple, trachea midline. LUNGS: Clear to auscultation bilaterally, no wheezes, rales or rhonchi, no respiratory distress. HEART: Tachycardic rate and rhythm, no murmurs, gallops, rubs. ABDOMEN: Soft, nontender, nondistended, bowel sounds present in all 4 quadrants. EXTREMITIES: Moves all 4 extremities spontaneously, 2+ pitting edema left lower extremity to the level of the knee, Rogers wrap was removed, there is a very small approximately 2 mm wound to the lateral aspect of the left calf, lower half of left leg is hot to the touch, tender to palpation, there is no crepitus, no exudate is able to be expressed from the wound, there is both acute and chronic cellulitic changes with both hyperpigmentation as well as erythema. Radial and dorsalis pedis pulses 2/4 bilaterally. No cyanosis. Right lower extremity reveals chronic cellulitic changes but no evidence of acute cellulitis. NEUROLOGICAL: Somewhat somnolent but does open his eyes when I walk into the room, oriented to person but not to place or time, cannot answer any other questions but will follow commands. No facial droop. Course - Re-evaluation Re-evalutation: 07/18/20 15:48 CBC shows mild anemia with hemoglobin 12.8, platelets are low at 83, coags normal, venous blood gas unremarkable, CMP shows mildly elevated BUN at 26, glucose elevated 195, lactic Acid elevated at 2.2, cardiac enzymes negative, urinalysis unremarkable. Chest X-Ray 07/18/20 13:42 IMPRESSION: 1. No significant interval changes since the prior study dated 07/15/2020. No acute findings. Tibia/Fibula X-Ray 07/18/20 14:15 IMPRESSION: DIFFUSE SOFT TISSUE SWELLING. STABLE NONDISPLACED FRACTURE OF THE MEDIAL MALLEOLUS. NO ACUTE FINDINGS. There is the possibility of early osteomyelitis as this patient does have a fracture and a wound in the same leg however the wound is quite distant from the fracture. Doubt osteomyelitis at this time. X-ray and physical examination give no evidence of necrotizing fasciitis. Patient was given 30 mL/kg bolus of lactated Ringer's for sepsis resuscitation using ideal body weight of 146 pounds based off of his height of 5 foot 7 inches. This comes to 1990 mL. This was rounded up to 2000. Patient was also given Zosyn for empiric antibiotic therapy. Patient uses a AVAPS at baseline at home whenever he is sleeping. As the patient is intermittently somnolent patient will be placed on a AVAPS for baseline respiratory support using his home settings obtain from Dr. Pacheco. Discussed patient with Dr. Alves who agrees to admit the patient to her service on the medical floor. - Vital Signs Vital signs: Temp Pulse Resp BP Pulse Ox 100.9 F H 116 H 16 136/86 H 96 07/18/20 13:42 07/18/20 13:46 07/18/20 15:30 07/18/20 15:30 07/18/20 15:30 - Laboratory Result Diagrams: 07/18/20 13:30 07/18/20 13:30 Laboratory results interpreted by me: 07/18/20 07/18/20 07/18/20 13:30 13:30 13:30 RBC 4.27 L Hgb 12.8 L RDW 14.8 H Plt Count 83 L Seg Neuts % (Manual) 79 H Lymphocytes % (Manual) 2 L Carbon Dioxide 32 H BUN 26 H Glucose 195 H POC Glucose Lactic Acid 2.2 H Creatine Kinase Urine Urobilinogen 07/18/20 07/18/20 07/18/20 13:30 13:53 13:53 RBC Hgb RDW Plt Count Seg Neuts % (Manual) Lymphocytes % (Manual) Carbon Dioxide BUN Glucose POC Glucose 145 H Lactic Acid Creatine Kinase 41 L Urine Urobilinogen 2.0 H - EKG Interpretation by Me Additional EKG results interpreted by me: 07/18/20 13:55 EKG shows sinus tachycardia at a rate of 122, left anterior hemiblock, normal intervals, no ST segment elevations or depressions, no T wave inversions, poor R wave progression per my interpretation. Critical Care Note - Critical Care Note Total time excluding time spent on procedures (mins): 45 Discharge - Discharge Clinical Impression: Cellulitis of left leg, Confusion, Morbid obesity with alveolar hypoventilation, History of hepatitis C, Thrombocytopenia Multiple myeloma Qualifiers: Multiple myeloma remission status: not in remission Qualified Code(s): C90.00 - Multiple myeloma not having achieved remission Sepsis Qualifiers: Sepsis type: sepsis due to unspecified organism Sepsis acute organ dysfunction status: without acute organ dysfunction Qualified Code(s): A41.9 - Sepsis, unspecified organism Condition: Fair Disposition: ADMITTED INPATIENT Admitting Provider: Joselyn Unit Admitted: Medical Floor Referrals: SHASHA ALCALA CANCELING MACHINE OPERATOR, CANCELING MACHINE OPERATOR [NURSE PRACTITIONER] - Follow up as needed
[2020-07-18 14:03] LABS: VENOUS BLOOD BASE EXCESS 3.9 mmol/L; VENOUS BLOOD HCO3 29.9 mmol/L (20-32); VENOUS BLOOD PCO2 50.8 mmHg (35-63); VENOUS BLOOD PH 7.39 (7.30-7.42)
[2020-07-18] MEDS ORDERED: ONDANSETRON HCL INJ/PF 4 MG/2 ML SDV ONE (14:04)
[2020-07-18] MEDS: RINGERS SOLUTION,LACTATED 1,000 ML IV PRN ×3 (14:04→22:17)
[2020-07-18] MEDS ORDERED: ONDANSETRON HCL INJ/PF 4 MG/2 ML SDV IV ONE (14:05)
[2020-07-18 14:12] LABS: HEMATOCRIT 39.1 % (37.9-51.0); HEMOGLOBIN 12.8 g/dL (13.5-17.0); MEAN CORPUSCULAR HGB CONC 32.7 g/dL (32.0-36.0); MEAN CORPUSCULAR VOLUME 92 fl (80-97); RED BLOOD COUNT 4.27 10^6/uL (4.35-5.55); RED CELL DISTRIBUTION WIDTH 14.8 % (11.5-14.0)
[2020-07-18 14:18] LABS: INTERNATIONAL RATION (INR) 1.04; PROTHROMBIN TIME 13.8 SEC (11.4-15.4)
[2020-07-18 14:19] LABS: APPEARANCE,URINE CLEAR; BILIRUBIN,URINE NEGATIVE (NEGATIVE); COLOR,URINE YELLOW; GLUCOSE, URINE NEGATIVE (NEGATIVE); KETONES,URINE NEGATIVE (NEGATIVE); PROTEIN,URINE NEGATIVE (NEGATIVE); URINE SPECIFIC GRAVITY 1.013
--- NOTE | 2020-07-18 14:21 | RADIOLOGY REPORT (SQ) ---
EXAM DESCRIPTION: CHEST SINGLE VIEW IMAGES COMPLETED DATE/TIME: 07/18/2020 2:11 pm REASON FOR STUDY: fever, AMS COMPARISON: 07/15/2020 EXAM PARAMETERS: NUMBER OF VIEWS: One view. TECHNIQUE: Single frontal radiographic view of the chest acquired. RADIATION DOSE: NA LIMITATIONS: None. FINDINGS: LUNGS AND PLEURA: Low lung volumes limits examination. No acute pulmonary consolidation. No pneumothorax or pleural effusion. MEDIASTINUM AND HILAR STRUCTURES: No masses. Contour normal. HEART AND VASCULAR STRUCTURES: Stable appearance. Tortuosity of the thoracic aorta. Normal vascula ture. BONES: The osseous structures are stable in appearance. Old right rib fractures. HARDWARE: Right Svuarm-I-Reut catheter, stable finding. OTHER: No other significant finding. IMPRESSION: 1. No significant interval changes since the prior study dated 07/15/2020. No acute fin dings. TECHNICAL DOCUMENTATION: JOB ID: [id number] 2010 [employer]- All Rights Reserved Reading location - IP/workstation name: [email or web address]
[2020-07-18 14:29] LABS: ALBUMIN 4.3 g/dL (3.5-5.0); ALKALINE PHOSPHATASE 55 U/L (38-126); ANION GAP 8 (5-19); ASPARTATE AMINO TRANSFERASE 27 U/L (17-59); BILIRUBIN,DIRECT 0.3 mg/dL (0.0-0.4); BILIRUBIN,TOTAL 1.2 mg/dL (0.2-1.3); BLOOD UREA NITROGEN 26 mg/dL (7-20); CALCIUM 9.2 mg/dL (8.4-10.2); CARBON DIOXIDE 32 mmol/L (22-30); CHLORIDE 98 mmol/L (98-107); GLUCOSE 195 mg/dL (75-110); POTASSIUM 4.4 mmol/L (3.6-5.0); TOTAL PROTEIN 6.7 g/dL (6.3-8.2)
[2020-07-18 14:32] LABS: WHITE BLOOD COUNT 7.8 10^3/uL (4.0-10.5)
[2020-07-18 14:35] LABS: PLATELET COUNT 83 10^3/uL (150-450)
[2020-07-18 14:37] LABS: ABSOLUTE LYMPHOCYTES# (MANUAL) 0.6 10^3/uL (0.5-4.7); ABSOLUTE MONOCYTES # (MANUAL) 0.7 10^3/uL (0.1-1.4); BAND NEUTROPHILS % (MANUAL) 3 % (3-5); BASOPHILS % (MANUAL) 0 % (0-2); EOSINOPHILS % (MANUAL) 1 % (0-6); LYMPHOCYTES % (MANUAL) 2 % (13-45); MONOCYTES % (MANUAL) 9 % (3-13); SEGMENTED NEUTROPHILS % (MAN) 79 % (42-78); TOTAL CELLS COUNTED 100
[2020-07-18 14:38] LABS: ANISOCYTOSIS SLIGHT; OVALOCYTES SLIGHT; PLATELET COMMENT DECREASED; POIKILOCYTOSIS SLIGHT; POLYCHROMASIA SLIGHT
--- NOTE | 2020-07-18 14:57 | RADIOLOGY REPORT (SQ) ---
EXAM DESCRIPTION: TIBIA FIBULA LEFT IMAGES COMPLETED DATE/TIME: 07/18/2020 2:42 pm REASON FOR STUDY: fx 10 d ago, now cellulitic COMPARISON: 07/07/2020. NUMBER OF VIEWS: Two views. TECHNIQUE: Two radiographic images acquired of the left tibia and fibula to include the knee and ank le in at least one projection. LIMITATIONS: None. FINDINGS: MINERALIZATION: Normal. BONES: Intact knee prosthesis. Stable nondisplaced fracture of the medial malleolus. No acute fract ure or dislocation. No worrisome bone lesions. SOFT TISSUES: Diffuse soft tissue swelling. No radiopaque foreign body. OTHER: No other significant finding. IMPRESSION: DIFFUSE SOFT TISSUE SWELLING. STABLE NONDISPLACED FRACTURE OF THE MEDIAL MALLEOLUS. NO ACUTE FINDINGS. TECHNICAL DOCUMENTATION: JOB ID: [id number] 2010 [employer]- All Rights Reserved Reading location - IP/workstation name: [email or web address]
[2020-07-18 16:48] LABS: URINE AMPHETAMINES SCREEN NEGATIVE; URINE BARBITURATES SCREEN NEGATIVE; URINE BENZODIAZEPINES SCREEN NEGATIVE; URINE COCAINE SCREEN NEGATIVE; URINE MARIJUANA (THC) SCREEN NEGATIVE; URINE PHENCYCLIDINE SCREEN NEGATIVE
[2020-07-18 16:51] LABS: URINE METHADONE SCREEN UNCONFIRMED POSITIVE
--- NOTE | 2020-07-18 17:11 | EKG REPORT ---
SEVERITY:- ABNORMAL ECG - SINUS TACHYCARDIA LEFT ANTERIOR FASCICULAR BLOCK : Confirmed by: Jolynn Dobbs MD 18-Jul-2020 17:10:12
[2020-07-18] MEDS ORDERED: GLUCAGON,HUMAN RECOMB 1 MG INJ SUBCUT PRN (17:55)
[2020-07-18] MEDS ORDERED: DEXTROSE 50%-WATER 25 GM/50 ML DISP.SYRIN IV PRN ×2 (17:55)
[2020-07-18] MEDS ORDERED: DEXTROSE 40% GEL 15 GM TUBE PO PRN ×2 (17:55)
[2020-07-18] MEDS ORDERED: VANCOMYCIN HCL 0 MG in DEXTROSE 5%-WATER 250 ML IV NR (18:30)
--- NOTE | 2020-07-18 19:09 | RADIOLOGY REPORT (SQ) ---
EXAM DESCRIPTION: CT HEAD WITHOUT IMAGES COMPLETED DATE/TIME: 07/18/2020 5:17 pm REASON FOR STUDY: fever, altered mental status COMPARISON: 07/15/2020 TECHNIQUE: Axial images acquired through the brain without intravenous contrast. Images reviewed wi th bone, brain and subdural windows. Additional sagittal and coronal reconstructions were generated. Images stored on PACS. All CT scanners at this facility use dose modulation, iterative reconstruction, and/or weight based d osing when appropriate to reduce radiation dose to as low as reasonably achievable (ALARA). [facility]: Dose Right [facility]: CareDose [facility]: Dose Right [facility]: Teradose 4D [facility]: Smart Appurify RADIATION DOSE: CT Rad equipment meets quality standard of care and radiation dose reduction techniq ues were employed. CTDIvol: 53.2 mGy. DLP: 1044 mGy-cm. LIMITATIONS: None. FINDINGS: VENTRICLES: Normal size and contour. The cisterns are patent. CEREBRUM: No masses. No hemorrhage. No midline shift. No evidence for acute infarction. Normal gra y/white matter differentiation. No areas of low density in the white matter. CEREBELLUM: No masses. No hemorrhage. No alteration of density. No evidence for acute infarction. EXTRAAXIAL SPACES: No fluid collections. No masses. ORBITS AND GLOBE: No intra- or extraconal masses. Normal contour of globe without masses. CALVARIUM: As on the prior examination, osseous lytic destruction involves the frontal bone. There is associated soft tissue mass which extends into the frontal sinus, left frontal ethmoid recess and the left orbital roof. There is extension of the mass into the extra-axial space of the frontal lobe , more so on the left with some extension toward the right of the midline falx. No change in the appearance of the lytic lesion involving the right posterior parietal bone. PARANASAL SINUSES: No fluid or mucosal thickening. SOFT TISSUES: No mass or hematoma. OTHER: No other significant finding. IMPRESSION: 1. No significant interval changes since the prior examination dated 07/15/2020. The ap pearance of the fairly large osseous lytic destruction involving the frontal bone is unchanged. Stab le right posterior parietal bone lesion. These findings are likely consistent with the patient's [facility] history of myeloma. 2. Stable soft tissue mass associated with the osseous destruction of the frontal bone with extensio n into the frontal sinus, left frontoethmoid recess, left orbital roof and extra-axial space on the f rontal lobe. 3. No acute intracranial hemorrhage. EVIDENCE OF ACUTE STROKE: NO. COMMENT: Quality ID # [id number]: Final reports with documentation of one or more dose reduction techniques (e.g., Automated exposure control, adjustment of the mA and/or kV according to patient size, use of iterative reconstruction technique) TECHNICAL DOCUMENTATION: JOB ID: [id number] 2010 [employer]- All Rights Reserved Reading location - IP/workstation name: [email or web address]
[2020-07-18] MEDS ORDERED: HYDROMORPHONE HCL INJ/PF 2 MG/ML AMPULE IV PRN (20:32)
--- NOTE | 2020-07-18 20:45 | PDOC H&P ---
History of Present Illness Admission Date/PCP: 07/18/20 16:25 EMILIA MARTINEZ MD Patient complains of: altered mental status, left leg pain and swelling History of Present Illness: VERONIQUE SOLIZ is a 65 year old male, history of mulitple myeloma with bone metastasis, history of hepatitis C with cirrhosis, obstructive sleep apnea, COPD, hyperlipidemia type,hypertension, who was brought to the ED today due to altered mental status and left leg pain and redness. He was previously admitted at [facility] from June 12 to June 22 increased pain and swelling of the left leg. He was treated as a case of cellulitis and received vancomycin and Zosyn and clindamycin. CT of the left leg done on that admission showed findings suggestive of extensive cellulitis no drainable abscess no signs of necrotizing infection. Seen by surgery on the previous admission hold did not recommend any surgical intervention. According to the his left leg remained erythematous during discharge but pain subsided. At 1 week prior to admission the patient fell and sustained a left ankle fracture , patient was managed conservatively . 3 days CAFETERIA CASHIER, he developed Altered mental status and he was brought to [facility] was put on BiPAP and was subsequently discharged after his mental status improved. CT of the head was negative. Altered mental status persisted until few hours prior to admission when he developed fever of 100.2. He was then brought to the ED and was subsequently admitted for further management. In the ED vital signs were stable WBC count 7.8, 12.8, platelet of 83. LActic acid 2.2. Repeat CT head negative. Patient was started on Zosyn for cellulitis Past Medical History Cardiac Medical History: Reports: Hyperlipidema, Hypertension Denies: Myocardial Infarction Pulmonary Medical History: Reports: Bronchitis, Chronic Obstructive Pulmonary Disease (COPD), Sleep Apnea Endocrine Medical History: Reports: Diabetes Mellitus Type 2 Malignancy Medical History: Reports: Other - multiple myeloma GI Medical History: Reports: Cirrhosis - Nonalcoholic steatohepatitis with cirrhosis, Hepatitis - Hepatitis C Musculoskeltal Medical History: Reports: Arthritis Skin Medical History: Denies: Eczema, Psoriasis Psychiatric Medical History: Reports: Depression Hematology: Reports: Neutropenia Past Surgical History Past Surgical History: Reports: Appendectomy, Orthopedic Surgery - L knee, Tonsillectomy, Other - Nephrectomy, port placement Social History Smoking Status: Former Smoker Frequency of Alcohol Use: None Hx Recreational Drug Use: No - Remote history greater than 30 years ago Drugs: None Hx Prescription Drug Abuse: No - Chronic pain medication for bony metastases Family History Family History: Hypertension, Other - Sister with bleeding varices, alcohol liver disease Parental Family History Reviewed: No Children Family History Reviewed: No Sibling(s) Family History Reviewed.: No Medication/Allergy Home Medications: Atorvastatin Calcium [Lipitor 20 mg Tablet] 20 mg PO QHS 11/03/19 Cholecalciferol (Vitamin D3) [Vitamin D3 2000 unit Tablet] 2,000 unit PO DAILY 11/03/19 Citalopram Hydrobromide [Celexa 40 mg Tablet] 40 mg PO DAILY 11/03/19 Docusate Sodium [Colace 100 mg Capsule] 100 mg PO DAILY 11/03/19 Furosemide [Lasix 40 mg Tablet] 40 mg PO QAM 11/03/19 Metformin HCl [Glucophage] 500 mg PO DAILY 11/03/19 Methadone HCl [Dolophine 10 mg Tablet] 10 mg PO Q12 11/03/19 Spironolactone [Aldactone] 50 mg PO DAILY 11/03/19 Gabapentin [Neurontin 400 mg Capsule] 800 mg PO Q12 01/31/20 Polyethylene Glycol 3350 [Miralax Powder 17 gm/Packet] 1 packet PO DAILYP PRN 01/31/20 Ondansetron HCl [Zofran 8 mg Tablet] 8 mg PO DAILYP PRN 06/12/20 Umeclidinium Brm/Vilanterol Tr [Anoro Ellipta 62.5-25 Mcg INH] 1 puff PO BID 06/12/20 Hydromorphone HCl [Dilaudid 2 mg Tablet] 2 mg PO Q6HP PRN #14 tablet 06/22/20 Sulfamethoxazole/Trimethoprim [Bactrim Ds Tablet] 1 each PO Q12 10 Days #20 tablet 06/22/20 Dexamethasone [Decadron] 20 mg PO TH@0800 07/18/20 Pomalidomide [Pomalyst] 3 mg PO ASDIR PRN 07/18/20 Allergies/Adverse Reactions: acetaminophen Adverse Reaction (Verified 01/31/20 15:41) Review of Systems Constitutional: PRESENT: fever(s) Musculoskeletal: PRESENT: joint swelling, muscle weakness Integumentary: PRESENT: erythema, other Neurological: PRESENT: confusion Physical Exam Vital Signs: Temp Pulse Resp BP Pulse Ox 98.8 F 116 H 15 149/84 H 95 07/18/20 19:32 07/18/20 13:46 07/18/20 19:00 07/18/20 18:30 07/18/20 19:00 Intake & Output 07/17/20 07/18/20 07/19/20 06:59 06:59 06:59 Intake Total 1999 Balance 1999 Weight 131.5 kg General appearance: PRESENT: morbidly obese, other - on bipap, arousable by voice, moderate distress, follows command Head exam: PRESENT: atraumatic, normocephalic Eye exam: PRESENT: EOMI, PERRLA Mouth exam: PRESENT: moist Neck exam: ABSENT: JVD, meningismus Respiratory exam: PRESENT: decreased breath sounds, symmetrical, tachypnea Cardiovascular exam: PRESENT: RRR, +S1, +S2 - Normal. ABSENT: diastolic murmur, systolic murmur GI/Abdominal exam: PRESENT: normal bowel sounds, soft, other - Protuberant abdomen. ABSENT: guarding, rebound Extremities exam: PRESENT: tenderness, other - left leg is larger than right, erythematous upto trochanter, swollen, tender, no crepitus noted. Venous stasis dermatitis noted bilateral Neurological exam: PRESENT: altered, other - Confused Psychiatric exam: PRESENT: agitated - Mild Skin exam: PRESENT: other - left leg as previously prescribed, venous stasis dermatitis bilateral leg Results Laboratory Results: 07/18/20 13:30 07/18/20 13:30 07/18/20 07/18/20 07/18/20 13:30 13:30 13:30 WBC 7.8 D RBC 4.27 L Hgb 12.8 L Hct 39.1 MCV 92 MCH 30.0 MCHC 32.7 RDW 14.8 H Plt Count 83 L Seg Neutrophils % Not Reportable VBG pH 7.39 VBG pCO2 50.8 VBG HCO3 29.9 VBG Base Excess 3.9 Sodium 137.6 Potassium 4.4 Chloride 98 Carbon Dioxide 32 H Anion Gap 8 BUN 26 H Creatinine 0.97 Est GFR ( Amer) > 60 Glucose 195 H Lactic Acid Calcium 9.2 Total Bilirubin 1.2 AST 27 Alkaline Phosphatase 55 Ammonia Total Protein 6.7 Albumin 4.3 Urine Color Urine Appearance Urine pH Ur Specific [place] Urine Protein Urine Glucose (UA) Urine Ketones Urine Blood Urine RBC (Auto) 0807/18/20 07/18/20 13:30 13:53 16:03 WBC RBC Hgb Hct MCV MCH MCHC RDW Plt Count Seg Neutrophils % VBG pH VBG pCO2 VBG HCO3 VBG Base Excess Sodium Potassium Chloride Carbon Dioxide Anion Gap BUN Creatinine Est GFR ( Amer) Glucose Lactic Acid 2.2 H 1.1 Calcium Total Bilirubin AST Alkaline Phosphatase Ammonia Total Protein Albumin Urine Color YELLOW Urine Appearance CLEAR Urine pH 8.0 Ur Specific [place] 1.013 Urine Protein NEGATIVE Urine Glucose (UA) NEGATIVE Urine Ketones NEGATIVE Urine Blood NEGATIVE Urine RBC (Auto) 4 07/18/20 16:09 WBC RBC Hgb Hct MCV MCH MCHC RDW Plt Count Seg Neutrophils % VBG pH VBG pCO2 VBG HCO3 VBG Base Excess Sodium Potassium Chloride Carbon Dioxide Anion Gap BUN Creatinine Est GFR ( Amer) Glucose Lactic Acid Calcium Total Bilirubin AST Alkaline Phosphatase Ammonia 17.4 Total Protein Albumin Urine Color Urine Appearance Urine pH Ur Specific [place] Urine Protein Urine Glucose (UA) Urine Ketones Urine Blood Urine RBC (Auto) 07/18/20 07/18/20 07/18/20 13:30 13:30 13:30 Creatine Kinase 41 L CK-MB (CK-2) 0.81 Troponin I < 0.012 07/18/20 16:03 Creatine Kinase 42 L CK-MB (CK-2) Troponin I Impressions: Chest X-Ray 07/18/20 13:42 IMPRESSION: 1. No significant interval changes since the prior study dated 07/15/2020. No acute findings. Tibia/Fibula X-Ray 07/18/20 14:15 IMPRESSION: DIFFUSE SOFT TISSUE SWELLING. STABLE NONDISPLACED FRACTURE OF THE MEDIAL MALLEOLUS. NO ACUTE FINDINGS. Head CT 07/18/20 15:18 IMPRESSION: 1. No significant interval changes since the prior examination dated 07/15/2020. The appearance of the fairly large osseous lytic destruction involving the frontal bone is unchanged. Stable right posterior parietal bone lesion. These findings are likely consistent with the patient's known history of myeloma. 2. Stable soft tissue mass associated with the osseous destruction of the frontal bone with extension into the frontal sinus, left frontoethmoid recess, left orbital roof and extra-axial space on the frontal lobe. 3. No acute intracranial hemorrhage. EVIDENCE OF ACUTE STROKE: NO. Assessment and Plan - Diagnosis (1) Cellulitis of left leg Is this a current diagnosis for this admission?: Yes Plan: - admitted 4 weeks prior due to same complain treated as cellulitis with zosyn, vanc, clinda. completed abx course - CT leg done 06/18 showed diffuse skin thickening and subcutaneous edema involving the left lower mid calf drainable abscess left knee arthroplasty with no CT evidence of hardware complication. - doppler showed no evidence of DVT - currently left leg erythematous upto trochanteric area, swelling and tenderness, no aprreciable crepitus - XR left foot diffuse soft tissue swelling stable nondisplaced fracture of the medial malleolus -WBC 7.8, lactic acid 2.2 -Blood cultures pending -CT of the left leg ordered -Dr. Rivera to call surgery for consult concern for nec fasc - will start cefepime and vanc to cover pseudomonas and MRSA (2) Ankle fracture, lateral malleolus, closed Qualifiers: Encounter type: initial encounter Fracture alignment: nondisplaced Laterality: left Qualified Code(s): S82.65XA - Nondisplaced fracture of lateral malleolus of left fibula, initial encounter for closed fracture Is this a current diagnosis for this admission?: Yes Plan: -fell about 1 week prior - XR showed stable non displaced fracture medial malleolus - was suppose to be seen by ortho today but had to go to the ED - will place ortho consutl - dilaudid for pain (3) Acute encephalopathy Is this a current diagnosis for this admission?: Yes Plan: - has been confused for 3 days in the setting of left leg cellulitis. Improved with bipap use 3 days prior - CT head negative x 2, no meningeal signs - VBG Pco2 of 50.8, ph 7.39 - WBC 7.8. No electrolyte abnormality on CMP - likely multifactorial from on going infection and CO2 retention, heaptic enceph, meningitis also a consideration - blood culture sent - continue Cefepime and vanc which will cover for meningitis too - CMP daily - will check ammonia (4) Sleep apnea in adult Is this a current diagnosis for this admission?: Yes Plan: - CO2 on VBG 50.8 has a CPAP at home - continue bipap in patient (5) Multiple myeloma Qualifiers: Multiple myeloma remission status: not in remission Qualified Code(s): C90.00 - Multiple myeloma not having achieved remission Is this a current diagnosis for this admission?: Yes Plan: -not currently undergoing treatment - follows with Dr. Wu (6) Thrombocytopenia Is this a current diagnosis for this admission?: Yes (7) Venous stasis Is this a current diagnosis for this admission?: Yes Plan: chronic problem - left leg chronically lower than the right - Time Time Spent with patient: 25-34 minutes Medications reviewed and adjusted accordingly: Yes Anticipated Discharge Disposition: to be determined Anticipated Discharge Timeframe: to be determined - Inpatient Certification Based on my medical assessment, after consideration of the patient's comorbidities, presenting symptoms, or acuity I expect that the services needed warrant INPATIENT care.: Yes I certify that my determination is in accordance with my understanding of Medicare's requirements for reasonable and necessary INPATIENT services [42 CFR 412.3e].: Yes Medical Necessity: Need for IV Antibiotics, Risk of Complication if Not Cared For in Hospital
--- NOTE | 2020-07-18 21:34 | RADIOLOGY REPORT (SQ) ---
EXAM DESCRIPTION: CT LOWER EXTREMITY WITH IV CONTRAST COMPLETED DATE/TME: 07/18/2020 18:01 CLINICAL HISTORY: 65 years, Male, swollen red leg, r/o nec fasc COMPARISON: Prior CT dated 06/18/2020 TECHNIQUE: Contrast enhanced CT of the left knee was acquired. Images were obtained after the administration of 79 mL of Omnipaque 350 intravenous contrast.. Images stored on PACS. All CT scanners at this facility use dose modulation, iterative reconstruction, and/or weight based dosing when appropriate to reduce radiation dose to as low as reasonably achievable (ALARA). [facility]: Dose Right [facility]: CareDose [facility]: Dose Right [facility]: Teradose 4D [facility]: ProtoStar LIMITATIONS: None. FINDINGS: Visualized are postoperative changes of left total knee arthroplasty with patellar resurfacing. Orthopedic hardware appears overall well seated and intact. There is a nondisplaced fracture involving the medial malleolus, best visualized on image 173 of series 2. No additional fractures are identified. Moderate soft tissue swelling is noted about the left knee extending into the lower leg as well as the visualized portions of the hindfoot/midfoot, circumferential. The degree of soft tissue swelling appears fairly similar to the previous CT dated 06/18/2020. No associated drainable fluid collections are clearly identified. In addition, vascular structures appeared opacify with contrast. There are no foci of soft tissue gas. IMPRESSION: Diffuse soft tissue swelling about the left knee extending into the lower leg and visualized portions of the hindfoot/midfoot nonspecific though raising the possibility of cellulitis. No underlying drainable fluid collection identified. Likewise, no foci of soft tissue gas to insinuate necrotizing fasciitis. Postsurgical changes of left total knee arthroplasty with patellar resurfacing. No definitive evidence of complication. Unchanged appearance of nondisplaced fracture involving the medial malleolus. TECHNICAL DOCUMENTATION: Quality ID # [id number]: Final reports with documentation of one or more dose reduction techniques (e.g., Automated exposure control, adjustment of the mA and/or kV according to patient size, use of iterative reconstruction technique) copyright 2011 [employer]- All Rights Reserved
[2020-07-18] MEDS ORDERED: CEFEPIME 2 GM/D5W RTU 2 GM/50 ML RTUPB IV SCH (22:00)
[2020-07-18] MEDS ORDERED: CEFEPIME 2 GM/D5W RTU 2 GM/50 ML RTUPB IV ONE (22:11)
[2020-07-18] MEDS ORDERED: VANCOMYCIN HCL INJ 1000 MG VIAL ONE (22:12)
[2020-07-18] MEDS ORDERED: VANCOMYCIN HCL INJ 500 MG VIAL ONE (22:12)
[2020-07-18] MEDS ORDERED: METHADONE HCL 10 MG TABLET PO SCH (22:15)
[2020-07-18] MEDS: CEFEPIME HCL 2 GM in DEXTROSE 5%-WATER 50 ML IV SCH (22:18)
[2020-07-18] MEDS: HEPARIN SOD (PORCINE) 5,000 UNIT/ML 1 ML VIAL SUBCUT SCH (22:21)
[2020-07-18] MEDS: GABAPENTIN 400 MG CAPSULE PO SCH (22:22)
[2020-07-18] MEDS: ATORVASTATIN CALCIUM 20 MG TABLET PO SCH (22:22)
--- NOTE | 2020-07-18 22:39 | PDOC CONSULTATION ---
Consultation Consult Date: 07/18/20 Provider Consulted: MARIEL DYSON Consult reason:: Diffuse left lower extremity cellulitis for 3 days History of Present Illness Admission Date/PCP: 07/18/20 16:25 EMILIA MARTINEZ MD History of Present Illness: VERONIQUE SOLIZ is a 65 year old male, morbidly obese, on BiPAP mask for CO2 retention, history of melanoma for 4 years, hepatitis C with cirrhosis (treated, with hepatitis C virus nondetectable now), type 2 diabetes, history of chronic venostasis bilateral legs, recently admitted and discharged for left leg cellulitis. For the past 3 days, the reports her 's been complaining of pain swelling redness of the left leg. He fell a week ago and sustained a fracture of the left medial malleolus. According to the redness of the leg has been progressively extending from the lower leg to the upper leg and today is throughout most of the thigh. During interview, the patient appears to be confused, agitated, unable to answer properly to questions. Most of the information is obtained from the . Past Medical History Cardiac Medical History: Reports: Hyperlipidema, Hypertension Denies: Myocardial Infarction Pulmonary Medical History: Reports: Bronchitis, Chronic Obstructive Pulmonary Disease (COPD), Sleep Apnea Endocrine Medical History: Reports: Diabetes Mellitus Type 2 GI Medical History: Reports: Cirrhosis - Nonalcoholic steatohepatitis with cirrhosis, Hepatitis - Hepatitis C Skin Medical History: Denies: Eczema, Psoriasis Psychiatric Medical History: Reports: Depression Hematology: Reports: Neutropenia Past Surgical History Past Surgical History: Reports: Appendectomy, Orthopedic Surgery - L knee, Tonsillectomy, Other - Nephrectomy, port placement Social History Smoking Status: Former Smoker Frequency of Alcohol Use: None Hx Recreational Drug Use: No - Remote history greater than 30 years ago Drugs: None Hx Prescription Drug Abuse: No - Chronic pain medication for bony metastases Family History Family History: Hypertension, Other - Sister with bleeding varices, alcohol liver disease Parental Family History Reviewed: No Children Family History Reviewed: No Sibling(s) Family History Reviewed.: No Medication/Allergy Home Medications: Atorvastatin Calcium [Lipitor 20 mg Tablet] 20 mg PO QHS 11/03/19 Cholecalciferol (Vitamin D3) [Vitamin D3 2000 unit Tablet] 2,000 unit PO DAILY 11/03/19 Citalopram Hydrobromide [Celexa 40 mg Tablet] 40 mg PO DAILY 11/03/19 Docusate Sodium [Colace 100 mg Capsule] 100 mg PO DAILY 11/03/19 Furosemide [Lasix 40 mg Tablet] 40 mg PO QAM 11/03/19 Metformin HCl [Glucophage] 500 mg PO DAILY 11/03/19 Methadone HCl [Dolophine 10 mg Tablet] 10 mg PO Q12 11/03/19 Spironolactone [Aldactone] 50 mg PO DAILY 11/03/19 Gabapentin [Neurontin 400 mg Capsule] 800 mg PO Q12 01/31/20 Polyethylene Glycol 3350 [Miralax Powder 17 gm/Packet] 1 packet PO DAILYP PRN 01/31/20 Ondansetron HCl [Zofran 8 mg Tablet] 8 mg PO DAILYP PRN 06/12/20 Umeclidinium Brm/Vilanterol Tr [Anoro Ellipta 62.5-25 Mcg INH] 1 puff PO BID 06/12/20 Hydromorphone HCl [Dilaudid 2 mg Tablet] 2 mg PO Q6HP PRN #14 tablet 06/22/20 Sulfamethoxazole/Trimethoprim [Bactrim Ds Tablet] 1 each PO Q12 10 Days #20 tablet 06/22/20 Dexamethasone [Decadron] 20 mg PO TH@0800 07/18/20 Pomalidomide [Pomalyst] 3 mg PO ASDIR PRN 07/18/20 Allergies/Adverse Reactions: acetaminophen Adverse Reaction (Verified 01/31/20 15:41) Physical Exam Vital Signs: Temp Pulse Resp BP Pulse Ox 98.1 F 116 H 15 149/84 H 95 07/18/20 17:30 07/18/20 13:46 07/18/20 19:00 07/18/20 18:30 07/18/20 19:00 Intake & Output 07/17/20 07/18/20 07/19/20 06:59 06:59 06:59 Intake Total 1999 Balance 1999 Weight 131.5 kg General appearance: PRESENT: mild distress, obese, well-developed Head exam: PRESENT: atraumatic Mouth exam: PRESENT: dry mucosa, neck supple Teeth exam: PRESENT: poor dentation Neck exam: PRESENT: full ROM Respiratory exam: PRESENT: clear to auscultation pat Cardiovascular exam: PRESENT: RRR GI/Abdominal exam: PRESENT: diminished bowel sounds, soft Rectal exam: PRESENT: deferred Extremities exam: PRESENT: full ROM Musculoskeletal exam: PRESENT: full ROM Neurological exam: PRESENT: alert, awake, other - Disoriented by time person and place Skin exam: PRESENT: other - Left lower extremity = signs of chronic lower leg venous stasis; diffuse cellulitis extending from the leg up to the knee and to the lateral-posterior aspect of the left thigh Results Laboratory Results: 07/18/20 13:30 07/18/20 13:30 07/18/20 07/18/20 07/18/20 13:30 13:30 13:30 WBC 7.8 D RBC 4.27 L Hgb 12.8 L Hct 39.1 MCV 92 MCH 30.0 MCHC 32.7 RDW 14.8 H Plt Count 83 L Seg Neutrophils % Not Reportable VBG pH 7.39 VBG pCO2 50.8 VBG HCO3 29.9 VBG Base Excess 3.9 Sodium 137.6 Potassium 4.4 Chloride 98 Carbon Dioxide 32 H Anion Gap 8 BUN 26 H Creatinine 0.97 Est GFR ( Amer) > 60 Glucose 195 H Lactic Acid Calcium 9.2 Total Bilirubin 1.2 AST 27 Alkaline Phosphatase 55 Ammonia Total Protein 6.7 Albumin 4.3 Urine Color Urine Appearance Urine pH Ur Specific [place] Urine Protein Urine Glucose (UA) Urine Ketones Urine Blood Urine RBC (Auto) 07/18/20 07/18/20 07/18/20 13:30 13:53 16:03 WBC RBC Hgb Hct MCV MCH MCHC RDW Plt Count Seg Neutrophils % VBG pH VBG pCO2 VBG HCO3 VBG Base Excess Sodium Potassium Chloride Carbon Dioxide Anion Gap BUN Creatinine Est GFR ( Amer) Glucose Lactic Acid 2.2 H 1.1 Calcium Total Bilirubin AST Alkaline Phosphatase Ammonia Total Protein Albumin Urine Color YELLOW Urine Appearance CLEAR Urine pH 8.0 Ur Specific [place] 1.013 Urine Protein NEGATIVE Urine Glucose (UA) NEGATIVE Urine Ketones NEGATIVE Urine Blood NEGATIVE Urine RBC (Auto) 4 07/18/20 16:09 WBC RBC Hgb Hct MCV MCH MCHC RDW Plt Count Seg Neutrophils % VBG pH VBG pCO2 VBG HCO3 VBG Base Excess Sodium Potassium Chloride Carbon Dioxide Anion Gap BUN Creatinine Est GFR ( Amer) Glucose Lactic Acid Calcium Total Bilirubin AST Alkaline Phosphatase Ammonia 17.4 Total Protein Albumin Urine Color Urine Appearance Urine pH Ur Specific [place] Urine Protein Urine Glucose (UA) Urine Ketones Urine Blood Urine RBC (Auto) 07/18/20 07/18/20 07/18/20 13:30 13:30 13:30 Creatine Kinase 41 L CK-MB (CK-2) 0.81 Troponin I < 0.012 07/18/20 16:03 Creatine Kinase 42 L CK-MB (CK-2) Troponin I Impressions: Chest X-Ray 07/18/20 13:42 IMPRESSION: 1. No significant interval changes since the prior study dated 07/15/2020. No acute findings. Tibia/Fibula X-Ray 07/18/20 14:15 IMPRESSION: DIFFUSE SOFT TISSUE SWELLING. STABLE NONDISPLACED FRACTURE OF THE MEDIAL MALLEOLUS. NO ACUTE FINDINGS. Head CT 07/18/20 15:18 IMPRESSION: 1. No significant interval changes since the prior examination dated 07/15/2020. The appearance of the fairly large osseous lytic destruction involving the frontal bone is unchanged. Stable right posterior parietal bone lesion. These findings are likely consistent with the patient's known history of myeloma. 2. Stable soft tissue mass associated with the osseous destruction of the frontal bone with extension into the frontal sinus, left frontoethmoid recess, left orbital roof and extra-axial space on the frontal lobe. 3. No acute intracranial hemorrhage. EVIDENCE OF ACUTE STROKE: NO. Assessment & Plan - Diagnosis (1) Cellulitis of left leg Is this a current diagnosis for this admission?: Yes (2) History of hepatitis C Is this a current diagnosis for this admission?: Yes (3) Morbid obesity with alveolar hypoventilation Is this a current diagnosis for this admission?: Yes (4) Multiple myeloma Qualifiers: Multiple myeloma remission status: not in remission Qualified Code(s): C90.00 - Multiple myeloma not having achieved remission Is this a current diagnosis for this admission?: Yes (5) Thrombocytopenia Is this a current diagnosis for this admission?: Yes - Plan Summary Plan Summary: Assessment: Left lower extremity cellulitis extending from the lower leg up to the lateral posterior aspect of the thigh for the past 3 days; Multiple pre-existing medical conditions including cirrhosis, hepatitis C treated with undetectable viral particles. Multiple myeloma for 4 years, type 2 diabetes, Obesity, CO2 retention The patient appears to be awake, arousable but is disoriented x3, and agitated Physical exam shows redness and thickening of the skin of the left leg and thigh X-ray of the leg and knee reveal inflammatory changes of the skin without evidence of subcutaneous gas Both lower extremity and neurovascularly intact with maintained sensation, motor function, and vascular supply Blood work reveals a normal white blood cell count, and normal BMP except for slight elevated BUN Urinalysis within normal limits CT of the head= no acute findings compared to previous one done on July 15 Chest x-ray= no acute findings CT scan left lower extremity = diffuse cellulitis with edema, no gas identified Plan: Admission and antibiotic treatment as per hospitalist No acute general surgery treatment or intervention planned for this patient I will sign off. Please call us back with questions.
[2020-07-18] MEDS ORDERED: VANCOMYCIN HCL 1,500 MG in DEXTROSE 5%-WATER 250 ML IV SCH (23:00)
[2020-07-18] MEDS: VANCOMYCIN HCL 1,500 MG in DEXTROSE 5%-WATER 250 ML IV SCH (23:11)
[2020-07-19 04:41] LABS: HEMATOCRIT 37.7 % (37.9-51.0); HEMOGLOBIN 12.2 g/dL (13.5-17.0); MEAN CORPUSCULAR HEMOGLOBIN 29.7 pg (27.0-33.4); MEAN CORPUSCULAR HGB CONC 32.2 g/dL (32.0-36.0); MEAN CORPUSCULAR VOLUME 92 fl (80-97); RED BLOOD COUNT 4.09 10^6/uL (4.35-5.55); WHITE BLOOD COUNT 8.2 10^3/uL (4.0-10.5)
[2020-07-19 05:05] LABS: ALBUMIN 3.9 g/dL (3.5-5.0); ALKALINE PHOSPHATASE 44 U/L (38-126); ANION GAP 7 (5-19); ASPARTATE AMINO TRANSFERASE 22 U/L (17-59); BILIRUBIN,DIRECT 0.3 mg/dL (0.0-0.4); BILIRUBIN,TOTAL 1.2 mg/dL (0.2-1.3); BLOOD UREA NITROGEN 26 mg/dL (7-20); CALCIUM 8.5 mg/dL (8.4-10.2); CARBON DIOXIDE 33 mmol/L (22-30); CHLORIDE 98 mmol/L (98-107); GLUCOSE 126 mg/dL (75-110); POTASSIUM 4.7 mmol/L (3.6-5.0); TOTAL PROTEIN 6.4 g/dL (6.3-8.2)
[2020-07-19 05:07] LABS: PLATELET COUNT 69 10^3/uL (150-450)
[2020-07-19 05:13] LABS: ABSOLUTE LYMPHOCYTES# (MANUAL) 0.9 10^3/uL (0.5-4.7); ABSOLUTE MONOCYTES # (MANUAL) 0.7 10^3/uL (0.1-1.4); BAND NEUTROPHILS % (MANUAL) 2 % (3-5); BASOPHILS % (MANUAL) 0 % (0-2); EOSINOPHILS % (MANUAL) 0 % (0-6); LYMPHOCYTES % (MANUAL) 7 % (13-45); MONOCYTES % (MANUAL) 8 % (3-13); SEGMENTED NEUTROPHILS % (MAN) 79 % (42-78); TOTAL CELLS COUNTED 100
[2020-07-19 05:14] LABS: ANISOCYTOSIS SLIGHT; PLATELET COMMENT DECREASED
[2020-07-19] MEDS ORDERED: CEFEPIME 1 GM/D5W RTU 2 GM/100 ML RTUPB IV ONE (05:16)
[2020-07-19 05:18] LABS: OVALOCYTES SLIGHT; TOXIC GRANULATION SLIGHT; TOXIC VACUOLATION PRESENT
[2020-07-19] MEDS: HEPARIN SOD (PORCINE) 5,000 UNIT/ML 1 ML VIAL SUBCUT SCH ×3 (05:20→21:49)
[2020-07-19] MEDS: CEFEPIME HCL 2 GM in DEXTROSE 5%-WATER 50 ML IV SCH ×3 (05:21→21:48)
[2020-07-19] MEDS: INSULIN LISPRO 100 UNIT/ML 3 ML VIAL SUBCUT SCH ×4 (05:30→17:10)
[2020-07-19] MEDS: METHADONE HCL 10 MG TABLET PO SCH ×2 (08:14→19:44)
[2020-07-19] MEDS: FUROSEMIDE 40 MG TABLET PO SCH (08:14)
--- NOTE | 2020-07-19 09:45 | PDOC PROGRESS REPORT ---
Subjective Progress Note for:: 07/19/20 Subjective:: Patient is resting in bed. He had some questions but admits to short-term memory loss. He does not appear to be extremely uncomfortable. Reason For Visit: CELLULITIS LEFT LEG,ACUTE ENCEPHALOPATHY Physical Exam Vital Signs: Temp Pulse Resp BP Pulse Ox 97.5 F 78 16 115/67 99 07/19/20 08:12 07/19/20 08:12 07/19/20 08:59 07/19/20 08:12 07/19/20 08:59 Intake & Output 07/18/20 07/19/20 07/20/20 06:59 06:59 06:59 Intake Total 2049 Balance 2049 Weight 132.4 kg General appearance: PRESENT: cooperative, mild distress, well-developed Head exam: PRESENT: atraumatic, normocephalic Mouth exam: PRESENT: dry mucosa, tongue midline Respiratory exam: PRESENT: clear to auscultation pat, symmetrical, unlabored. ABSENT: crackles, prolonged expiratory phas, rales, rhonchi, tachypnea, wheezes Cardiovascular exam: PRESENT: RRR, +S1, +S2. ABSENT: bradycardia, diastolic murmur, irregular rhythm, systolic murmur, tachycardia GI/Abdominal exam: PRESENT: soft, other - protuberant abdomen. ABSENT: tenderness Rectal exam: PRESENT: deferred Gentrourinary exam: ABSENT: indwelling catheter Extremities exam: PRESENT: tenderness, other - non-pitting edema left leg Musculoskeletal exam: ABSENT: ambulatory - d/t left malleolar fracture, normal inspection Neurological exam: PRESENT: alert, awake, oriented to place, oriented to situation Psychiatric exam: PRESENT: flat affect. ABSENT: agitated, anxious Focused psych exam: ABSENT: delusional, paranoid, restlessness Skin exam: PRESENT: dry, warm, other - Pigment deposition bilateral lower extremities Results Laboratory Results: 07/19/20 04:19 07/19/20 04:19 07/18/20 07/18/20 07/18/20 13:30 13:30 13:30 WBC 7.8 D RBC 4.27 L Hgb 12.8 L Hct 39.1 MCV 92 MCH 30.0 MCHC 32.7 RDW 14.8 H Plt Count 83 L Seg Neutrophils % Not Reportable VBG pH 7.39 VBG pCO2 50.8 VBG HCO3 29.9 VBG Base Excess 3.9 Sodium 137.6 Potassium 4.4 Chloride 98 Carbon Dioxide 32 H Anion Gap 8 BUN 26 H Creatinine 0.97 Est GFR ( Amer) > 60 Glucose 195 H Lactic Acid Calcium 9.2 Total Bilirubin 1.2 AST 27 Alkaline Phosphatase 55 Ammonia Total Protein 6.7 Albumin 4.3 Urine Color Urine Appearance Urine pH Ur Specific [place] Urine Protein Urine Glucose (UA) Urine Ketones Urine Blood Urine RBC (Auto) 07/18/20 07/18/20 07/18/20 13:30 13:53 16:03 WBC RBC Hgb Hct MCV MCH MCHC RDW Plt Count Seg Neutrophils % VBG pH VBG pCO2 VBG HCO3 VBG Base Excess Sodium Potassium Chloride Carbon Dioxide Anion Gap BUN Creatinine Est GFR ( Amer) Glucose Lactic Acid 2.2 H 1.1 Calcium Total Bilirubin AST Alkaline Phosphatase Ammonia Total Protein Albumin Urine Color YELLOW Urine Appearance CLEAR Urine pH 8.0 Ur Specific [place] 1.013 Urine Protein NEGATIVE Urine Glucose (UA) NEGATIVE Urine Ketones NEGATIVE Urine Blood NEGATIVE Urine RBC (Auto) 07/18/20 07/18/20 07/18/20 16:09 21:50 21:50 WBC RBC Hgb Hct MCV MCH MCHC RDW Plt Count Seg Neutrophils % VBG pH VBG pCO2 VBG HCO3 VBG Base Excess Sodium Potassium Chloride Carbon Dioxide Anion Gap BUN Creatinine Est GFR ( Amer) Glucose Lactic Acid 0.8 Calcium Total Bilirubin AST Alkaline Phosphatase Ammonia 17.4 18.8 Total Protein Albumin Urine Color Urine Appearance Urine pH Ur Specific [place] Urine Protein Urine Glucose (UA) Urine Ketones Urine Blood Urine RBC (Auto) 07/19/20 07/19/20 04:19 04:19 WBC 8.2 RBC 4.09 L Hgb 12.2 L Hct 37.7 L MCV 92 MCH 29.7 MCHC 32.2 RDW 15.0 H Plt Count 69 L Seg Neutrophils % Not Reportable VBG pH VBG pCO2 VBG HCO3 VBG Base Excess Sodium 138.4 Potassium 4.7 Chloride 98 Carbon Dioxide 33 H Anion Gap 7 BUN 26 H Creatinine 0.95 Est GFR ( Amer) > 60 Glucose 126 H Lactic Acid Calcium 8.5 Total Bilirubin 1.2 AST 22 Alkaline Phosphatase 44 Ammonia Total Protein 6.4 Albumin 3.9 Urine Color Urine Appearance Urine pH Ur Specific [place] Urine Protein Urine Glucose (UA) Urine Ketones Urine Blood Urine RBC (Auto) 07/18/20 07/18/20 07/18/20 13:30 13:30 13:30 Creatine Kinase 41 L CK-MB (CK-2) 0.81 Troponin I < 0.012 07/18/20 16:03 Creatine Kinase 42 L CK-MB (CK-2) Troponin I Impressions: Chest X-Ray 07/18/20 13:42 IMPRESSION: 1. No significant interval changes since the prior study dated 07/15/2020. No acute findings. Tibia/Fibula X-Ray 07/18/20 14:15 IMPRESSION: DIFFUSE SOFT TISSUE SWELLING. STABLE NONDISPLACED FRACTURE OF THE MEDIAL MALLEOLUS. NO ACUTE FINDINGS. Head CT 07/18/20 15:18 IMPRESSION: 1. No significant interval changes since the prior examination d ated 07/15/2020. The appearance of the fairly large osseous lytic destruction involving the frontal bone is unchanged. Stable right posterior parietal bone lesion. These findings are likely consistent with the patient's known history of myeloma. 2. Stable soft tissue mass associated with the osseous destruction of the frontal bone with extension into the frontal sinus, left frontoethmoid recess, left orbital roof and extra-axial space on the frontal lobe. 3. No acute intracranial hemorrhage. EVIDENCE OF ACUTE STROKE: NO. Lower Extremity CT 07/18/20 18:01 IMPRESSION: Diffuse soft tissue swelling about the left knee extending into the lower leg and visualized portions of the hindfoot/midfoot nonspecific though raising the possibility of cellulitis. No underlying drainable fluid collection identified. Likewise, no foci of soft tissue gas to insinuate necrotizing fasciitis. Postsurgical changes of left total knee arthroplasty with patellar resurfacing. No definitive evidence of complication. Unchanged appearance of nondisplaced fracture involving the medial malleolus. TECHNICAL DOCUMENTATION: Quality ID # [id number]: Final reports with documentation of one or more dose reduction techniques (e.g., Automated exposure control, adjustment of the mA and/or kV according to patient size, use of iterative reconstruction technique) copyright 2011 [employer]- All Rights Reserved Assessment and Plan - Diagnosis (1) Cellulitis of left leg Is this a current diagnosis for this admission?: Yes Plan: The left leg is still swollen and tender. Asked patient if he wears compression at home. We reviewed different types of compressions. I told him he would likely benefit from a Velcro closure compression garments such as [place] wraps or CircAid. We will continue antibiotics at this time. There is a possibility that the patient gets recurrent thrombophlebitis however he does have small punctate areas of skin breaks from scratching. (2) Ankle fracture, lateral malleolus, closed Qualifiers: Encounter type: initial encounter Fracture alignment: nondisplaced Laterality: left Qualified Code(s): S82.65XA - Nondisplaced fracture of lateral malleolus of left fibula, initial encounter for closed fracture Is this a current diagnosis for this admission?: Yes Plan: The patient was seen by Dr. Weinberg. No surgical intervention for the nondi splaced left lateral malleolus fracture. His is bringing in a boot. He will be nonweightbearing but will benefit from physical therapy. (3) Acute encephalopathy Is this a current diagnosis for this admission?: Yes Plan: Appears to be clearing. Most likely due to the infection. (4) History of hepatitis C Is this a current diagnosis for this admission?: Yes Plan: No acute issues. No specific intervention required at this time. (5) Multiple myeloma Qualifiers: Multiple myeloma remission status: not in remission Qualified Code(s): C90.00 - Multiple myeloma not having achieved remission Is this a current diagnosis for this admission?: Yes Plan: Dr. Gaona from hematology oncology is familiar with the patient and will be s eeing him in consult. (6) Thrombocytopenia Is this a current diagnosis for this admission?: Yes Plan: The platelet count actually went down from 83-69. We will need to monitor closely. (7) Sleep apnea in adult Is this a current diagnosis for this admission?: Yes Plan: CPAP nightly (8) Venous stasis Is this a current diagnosis for this admission?: Yes Plan: I explained to the patient was venous stasis dermatitis with his leg. I told him that it is difficult sometimes to distinguish cellulitis from stasis dermatitis. At this point we did discuss the compression wraps as noted above. (9) Morbid obesity with BMI of 45.0-49.9, adult Is this a current diagnosis for this admission?: Yes Plan: The patient's BMI is 45.7. He would certainly benefit from aggressive dietary management as he is not going to be weightbearing for some time. - Time Time Spent with patient: 15-24 minutes Medications reviewed and adjusted accordingly: Yes Anticipated Discharge Disposition: [facility] Facility Anticipated Discharge Timeframe: within 72 hours
[2020-07-19] MEDS ORDERED: (PENDING PHARMACY ID) (Umeclidinium Brm/Vilanterol Tr [Anoro Ellipta 62.5-25 Mcg Inh] 1 PU PO SCH (10:00)
[2020-07-19] MEDS ORDERED: (PENDING PHARMACY ID) (Spironolactone [Aldactone] 50 MG) PO SCH (10:00)
[2020-07-19] MEDS ORDERED: DOCUSATE SODIUM 100 MG CAPSULE PO SCH (10:00)
[2020-07-19] MEDS ORDERED: (PENDING PHARMACY ID) (Citalopram Hydrobromide [Celexa 40 Mg Tablet] 40 MG) PO SCH (10:00)
[2020-07-19] MEDS: GABAPENTIN 400 MG CAPSULE PO SCH ×2 (10:07→21:48)
[2020-07-19] MEDS: VANCOMYCIN HCL 1,500 MG in DEXTROSE 5%-WATER 250 ML IV SCH ×2 (10:07→23:00)
[2020-07-19] MEDS: OXYCODONE HCL IR 5 MG TABLET PO PRN ×2 (10:11→17:55)
[2020-07-19] MEDS: CITALOPRAM HYDROBROMIDE 20 MG TABLET PO SCH (10:11)
[2020-07-19] MEDS: SPIRONOLACTONE 25 MG TABLET PO SCH (10:11)
--- NOTE | 2020-07-19 12:17 | PDOC CONSULTATION ---
Consultation Consult Date: 07/19/20 Provider Consulted: ORA WILL Consult reason:: Hematology/Oncology consultation was requested for patient with multiple myeloma here for recurrent cellulitis and hypoxia. History of Present Illness Admission Date/PCP: 07/18/20 16:25 EMILIA MARTINEZ MD History of Present Illness: VERONIQUE SOLIZ is a 65 year old male with a very complicated history. He was diagnosed with multiple myeloma in February of 2017. Most recently he was receiving active chemotherapy with Kyprolis/Pomalyst/Dexamethasone and Xgeva. However, all treatment has been on hold due to cellulitis/open wound infections. His most recent dose of Xgeva was 06/01/2020. Most recent chemo was April 2020. He also has a history of HCV which was cleared as of February 2019 after treatment. He has had several admissions for cellulitis over the past 2 years. Most recent was about a month ago. He was also admitted 2 weeks ago due to oversedation/hypercapnea after his forgot to turn on his CPAP machine at home for several hours. He was in my office 2 days ago and stated at that time that he was doing much better with his breathing. He was still seeing wound clinic for the leg wound. However, he had fallen and now has a fractured left ankle. They were awaiting a referral to ortho for possible surgery for this fracture. He was brought back to the ED yesterday due to oversedation and worsening pain and redness to the left ankle. Today, he is on BiPAP and states that he is feeling better. Past Medical History Cardiac Medical History: Reports: Hyperlipidema, Hypertension Denies: Myocardial Infarction Pulmonary Medical History: Reports: Bronchitis, Chronic Obstructive Pulmonary Disease (COPD), Sleep Apnea Endocrine Medical History: Reports: Diabetes Mellitus Type 2 Malignancy Medical History: Reports: Other - multiple myeloma GI Medical History: Reports: Cirrhosis - Nonalcoholic steatohepatitis with cirrhosis, Hepatitis - Hepatitis C Musculoskeltal Medical History: Reports: Arthritis Skin Medical History: Denies: Eczema, Psoriasis Psychiatric Medical History: Reports: Depression Hematology: Reports: Neutropenia Past Surgical History Past Surgical History: Reports: Appendectomy, Orthopedic Surgery - L knee, Tonsillectomy, Other - Nephrectomy, port placement Social History Smoking Status: Former Smoker Frequency of Alcohol Use: None Hx Recreational Drug Use: No - Remote history greater than 30 years ago Drugs: None Hx Prescription Drug Abuse: No - Chronic pain medication for bony metastases Family History Family History: Hypertension, Other - Sister with bleeding varices, alcohol liver disease Parental Family History Reviewed: Yes Children Family History Reviewed: No Sibling(s) Family History Reviewed.: Yes Medication/Allergy Home Medications: Atorvastatin Calcium [Lipitor 20 mg Tablet] 20 mg PO QHS 11/03/19 Cholecalciferol (Vitamin D3) [Vitamin D3 2000 unit Tablet] 2,000 unit PO DAILY 11/03/19 Citalopram Hydrobromide [Celexa 40 mg Tablet] 40 mg PO DAILY 11/03/19 Docusate Sodium [Colace 100 mg Capsule] 100 mg PO DAILY 11/03/19 Furosemide [Lasix 40 mg Tablet] 40 mg PO QAM 11/03/19 Metformin HCl [Glucophage] 500 mg PO DAILY 11/03/19 Methadone HCl [Dolophine 10 mg Tablet] 10 mg PO Q12 11/03/19 Spironolactone [Aldactone] 50 mg PO DAILY 11/03/19 Gabapentin [Neurontin 400 mg Capsule] 800 mg PO Q12 01/31/20 Polyethylene Glycol 3350 [Miralax Powder 17 gm/Packet] 1 packet PO DAILYP PRN 01/31/20 Ondansetron HCl [Zofran 8 mg Tablet] 8 mg PO DAILYP PRN 06/12/20 Umeclidinium Brm/Vilanterol Tr [Anoro Ellipta 62.5-25 Mcg INH] 1 puff PO BID 06/12/20 Hydromorphone HCl [Dilaudid 2 mg Tablet] 2 mg PO Q6HP PRN #14 tablet 06/22/20 Sulfamethoxazole/Trimethoprim [Bactrim Ds Tablet] 1 each PO Q12 10 Days #20 tablet 06/22/20 Dexamethasone [Decadron] 20 mg PO TH@0800 07/18/20 Pomalidomide [Pomalyst] 3 mg PO ASDIR PRN 07/18/20 Allergies/Adverse Reactions: acetaminophen Adverse Reaction (Verified 01/31/20 15:41) Review of Systems Constitutional: ABSENT: fever(s), headache(s) Eyes: ABSENT: visual disturbances Ears: ABSENT: hearing changes Nose, Mouth, and Throat: ABSENT: sore throat Cardiovascular: ABSENT: chest pain Respiratory: PRESENT: dyspnea Gastrointestinal: ABSENT: nausea Musculoskeletal: PRESENT: joint swelling, muscle weakness Integumentary: PRESENT: erythema Hematologic/Lymphatic: ABSENT: easy bleeding Physical Exam Vital Signs: Temp Pulse Resp BP Pulse Ox 97.9 F 74 18 105/69 98 07/19/20 11:35 07/19/20 11:35 07/19/20 11:35 07/19/20 11:35 07/19/20 11:35 Intake & Output 07/18/20 07/19/20 07/20/20 06:59 06:59 06:59 Intake Total 2300 Balance 2300 Weight 132.4 kg General appearance: PRESENT: no acute distress, morbidly obese Exam: 65 year old male. Head exam: PRESENT: atraumatic, normocephalic Eye exam: PRESENT: EOMI Mouth exam: PRESENT: dry mucosa Neck exam: ABSENT: lymphadenopathy Respiratory exam: PRESENT: other - breath sounds obscured by BiPAP machine Cardiovascular exam: PRESENT: other - Heart sound obscured by BiPAP machine GI/Abdominal exam: PRESENT: soft. ABSENT: tenderness Extremities exam: PRESENT: other - I see no significant difference than last admission to the color or swelling in the Left leg. Neurological exam: PRESENT: alert, awake, oriented to person, oriented to place Psychiatric exam: PRESENT: appropriate affect Skin exam: PRESENT: normal color Results Laboratory Results: 07/19/20 04:19 07/19/20 04:19 07/18/20 07/18/20 07/18/20 13:30 13:30 13:30 WBC 7.8 D RBC 4.27 L Hgb 12.8 L Hct 39.1 MCV 92 MCH 30.0 MCHC 32.7 RDW 14.8 H Plt Count 83 L Seg Neutrophils % Not Reportable VBG pH 7.39 VBG pCO2 50.8 VBG HCO3 29.9 VBG Base Excess 3.9 Sodium 137.6 Potassium 4.4 Chloride 98 Carbon Dioxide 32 H Anion Gap 8 BUN 26 H Creatinine 0.97 Est GFR ( Amer) > 60 Glucose 195 H Lactic Acid Calcium 9.2 Total Bilirubin 1.2 AST 27 Alkaline Phosphatase 55 Ammonia Total Protein 6.7 Albumin 4.3 Urine Color Urine Appearance Urine pH Ur Specific Jackson Urine Protein Urine Glucose (UA) Urine Ketones Urine Blood Urine RBC (Auto) 07/18/20 07/18/20 07/18/20 13:30 13:53 16:03 WBC RBC Hgb Hct MCV MCH MCHC RDW Plt Count Seg Neutrophils % VBG pH VBG pCO2 VBG HCO3 VBG Base Excess Sodium Potassium Chloride Carbon Dioxide Anion Gap BUN Creatinine Est GFR ( Amer) Glucose Lactic Acid 2.2 H 1.1 Calcium Total Bilirubin AST Alkaline Phosphatase Ammonia Total Protein Albumin Urine Color YELLOW Urine Appearance CLEAR Urine pH 8.0 Ur Specific Jackson 1.013 Urine Protein NEGATIVE Urine Glucose (UA) NEGATIVE Urine Ketones NEGATIVE Urine Blood NEGATIVE Urine RBC (Auto) 4 07/18/20 07/18/20 07/18/20 16:09 21:50 21:50 WBC RBC Hgb Hct MCV MCH MCHC RDW Plt Count Seg Neutrophils % VBG pH VBG pCO2 VBG HCO3 VBG Base Excess Sodium Potassium Chloride Carbon Dioxide Anion Gap BUN Creatinine Est GFR ( Amer) Glucose Lactic Acid 0.8 Calcium Total Bilirubin AST Alkaline Phosphatase Ammonia 17.4 18.8 Total Protein Albumin Urine Color Urine Appearance Urine pH Ur Specific Jackson Urine Protein Urine Glucose (UA) Urine Ketones Urine Blood Urine RBC (Auto) 07/19/20 07/19/20 04:19 04:19 WBC 8.2 RBC 4.09 L Hgb 12.2 L Hct 37.7 L MCV 92 MCH 29.7 MCHC 32.2 RDW 15.0 H Plt Count 69 L Seg Neutrophils % Not Reportable VBG pH VBG pCO2 VBG HCO3 VBG Base Excess Sodium 138.4 Potassium 4.7 Chloride 98 Carbon Dioxide 33 H Anion Gap 7 BUN 26 H Creatinine 0.95 Est GFR ( Amer) > 60 Glucose 126 H Lactic Acid Calcium 8.5 Total Bilirubin 1.2 AST 22 Alkaline Phosphatase 44 Ammonia Total Protein 6.4 Albumin 3.9 Urine Color Urine Appearance Urine pH Ur Specific Jackson Urine Protein Urine Glucose (UA) Urine Ketones Urine Blood Urine RBC (Auto) 07/18/20 07/18/20 07/18/20 13:30 13:30 13:30 Creatine Kinase 41 L CK-MB (CK-2) 0.81 Troponin I < 0.012 07/18/20 16:03 Creatine Kinase 42 L CK-MB (CK-2) Troponin I Impressions: Chest X-Ray 07/18/20 13:42 IMPRESSION: 1. No significant interval changes since the prior study dated 07/15/2020. No acute findings. Tibia/Fibula X-Ray 07/18/20 14:15 IMPRESSION: DIFFUSE SOFT TISSUE SWELLING. STABLE NONDISPLACED FRACTURE OF THE MEDIAL MALLEOLUS. NO ACUTE FINDINGS. Head CT 07/18/20 15:18 IMPRESSION: 1. No significant interval changes since the prior examination dated 07/15/2020. The appearance of the fairly large osseous lytic destruction involving the frontal bone is unchanged. Stable right posterior parietal bone lesion. These findings are likely consistent with the patient's known history of myeloma. 2. Stable soft tissue mass associated with the osseous destruction of the frontal bone with extension into the frontal sinus, left frontoethmoid recess, left orbital roof and extra-axial space on the frontal lobe. 3. No acute intracranial hemorrhage. EVIDENCE OF ACUTE STROKE: NO. Lower Extremity CT 07/18/20 18:01 IMPRESSION: Diffuse soft tissue swelling about the left knee extending into the lower leg and visualized portions of the hindfoot/midfoot nonspecific though raising the possibility of cellulitis. No underlying drainable fluid collection identified. Likewise, no foci of soft tissue gas to insinuate necrotizing fasciitis. Postsurgical changes of left total knee arthroplasty with patellar resurfacing. No definitive evidence of complication. Unchanged appearance of nondisplaced fracture involving the medial malleolus. TECHNICAL DOCUMENTATION: Quality ID # [id number]: Final reports with documentation of one or more dose reduction techniques (e.g., Automated exposure control, adjustment of the mA and/or kV according to patient size, use of iterative reconstruction technique) copyright 2011 [employer]- All Rights Reserved Status: Image reviewed by me Assessment & Plan - Diagnosis (1) Ankle fracture, lateral malleolus, closed Qualifiers: Encounter type: initial encounter Fracture alignment: nondisplaced Laterality: left Qualified Code(s): S82.65XA - Nondisplaced fracture of lateral malleolus of left fibula, initial encounter for closed fracture Is this a current diagnosis for this admission?: Yes Plan: As per ortho. (2) Cellulitis of left leg Is this a current diagnosis for this admission?: Yes Plan: On antibiotics. As per Primary hospitalist team. (3) Morbid obesity with alveolar hypoventilation Is this a current diagnosis for this admission?: Yes Plan: Continue BiPAP (4) Multiple myeloma Qualifiers: Multiple myeloma remission status: not in remission Qualified Code(s): C90.00 - Multiple myeloma not having achieved remission Is this a current diagnosis for this admission?: Yes Plan: All treatment on hold due to infection and fracture. - Plan Summary Plan Summary: Patient was discussed with Dr. Orlando.
[2020-07-19] MEDS: RINGERS SOLUTION,LACTATED 1,000 ML IV PRN (17:55)
[2020-07-19] MEDS ORDERED: BISACODYL 5 MG TABEC PO PRN (18:19)
[2020-07-19] MEDS: ONDANSETRON HCL INJ/PF 4 MG/2 ML SDV IV PRN (18:34)
--- NOTE | 2020-07-19 19:03 | PDOC CONSULTATION ---
Consultation Consult Date: 07/19/20 Provider Consulted: BETITO HERNÁNDEZ JR History of Present Illness Admission Date/PCP: 07/18/20 16:25 EMILIA MARTINEZ MD History of Present Illness: VERONIQUE SOLIZ is a 65 year old male with a complicated medical history including COPD, Diabetes, multiple myeloma and recurrent LLE cellulitis and chronic venous stasis and lymphedema. He was walking in his yard 1 week ago twisting his left ankle and having left lower extremity pain and weakness. Since that time he has had a recurrence of fever and signs of progressive LLE cellulitis and presented to the ER with AMS. He is slightly confused on exam today and does not contribute to a thorough history. Past Medical History Cardiac Medical History: Reports: Hyperlipidema, Hypertension Denies: Myocardial Infarction Pulmonary Medical History: Reports: Bronchitis, Chronic Obstructive Pulmonary Disease (COPD), Sleep Apnea Endocrine Medical History: Reports: Diabetes Mellitus Type 2 Malignancy Medical History: Reports: Other - multiple myeloma GI Medical History: Reports: Cirrhosis - Nonalcoholic steatohepatitis with cirrhosis, Hepatitis - Hepatitis C Musculoskeltal Medical History: Reports: Arthritis Skin Medical History: Denies: Eczema, Psoriasis Psychiatric Medical History: Reports: Depression Hematology: Reports: Neutropenia Past Surgical History Past Surgical History: Reports: Appendectomy, Orthopedic Surgery - L knee, Tonsillectomy, Other - Nephrectomy, port placement Social History Smoking Status: Former Smoker Frequency of Alcohol Use: None Hx Recreational Drug Use: No - Remote history greater than 30 years ago Drugs: None Hx Prescription Drug Abuse: No - Chronic pain medication for bony metastases Family History Family History: Hypertension, Other - Sister with bleeding varices, alcohol liver disease Parental Family History Reviewed: No Children Family History Reviewed: NA Sibling(s) Family History Reviewed.: NA Medication/Allergy Home Medications: Atorvastatin Calcium [Lipitor 20 mg Tablet] 20 mg PO QHS 11/03/19 Cholecalciferol (Vitamin D3) [Vitamin D3 2000 unit Tablet] 2,000 unit PO DAILY 11/03/19 Citalopram Hydrobromide [Celexa 40 mg Tablet] 40 mg PO DAILY 11/03/19 Docusate Sodium [Colace 100 mg Capsule] 100 mg PO DAILY 11/03/19 Furosemide [Lasix 40 mg Tablet] 40 mg PO QAM 11/03/19 Metformin HCl [Glucophage] 500 mg PO DAILY 11/03/19 Methadone HCl [Dolophine 10 mg Tablet] 10 mg PO Q12 11/03/19 Spironolactone [Aldactone] 50 mg PO DAILY 11/03/19 Gabapentin [Neurontin 400 mg Capsule] 800 mg PO Q12 01/31/20 Polyethylene Glycol 3350 [Miralax Powder 17 gm/Packet] 1 packet PO DAILYP PRN 01/31/20 Ondansetron HCl [Zofran 8 mg Tablet] 8 mg PO DAILYP PRN 06/12/20 Umeclidinium Brm/Vilanterol Tr [Anoro Ellipta 62.5-25 Mcg INH] 1 puff PO BID 06/12/20 Hydromorphone HCl [Dilaudid 2 mg Tablet] 2 mg PO Q6HP PRN #14 tablet 06/22/20 Sulfamethoxazole/Trimethoprim [Bactrim Ds Tablet] 1 each PO Q12 10 Days #20 tablet 06/22/20 Dexamethasone [Decadron] 20 mg PO TH@0800 07/18/20 Pomalidomide [Pomalyst] 3 mg PO ASDIR PRN 07/18/20 Allergies/Adverse Reactions: acetaminophen Adverse Reaction (Verified 01/31/20 15:41) Review of Systems ROS unobtainable: Due to mental status Physical Exam Vital Signs: Temp Pulse Resp BP Pulse Ox 97.8 F 76 15 99/60 L 97 07/19/20 15:09 07/19/20 15:09 07/19/20 16:30 07/19/20 15:09 07/19/20 16:30 Intake & Output 07/18/20 07/19/20 07/20/20 06:59 06:59 06:59 Intake Total 2350 1780 Balance 2350 1780 Weight 132.4 kg Physical Exam: General appearance: PRESENT: morbidly obese, other - on bipap, arousable by voice, follows command Head exam: PRESENT: atraumatic, normocephalic Eye exam: PRESENT: EOMI, PERRLA Mouth exam: PRESENT: moist Neck exam: ABSENT: JVD, meningismus Respiratory exam: PRESENT: using CPAP, mild distress Cardiovascular exam: PRESENT: distal Pulses 1+ in upper extremities and LE GI/Abdominal exam: PRESENT: normal bowel sounds, soft, other - Protuberant abdomen. ABSENT: guarding, rebound Extremities exam: PRESENT: tenderness, other - left leg is larger than right, erythematous upto trochanter, swollen, tender, no crepitus noted. Venous stasis dermatitis noted bilateral Neurological exam: PRESENT: altered, other - Confused Psychiatric exam: PRESENT: agitated - Mild Skin exam: PRESENT: other - left leg as previously prescribed, venous stasis dermatitis bilateral leg LLE - NVI, weak DP and PT pulse - 2+ Edema and cellulitic changes from ankle progressing laterally to the thigh, medially up to the knee, spares the anterior knee - No knee effusion, - TTP to Medial Malleolus - Pain with any ankle ROM Results Laboratory Results: 07/19/20 04:19 07/19/20 04:19 07/18/20 07/18/20 07/19/20 21:50 21:50 04:19 WBC 8.2 RBC 4.09 L Hgb 12.2 L Hct 37.7 L MCV 92 MCH 29.7 MCHC 32.2 RDW 15.0 H Plt Count 69 L Seg Neutrophils % Not Reportable Sodium Potassium Chloride Carbon Dioxide Anion Gap BUN Creatinine Est GFR ( Amer) Glucose Lactic Acid 0.8 Calcium Total Bilirubin AST Alkaline Phosphatase Ammonia 18.8 Total Protein Albumin 07/19/20 04:19 WBC RBC Hgb Hct MCV MCH MCHC RDW Plt Count Seg Neutrophils % Sodium 138.4 Potassium 4.7 Chloride 98 Carbon Dioxide 33 H Anion Gap 7 BUN 26 H Creatinine 0.95 Est GFR ( Amer) > 60 Glucose 126 H Lactic Acid Calcium 8.5 Total Bilirubin 1.2 AST 22 Alkaline Phosphatase 44 Ammonia Total Protein 6.4 Albumin 3.9 07/18/20 07/18/20 07/18/20 13:30 13:30 13:30 Creatine Kinase 41 L CK-MB (CK-2) 0.81 Troponin I < 0.012 07/18/20 16:03 Creatine Kinase 42 L CK-MB (CK-2) Troponin I Impressions: Chest X-Ray 07/18/20 13:42 IMPRESSION: 1. No significant interval changes since the prior study dated 07/15/2020. No acute findings. Tibia/Fibula X-Ray 07/18/20 14:15 IMPRESSION: DIFFUSE SOFT TISSUE SWELLING. STABLE NONDISPLACED FRACTURE OF THE MEDIAL MALLEOLUS. NO ACUTE FINDINGS. Head CT 07/18/20 15:18 IMPRESSION: 1. No significant interval changes since the prior examination dated 07/15/2020. The appearance of the fairly large osseous lytic destruction involving the frontal bone is unchanged. Stable right posterior parietal bone lesion. These findings are likely consistent with the patient's known history of myeloma. 2. Stable soft tissue mass associated with the osseous destruction of the frontal bone with extension into the frontal sinus, left frontoethmoid recess, left orbital roof and extra-axial space on the frontal lobe. 3. No acute intracranial hemorrhage. EVIDENCE OF ACUTE STROKE: NO. Lower Extremity CT 07/18/20 18:01 IMPRESSION: Diffuse soft tissue swelling about the left knee extending into the lower leg and visualized portions of the hindfoot/midfoot nonspecific though raising the possibility of cellulitis. No underlying drainable fluid collection identified. Likewise, no foci of soft tissue gas to insinuate necrotizing fasciitis. Postsurgical changes of left total knee arthroplasty with patellar resurfacing. No definitive evidence of complication. Unchanged appearance of nondisplaced fracture involving the medial malleolus. TECHNICAL DOCUMENTATION: Quality ID # 436: Final reports with documentation of one or more dose reduction techniques (e.g., Automated exposure control, adjustment of the mA and/or kV according to patient size, use of iterative reconstruction technique) copyright 2011 [employer]- All Rights Reserved Assessment & Plan - Diagnosis (1) Fracture of medial malleolus, left, closed Qualifiers: Encounter type: initial encounter Is this a current diagnosis for this admission?: Yes Plan: - CAM boot when OOB - NWB LLE - May remove boot when in bed due to ongoing soft tissue condition in LLE - Follow in my office in 14 days
[2020-07-19] MEDS: ATORVASTATIN CALCIUM 20 MG TABLET PO SCH (21:48)
[2020-07-19] MEDS: DOCUSATE SODIUM 100 MG CAPSULE PO SCH (21:49)
[2020-07-19] MEDS: SENNOSIDES/DOCUSATE 8.6-50 MG 1 EACH TABLET PO SCH (21:49)
[2020-07-20] MEDS: INSULIN LISPRO 100 UNIT/ML 3 ML VIAL SUBCUT SCH ×4 (05:41→18:13)
[2020-07-20] MEDS: HEPARIN SOD (PORCINE) 5,000 UNIT/ML 1 ML VIAL SUBCUT SCH ×3 (05:42→21:02)
[2020-07-20] MEDS: CEFEPIME HCL 2 GM in DEXTROSE 5%-WATER 50 ML IV SCH (05:44)
[2020-07-20] MEDS: OXYCODONE HCL IR 5 MG TABLET PO PRN (06:26)
[2020-07-20 06:31] LABS: ABSOLUTE EOSINOPHILS # (AUTO) 0.1 10^3/uL (0.0-0.6); ABSOLUTE LYMPHOCYTES (AUTO) 0.6 10^3/uL (0.5-4.7); ABSOLUTE MONOCYTES (AUTO) 0.7 10^3/uL (0.1-1.4); ABSOLUTE NEUT (AUTO) 3.3 10^3/uL (1.7-8.2); BASOPHILS % (AUTO) 0.3 % (0-2); HEMATOCRIT 34.2 % (37.9-51.0); HEMOGLOBIN 11.1 g/dL (13.5-17.0); LYMPHOCYTES % (AUTO) 12.7 % (13-45); MEAN CORPUSCULAR HEMOGLOBIN 30.2 pg (27.0-33.4); MEAN CORPUSCULAR HGB CONC 32.6 g/dL (32.0-36.0); MEAN CORPUSCULAR VOLUME 93 fl (80-97); MONOCYTES % (AUTO) 14.8 % (3-13); RED BLOOD COUNT 3.69 10^6/uL (4.35-5.55); RED CELL DISTRIBUTION WIDTH 15.3 % (11.5-14.0); SEGMENTED NEUTROPHILS % (AUTO) 70.2 % (42-78); TOTAL CELLS COUNTED % (AUTO) 100 %; WHITE BLOOD COUNT 4.7 10^3/uL (4.0-10.5)
[2020-07-20 06:39] LABS: ALBUMIN 3.6 g/dL (3.5-5.0); ALKALINE PHOSPHATASE 43 U/L (38-126); ANION GAP 5 (5-19); ASPARTATE AMINO TRANSFERASE 18 U/L (17-59); BILIRUBIN,DIRECT 0.3 mg/dL (0.0-0.4); BILIRUBIN,TOTAL 0.9 mg/dL (0.2-1.3); BLOOD UREA NITROGEN 24 mg/dL (7-20); CALCIUM 7.9 mg/dL (8.4-10.2); CARBON DIOXIDE 35 mmol/L (22-30); CHLORIDE 99 mmol/L (98-107); GLUCOSE 95 mg/dL (75-110); POTASSIUM 4.3 mmol/L (3.6-5.0)
[2020-07-20 07:18] LABS: PLATELET COUNT 67 10^3/uL (150-450)
[2020-07-20] MEDS: METHADONE HCL 10 MG TABLET PO SCH ×2 (08:09→20:34)
[2020-07-20] MEDS: ONDANSETRON HCL INJ/PF 4 MG/2 ML SDV IV PRN ×2 (08:09→14:25)
--- NOTE | 2020-07-20 09:58 | PDOC PROGRESS REPORT ---
Subjective Progress Note for:: 07/20/20 Subjective:: Patient very sleepy. Wearing BiPap. But opens eyes briefly to voice. Reason For Visit: CELLULITIS LEFT LEG,ACUTE ENCEPHALOPATHY Physical Exam Vital Signs: Temp Pulse Resp BP Pulse Ox 98.1 F 69 10 L 150/79 H 99 07/20/20 07:17 07/20/20 07:17 07/20/20 07:17 07/20/20 07:17 07/20/20 07:17 Intake & Output 07/19/20 07/20/20 07/21/20 06:59 06:59 06:59 Intake Total 2350 2820 Output Total 925 Balance 2350 1895 Weight 132.4 kg 133.4 kg General appearance: PRESENT: morbidly obese Head exam: PRESENT: normocephalic Respiratory exam: PRESENT: unlabored Extremities exam: PRESENT: other - Erythema without much change, but not as stephanie ght red. Results Laboratory Results: 07/20/20 06:10 07/20/20 06:10 07/20/20 07/20/20 06:10 06:10 WBC 4.7 RBC 3.69 L Hgb 11.1 L Hct 34.2 L MCV 93 MCH 30.2 MCHC 32.6 RDW 15.3 H Plt Count 67 L Seg Neutrophils % 70.2 Sodium 138.9 Potassium 4.3 Chloride 99 Carbon Dioxide 35 H Anion Gap 5 BUN 24 H Creatinine 0.98 Est GFR ( Amer) > 60 Glucose 95 Calcium 7.9 L Total Bilirubin 0.9 AST 18 Alkaline Phosphatase 43 Total Protein 6.0 L Albumin 3.6 07/18/20 07/18/20 07/18/20 13:30 13:30 13:30 Creatine Kinase 41 L CK-MB (CK-2) 0.81 Troponin I < 0.012 07/18/20 16:03 Creatine Kinase 42 L CK-MB (CK-2) Troponin I Impressions: Chest X-Ray 07/18/20 13:42 IMPRESSION: 1. No significant interval changes since the prior study dated 07/15/2020. No acute findings. Tibia/Fibula X-Ray 07/18/20 14:15 IMPRESSION: DIFFUSE SOFT TISSUE SWELLING. STABLE NONDISPLACED FRACTURE OF THE MEDIAL MALLEOLUS. NO ACUTE FINDINGS. Head CT 07/18/20 15:18 IMPRESSION: 1. No significant interval changes since the prior examination dated 07/15/2020. The appearance of the fairly large osseous lytic destruction involving the frontal bone is unchanged. Stable right posterior parietal bone lesion. These findings are likely consistent with the patient's known history of myeloma. 2. Stable soft tissue mass associated with the osseous destruction of the frontal bone with extension into the frontal sinus, left frontoethmoid recess, left orbital roof and extra-axial space on the frontal lobe. 3. No acute intracranial hemorrhage. EVIDENCE OF ACUTE STROKE: NO. Lower Extremity CT 07/18/20 18:01 IMPRESSION: Diffuse soft tissue swelling about the left knee extending into the lower leg and visualized portions of the hindfoot/midfoot nonspecific though raising the possibility of cellulitis. No underlying drainable fluid collection identified. Likewise, no foci of soft tissue gas to insinuate necrotizing fasciitis. Postsurgical changes of left total knee arthroplasty with patellar resurfacing. No definitive evidence of complication. Unchanged appearance of nondisplaced fracture involving the medial malleolus. TECHNICAL DOCUMENTATION: Quality ID # 436: Final reports with documentation of one or more dose reduction techniques (e.g., Automated exposure control, adjustment of the mA and/or kV according to patient size, use of iterative reconstruction technique) copyright 2011 [employer]- All Rights Reserved Assessment & Plan - Diagnosis (1) Ankle fracture, lateral malleolus, closed Qualifiers: Encounter type: initial encounter Fracture alignment: nondisplaced Laterality: left Qualified Code(s): S82.65XA - Nondisplaced fracture of lateral malleolus of left fibula, initial encounter for closed fracture Is this a current diagnosis for this admission?: Yes Plan: Per nursing staff, no surgery needed, only walking boot. This was due to an acute injury and is not felt to be due to a pathologic myeloma lesion. (2) Cellulitis of left leg Is this a current diagnosis for this admission?: Yes Plan: Continue antibiotics, per Hospitalist service. (3) Morbid obesity with alveolar hypoventilation Is this a current diagnosis for this admission?: Yes Plan: Continue BiPAP (4) Multiple myeloma Qualifiers: Multiple myeloma remission status: not in remission Qualified Code(s): C90.00 - Multiple myeloma not having achieved remission Is this a current diagnosis for this admission?: Yes Plan: All treatment on hold. Bone lesions have remained stable for quite some time. - Time Time Spent with patient: Less than 15 minutes
--- NOTE | 2020-07-20 10:06 | CDI QUERY ---
CDI Query CDI Review: Dear Provider, Please specify type ENCEPHALOPATHY noted in progress notes: ACUTE METABOLIC ENCEPHALOPATHY? ACUTE TOXIC ENCEPHALOPATHY? OTHER? Thanks, Lisy Martin CDI [phone]
[2020-07-20] MEDS: GABAPENTIN 400 MG CAPSULE PO SCH ×3 (10:07→21:02)
[2020-07-20] MEDS: CITALOPRAM HYDROBROMIDE 20 MG TABLET PO SCH ×2 (10:07→10:34)
[2020-07-20] MEDS: FUROSEMIDE 40 MG TABLET PO SCH ×2 (10:08→10:35)
[2020-07-20] MEDS: SPIRONOLACTONE 25 MG TABLET PO SCH ×2 (10:08→10:35)
[2020-07-20] MEDS: DOCUSATE SODIUM 100 MG CAPSULE PO SCH ×3 (10:08→21:02)
[2020-07-20] MEDS: VANCOMYCIN HCL 1,500 MG in DEXTROSE 5%-WATER 250 ML IV SCH (11:57)
[2020-07-20 13:13] LABS: VANCOMYCIN,TROUGH 12.7 ug/mL (5.0-20.0)
--- NOTE | 2020-07-20 13:32 | PDOC PROGRESS REPORT ---
Subjective Progress Note for:: 07/20/20 Subjective:: The patient is minimally responsive. This is a significant change from yesterday. Family is at the bedside and concerned. Currently with BiPAP mask in place. Reason For Visit: CELLULITIS LEFT LEG,ACUTE ENCEPHALOPATHY Physical Exam Vital Signs: Temp Pulse Resp BP Pulse Ox 97.4 F 65 14 151/69 H 94 07/20/20 12:12 07/20/20 12:12 07/20/20 12:12 07/20/20 12:12 07/20/20 12:12 Intake & Output 07/19/20 07/20/20 07/21/20 06:59 06:59 06:59 Intake Total 2350 2820 240 Output Total 925 Balance 2350 1895 240 Weight 132.4 kg 133.4 kg General appearance: PRESENT: morbidly obese, well-developed, other - Obtunded Head exam: PRESENT: atraumatic, normocephalic Mouth exam: PRESENT: other - Unable to assess BiPAP mask in place Respiratory exam: PRESENT: decreased breath sounds, prolonged expiratory phas, tachypnea. ABSENT: rales, rhonchi, wheezes Cardiovascular exam: PRESENT: RRR, +S1, +S2, other - decreased heart sounds. ABSENT: bradycardia, diastolic murmur, irregular rhythm, systolic murmur, tachycardia GI/Abdominal exam: PRESENT: distended, hypoactive bowel sounds, soft. ABSENT: tenderness Rectal exam: PRESENT: deferred Gentrourinary exam: PRESENT: indwelling catheter Extremities exam: PRESENT: +1 edema - left Musculoskeletal exam: PRESENT: normal inspection Neurological exam: PRESENT: other - The patient is obtunded. This is a significant change from yesterday.. ABSENT: awake Focused psych exam: PRESENT: other - Obtunded Skin exam: PRESENT: other - Erythema on left leg is improving Results Laboratory Results: 07/20/20 06:10 07/20/20 06:10 07/20/20 07/20/20 06:10 06:10 WBC 4.7 RBC 3.69 L Hgb 11.1 L Hct 34.2 L MCV 93 MCH 30.2 MCHC 32.6 RDW 15.3 H Plt Count 67 L Seg Neutrophils % 70.2 Sodium 138.9 Potassium 4.3 Chloride 99 Carbon Dioxide 35 H Anion Gap 5 BUN 24 H Creatinine 0.98 Est GFR ( Amer) > 60 Glucose 95 Calcium 7.9 L Total Bilirubin 0.9 AST 18 Alkaline Phosphatase 43 Total Protein 6.0 L Albumin 3.6 07/18/20 07/18/20 07/18/20 13:30 13:30 13:30 Creatine Kinase 41 L CK-MB (CK-2) 0.81 Troponin I < 0.012 07/18/20 16:03 Creatine Kinase 42 L CK-MB (CK-2) Troponin I Impressions: Chest X-Ray 07/18/20 13:42 IMPRESSION: 1. No significant interval changes since the prior study dated 07/15/2020. No acute findings. Tibia/Fibula X-Ray 07/18/20 14:15 IMPRESSION: DIFFUSE SOFT TISSUE SWELLING. STABLE NONDISPLACED FRACTURE OF THE MEDIAL MALLEOLUS. NO ACUTE FINDINGS. Head CT 07/18/20 15:18 IMPRESSION: 1. No significant interval changes since the prior examination dated 07/15/2020. The appearance of the fairly large osseous lytic destruction involving the frontal bone is unchanged. Stable right posterior parietal bone lesion. These findings are likely consistent with the patient's known history of myeloma. 2. Stable soft tissue mass associated with the osseous destruction of the frontal bone with extension into the frontal sinus, left frontoethmoid recess, l eft orbital roof and extra-axial space on the frontal lobe. 3. No acute intracranial hemorrhage. EVIDENCE OF ACUTE STROKE: NO. Lower Extremity CT 07/18/20 18:01 IMPRESSION: Diffuse soft tissue swelling about the left knee extending into the lower leg and visualized portions of the hindfoot/midfoot nonspecific though raising the possibility of cellulitis. No underlying drainable fluid collection identified. Likewise, no foci of soft tissue gas to insinuate necrotizing fasciitis. Postsurgical changes of left total knee arthroplasty with patellar resurfacing. No definitive evidence of complication. Unchanged appearance of nondisplaced fracture involving the medial malleolus. TECHNICAL DOCUMENTATION: Quality ID # [id number]: Final reports with documentation of one or more dose reduction techniques (e.g., Automated exposure control, adjustment of the mA and/or kV according to patient size, use of iterative reconstruction technique) copyright 2011 [employer]- All Rights Reserved Assessment and Plan - Diagnosis (1) Acute on chronic respiratory failure with hypoxia and hypercapnia Is this a current diagnosis for this admission?: Yes Plan: Multiple investigations were launched simultaneously. An ABG revealed a markedly low PO2 with a PCO2 of 118. pH is only 7.15. After approximately 30 to 45 minutes of BiPAP the PCO2 is down to 82 and the pH was up to 7.26. The patient was slowly improving. We are going to stay on BiPAP until tomorrow morning. Oxygen saturation is not to go above 94% or below 90%. We will repeat an ABG in the morning. (2) Cellulitis of left leg Is this a current diagnosis for this admission?: Yes Plan: Antibiotics have been held. We will reassess tomorrow. (3) Ankle fracture, lateral malleolus, closed Qualifiers: Encounter type: initial encounter Fracture alignment: nondisplaced Laterality: left Qualified Code(s): S82.65XA - Nondisplaced fracture of lateral malleolus of left fibula, initial encounter for closed fracture Is this a current diagnosis for this admission?: Yes Plan: Plan per orthopedic surgery. Currently will be nonweightbearing. Physical therapy to continue to work with the patient. (4) Acute encephalopathy Is this a current diagnosis for this admission?: Yes Plan: There is clearly a correlation between his encephalopathy and hypercapnia. It is likely that he should be wearing his BiPAP more at night. In fact his daughter reports that they just went to have his machine updated and his home settings are AVAPS. We will continue BiPAP for tonight and consider changing machine to reflect his home settings if he is improved. (5) History of hepatitis C Is this a current diagnosis for this admission?: Yes Plan: Stable. No acute intervention. Ammonia level was normal. (6) Multiple myeloma Qualifiers: Multiple myeloma remission status: not in remission Qualified Code(s): C90.00 - Multiple myeloma not having achieved remission Is this a current diagnosis for this admission?: Yes Plan: Currently under the care of Dr. Bonilla. She is following with the patient. (7) Thrombocytopenia Is this a current diagnosis for this admission?: Yes Plan: Slowly improving. Still less than 100. Continue to monitor. (8) Sleep apnea in adult Is this a current diagnosis for this admission?: Yes Plan: Use of noninvasive ventilatory support at night must be strictly enforced (9) Venous stasis Is this a current diagnosis for this admission?: Yes Plan: We will continue to review different modalities of compression that might be better suited for his legs. (10) Morbid obesity with BMI of 45.0-49.9, adult Is this a current diagnosis for this admission?: Yes Plan: The patient's BMI is 45.7. He would certainly benefit from aggressive dietary management as he is not going to be weightbearing for some time. - Time Time Spent with patient: 35 or more minutes Medications reviewed and adjusted accordingly: Yes Anticipated Discharge Disposition: Home with Home Health Anticipated Discharge Timeframe: Unknown
[2020-07-20 14:35] LABS: HEMATOCRIT 37.5 % (37.9-51.0); HEMOGLOBIN 12.2 g/dL (13.5-17.0); MEAN CORPUSCULAR HEMOGLOBIN 30.2 pg (27.0-33.4); MEAN CORPUSCULAR HGB CONC 32.6 g/dL (32.0-36.0); MEAN CORPUSCULAR VOLUME 93 fl (80-97); RED BLOOD COUNT 4.04 10^6/uL (4.35-5.55); RED CELL DISTRIBUTION WIDTH 14.8 % (11.5-14.0)
--- NOTE | 2020-07-20 14:36 | RADIOLOGY REPORT (SQ) ---
EXAM DESCRIPTION: CHEST SINGLE VIEW IMAGES COMPLETED DATE/TIME: 07/20/2020 2:24 pm REASON FOR STUDY: resp failure COMPARISON: 07/18/2020 EXAM PARAMETERS: NUMBER OF VIEWS: One view. TECHNIQUE: Single frontal radiographic view of the chest acquired. RADIATION DOSE: NA LIMITATIONS: None. FINDINGS: LUNGS AND PLEURA: Low lung volumes. No infiltrate or effusion. No mass. MEDIASTINUM AND HILAR STRUCTURES: No masses. Contour normal. HEART AND VASCULAR STRUCTURES: Heart size is borderline. No pulmonary edema. BONES: No acute findings. HARDWARE: Injection port on the right. OTHER: No other significant finding. IMPRESSION: Borderline cardiomegaly with no pulmonary edema. TECHNICAL DOCUMENTATION: JOB ID: [id number] 2010 [employer]- All Rights Reserved Reading location - IP/workstation name: [email or web address]
[2020-07-20 14:41] LABS: ARTERIAL BLOOD BASE EXCESS 7.2 mmol/L; ARTERIAL BLOOD H2CO3 3.57 mmol/L (1.05-1.35); ARTERIAL BLOOD HCO3 40.2 mmol/L (20-24); ARTERIAL BLOOD O2 SATURATION 51.4 % (94-98); ARTERIAL BLOOD TOTAL CO2 43.9 mmol/L (23-27)
[2020-07-20 14:43] LABS: ARTERIAL BLOOD FIO2 40%
[2020-07-20 14:44] LABS: ALKALINE PHOSPHATASE 52 U/L (38-126); ANION GAP 8 (5-19); ASPARTATE AMINO TRANSFERASE 20 U/L (17-59); BILIRUBIN,DIRECT 0.3 mg/dL (0.0-0.4); BILIRUBIN,TOTAL 0.9 mg/dL (0.2-1.3); BLOOD UREA NITROGEN 23 mg/dL (7-20); CARBON DIOXIDE 35 mmol/L (22-30); CHLORIDE 94 mmol/L (98-107); GLUCOSE 157 mg/dL (75-110); POTASSIUM 4.8 mmol/L (3.6-5.0); TOTAL PROTEIN 6.4 g/dL (6.3-8.2)
[2020-07-20 14:47] LABS: ARTERIAL BLOOD PCO2 118.7 mmHg (35-45); ARTERIAL BLOOD PH 7.15 (7.35-7.45); ARTERIAL BLOOD PO2 37.1 mmHg (80-100)
--- NOTE | 2020-07-20 14:51 | RADIOLOGY REPORT (SQ) ---
EXAM DESCRIPTION: KUB/ABDOMEN (SINGLE VIEW) IMAGES COMPLETED DATE/TIME: 07/20/2020 2:24 pm REASON FOR STUDY: distended abdo COMPARISON: None. NUMBER OF VIEWS: One view. TECHNIQUE: Supine radiographic image of the abdomen acquired. LIMITATIONS: None. FINDINGS: BOWEL GAS PATTERN: Normal bowel gas pattern. No dilated loops. CALCIFICATIONS: No suspicious calcifications. SOFT TISSUES: No gross mass or suggestion of organomegaly. HARDWARE: None in the abdomen. BONES: No acute fracture. No worrisome bone lesions. OTHER: No other significant finding. IMPRESSION: NO RADIOGRAPHIC EVIDENCE FOR ACUTE ABDOMINAL DISEASE. TECHNICAL DOCUMENTATION: JOB ID: [id number] 2010 [employer]- All Rights Reserved Reading location - IP/workstation name: [email or web address]
[2020-07-20] MEDS ORDERED: FUROSEMIDE INJ/PF 40 MG/4 ML SDV IV ONE (15:00)
[2020-07-20 15:01] LABS: PLATELET COUNT 68 10^3/uL (150-450)
[2020-07-20 15:03] LABS: ABSOLUTE LYMPHOCYTES# (MANUAL) 0.1 10^3/uL (0.5-4.7); ABSOLUTE MONOCYTES # (MANUAL) 0.5 10^3/uL (0.1-1.4); BAND NEUTROPHILS % (MANUAL) 2 % (3-5); BASOPHILS % (MANUAL) 0 % (0-2); EOSINOPHILS % (MANUAL) 0 % (0-6); LYMPHOCYTES % (MANUAL) 2 % (13-45); MONOCYTES % (MANUAL) 9 % (3-13); SEGMENTED NEUTROPHILS % (MAN) 87 % (42-78); TOTAL CELLS COUNTED 100
[2020-07-20 15:04] LABS: ANISOCYTOSIS SLIGHT; OVALOCYTES SLIGHT; PLATELET COMMENT DECREASED; TEAR DROP CELLS SLIGHT
[2020-07-20 15:21] LABS: NT PRO BNP 473 pg/mL (<125)
[2020-07-20 15:27] LABS: TROPONIN I < 0.012 ng/mL
[2020-07-20 17:10] LABS: ARTERIAL BLOOD BASE EXCESS 6.7 mmol/L; ARTERIAL BLOOD H2CO3 2.47 mmol/L (1.05-1.35); ARTERIAL BLOOD HCO3 36.3 mmol/L (20-24); ARTERIAL BLOOD O2 SATURATION 95.3 % (94-98); ARTERIAL BLOOD PH 7.26 (7.35-7.45); ARTERIAL BLOOD PO2 90.9 mmHg (80-100); ARTERIAL BLOOD TOTAL CO2 38.8 mmol/L (23-27)
[2020-07-20 17:11] LABS: ARTERIAL BLOOD FIO2 40%
[2020-07-20 17:17] LABS: ARTERIAL BLOOD PCO2 82.2 mmHg (35-45)
[2020-07-20] MEDS: KETOROLAC TROMETHAMINE INJ/PF 30 MG/1 ML SDV IV PRN (20:22)
[2020-07-20] MEDS: SENNOSIDES/DOCUSATE 8.6-50 MG 1 EACH TABLET PO SCH (21:02)
[2020-07-20] MEDS: ATORVASTATIN CALCIUM 20 MG TABLET PO SCH (21:02)
[2020-07-20 23:38] LABS: ANION GAP 6 (5-19); BLOOD UREA NITROGEN 24 mg/dL (7-20); CALCIUM 8.1 mg/dL (8.4-10.2); CARBON DIOXIDE 39 mmol/L (22-30); CHLORIDE 93 mmol/L (98-107); GLUCOSE 101 mg/dL (75-110); POTASSIUM 4.8 mmol/L (3.6-5.0)
[2020-07-21] MEDS: INSULIN LISPRO 100 UNIT/ML 3 ML VIAL SUBCUT SCH ×4 (00:54→17:42)
[2020-07-21] MEDS: KETOROLAC TROMETHAMINE INJ/PF 30 MG/1 ML SDV IV PRN ×3 (03:57→18:23)
[2020-07-21] MEDS: HEPARIN SOD (PORCINE) 5,000 UNIT/ML 1 ML VIAL SUBCUT SCH ×3 (05:41→23:03)
[2020-07-21] MEDS ORDERED: FUROSEMIDE INJ/PF 40 MG/4 ML SDV IV SCH (06:00)
[2020-07-21 07:14] LABS: ABSOLUTE EOSINOPHILS # (AUTO) 0.1 10^3/uL (0.0-0.6); ABSOLUTE LYMPHOCYTES (AUTO) 0.8 10^3/uL (0.5-4.7); ABSOLUTE MONOCYTES (AUTO) 0.7 10^3/uL (0.1-1.4); ABSOLUTE NEUT (AUTO) 3.7 10^3/uL (1.7-8.2); ALBUMIN 3.5 g/dL (3.5-5.0); ALKALINE PHOSPHATASE 44 U/L (38-126); ANION GAP 7 (5-19); ASPARTATE AMINO TRANSFERASE 16 U/L (17-59); BASOPHILS % (AUTO) 0.1 % (0-2); BILIRUBIN,DIRECT 0.3 mg/dL (0.0-0.4); BILIRUBIN,TOTAL 0.8 mg/dL (0.2-1.3); BLOOD UREA NITROGEN 29 mg/dL (7-20); CALCIUM 7.8 mg/dL (8.4-10.2); CARBON DIOXIDE 38 mmol/L (22-30); CHLORIDE 92 mmol/L (98-107); EOSINOPHILS % (AUTO) 1.4 % (0-6); GLUCOSE 110 mg/dL (75-110); HEMATOCRIT 33.7 % (37.9-51.0); HEMOGLOBIN 11.1 g/dL (13.5-17.0); LYMPHOCYTES % (AUTO) 14.6 % (13-45); MEAN CORPUSCULAR HEMOGLOBIN 30.1 pg (27.0-33.4); MEAN CORPUSCULAR VOLUME 91 fl (80-97); MONOCYTES % (AUTO) 13.2 % (3-13); RED BLOOD COUNT 3.69 10^6/uL (4.35-5.55); RED CELL DISTRIBUTION WIDTH 14.6 % (11.5-14.0); SEGMENTED NEUTROPHILS % (AUTO) 70.7 % (42-78); TOTAL CELLS COUNTED % (AUTO) 100 %; TOTAL PROTEIN 5.6 g/dL (6.3-8.2); WHITE BLOOD COUNT 5.2 10^3/uL (4.0-10.5)
[2020-07-21 07:26] LABS: POTASSIUM 3.8 mmol/L (3.6-5.0)
[2020-07-21] MEDS: OXYCODONE HCL IR 5 MG TABLET PO PRN ×3 (07:38→22:53)
[2020-07-21 07:59] LABS: PLATELET COUNT 80 10^3/uL (150-450)
--- NOTE | 2020-07-21 08:53 | PDOC PROGRESS REPORT ---
Subjective Progress Note for:: 07/21/20 Subjective:: is at bedside. Patient and are very agitated this morning, as he has a new onset of what they are describing as myoclonic jerks on his left upper extremity. He is also very restless and uncomfortable. He was taken off BiPAP just a few minutes ago, according to the . Nurses report that he was too obtunded last night to be given his dose of methadone. He just received a dose of oxycodone. Also, is very concerned that his foot has turned very blue in the short time that he has had it dangling over the side of the bed. Reason For Visit: CELLULITIS LEFT LEG,ACUTE ENCEPHALOPATHY Physical Exam Vital Signs: Temp Pulse Resp BP Pulse Ox 97.6 F 77 15 101/72 98 07/21/20 04:00 07/21/20 07:00 07/21/20 04:00 07/21/20 04:00 07/21/20 04:00 Intake & Output 07/20/20 07/21/20 07/22/20 06:59 06:59 06:59 Intake Total 2820 500 Output Total 925 1625 Balance 1895 -1125 Weight 133.4 kg 132.3 kg General appearance: PRESENT: morbidly obese Head exam: PRESENT: normocephalic Eye exam: PRESENT: EOMI, PERRLA Mouth exam: PRESENT: tongue midline Respiratory exam: PRESENT: decreased breath sounds, other - Good air movement. Cardiovascular exam: PRESENT: RRR Extremities exam: PRESENT: other - No significant change in my opinion. I see venous stasis changes which are more pronounced with gravity. Neurological exam: PRESENT: alert, altered, awake Psychiatric exam: PRESENT: anxious Focused psych exam: PRESENT: restlessness Skin exam: PRESENT: cyanosis Results Laboratory Results: 07/21/20 06:00 07/21/20 06:00 07/20/20 07/20/20 07/20/20 13:20 14:00 14:00 WBC 6.0 RBC 4.04 L Hgb 12.2 L Hct 37.5 L MCV 93 MCH 30.2 MCHC 32.6 RDW 14.8 H Plt Count 68 L Seg Neutrophils % Not Reportable Carbonic Acid 3.57 H HCO3/H2CO3 Ratio 11:1 ABG pH 7.15 L* ABG pCO2 118.7 H* ABG pO2 37.1 L* ABG HCO3 40.2 H ABG O2 Saturation 51.4 L ABG Base Excess 7.2 FiO2 40% Sodium Potassium Chloride Carbon Dioxide Anion Gap BUN Creatinine Est GFR ( Amer) Glucose Lactic Acid Calcium Magnesium Cancelled Total Bilirubin AST Alkaline Phosphatase Ammonia Total Protein Albumin 07/20/20 07/20/20 07/20/20 14:00 14:00 14:00 WBC RBC Hgb Hct MCV MCH MCHC RDW Plt Count Seg Neutrophils % Carbonic Acid HCO3/H2CO3 Ratio ABG pH ABG pCO2 ABG pO2 ABG HCO3 ABG O2 Saturation ABG Base Excess FiO2 Sodium 136.5 L Potassium 4.8 Chloride 94 L Carbon Dioxide 35 H Anion Gap 8 BUN 23 H Creatinine 0.80 Est GFR ( Amer) > 60 Glucose 157 H Lactic Acid 0.6 L Calcium 8.0 L Magnesium 2.3 Total Bilirubin 0.9 AST 20 Alkaline Phosphatase 52 Ammonia 14.9 Total Protein 6.4 Albumin 4.0 07/20/20 07/20/20 07/20/20 16:04 17:00 23:00 WBC RBC Hgb Hct MCV MCH MCHC RDW Plt Count Seg Neutrophils % Carbonic Acid Cancelled 2.47 H HCO3/H2CO3 Ratio Cancelled 14:1 ABG pH Cancelled 7.26 L ABG pCO2 Cancelled 82.2 H* ABG pO2 Cancelled 90.9 ABG HCO3 Cancelled 36.3 H ABG O2 Saturation Cancelled 95.3 ABG Base Excess Cancelled 6.7 FiO2 Cancelled 40% Sodium 137.8 Potassium 4.8 Chloride 93 L Carbon Dioxide 39 H Anion Gap 6 BUN 24 H Creatinine 0.89 Est GFR ( Amer) > 60 Glucose 101 Lactic Acid Calcium 8.1 L Magnesium 2.2 Total Bilirubin AST Alkaline Phosphatase Ammonia Total Protein Albumin 07/21/20 07/21/20 06:00 06:00 WBC 5.2 RBC 3.69 L Hgb 11.1 L Hct 33.7 L MCV 91 MCH 30.1 MCHC 33.0 RDW 14.6 H Plt Count 80 L Seg Neutrophils % 70.7 Carbonic Acid HCO3/H2CO3 Ratio ABG pH ABG pCO2 ABG pO2 ABG HCO3 ABG O2 Saturation ABG Base Excess FiO2 Sodium 136.6 L Potassium 3.8 D Chloride 92 L Carbon Dioxide 38 H Anion Gap 7 BUN 29 H Creatinine 0.98 Est GFR ( Amer) > 60 Glucose 110 Lactic Acid Calcium 7.8 L Magnesium Total Bilirubin 0.8 AST 16 L Alkaline Phosphatase 44 Ammonia Total Protein 5.6 L Albumin 3.5 07/18/20 07/18/20 07/18/20 13:30 13:30 13:30 Creatine Kinase 41 L CK-MB (CK-2) 0.81 Troponin I < 0.012 NT-Pro-B Natriuret Pep 07/18/20 07/20/20 16:03 14:00 Creatine Kinase 42 L CK-MB (CK-2) Troponin I < 0.012 NT-Pro-B Natriuret Pep 473 H Impressions: Tibia/Fibula X-Ray 07/18/20 14:15 IMPRESSION: DIFFUSE SOFT TISSUE SWELLING. STABLE NONDISPLACED FRACTURE OF THE MEDIAL MALLEOLUS. NO ACUTE FINDINGS. Head CT 07/18/20 15:18 IMPRESSION: 1. No significant interval changes since the prior examination dated 07/15/2020. The appearance of the fairly large osseous lytic destruction involving the frontal bone is unchanged. Stable right posterior parietal bone lesion. These findings are likely consistent with the patient's known history of myeloma. 2. Stable soft tissue mass associated with the osseous destruction of the frontal bone with extension into the frontal sinus, left frontoethmoid recess, left orbital roof and extra-axial space on the frontal lobe. 3. No acute intracranial hemorrhage. EVIDENCE OF ACUTE STROKE: NO. Lower Extremity CT 07/18/20 18:01 IMPRESSION: Diffuse soft tissue swelling about the left knee extending into the lower leg and visualized portions of the hindfoot/midfoot nonspecific though raising the possibility of cellulitis. No underlying drainable fluid collection identified. Likewise, no foci of soft tissue gas to insinuate necrotizing fasciitis. Postsurgical changes of left total knee arthroplasty with patellar resurfacing. No definitive evidence of complication. Unchanged appearance of nondisplaced fracture involving the medial malleolus. TECHNICAL DOCUMENTATION: Quality ID # 436: Final reports with documentation of one or more dose reduction techniques (e.g., Automated exposure control, adjustment of the mA and/or kV according to patient size, use of iterative reconstruction technique) copyright 2011 [employer]- All Rights Reserved KUB X-Ray 07/20/20 00:00 IMPRESSION: NO RADIOGRAPHIC EVIDENCE FOR ACUTE ABDOMINAL DISEASE. Chest X-Ray 07/20/20 13:33 IMPRESSION: Borderline cardiomegaly with no pulmonary edema. Assessment & Plan - Diagnosis (1) Ankle fracture, lateral malleolus, closed Qualifiers: Encounter type: initial encounter Fracture alignment: nondisplaced Laterality: left Qualified Code(s): S82.65XA - Nondisplaced fracture of lateral malleolus of left fibula, initial encounter for closed fracture Is this a current diagnosis for this admission?: Yes Plan: No weight bearing, but no further intervention recommended. (2) Cellulitis of left leg Is this a current diagnosis for this admission?: Yes Plan: Continues antibiotics. (3) Morbid obesity with alveolar hypoventilation Is this a current diagnosis for this admission?: Yes Plan: We discussed weight loss, decreasing methadone, and continuing BiPAP as much of the day as possible. I will decrease methadone to 5 mg BID and make sure he gets a dose this morning. (4) Multiple myeloma Qualifiers: Multiple myeloma remission status: not in remission Qualified Code(s): C90.00 - Multiple myeloma not having achieved remission Is this a current diagnosis for this admission?: Yes Plan: All treatment on hold. - Time Time Spent with patient: 15-24 minutes
[2020-07-21 08:54] LABS: ARTERIAL BLOOD BASE EXCESS 9.6 mmol/L; ARTERIAL BLOOD H2CO3 0.88 mmol/L (1.05-1.35); ARTERIAL BLOOD HCO3 30.4 mmol/L (20-24); ARTERIAL BLOOD O2 SATURATION 97.6 % (94-98); ARTERIAL BLOOD PCO2 29.4 mmHg (35-45); ARTERIAL BLOOD PO2 80.6 mmHg (80-100); ARTERIAL BLOOD TOTAL CO2 31.3 mmol/L (23-27)
[2020-07-21 08:56] LABS: ARTERIAL BLOOD FIO2 21%
[2020-07-21 08:57] LABS: ARTERIAL BLOOD PH 7.63 (7.35-7.45)
[2020-07-21] MEDS: CITALOPRAM HYDROBROMIDE 20 MG TABLET PO SCH (09:10)
[2020-07-21] MEDS: GABAPENTIN 400 MG CAPSULE PO SCH ×3 (09:10→23:02)
[2020-07-21] MEDS: SPIRONOLACTONE 25 MG TABLET PO SCH (09:10)
[2020-07-21] MEDS: DOCUSATE SODIUM 100 MG CAPSULE PO SCH ×2 (09:11→23:02)
[2020-07-21] MEDS: METHADONE HCL 10 MG TABLET PO SCH ×2 (09:12→22:48)
[2020-07-21 09:39] LABS: ARTERIAL BLOOD BASE EXCESS 9.5 mmol/L; ARTERIAL BLOOD H2CO3 0.93 mmol/L (1.05-1.35); ARTERIAL BLOOD HCO3 30.7 mmol/L (20-24); ARTERIAL BLOOD O2 SATURATION 94.9 % (94-98); ARTERIAL BLOOD PCO2 30.8 mmHg (35-45); ARTERIAL BLOOD TOTAL CO2 31.6 mmol/L (23-27)
[2020-07-21 09:40] LABS: ARTERIAL BLOOD FIO2 21%
[2020-07-21 09:41] LABS: ARTERIAL BLOOD PH 7.62 (7.35-7.45)
[2020-07-21] MEDS ORDERED: LEVALBUTEROL HCL NEB 1.25 MG/3 ML AMPUL NEB PRN (11:27)
--- NOTE | 2020-07-21 11:28 | ADVANCED CARE ---
- Diagnosis (1) Acute on chronic respiratory failure with hypoxia and hypercapnia Diagnosis Current: Yes (2) Cellulitis of left leg Diagnosis Current: Yes (3) Ankle fracture, lateral malleolus, closed Diagnosis Current: Yes (4) Acute encephalopathy Diagnosis Current: Yes (5) History of hepatitis C Diagnosis Current: Yes (6) Multiple myeloma Diagnosis Current: Yes (7) Thrombocytopenia Diagnosis Current: Yes (8) Sleep apnea in adult Diagnosis Current: Yes (9) Venous stasis Diagnosis Current: Yes (10) Morbid obesity with BMI of 45.0-49.9, adult Diagnosis Current: Yes Attendance: patient, and daughter Resuscitation Status: Other - The patient would allow intubation only. He does not want chest compressions. With his multiple myeloma he will sustained multiple broken ribs. This was agreed upon after a very lengthy discussion. I was certainly unaware of the new liver mass during this discussion. If further work-up shows diffuse metastases from his liver mass the may reconsider and decide on full DO NOT RESUSCITATE. Discussion: As above Care Planning Goals: May change based on newer information from upcoming CAT scan Document(s) Completed: None but I made it very clear that the patient must complete a document and while he was doing that his and daughter should also complete documents. Time Spent: 25
--- NOTE | 2020-07-21 11:28 | PDOC PROGRESS REPORT ---
Subjective Progress Note for:: 07/21/20 Subjective:: The patient is much more awake and alert. His and daughter at the bedside. He is somewhat fidgety. Reason For Visit: CELLULITIS LEFT LEG,ACUTE ENCEPHALOPATHY Physical Exam Vital Signs: Temp Pulse Resp BP Pulse Ox 97.9 F 97 27 H 148/112 H 98 07/21/20 08:07 07/21/20 08:07 07/21/20 08:07 07/21/20 08:07 07/21/20 08:07 Intake & Output 07/20/20 07/21/20 07/22/20 06:59 06:59 06:59 Intake Total 2820 500 Output Total 925 1625 Balance 1895 -1125 Weight 133.4 kg 132.3 kg General appearance: PRESENT: cooperative, mild distress, morbidly obese, well- developed Head exam: PRESENT: atraumatic, normocephalic Ear exam: PRESENT: normal external ear exam. ABSENT: bleeding, drainage Mouth exam: PRESENT: moist, tongue midline Respiratory exam: PRESENT: clear to auscultation pat, symmetrical, unlabored. ABSENT: prolonged expiratory phas, rales, rhonchi, tachypnea, wheezes Cardiovascular exam: PRESENT: RRR, +S1, +S2. ABSENT: bradycardia, diastolic murmur, irregular rhythm, systolic murmur, tachycardia GI/Abdominal exam: PRESENT: distended, normal bowel sounds, soft. ABSENT: tenderness Rectal exam: PRESENT: deferred Gentrourinary exam: PRESENT: indwelling catheter Extremities exam: PRESENT: pedal edema Musculoskeletal exam: PRESENT: normal inspection Neurological exam: PRESENT: alert, awake, oriented to person, oriented to place, oriented to situation - Seemed oriented for the most part. Every once while he would say something off but difficult to know if he was joking or not., CN II- XII grossly intact Psychiatric exam: PRESENT: anxious, appropriate affect. ABSENT: agitated Focused psych exam: PRESENT: restlessness. ABSENT: delusional, paranoid Results Laboratory Results: 07/21/20 06:00 07/21/20 06:00 07/20/20 07/20/20 07/20/20 13:20 14:00 14:00 WBC 6.0 RBC 4.04 L Hgb 12.2 L Hct 37.5 L MCV 93 MCH 30.2 MCHC 32.6 RDW 14.8 H Plt Count 68 L Seg Neutrophils % Not Reportable Carbonic Acid 3.57 H HCO3/H2CO3 Ratio 11:1 ABG pH 7.15 L* ABG pCO2 118.7 H* ABG pO2 37.1 L* ABG HCO3 40.2 H ABG O2 Saturation 51.4 L ABG Base Excess 7.2 FiO2 40% Sodium Potassium Chloride Carbon Dioxide Anion Gap BUN Creatinine Est GFR ( Amer) Glucose Lactic Acid Calcium Magnesium Cancelled Total Bilirubin AST Alkaline Phosphatase Ammonia Total Protein Albumin 07/20/20 07/20/20 07/20/20 14:00 14:00 14:00 WBC RBC Hgb Hct MCV MCH MCHC RDW Plt Count Seg Neutrophils % Carbonic Acid HCO3/H2CO3 Ratio ABG pH ABG pCO2 ABG pO2 ABG HCO3 ABG O2 Saturation ABG Base Excess FiO2 Sodium 136.5 L Potassium 4.8 Chloride 94 L Carbon Dioxide 35 H Anion Gap 8 BUN 23 H Creatinine 0.80 Est GFR ( Amer) > 60 Glucose 157 H Lactic Acid 0.6 L Calcium 8.0 L Magnesium 2.3 Total Bilirubin 0.9 AST 20 Alkaline Phosphatase 52 Ammonia 14.9 Total Protein 6.4 Albumin 4.0 07/20/20 07/20/20 07/20/20 16:04 17:00 23:00 WBC RBC Hgb Hct MCV MCH MCHC RDW Plt Count Seg Neutrophils % Carbonic Acid Cancelled 2.47 H HCO3/H2CO3 Ratio Cancelled 14:1 ABG pH Cancelled 7.26 L ABG pCO2 Cancelled 82.2 H* ABG pO2 Cancelled 90.9 ABG HCO3 Cancelled 36.3 H ABG O2 Saturation Cancelled 95.3 ABG Base Excess Cancelled 6.7 FiO2 Cancelled 40% Sodium 137.8 Potassium 4.8 Chloride 93 L Carbon Dioxide 39 H Anion Gap 6 BUN 24 H Creatinine 0.89 Est GFR ( Amer) > 60 Glucose 101 Lactic Acid Calcium 8.1 L Magnesium 2.2 Total Bilirubin AST Alkaline Phosphatase Ammonia Total Protein Albumin 07/21/20 07/21/20 07/21/20 06:00 06:00 08:45 WBC 5.2 RBC 3.69 L Hgb 11.1 L Hct 33.7 L MCV 91 MCH 30.1 MCHC 33.0 RDW 14.6 H Plt Count 80 L Seg Neutrophils % 70.7 Carbonic Acid 0.88 L HCO3/H2CO3 Ratio 34:1 ABG pH 7.63 H* ABG pCO2 29.4 L ABG pO2 80.6 ABG HCO3 30.4 H ABG O2 Saturation 97.6 ABG Base Excess 9.6 FiO2 21% Sodium 136.6 L Potassium 3.8 D Chloride 92 L Carbon Dioxide 38 H Anion Gap 7 BUN 29 H Creatinine 0.98 Est GFR ( Amer) > 60 Glucose 110 Lactic Acid Calcium 7.8 L Magnesium Total Bilirubin 0.8 AST 16 L Alkaline Phosphatase 44 Ammonia Total Protein 5.6 L Albumin 3.5 07/21/20 09:15 WBC RBC Hgb Hct MCV MCH MCHC RDW Plt Count Seg Neutrophils % Carbonic Acid 0.93 L HCO3/H2CO3 Ratio 33:1 ABG pH 7.62 H* ABG pCO2 30.8 L ABG pO2 60.0 L ABG HCO3 30.7 H ABG O2 Saturation 94.9 ABG Base Excess 9.5 FiO2 21% Sodium Potassium Chloride Carbon Dioxide Anion Gap BUN Creatinine Est GFR ( Amer) Glucose Lactic Acid Calcium Magnesium Total Bilirubin AST Alkaline Phosphatase Ammonia Total Protein Albumin 07/18/20 07/18/20 07/18/20 13:30 13:30 13:30 Creatine Kinase 41 L CK-MB (CK-2) 0.81 Troponin I < 0.012 NT-Pro-B Natriuret Pep 07/18/20 07/20/20 16:03 14:00 Creatine Kinase 42 L CK-MB (CK-2) Troponin I < 0.012 NT-Pro-B Natriuret Pep 473 H Impressions: Tibia/Fibula X-Ray 07/18/20 14:15 IMPRESSION: DIFFUSE SOFT TISSUE SWELLING. STABLE NONDISPLACED FRACTURE OF THE MEDIAL MALLEOLUS. NO ACUTE FINDINGS. Head CT 07/18/20 15:18 IMPRESSION: 1. No significant interval changes since the prior examination dated 07/15/2020. The appearance of the fairly large osseous lytic destruction involving the frontal bone is unchanged. Stable right posterior parietal bone lesion. These findings are likely consistent with the patient's known history of myeloma. 2. Stable soft tissue mass associated with the osseous destruction of the frontal bone with extension into the frontal sinus, left frontoethmoid recess, left orbital roof and extra-axial space on the frontal lobe. 3. No acute intracranial hemorrhage. EVIDENCE OF ACUTE STROKE: NO. Lower Extremity CT 07/18/20 18:01 IMPRESSION: Diffuse soft tissue swelling about the left knee extending into the lower leg and visualized portions of the hindfoot/midfoot nonspecific though raising the possibility of cellulitis. No underlying drainable fluid collection identified. Likewise, no foci of soft tissue gas to insinuate necrotizing fasciitis. Postsurgical changes of left total knee arthroplasty with patellar resurfacing. No definitive evidence of complication. Unchanged appearance of nondisplaced fracture involving the medial malleolus. TECHNICAL DOCUMENTATION: Quality ID # 436: Final reports with documentation of one or more dose reduction techniques (e.g., Automated exposure control, adjustment of the mA and/or kV according to patient size, use of iterative reconstruction technique) copyright 2011 [employer]- All Rights Reserved KUB X-Ray 07/20/20 00:00 IMPRESSION: NO RADIOGRAPHIC EVIDENCE FOR ACUTE ABDOMINAL DISEASE. Chest X-Ray 07/20/20 13:33 IMPRESSION: Borderline cardiomegaly with no pulmonary edema. Assessment and Plan - Diagnosis (1) Acute on chronic respiratory failure with hypoxia and hypercapnia Is this a current diagnosis for this admission?: Yes Plan: The patient wears BiPAP all night. We overcorrected the acidosis. He is alkalotic at this point. We will let him drift back and I did order several doses of Diamox. We will recheck an ABG in the morning. (2) Cellulitis of left leg Is this a current diagnosis for this admission?: Yes Plan: Antibiotics are currently on hold. I will check a CBC in the morning. If his white blood cell count is going up then we will restart the antibiotics. He likely has an element of venous stasis dermatitis as well but it can be difficult to tell. (3) Ankle fracture, lateral malleolus, closed Qualifiers: Encounter type: initial encounter Fracture alignment: nondisplaced Laterality: left Qualified Code(s): S82.65XA - Nondisplaced fracture of lateral malleolus of left fibula, initial encounter for closed fracture Is this a current diagnosis for this admission?: Yes Plan: Must wear a rocker boot and nonweightbearing for likely 6 months. Continue physical therapy. (4) Acute encephalopathy Is this a current diagnosis for this admission?: Yes Plan: Secondary to hypercapnia. Resolved. (5) History of hepatitis C Is this a current diagnosis for this admission?: Yes Plan: I was made aware by his oncologist that gastroenterology recently uncovered a liver tumor. Oncology has requested that during his hospitalization we obtain a CT scan of the chest abdomen and pelvis with and without contrast to look for other masses. (6) Multiple myeloma Qualifiers: Multiple myeloma remission status: not in remission Qualified Code(s): C90.00 - Multiple myeloma not having achieved remission Is this a current diagnosis for this admission?: Yes Plan: Treatment currently on hold. Working up new liver lesion. (7) Thrombocytopenia Is this a current diagnosis for this admission?: Yes Plan: Platelet count is recovering and is now up to the 80 (8) Sleep apnea in adult Is this a current diagnosis for this admission?: Yes Plan: We will continue that night with a VATS which is what he is on at home. He should wear his mask when sleeping during the day. I had a lengthy discussion with the patient, his and daughter about the fact that he should be up in the chair as it helps his breathing. He needs to start mobilizing with physical therapy while keeping nonweightbearing status on his fracture. He needs to start taking better care of himself. (9) Venous stasis Is this a current diagnosis for this admission?: Yes Plan: Erythema in legs is most likely a combination of cellulitis and venous stasis dermatitis. I reviewed Velcro closure compression garments with his and daughter. I suggested strongly that they at least get 1 Farrow wrap the foot and leg piece for his left leg to start. If he tolerates it then get a second for his right leg. This will be an ongoing issue. (10) Morbid obesity with BMI of 45.0-49.9, adult Is this a current diagnosis for this admission?: Yes Plan: Encourage weight loss (11) Liver mass Is this a current diagnosis for this admission?: Yes Plan: The patient does have chronic hepatitis C. Dr. Suazo is working with the patient and evidently discovered a liver mass. Dr. Moran has requested that we obtain CT scan of the chest abdomen and pelvis to continue this work-up. - Time Time Spent with patient: 25-34 minutes Medications reviewed and adjusted accordingly: Yes Anticipated Discharge Disposition: Home with Home Health Anticipated Discharge Timeframe: Unknown
[2020-07-21] MEDS: ACETAZOLAMIDE 250 MG TABLET PO SCH ×2 (15:29→23:03)
[2020-07-21] MEDS: ATORVASTATIN CALCIUM 20 MG TABLET PO SCH (22:53)
[2020-07-21] MEDS: SENNOSIDES/DOCUSATE 8.6-50 MG 1 EACH TABLET PO SCH (23:04)
[2020-07-22] MEDS: INSULIN LISPRO 100 UNIT/ML 3 ML VIAL SUBCUT SCH ×5 (00:43→21:06)
[2020-07-22] MEDS: KETOROLAC TROMETHAMINE INJ/PF 30 MG/1 ML SDV IV PRN ×3 (04:35→17:29)
[2020-07-22] MEDS: OXYCODONE HCL IR 5 MG TABLET PO PRN ×4 (04:36→19:45)
[2020-07-22] MEDS: ACETAZOLAMIDE 250 MG TABLET PO SCH (05:33)
[2020-07-22] MEDS: HEPARIN SOD (PORCINE) 5,000 UNIT/ML 1 ML VIAL SUBCUT SCH ×3 (05:33→21:08)
[2020-07-22] MEDS: GABAPENTIN 400 MG CAPSULE PO SCH ×3 (05:34→21:06)
[2020-07-22 06:34] LABS: ANION GAP 9 (5-19); BLOOD UREA NITROGEN 30 mg/dL (7-20); CALCIUM 8.2 mg/dL (8.4-10.2); CARBON DIOXIDE 33 mmol/L (22-30); CHLORIDE 95 mmol/L (98-107); GLUCOSE 85 mg/dL (75-110); POTASSIUM 3.4 mmol/L (3.6-5.0)
[2020-07-22 06:35] LABS: ARTERIAL BLOOD BASE EXCESS 7.6 mmol/L; ARTERIAL BLOOD FIO2 21%; ARTERIAL BLOOD H2CO3 1.59 mmol/L (1.05-1.35); ARTERIAL BLOOD HCO3 33.5 mmol/L (20-24); ARTERIAL BLOOD O2 SATURATION 93.1 % (94-98); ARTERIAL BLOOD PCO2 52.7 mmHg (35-45); ARTERIAL BLOOD PH 7.42 (7.35-7.45); ARTERIAL BLOOD TOTAL CO2 35.1 mmol/L (23-27)
[2020-07-22] MEDS: METHADONE HCL 10 MG TABLET PO SCH ×2 (09:47→21:05)
[2020-07-22] MEDS: DOCUSATE SODIUM 100 MG CAPSULE PO SCH ×2 (09:51→21:06)
[2020-07-22] MEDS: CITALOPRAM HYDROBROMIDE 20 MG TABLET PO SCH (09:51)
[2020-07-22] MEDS: SPIRONOLACTONE 25 MG TABLET PO SCH (09:52)
[2020-07-22] MEDS: FUROSEMIDE INJ/PF 40 MG/4 ML SDV IV SCH (09:54)
[2020-07-22] MEDS ORDERED: ACETAZOLAMIDE 250 MG TABLET PO SCH (10:00)
--- NOTE | 2020-07-22 10:01 | RADIOLOGY REPORT (SQ) ---
EXAM DESCRIPTION: CT CHEST WITH; CT ABD/PELVIS WITH IV ORAL IMAGES COMPLETED DATE/TIME: 07/22/2020 9:06 am REASON FOR STUDY: New liver mass. Assess chest, abdomen, pelvis COMPARISON: MRI abdomen 05/18/2020 CONTRAST TYPE AND DOSE: contrast/concentration: Isovue 350.00 mmol/ml; Total Contrast Delivered: 100 .0 ml; Total Saline Delivered: 72.0 ml RENAL FUNCTION: Creatinine 0.9 TECHNIQUE: CT scan of the chest performed using helical scanning technique with dynamic intravenous contrast injection. Images reviewed with lung, soft tissue and bone windows. Reconstructed coronal a nd sagittal MPR images reviewed. All images stored on PACS. CT scan of the abdomen and pelvis performed with intravenous and with oral contrastusing helical scan sharon technique with dynamic intravenous contrast injection. Images reviewed with lung, soft tissue a nd bone windows. Reconstructed coronal and sagittal MPR images reviewed. Delayed images for evaluat ion of the urinary system also acquired and evaluated. All images stored on PACS. All CT scanners at this facility use dose modulation, iterative reconstruction, and/or weight based d osing when appropriate to reduce radiation dose to as low as reasonably achievable (ALARA). [facility]: Dose Right [facility]: CareDose [facility]: Dose Right [facility]: Teradose 4D [facility]: [employer] RADIATION DOSE: CT Rad equipment meets quality standard of care and radiation dose reduction techniq ues were employed. CTDIvol: 19.9 - 21.1 mGy. DLP: 2469 mGy-cm. . LIMITATIONS: None. FINDINGS: CHEST: LUNGS AND PLEURA: Trace right pleural fluid. No acute infiltrates. No pulmonary nodules. No pneumo thorax. HILAR AND MEDIASTINAL STRUCTURES: No identified masses or abnormal nodes. HEART AND VASCULAR STRUCTURES: No aneurysm or dissection. No central pulmonary emboli. No pericardi al effusion. HARDWARE: Right-sided permanent central line tip superior vena cava THYROID AND OTHER SOFT TISSUES: Bilateral gynecomastia. No adenopathy. BONES: Osteoporosis with multiple healing rib fractures, healing sternal fracture, expansion of manub rium with lytic and sclerotic process worrisome for myeloma. 25% upper endplate compression at T4, 5 0% compression T6, 25% compression T7, 25% compression T9 all likely subacute/chronic. OTHER: No other significant finding. ABDOMEN AND PELVIS: LIVER: Liver is normal size with nodular contour cirrhosis. Mass identified along the inferior right lobe liver on MRI 05/08/2020 is difficult to visualize, but i s seen on coronal reconstruction image 40, 3.5 by 2.5 cm in size similar compared to MRI 05/08/2020 . SPLEEN: Splenomegaly, 16 cm in length PANCREAS: No masses. No significant calcifications. No adjacent inflammation or peripancreatic fluid collections. Pancreatic duct not dilated. GALLBLADDER: No identified stones by CT criteria. No inflammatory changes to suggest cholecystitis. ADRENAL GLANDS: No significant masses or asymmetry. RIGHT KIDNEY AND URETER: No solid masses. 16 mm cyst right lower pole kidney. No significant calcif ication. No hydronephrosis or hydroureter. LEFT KIDNEY AND URETER: Post left nephrectomy AORTA AND VESSELS: No aneurysm. No dissection. Renal arteries, SMA, celiac without stenosis. RETROPERITONEUM: No retroperitoneal adenopathy, hemorrhage or masses. BOWEL AND PERITONEAL CAVITY: Patient drank oral contrast. No masses or inflammatory changes. No free fluid or peritoneal masses. APPENDIX: Not visualized. ABDOMINAL WALL: Tiny fat containing umbilical hernia PELVIS: No mass or free fluid. Rangel catheter drains the urinary bladder BONES: 50% upper endplate compression at L1, chronic OTHER: No other significant finding. IMPRESSION: Osteoporosis with multiple fractures, expansile lesion in the manubrium sternum, suspect myeloma Nodular contour of the liver from cirrhosis. Subtle nodule inferior right lobe liver stable compared to MRI Post left nephrectomy. Splenomegaly. NORMAL CT OF THE ABDOMEN AND PELVIS WITH ORAL AND INTRAVENOUS CONTRAST. TECHNICAL DOCUMENTATION: JOB ID: [id number] Quality ID # [id number]: Final reports with documentation of one or more dose reduction techniques (e.g., Au tomated exposure control, adjustment of the mA and/or kV according to patient size, use of iterative reconstruction technique) 2010 [employer]- All Rights Reserved Reading location - IP/workstation name: [email or web address]
[2020-07-22] MEDS ORDERED: ACETAMINOPHEN 325 MG TABLET PO PRN (11:07)
--- NOTE | 2020-07-22 11:13 | PDOC PROGRESS REPORT ---
Subjective Progress Note for:: 07/22/20 Subjective:: No acute events overnight, this morning we had a discussion about the CT. Overall indicate stable findings in the liver lesion was more faint on the CT but stable in size and appearance. It could either be a regenerating nodule we discussed or a primary HCC. Currently, given all of his other complications, we discussed that we would not do anything but monitor for now. They understand and agree with this approach. Reason For Visit: CELLULITIS LEFT LEG,ACUTE ENCEPHALOPATHY Physical Exam Vital Signs: Temp Pulse Resp BP Pulse Ox 97.7 F 85 20 119/79 94 07/22/20 08:01 07/22/20 08:01 07/22/20 08:01 07/22/20 08:01 07/22/20 08:01 Intake & Output 07/21/20 07/22/20 07/23/20 06:59 06:59 06:59 Intake Total 500 Output Total 1625 2975 Balance -1125 -2975 Weight 132.3 kg 131.8 kg General appearance: PRESENT: no acute distress, well-developed, well-nourished Head exam: PRESENT: atraumatic, normocephalic Eye exam: PRESENT: conjunctiva pink, EOMI, PERRLA. ABSENT: scleral icterus Ear exam: PRESENT: normal external ear exam Mouth exam: PRESENT: moist, tongue midline Neck exam: ABSENT: carotid bruit, JVD, lymphadenopathy, thyromegaly Respiratory exam: PRESENT: clear to auscultation pat. ABSENT: rales, rhonchi, wheezes Cardiovascular exam: PRESENT: RRR. ABSENT: diastolic murmur, rubs, systolic murmur Pulses: PRESENT: normal dorsalis pedis pul Vascular exam: PRESENT: normal capillary refill GI/Abdominal exam: PRESENT: normal bowel sounds, soft. ABSENT: distended, guarding, mass, organolmegaly, rebound, tenderness Rectal exam: PRESENT: deferred Extremities exam: PRESENT: full ROM. ABSENT: calf tenderness, clubbing, pedal edema Neurological exam: PRESENT: alert, awake, oriented to person, oriented to place, oriented to time, oriented to situation, CN II-XII grossly intact. ABSENT: motor sensory deficit Psychiatric exam: PRESENT: appropriate affect, normal mood. ABSENT: homicidal ideation, suicidal ideation Skin exam: PRESENT: dry, intact, warm. ABSENT: cyanosis, rash Results Laboratory Results: 07/21/20 06:00 07/22/20 04:50 07/22/20 07/22/20 04:50 06:15 Carbonic Acid 1.59 H HCO3/H2CO3 Ratio 21:1 ABG pH 7.42 ABG pCO2 52.7 H ABG pO2 66.0 L ABG HCO3 33.5 H ABG O2 Saturation 93.1 L ABG Base Excess 7.6 FiO2 21% Sodium 137.0 Potassium 3.4 L Chloride 95 L Carbon Dioxide 33 H Anion Gap 9 BUN 30 H Creatinine 1.04 Est GFR ( Amer) > 60 Glucose 85 Calcium 8.2 L Magnesium 2.5 H 07/18/20 07/18/20 07/18/20 13:30 13:30 13:30 Creatine Kinase 41 L CK-MB (CK-2) 0.81 Troponin I < 0.012 NT-Pro-B Natriuret Pep 07/18/20 07/20/20 16:03 14:00 Creatine Kinase 42 L CK-MB (CK-2) Troponin I < 0.012 NT-Pro-B Natriuret Pep 473 H Impressions: Tibia/Fibula X-Ray 07/18/20 14:15 IMPRESSION: DIFFUSE SOFT TISSUE SWELLING. STABLE NONDISPLACED FRACTURE OF THE MEDIAL MALLEOLUS. NO ACUTE FINDINGS. Head CT 07/18/20 15:18 IMPRESSION: 1. No significant interval changes since the prior examination dated 07/15/2020. The appearance of the fairly large osseous lytic destruction involving the frontal bone is unchanged. Stable right posterior parietal bone lesion. These findings are likely consistent with the patient's known history of myeloma. 2. Stable soft tissue mass associated with the osseous destruction of the frontal bone with extension into the frontal sinus, left frontoethmoid recess, left orbital roof and extra-axial space on the frontal lobe. 3. No acute intracranial hemorrhage. EVIDENCE OF ACUTE STROKE: NO. Lower Extremity CT 07/18/20 18:01 IMPRESSION: Diffuse soft tissue swelling about the left knee extending into the lower leg and visualized portions of the hindfoot/midfoot nonspecific though raising the possibility of cellulitis. No underlying drainable fluid collection identified. Likewise, no foci of soft tissue gas to insinuate necrotizing fasciitis. Postsurgical changes of left total knee arthroplasty with patellar resurfacing. No definitive evidence of complication. Unchanged appearance of nondisplaced fracture involving the medial malleolus. TECHNICAL DOCUMENTATION: Quality ID # 436: Final reports with documentation of one or more dose reduction techniques (e.g., Automated exposure control, adjustment of the mA and/or kV according to patient size, use of iterative reconstruction technique) copyright 2011 [employer]- All Rights Reserved KUB X-Ray 07/20/20 00:00 IMPRESSION: NO RADIOGRAPHIC EVIDENCE FOR ACUTE ABDOMINAL DISEASE. Chest X-Ray 07/20/20 13:33 IMPRESSION: Borderline cardiomegaly with no pulmonary edema. Chest CT 07/22/20 00:00 IMPRESSION: Osteoporosis with multiple fractures, expansile lesion in the manubrium sternum, suspect myeloma Nodular contour of the liver from cirrhosis. Subtle nodule inferior right lobe liver stable compared to MRI Post left nephrectomy. Splenomegaly. NORMAL CT OF THE ABDOMEN AND PELVIS WITH ORAL AND INTRAVENOUS CONTRAST. Abdomen/Pelvis CT 07/22/20 08:00 IMPRESSION: Osteoporosis with multiple fractures, expansile lesion in the manubrium sternum, suspect myeloma Nodular contour of the liver from cirrhosis. Subtle nodule inferior right lobe liver stable compared to MRI Post left nephrectomy. Splenomegaly. NORMAL CT OF THE ABDOMEN AND PELVIS WITH ORAL AND INTRAVENOUS CONTRAST. Assessment & Plan - Diagnosis (1) Ankle fracture, lateral malleolus, closed Qualifiers: Encounter type: subsequent encounter Fracture alignment: nondisplaced Laterality: left Is this a current diagnosis for this admission?: Yes Plan: Continued supportive care (2) Cellulitis of left leg Is this a current diagnosis for this admission?: Yes Plan: Continue current antibiotic care (3) Liver mass Is this a current diagnosis for this admission?: Yes Plan: Liver mass and setting of cirrhosis and hep C certainly always concerning for primary HCC but at present recommend only monitoring given recent complications of other issues he needs to recover before we can do more. Patient and family agree with this approach. (4) Multiple myeloma Qualifiers: Multiple myeloma remission status: not in remission Qualified Code(s): C90.00 - Multiple myeloma not having achieved remission Is this a current diagnosis for this admission?: Yes Plan: All therapy on hold until discharge and recovery from current issues - Time Time Spent with patient: 15-24 minutes
--- NOTE | 2020-07-22 14:54 | PDOC PROGRESS REPORT ---
Subjective Progress Note for:: 07/22/20 Subjective:: Discussed with patient and patient's at bedside. Patient feels much better today and is back to his baseline mental status. He does not seem fidgety today. He is only complaint today is headache. Still having pain in his ankle as well but that seems to be improving uncontrollable at this time. Seems cheerful today. He slept comfortably with his AVAP machine. Reason For Visit: CELLULITIS LEFT LEG,ACUTE ENCEPHALOPATHY Physical Exam Vital Signs: Temp Pulse Resp BP Pulse Ox 97.6 F 85 20 99/68 L 94 07/22/20 11:57 07/22/20 11:57 07/22/20 11:57 07/22/20 11:57 07/22/20 11:57 Intake & Output 07/21/20 07/22/20 07/23/20 06:59 06:59 06:59 Intake Total 500 Output Total 1625 2975 Balance -1125 -2975 Weight 132.3 kg 131.8 kg General appearance: PRESENT: no acute distress, cooperative, morbidly obese, well-nourished. ABSENT: disheveled Neck exam: ABSENT: JVD Respiratory exam: PRESENT: clear to auscultation pat, symmetrical, unlabored. ABSENT: tachypnea, wheezes Cardiovascular exam: PRESENT: RRR, +S1, +S2. ABSENT: tachycardia GI/Abdominal exam: PRESENT: soft. ABSENT: rebound, rigid, tenderness Extremities exam: PRESENT: other - Left lower extremity swelling and erythema looks a whole lot better than his presentation last month. Actually seems that the erythema is mostly gone at this point. Neurological exam: PRESENT: alert, awake, oriented to person, oriented to place, oriented to time, oriented to situation Results Laboratory Results: 07/21/20 06:00 07/22/20 04:50 07/22/20 07/22/20 04:50 06:15 Carbonic Acid 1.59 H HCO3/H2CO3 Ratio 21:1 ABG pH 7.42 ABG pCO2 52.7 H ABG pO2 66.0 L ABG HCO3 33.5 H ABG O2 Saturation 93.1 L ABG Base Excess 7.6 FiO2 21% Sodium 137.0 Potassium 3.4 L Chloride 95 L Carbon Dioxide 33 H Anion Gap 9 BUN 30 H Creatinine 1.04 Est GFR ( Amer) > 60 Glucose 85 Calcium 8.2 L Magnesium 2.5 H 07/18/20 07/18/20 07/18/20 13:30 13:30 13:30 Creatine Kinase 41 L CK-MB (CK-2) 0.81 Troponin I < 0.012 NT-Pro-B Natriuret Pep 07/18/20 07/20/20 16:03 14:00 Creatine Kinase 42 L CK-MB (CK-2) Troponin I < 0.012 NT-Pro-B Natriuret Pep 473 H Impressions: Tibia/Fibula X-Ray 07/18/20 14:15 IMPRESSION: DIFFUSE SOFT TISSUE SWELLING. STABLE NONDISPLACED FRACTURE OF THE MEDIAL MALLEOLUS. NO ACUTE FINDINGS. Head CT 07/18/20 15:18 IMPRESSION: 1. No significant interval changes since the prior examination dated 07/15/2020. The appearance of the fairly large osseous lytic destruction involving the frontal bone is unchanged. Stable right posterior parietal bone lesion. These findings are likely consistent with the patient's known history o f myeloma. 2. Stable soft tissue mass associated with the osseous destruction of the frontal bone with extension into the frontal sinus, left frontoethmoid recess, left orbital roof and extra-axial space on the frontal lobe. 3. No acute intracranial hemorrhage. EVIDENCE OF ACUTE STROKE: NO. Lower Extremity CT 07/18/20 18:01 IMPRESSION: Diffuse soft tissue swelling about the left knee extending into the lower leg and visualized portions of the hindfoot/midfoot nonspecific though raising the possibility of cellulitis. No underlying drainable fluid collection identified. Likewise, no foci of soft tissue gas to insinuate necrotizing fasciitis. Postsurgical changes of left total knee arthroplasty with patellar resurfacing. No definitive evidence of complication. Unchanged appearance of nondisplaced fracture involving the medial malleolus. TECHNICAL DOCUMENTATION: Quality ID # [id number]: Final reports with documentation of one or more dose reduction techniques (e.g., Automated exposure control, adjustment of the mA and/or kV according to patient size, use of iterative reconstruction technique) copyright 2011 [employer]- All Rights Reserved KUB X-Ray 07/20/20 00:00 IMPRESSION: NO RADIOGRAPHIC EVIDENCE FOR ACUTE ABDOMINAL DISEASE. Chest X-Ray 07/20/20 13:33 IMPRESSION: Borderline cardiomegaly with no pulmonary edema. Chest CT 07/22/20 00:00 IMPRESSION: Osteoporosis with multiple fractures, expansile lesion in the manubrium sternum, suspect myeloma Nodular contour of the liver from cirrhosis. Subtle nodule inferior right lobe liver stable compared to MRI Post left nephrectomy. Splenomegaly. NORMAL CT OF THE ABDOMEN AND PELVIS WITH ORAL AND INTRAVENOUS CONTRAST. Abdomen/Pelvis CT 07/22/20 08:00 IMPRESSION: Osteoporosis with multiple fractures, expansile lesion in the manubrium sternum, suspect myeloma Nodular contour of the liver from cirrhosis. Subtle nodule inferior right lobe liver stable compared to MRI Post left nephrectomy. Splenomegaly. NORMAL CT OF THE ABDOMEN AND PELVIS WITH ORAL AND INTRAVENOUS CONTRAST. Assessment and Plan - Diagnosis (1) Acute on chronic respiratory failure with hypoxia and hypercapnia Is this a current diagnosis for this admission?: Yes Plan: Secondary to COPD and obesity hypoventilation. Uses BiPAP at night at home. He will continue to use AVAPS at nighttime while in the hospital. His metabolic alkalosis which was from overcorrection from NIPPV has resolved at this time. Now he is alkalosis has resolved, will wean off Diamox. Will check another blood gas in the morning. Start release satting well on room air today. (2) Ankle fracture, lateral malleolus, closed Qualifiers: Encounter type: subsequent encounter Fracture alignment: nondisplaced Laterality: left Is this a current diagnosis for this admission?: Yes Plan: Must wear a rocker boot and nonweightbearing for likely 6 months. Continue physical therapy. (3) Venous stasis Is this a current diagnosis for this admission?: Yes Plan: Initially received antibiotics for left lower extremity cellulitis suspicion. At this point, I believe patient's left lower extremity looks a lot better than he looked at his prior discharge last time. I do not think he would benefit from any more antibiotics especially after receiving 2 weeks worth of very broad-spectrum IV antibiotics already on his last recent admission. I believe it is due to lymphedema with chronic venous stasis in the left leg. Keep leg elevated. Recommended for some Velcro wraps. Continue Lasix (4) Liver mass Is this a current diagnosis for this admission?: Yes Plan: The patient does have chronic hepatitis C. Dr. Suazo is working with the patient and evidently discovered a liver mass. Chest/abdominal/pelvis CT done to look for metastasis only shows stable liver nodule but no bg metastasis. Oncology is following. (5) Sleep apnea in adult Is this a current diagnosis for this admission?: Yes Plan: AVAPS at nighttime (6) Multiple myeloma Qualifiers: Multiple myeloma remission status: not in remission Qualified Code(s): C90.00 - Multiple myeloma not having achieved remission Is this a current diagnosis for this admission?: Yes Plan: Treatment currently on hold. Chest/abdominal/pelvis CT shows osteoporosis, chronic L1 compression fracture, people healing rib fractures, healing sternal fracture and other findings consistent with his myeloma. Continue pain control as needed. On methadone and oxycodone currently. (7) Cirrhosis Qualifiers: Hepatic cirrhosis type: unspecified hepatic cirrhosis Ascites presence: unspecified Qualified Code(s): K74.60 - Unspecified cirrhosis of liver Is this a current diagnosis for this admission?: Yes Plan: He has history of hepatitis C virus and [place]. CT shows nodular liver contour consistent with cirrhosis. Follows with Dr. Suazo. (8) Acute encephalopathy Is this a current diagnosis for this admission?: Yes Plan: Secondary to hypercapnia. Resolved (9) Morbid obesity with BMI of 45.0-49.9, adult Is this a current diagnosis for this admission?: Yes - Time Time Spent with patient: 15-24 minutes Anticipated Discharge Disposition: Home with Home Health Anticipated Discharge Timeframe: within 48 hours
[2020-07-22] MEDS ORDERED: POTASSIUM CHLORIDE 10 MEQ TABLET.ER PO ONE (15:00)
[2020-07-22] MEDS: ACETAMINOPHEN 325 MG TABLET PO PRN (19:46)
[2020-07-22] MEDS: ATORVASTATIN CALCIUM 20 MG TABLET PO SCH (21:06)
[2020-07-22] MEDS: SENNOSIDES/DOCUSATE 8.6-50 MG 1 EACH TABLET PO SCH ×2 (21:06→21:11)
[2020-07-23] MEDS: KETOROLAC TROMETHAMINE INJ/PF 30 MG/1 ML SDV IV PRN ×3 (00:10→14:12)
[2020-07-23] MEDS: ACETAMINOPHEN 325 MG TABLET PO PRN ×2 (05:27→11:29)
[2020-07-23] MEDS: OXYCODONE HCL IR 5 MG TABLET PO PRN ×2 (05:27→10:30)
[2020-07-23] MEDS: GABAPENTIN 400 MG CAPSULE PO SCH (05:27)
[2020-07-23] MEDS: HEPARIN SOD (PORCINE) 5,000 UNIT/ML 1 ML VIAL SUBCUT SCH (05:28)
[2020-07-23 05:39] LABS: VENOUS BLOOD BASE EXCESS 1.1 mmol/L; VENOUS BLOOD HCO3 27.7 mmol/L (20-32); VENOUS BLOOD PCO2 52.6 mmHg (35-63); VENOUS BLOOD PH 7.34 (7.30-7.42)
[2020-07-23 06:04] LABS: ANION GAP 9 (5-19); BLOOD UREA NITROGEN 36 mg/dL (7-20); CALCIUM 8.7 mg/dL (8.4-10.2); CARBON DIOXIDE 28 mmol/L (22-30); CHLORIDE 99 mmol/L (98-107); GLUCOSE 108 mg/dL (75-110)
[2020-07-23] MEDS: INSULIN LISPRO 100 UNIT/ML 3 ML VIAL SUBCUT SCH ×2 (09:30→11:22)
[2020-07-23] MEDS: METHADONE HCL 10 MG TABLET PO SCH (10:18)
[2020-07-23] MEDS: SPIRONOLACTONE 25 MG TABLET PO SCH (10:18)
[2020-07-23] MEDS: DOCUSATE SODIUM 100 MG CAPSULE PO SCH (10:18)
[2020-07-23] MEDS: CITALOPRAM HYDROBROMIDE 20 MG TABLET PO SCH (10:19)
[2020-07-23] MEDS: FUROSEMIDE INJ/PF 40 MG/4 ML SDV IV SCH (10:20)
[2020-07-23 13:46] VITALS: BP 152/85
--- NOTE | 2020-07-23 14:13 | PDOC DISCHARGE SUMMARY ---
Impression - Admit/DC Date/PCP Admission Date/Primary Care Provider: 07/18/20 16:25 EMILIA MARTINEZ MD Discharge Date: 07/23/20 - Discharge Diagnosis (1) Acute on chronic respiratory failure with hypoxia and hypercapnia Is this a current diagnosis for this admission?: Yes (2) Ankle fracture, lateral malleolus, closed Is this a current diagnosis for this admission?: Yes (3) Venous stasis Is this a current diagnosis for this admission?: Yes (4) Liver mass Is this a current diagnosis for this admission?: Yes (5) Sleep apnea in adult Is this a current diagnosis for this admission?: Yes (6) Multiple myeloma Is this a current diagnosis for this admission?: Yes (7) Cirrhosis Is this a current diagnosis for this admission?: Yes (8) Acute encephalopathy Is this a current diagnosis for this admission?: Yes (9) Morbid obesity with BMI of 45.0-49.9, adult Is this a current diagnosis for this admission?: Yes - Additional Information Resuscitation Status: Full Code Discharge Diet: Cardiac Discharge Activity: Activity As Tolerated, Balance Activity w/Rest, Energy Conservation, Keep Legs Elevated Referrals: ORA WILL MD [ACTIVE STAFF] - SHASHA ALCALA NP, SCRIPT SUPERVISOR [NURSE PRACTITIONER] - Follow up as needed (Request for appt. put in follow up book - 07-23-20) BETITO HERNÁNDEZ JR, DO [ACTIVE PROVISIONAL STAFF] - Prescriptions: Oxycodone HCl [Oxy-Ir 5 mg Tablet] 5 mg PO Q6HP PRN #25 tab PRN Reason: Home Medications: Atorvastatin Calcium [Lipitor 20 mg Tablet] 20 mg PO QHS 11/03/19 Cholecalciferol (Vitamin D3) [Vitamin D3 2000 unit Tablet] 2,000 unit PO DAILY 11/03/19 Citalopram Hydrobromide [Celexa 40 mg Tablet] 40 mg PO DAILY 11/03/19 Docusate Sodium [Colace 100 mg Capsule] 100 mg PO DAILY 11/03/19 Furosemide [Lasix 40 mg Tablet] 40 mg PO QAM 11/03/19 Metformin HCl [Glucophage] 500 mg PO DAILY 11/03/19 Spironolactone [Aldactone] 50 mg PO DAILY 11/03/19 Polyethylene Glycol 3350 [Miralax Powder 17 gm/Packet] 1 packet PO DAILYP PRN 01/31/20 Ondansetron HCl [Zofran 8 mg Tablet] 8 mg PO DAILYP PRN 06/12/20 Umeclidinium Brm/Vilanterol Tr [Anoro Ellipta 62.5-25 Mcg INH] 1 puff PO BID Gabapentin [Neurontin 400 mg Capsule] 400 mg PO Q8 #0 07/23/20 Methadone HCl [Dolophine 10 mg Tablet] 5 mg PO Q12 #0 07/23/20 Oxycodone HCl [Oxy-Ir 5 mg Tablet] 5 mg PO Q6HP PRN #25 tab 07/23/20 History of Present Illiness History of Present Illness: According to admitting provider: VERONIQUE SOLIZ is a 65 year old male, history of mulitple myeloma with bone metastasis, history of hepatitis C with cirrhosis, obstructive sleep apnea, COPD, hyperlipidemia type,hypertension, who was brought to the ED today due to altered mental status and left leg pain and redness. He was previously admitted at [facility] from June 12 to June 22 increased pain and swelling of the left leg. He was treated as a case of cellulitis and received vancomycin and Zosyn and clindamycin. CT of the left leg done on that admission showed findings suggestive of extensive cellulitis no drainable abscess no signs of necrotizing infection. Seen by surgery on the previous admission hold did not recommend any surgical intervention. According to the his left leg remained erythematous during discharge but pain subsided. At 1 week prior to admission the patient fell and sustained a left ankle fracture , patient was managed conservatively . 3 days [employer], he developed Altered mental status and he was brought to [facility] was put on BiPAP and was subsequently discharged after his mental status improved. CT of the head was negative. Altered mental status persisted until few hours prior to admission when he developed fever of 100.2. He was then brought to the ED and was subsequently admitted for further management. In the ED vital signs were stable WBC count 7.8, 12.8, platelet of 83. LActic acid 2.2. Repeat CT head negative. Patient was started on Zosyn for cellulitis Hospital Course Hospital Course: Patient was admitted to the hospital for altered mental status. This is likely multifactorial secondary to heavy narcotic use as well as COPD. Patient was placed on the BiPAP in the ER given his history of chronic CO2 retention. VBG was obtained after placement of an IPAP and as such PCO2 was not remarkably elevated at that point and was only 50.9. He was noted to have a one-time fever of 100.9. He was thought to have cellulitis of his left leg. Surgery was consulted given leg swelling. Surgery recommended treatment with antibiotics. He was treated with a few days of antibiotics which was later discontinued as patient had already notably been on very prolonged course of very broad-spectrum antibiotics in very recent time. I think he has venostasis with lymphedema which is contributing to the left leg swelling. It actually looks a lot better than he was on his prior discharge. Regarding the one-time fever, blood cultures were negative. Urinalysis also negative. Chest x-ray showed no evidence of infection. Given though there was concern for cellulitis at the beginning, his malignancy could also cause occasional fevers. His fevers have been resolved. During this admission he was noted to have significant CO2 retention with PCO2 going over 100. He was placed on APAPs and actually overcorrected. He was subsequently taken off it and placed on Diamox temporarily with normalization of his pH. Patient's trilogy settings at home have been changed to adapt to the settings that we used in the hospital. Patient is doing well. He was also evaluated by orthopedist for his ankle fracture and orthopedics recommended conservative management. Patient also had work-up for his liver mass with CT chest, abdomen and pelvis. Patient's methadone has been cut in half, Dilaudid discontinued and substituted with oxycodone as discussed with family to help prevent oversedation and hypercapnia. Patient is doing well. Have discussed with patient's patient's and daughter about his care and plans for discharge. He has worked well with physical therapy today and will be going home with a walker and boot. Instructed to get farrow-wraps for venous stasis. Physical Exam Vital Signs: Temp Pulse Resp BP Pulse Ox 97.7 F 77 16 152/85 H 92 07/23/20 13:43 07/23/20 13:43 07/23/20 13:43 07/23/20 13:43 07/23/20 13:43 Intake & Output 07/22/20 07/23/20 07/24/20 06:59 06:59 06:59 Intake Total 400 Output Total 2975 1225 Balance -2975 -825 Weight 131.8 kg 131.8 kg 131.8 kg General appearance: PRESENT: no acute distress, cooperative Respiratory exam: PRESENT: unlabored. ABSENT: wheezes Cardiovascular exam: PRESENT: +S1, +S2 Neurological exam: PRESENT: alert, awake, oriented to person, oriented to place, oriented to time, oriented to situation Psychiatric exam: PRESENT: appropriate affect, normal mood. ABSENT: agitated, anxious Results Laboratory Results: WBC 5.2 10^3/uL (4.0-10.5) 07/21/20 06:00 RBC 3.69 10^6/uL (4.35-5.55) L 07/21/20 06:00 Hgb 11.1 g/dL (13.5-17.0) L 07/21/20 06:00 Hct 33.7 % (37.9-51.0) L 07/21/20 06:00 MCV 91 fl (80-97) 07/21/20 06:00 MCH 30.1 pg (27.0-33.4) 07/21/20 06:00 MCHC 33.0 g/dL (32.0-36.0) 07/21/20 06:00 RDW 14.6 % (11.5-14.0) H 07/21/20 06:00 Plt Count 80 10^3/uL (150-450) L 07/21/20 06:00 Lymph % (Auto) 14.6 % (13-45) 07/21/20 06:00 Isabella % (Auto) 13.2 % (3-13) H 07/21/20 06:00 Eos % (Auto) 1.4 % (0-6) 07/21/20 06:00 Baso % (Auto) 0.1 % (0-2) 07/21/20 06:00 Absolute Neuts (auto) 3.7 10^3/uL (1.7-8.2) 07/21/20 06:00 Absolute Lymphs (auto) 0.8 10^3/uL (0.5-4.7) 07/21/20 06:00 Absolute Monos (auto) 0.7 10^3/uL (0.1-1.4) 07/21/20 06:00 Absolute Eos (auto) 0.1 10^3/uL (0.0-0.6) 07/21/20 06:00 Absolute Basos (auto) 0.0 10^3/uL (0.0-0.2) 07/21/20 06:00 Total Counted 100 07/20/20 14:00 Seg Neutrophils % 70.7 % (42-78) 07/21/20 06:00 Seg Neuts % (Manual) 87 % (42-78) H 07/20/20 14:00 Band Neutrophils % 2 % (3-5) L 07/20/20 14:00 Lymphocytes % (Manual) 2 % (13-45) L 07/20/20 14:00 Atypical Lymphs % 4 % (0) 07/19/20 04:19 Monocytes % (Manual) 9 % (3-13) 07/20/20 14:00 Eosinophils % (Manual) 0 % (0-6) 07/20/20 14:00 Basophils % (Manual) 0 % (0-2) 07/20/20 14:00 Abs Neuts (Manual) 5.3 10^3/uL (1.7-8.2) 07/20/20 14:00 Abs Lymphs (Manual) 0.1 10^3/uL (0.5-4.7) L 07/20/20 14:00 Abs Monocytes (Manual) 0.5 10^3/uL (0.1-1.4) 07/20/20 14:00 Absolute Eos (Manual) 0.0 10^3/uL (0.0-0.6) 07/20/20 14:00 Abs Basophils (Manual) 0.0 10^3/uL (0.0-0.2) 07/20/20 14:00 Toxic Granulation SLIGHT 07/19/20 04:19 Toxic Vacuolation PRESENT 07/19/20 04:19 Platelet Comment DECREASED 07/20/20 14:00 Polychromasia SLIGHT 07/18/20 13:30 Poikilocytosis SLIGHT 07/18/20 13:30 Anisocytosis SLIGHT 07/20/20 14:00 Tear Drop Cells SLIGHT 07/20/20 14:00 Ovalocytes SLIGHT 07/20/20 14:00 PT 13.8 SEC (11.4-15.4) 07/18/20 13:30 INR 1.04 07/18/20 13:30 Carbonic Acid 1.59 mmol/L (1.05-1.35) H 07/22/20 06:15 HCO3/H2CO3 Ratio 21:1 07/22/20 06:15 ABG pH 7.42 (7.35-7.45) 07/22/20 06:15 ABG pCO2 52.7 mmHg (35-45) H 07/22/20 06:15 ABG pO2 66.0 mmHg (80-100) L 07/22/20 06:15 ABG HCO3 33.5 mmol/L (20-24) H 07/22/20 06:15 ABG Total CO2 35.1 mmol/L (23-27) H 07/22/20 06:15 ABG O2 Saturation 93.1 % (94-98) L 07/22/20 06:15 ABG Base Excess 7.6 mmol/L 07/22/20 06:15 VBG pH 7.34 (7.30-7.42) 07/23/20 05:25 VBG pCO2 52.6 mmHg (35-63) 07/23/20 05:25 VBG HCO3 27.7 mmol/L (20-32) 07/23/20 05:25 VBG Base Excess 1.1 mmol/L 07/23/20 05:25 FiO2 21% 07/22/20 06:15 Sodium 135.5 mmol/L (137-145) L 07/23/20 05:25 Potassium 4.0 mmol/L (3.6-5.0) 07/23/20 05:25 Chloride 99 mmol/L (98-107) 07/23/20 05:25 Carbon Dioxide 28 mmol/L (22-30) 07/23/20 05:25 Anion Gap 9 (5-19) 07/23/20 05:25 BUN 36 mg/dL (7-20) H 07/23/20 05:25 Creatinine 1.24 mg/dL (0.52-1.25) 07/23/20 05:25 Est GFR ( Amer) > 60 (>60) 07/23/20 05:25 Est GFR (MDRD) Non-Af 59 (>60) L 07/23/20 05:25 Glucose 108 mg/dL (75-110) 07/23/20 05:25 POC Glucose 152 mg/dL (70-110) H 07/23/20 11:12 Lactic Acid 0.6 mmol/L (0.7-2.1) L 07/20/20 14:00 Calcium 8.7 mg/dL (8.4-10.2) 07/23/20 05:25 Magnesium 2.7 mg/dL (1.6-2.3) H 07/23/20 05:25 Total Bilirubin 0.8 mg/dL (0.2-1.3) 07/21/20 06:00 Direct Bilirubin 0.3 mg/dL (0.0-0.4) 07/21/20 06:00 Neonat Total Bilirubin Not Reportable 07/21/20 06:00 Neonat Direct Bilirubin Not Reportable 07/21/20 06:00 Neonat Indirect Bili Not Reportable 07/21/20 06:00 AST 16 U/L (17-59) L 07/21/20 06:00 ALT 14 U/L (<50) 07/21/20 06:00 Alkaline Phosphatase 44 U/L (38-126) 07/21/20 06:00 Ammonia 14.9 umol/L (9-33) 07/20/20 14:00 Creatine Kinase 42 U/L (55-170) L 07/18/20 16:03 CK-MB (CK-2) 0.81 ng/mL (<4.55) 07/18/20 13:30 Troponin I < 0.012 ng/mL 07/20/20 14:00 NT-Pro-B Natriuret Pep 473 pg/mL (<125) H 07/20/20 14:00 Total Protein 5.6 g/dL (6.3-8.2) L 07/21/20 06:00 Albumin 3.5 g/dL (3.5-5.0) 07/21/20 06:00 Urine Color YELLOW 07/18/20 13:53 Urine Appearance CLEAR 07/18/20 13:53 Urine pH 8.0 (5.0-9.0) 07/18/20 13:53 Ur Specific [place] 1.013 07/18/20 13:53 Urine Protein NEGATIVE mg/dL (NEGATIVE) 07/18/20 13:53 Urine Glucose (UA) NEGATIVE mg/dL (NEGATIVE) 07/18/20 13:53 Urine Ketones NEGATIVE mg/dL (NEGATIVE) 07/18/20 13:53 Urine Blood NEGATIVE (NEGATIVE) 07/18/20 13:53 Urine Nitrite (Reflex) NEGATIVE (NEGATIVE) 07/18/20 13:53 Urine Bilirubin NEGATIVE (NEGATIVE) 07/18/20 13:53 Urine Urobilinogen 2.0 mg/dL (<2.0) H 07/18/20 13:53 Leukocyte Esterase Rfl NEGATIVE (NEGATIVE) 07/18/20 13:53 Urine RBC (Auto) 4 /HPF 07/18/20 13:53 Urine WBC (Reflex) < 1 /HPF 07/18/20 13:53 Squamous Epi Cells Auto <1 /HPF 07/18/20 13:53 Urine Mucus (Auto) RARE /LPF 07/18/20 13:53 Urine Ascorbic Acid NEGATIVE (NEGATIVE) 07/18/20 13:53 Time Trough Drawn 1150 07/20/20 11:50 Vancomycin Trough 12.7 ug/mL (5.0-20.0) 07/20/20 11:50 Urine Opiates Screen NEGATIVE 07/18/20 13:53 Urine Methadone Screen UNCONFIRMED POSITIVE 07/18/20 13:53 Ur Barbiturates Screen NEGATIVE 07/18/20 13:53 Ur Phencyclidine Scrn NEGATIVE 07/18/20 13:53 Ur Amphetamines Screen NEGATIVE 07/18/20 13:53 U Benzodiazepines Scrn NEGATIVE 07/18/20 13:53 Urine Cocaine Screen NEGATIVE 07/18/20 13:53 U Marijuana (THC) Screen NEGATIVE 07/18/20 13:53 07/18/20 07/18/20 07/20/20 13:30 13:30 14:00 CK-MB (CK-2) 0.81 Troponin I < 0.012 < 0.012 NT-Pro-B Natriuret Pep 473 H Impressions: Chest X-Ray 07/18/20 13:42 IMPRESSION: 1. No significant interval changes since the prior study dated 07/15/2020. No acute findings. Tibia/Fibula X-Ray 07/18/20 14:15 IMPRESSION: DIFFUSE SOFT TISSUE SWELLING. STABLE NONDISPLACED FRACTURE OF THE MEDIAL MALLEOLUS. NO ACUTE FINDINGS. Head CT 07/18/20 15:18 IMPRESSION: 1. No significant interval changes since the prior examination dated 07/15/2020. The appearance of the fairly large osseous lytic destruction involving the frontal bone is unchanged. Stable right posterior parietal bone lesion. These findings are likely consistent with the patient's known history of myeloma. 2. Stable soft tissue mass associated with the osseous destruction of the frontal bone with extension into the frontal sinus, left frontoethmoid recess, left orbital roof and extra-axial space on the frontal lobe. 3. No acute intracranial hemorrhage. EVIDENCE OF ACUTE STROKE: NO. Lower Extremity CT 07/18/20 18:01 IMPRESSION: Diffuse soft tissue swelling about the left knee extending into the lower leg and visualized portions of the hindfoot/midfoot nonspecific though raising the possibility of cellulitis. No underlying drainable fluid collection identified. Likewise, no foci of soft tissue gas to insinuate necrotizing fasciitis. Postsurgical changes of left total knee arthroplasty with patellar resurfacing. No definitive evidence of complication. Unchanged appearance of nondisplaced fracture involving the medial malleolus. TECHNICAL DOCUMENTATION: Quality ID # 436: Final reports with documentation of one or more dose reduction techniques (e.g., Automated exposure control, adjustment of the mA and/or kV according to patient size, use of iterative reconstruction technique) copyright 2011 [employer]- All Rights Reserved KUB X-Ray 07/20/20 00:00 IMPRESSION: NO RADIOGRAPHIC EVIDENCE FOR ACUTE ABDOMINAL DISEASE. Chest X-Ray 07/20/20 13:33 IMPRESSION: Borderline cardiomegaly with no pulmonary edema. Chest CT 07/22/20 00:00 IMPRESSION: Osteoporosis with multiple fractures, expansile lesion in the manubrium sternum, suspect myeloma Nodular contour of the liver from cirrhosis. Subtle nodule inferior right lobe liver stable compared to MRI Post left nephrectomy. Splenomegaly. NORMAL CT OF THE ABDOMEN AND PELVIS WITH ORAL AND INTRAVENOUS CONTRAST. Abdomen/Pelvis CT 07/22/20 08:00 IMPRESSION: Osteoporosis with multiple fractures, expansile lesion in the manubrium sternum, suspect myeloma Nodular contour of the liver from cirrhosis. Subtle nodule inferior right lobe liver stable compared to MRI Post left nephrectomy. Splenomegaly. NORMAL CT OF THE ABDOMEN AND PELVIS WITH ORAL AND INTRAVENOUS CONTRAST. Plan Time Spent: Greater than 30 Minutes Stroke Is this a Stroke Patient?: No Acute Heart Failure - Is this a Heart Failure Patient?: No
== END 2020-07-23 15:00 | disposition home health service (06) | DRG 602 ==
LOC: ER 13:23 → EH 16:25 → 5 21:43 → EH 21:45 → 5 21:46 → 3W 07-21 14:10
PROVIDERS: ADMIT Internal Medicine; ATTEND Hospitalist
PROC: 5A09357 Assistance with Respiratory Ventilation, Less than 24 Consecutive Hours, Continuous Positive Airway Pressure (ICD-10-PCS; principal; 2020-07-18)
DX: L03.116 Cellulitis of left lower limb (principal); J96.22 Acute and chronic respiratory failure with hypercapnia; J96.21 Acute and chronic respiratory failure with hypoxia; G93.41 Metabolic encephalopathy; C90.00 Multiple myeloma not having achieved remission; Z68.42 Body mass index [BMI] 45.0-49.9, adult; C79.51 Secondary malignant neoplasm of bone; E66.2 Morbid (severe) obesity with alveolar hypoventilation; S82.65XA Nondisplaced fracture of lateral malleolus of left fibula, initial encounter for closed fracture; J44.9 Chronic obstructive pulmonary disease, unspecified; E78.5 Hyperlipidemia, unspecified; I10 Essential (primary) hypertension; W19.XXXA Unspecified fall, initial encounter; Y92.9 Unspecified place or not applicable; T40.605A Adverse effect of unspecified narcotics, initial encounter; E11.9 Type 2 diabetes mellitus without complications; K75.81 Nonalcoholic steatohepatitis (NASH); B18.2 Chronic viral hepatitis C; F32.9 Major depressive disorder, single episode, unspecified; D70.9 Neutropenia, unspecified; K74.69 Other cirrhosis of liver; D69.6 Thrombocytopenia, unspecified; I87.2 Venous insufficiency (chronic) (peripheral); G25.3 Myoclonus; R16.0 Hepatomegaly, not elsewhere classified; E78.00 Pure hypercholesterolemia, unspecified; Z79.891 Long term (current) use of opiate analgesic; Z79.899 Other long term (current) drug therapy; Z79.890 Hormone replacement therapy; Z87.891 Personal history of nicotine dependence; Z88.6 Allergy status to analgesic agent; Z92.21 Personal history of antineoplastic chemotherapy; Z79.84 Long term (current) use of oral hypoglycemic drugs; Z85.820 Personal history of malignant melanoma of skin; Z90.5 Acquired absence of kidney; Z82.49 Family history of ischemic heart disease and other diseases of the circulatory system
CPT/HCPCS: 36415; 36600; 70450; 71045; 71260; 74018; 74177; 80048; 80053; 80202; 80307; 81001; 82140; 82550; 82553; 82803; 82962; 83605; 83735; 83880; 84484; 85025; 85610; 87040; 87070; 93005; 93010; 94660; 94799; 96361; 96365; 96375; 99285; J0692; J1170; J1815; J1885; J1940; J2405; J2543; J3370; J3490; J7060; J7120

== ENCOUNTER → 2020-08-28 | Outpatient (CLI) | payer MEDICARE ==
--- NOTE | 2020-08-29 17:55 | RADIOLOGY REPORT (SQ) ---
EXAM DESCRIPTION: BONE SURVEY COMPLETE IMAGES COMPLETED DATE/TIME: 08/28/2020 3:32 pm REASON FOR STUDY: C90.00 MULTIPLE MYELOMA NOT HAVING ACHIEVED REMISSION C90.00 MULTIPLE MYELOMA NOT HAVING ACHIEVED REMISSION COMPARISON: 07/19/2019. TECHNIQUE: Images of the axial and proximal appendicular skeleton are obtained, along with lateral s kull and frontal chest films. LIMITATIONS: None. FINDINGS: AP CHEST: Expansile lucent lesion in the distal left clavicle, unchanged. Lungs are clear . LATERAL SKULL: Multiple lucent lesions in the frontal skull. AP BOTH HUMERI: No worrisome bone lesions. TWO-VIEW LUMBAR SPINE: Old compression fractures. TWO-VIEW THORACIC SPINE: Old compression fractures. AP PELVIS: No worrisome bone lesions. AP BOTH FEMURS: No worrisome bone lesions. OTHER: No other significant finding. IMPRESSION: EXPANSILE LUCENT LESION IN THE DISTAL LEFT CLAVICLE AND MULTIPLE LUCENT LESIONS IN THE F RONTAL SKULL, UNCHANGED. THESE WOULD BE COMPATIBLE WITH MULTIPLE MYELOMA. ADDITIONALLY THERE ARE MU LTIPLE VERTEBRAL COMPRESSION FRACTURES WHICH COULD ALSO BE SEQUELAE OF MYELOMA. NO SIGNIFICANT MARSHALL E SINCE THE PRIOR STUDY. TECHNICAL DOCUMENTATION: JOB ID: [id number] 2010 [employer]- All Rights Reserved Reading location - IP/workstation name: [email or web address]
== END ==
LOC: RAD 14:50
PROVIDERS: ATTEND Internal Medicine Hematology & Oncology
DX: C90.00 Multiple myeloma not having achieved remission (principal)
CPT/HCPCS: 77075

== ENCOUNTER 2020-10-06 11:54 | Inpatient (IN) | payer MEDICARE, OTHER ==
[2020-10-06] MEDS ORDERED: FENTANYL CITRATE INJ/PF 100 MCG/2 ML AMPUL IV ONE ×2 (12:30→14:43)
--- NOTE | 2020-10-06 13:08 | RADIOLOGY REPORT (SQ) ---
EXAM DESCRIPTION: HUMERUS LEFT IMAGES COMPLETED DATE/TIME: 10/06/2020 1:00 pm REASON FOR STUDY: pain with palpation COMPARISON: None. NUMBER OF VIEWS: Two views. TECHNIQUE: Two radiographic images were acquired of the left humerus to include elbow and shoulder i n at least one projection. LIMITATIONS: None. FINDINGS: MINERALIZATION: Normal. BONES: No acute fracture or dislocation. No worrisome bone lesions. SOFT TISSUES: No obvious swelling or foreign body. OTHER: No other significant finding. IMPRESSION: NEGATIVE STUDY OF THE LEFT HUMERUS. NO RADIOGRAPHIC EVIDENCE OF ACUTE INJURY. TECHNICAL DOCUMENTATION: JOB ID: [id number] [employer] All Rights Reserved Reading location - IP/workstation name: [email or web address]
[2020-10-06] MEDS ORDERED: DIPH/PERTUSS(ACELL)/TETANUS VAC/PF 0.5 ML SYR (>=10YO) IM ONE (13:10)
--- NOTE | 2020-10-06 13:10 | RADIOLOGY REPORT (SQ) ---
EXAM DESCRIPTION: ELBOW LEFT OVER 2 VIEWS IMAGES COMPLETED DATE/TIME: 10/06/2020 1:00 pm REASON FOR STUDY: fall, L elbow injury COMPARISON: None. NUMBER OF VIEWS: Four views. TECHNIQUE: AP, lateral, and both oblique radiographic images acquired of the left elbow. LIMITATIONS: None. FINDINGS: MINERALIZATION: Normal. BONES: No acute fracture or dislocation. No worrisome bone lesions. JOINT: No effusion. SOFT TISSUES: No soft tissue swelling. No foreign body. OTHER: No other significant finding. IMPRESSION: NEGATIVE STUDY OF THE LEFT ELBOW. NO RADIOGRAPHIC EVIDENCE OF ACUTE INJURY. TECHNICAL DOCUMENTATION: JOB ID: [id number] 2010 [employer]- All Rights Reserved Reading location - IP/workstation name: [email or web address]
--- NOTE | 2020-10-06 13:11 | RADIOLOGY REPORT (SQ) ---
EXAM DESCRIPTION: HIP RIGHT AP/LATERAL IMAGES COMPLETED DATE/TIME: 10/06/2020 1:00 pm REASON FOR STUDY: pain with palpation COMPARISON: None. NUMBER OF VIEWS: Two views. TECHNIQUE: AP pelvis and additional frog legview of the right hip. LIMITATIONS: None. FINDINGS: MINERALIZATION: Normal. RIGHT HIP: Nondisplaced subtrochanteric right hip fracture. LEFT HIP: No fracture or dislocation. No worrisome bone lesions. Limited views. PUBIS AND ISCHIUM: No fracture. PELVIS: No fracture. SACRUM: No fracture or dislocation. No worrisome bone lesions. LOWER LUMBAR SPINE: No fracture or dislocation. No worrisome bone lesions. No significant disc disea se. SOFT TISSUES: No findings. OTHER: No other significant finding. IMPRESSION: Nondisplaced subtrochanteric right hip fracture. TECHNICAL DOCUMENTATION: JOB ID: [id number] 2010 [employer]- All Rights Reserved Reading location - IP/workstation name: [email or web address]
[2020-10-06 13:35] LABS: HEMATOCRIT 39.6 % (37.9-51.0); MEAN CORPUSCULAR HEMOGLOBIN 30.1 pg (27.0-33.4); MEAN CORPUSCULAR HGB CONC 32.9 g/dL (32.0-36.0); MEAN CORPUSCULAR VOLUME 91 fl (80-97); RED BLOOD COUNT 4.34 10^6/uL (4.35-5.55); RED CELL DISTRIBUTION WIDTH 15.7 % (11.5-14.0); WHITE BLOOD COUNT 5.6 10^3/uL (4.0-10.5)
[2020-10-06 14:00] LABS: ABSOLUTE LYMPHOCYTES# (MANUAL) 0.6 10^3/uL (0.5-4.7); ABSOLUTE MONOCYTES # (MANUAL) 0.4 10^3/uL (0.1-1.4); ALKALINE PHOSPHATASE 47 U/L (38-126); ANION GAP 10 (5-19); ASPARTATE AMINO TRANSFERASE 28 U/L (17-59); BAND NEUTROPHILS % (MANUAL) 2 % (3-5); BASOPHILS % (MANUAL) 0 % (0-2); BILIRUBIN,DIRECT 0.1 mg/dL (0.0-0.4); BILIRUBIN,TOTAL 0.8 mg/dL (0.2-1.3); BLOOD UREA NITROGEN 28 mg/dL (7-20); CALCIUM 8.6 mg/dL (8.4-10.2); CARBON DIOXIDE 29 mmol/L (22-30); CHLORIDE 101 mmol/L (98-107); EOSINOPHILS % (MANUAL) 1 % (0-6); GLUCOSE 92 mg/dL (75-110); LYMPHOCYTES % (MANUAL) 9 % (13-45); METAMYELOCYTES % (MANUAL) 1 % (0-1); MONOCYTES % (MANUAL) 8 % (3-13); POTASSIUM 4.3 mmol/L (3.6-5.0); SEGMENTED NEUTROPHILS % (MAN) 78 % (42-78); TOTAL CELLS COUNTED 100; TOTAL PROTEIN 6.4 g/dL (6.3-8.2)
[2020-10-06 14:02] LABS: PLATELET COMMENT DECREASED
[2020-10-06 14:04] LABS: ANISOCYTOSIS 1+; OVALOCYTES 1+; POIKILOCYTOSIS 1+
[2020-10-06 14:05] LABS: TEAR DROP CELLS SLIGHT
[2020-10-06 14:06] LABS: PLATELET COUNT 97 10^3/uL (150-450)
--- NOTE | 2020-10-06 14:45 | ER Document Report ---
ED Fall - General Chief Complaint: Fall Injury Stated Complaint: HIP PAIN Time Seen by Provider: 10/06/20 12:07 Information source: Patient, Relative Notes: Patient states that he was getting up to go to the bathroom this morning around 5:00 and had fallen asleep while standing and fell injuring his right hip. Patient denies any head injury, chest pain or difficulty breathing. Patient states that he had taken Ambien as he has had difficulty sleeping due to his chronic pain symptoms. Patient does have an underlying history of multiple myeloma and has had chronic right hip pain. TRAVEL OUTSIDE OF THE [place] IN LAST 30 DAYS: No - HPI Occurred: This morning Where: Home Context: Fell from standing Associated symptoms: Difficulty walking Location of injury/pain: Hip Quality of pain: Sharp Pain Level: 5 - Related data Allergies/Adverse Reactions: acetaminophen Adverse Reaction (Verified 01/31/20 15:41) Home Medications: ambien, celexa, furosemide, gabapentin, lipior, metformin, prednisone, ropinirole, spironolactone, vit. d Past Medical History - General Information source: Patient - Social History Smoking Status: Former Smoker Chew tobacco use (# tins/day): No Frequency of alcohol use: None Drug Abuse: None Lives with: Spouse/Significant other Family History: Hypertension, Other - Sister with bleeding varices, alcohol liver disease - Past Medical History Cardiac Medical History: Reports: Hx Hypercholesterolemia, Hx Hypertension Denies: Hx Heart Attack Pulmonary Medical History: Reports: Hx Bronchitis, Hx COPD, Hx Sleep Apnea Endocrine Medical History: Reports: Hx Diabetes Mellitus Type 2 Renal/ Medical History: Denies: Hx Peritoneal Dialysis Malignancy Medical History: Reports Other - Multiple myeloma GI Medical History: Reports: Hx Cirrhosis - Nonalcoholic steatohepatitis with cirrhosis, Hx Hepatitis - Hepatitis C Musculoskeletal Medical History: Reports Hx Arthritis Skin Medical History: Denies Hx Eczema, Denies Hx Psoriasis Psychiatric Medical History: Reports: Hx Depression Infectious Medical History: Reports: Hx Hepatitis - Hepatitis C Past Surgical History: Reports: Hx Appendectomy, Hx Kidney (Renal Surgery) - 1 removed as child, Hx Orthopedic Surgery - L knee, Hx Tonsillectomy, Other - Nephrectomy, port placement Review of Systems - Review of Systems Constitutional: No symptoms reported. denies: Fever EENT: No symptoms reported Cardiovascular: No symptoms reported. denies: Chest pain, Dizziness, Lightheaded Respiratory: No symptoms reported. denies: Cough, Short of breath Gastrointestinal: No symptoms reported. denies: Abdominal pain, Nausea, Vomiting Genitourinary: No symptoms reported Male Genitourinary: No symptoms reported Musculoskeletal: Joint pain - Right hip Skin: No symptoms reported Hematologic/Lymphatic: No symptoms reported Neurological/Psychological: No symptoms reported. denies: Weakness, Headaches Physical Exam - Vital signs Vitals: Temp Pulse Resp BP Pulse Ox 98.2 F 80 18 121/77 96 10/06/20 12:34 10/06/20 12:34 10/06/20 12:34 10/06/20 12:34 10/06/20 12:34 - General General appearance: Appears well, Alert In distress: None - HEENT Head: Normocephalic, Atraumatic Eyes: Normal Nasal: Normal Neck: Normal, Supple Notes: No posterior cervical midline tenderness, step-off or deformity - Respiratory Respiratory status: No respiratory distress Chest status: Nontender Breath sounds: Normal. No: Rales, Rhonchi, Stridor, Wheezing Chest palpation: Normal - Cardiovascular Rhythm: Regular Heart sounds: S1 appreciated, S2 appreciated Pulses: Normal: Dorsalis pedis - Abdominal Inspection: Morbidly Obese Distension: No distension Bowel sounds: Normal Tenderness: Nontender - Back Back: Normal. No: Deformity/step-off, CVA tenderness, Vertebra tenderness - Extremities General upper extremity: Normal ROM General lower extremity: Tender - Right hip tenderness Shoulder: Normal, Nontender Arm: Abrasion, Ecchymosis - Large area of ecchymosis to proximal third of left humerus Elbow: Nontender, Ecchymosis - Ecchymosis over olecranon of left elbow. No: Joint effusion, Limited ROM Forearm: Ecchymosis - Ecchymosis of the distal third of left forearm. No: Abrasion, Instability, Laceration Hand: Normal, Nontender Hip: Tender - Right hip tenderness, Pain with ROM, Unable to bear weight. No: Deformity, Dislocation, Ecchymosis Knee: Abrasion - To right knee - Neurological Neuro grossly intact: Yes Cognition: Normal [place] Coma Scale Eye Opening: Spontaneous [place] Coma Scale Verbal: Oriented [place] Coma Scale Motor: Obeys Commands Mei Coma Scale Total: 15 - Psychological Associated symptoms: Normal affect, Normal mood - Skin Skin Temperature: Warm Skin Moisture: Dry Skin Color: Ecchymosis - Left upper arm, left forearm Skin irregularity: other - Abrasion to right knee and left upper arm Course - Re-evaluation Re-evalutation: 10/06/20 14:44 Patient with nondisplaced right hip fracture, for consultation with orthopedic surgeon Dr. Weinberg. Awaiting return call at this time. 10/06/20 15:[address] Weinberg who states that patient will likely need surgery and will need to be admitted but under the hospitalist services due to multiple comorbidities. He does recommend obtaining a noncontrasted CT to further evaluate patient's hip fracture at this time. 10/06/20 15:13 Call placed to hospitalist Dr. Alves who states that she will call back as she is currently with the patient. 10/06/20 15:[address] Alves who advises consulting with Dr. Penn for admission at this time. 10/06/20 15:[address] Penn who does agree to evaluate patient for admission at this time. 10/06/20 15:51 Patient updated regarding plan of care at this time. Patient states that he is not refusing a CT scan at this time. Patient upset stating that he is unable to get a CAT scan without having additional pain medication at this time. Patient had removed the oxygen cannula and his pulse ox had dropped into the lower 80s. Patient advised that he will need to wear the oxygen to keep his oxygen saturation up. Patient advised that it would not be safe to continue giving pain medication if he continues with low oxygen saturation. Patient's pulse ox presently in the mid 90s with oxygen at 1 L. Patient's at bedside states that she had removed his oxygen as she was wetting his mouth as he is thirsty and wanting something to drink. She states that she forgot to replace the oxygen. Patient is agreeable with wearing oxygen at this time and is agreeable with CT imaging as long as he is given additional dose of pain medication. - Vital Signs Vital signs: Temp Pulse Resp BP Pulse Ox 98.1 F 80 18 140/91 H 96 10/06/20 18:03 10/06/20 18:03 10/06/20 18:03 10/06/20 18:03 10/06/20 18:03 - Laboratory Result Diagrams: 10/06/20 13:12 10/06/20 13:12 Laboratory results interpreted by me: 10/06/20 10/06/20 13:12 13:12 RBC 4.34 L Hgb 13.0 L RDW 15.7 H Plt Count 97 L Band Neutrophils % 2 L Lymphocytes % (Manual) 9 L BUN 28 H - Diagnostic Test Radiology reviewed: Image reviewed, Reports reviewed - EKG Interpretation by Me EKG shows normal: Sinus rhythm When compared to previous EKG there are: No significant change Additional EKG results interpreted by me: 10/06/20 15:06 Sinus rhythm with a rate of 78, QTc 447, no acute ischemic changes Discharge - Discharge Clinical Impression: Diabetes Qualifiers: Diabetes mellitus type: type 2 COPD (chronic obstructive pulmonary disease) Qualifiers: COPD type: chronic bronchitis Fracture, subtrochanteric, right femur, closed Qualifiers: Encounter type: initial encounter Fracture alignment: nondisplaced Qualified Code(s): S72.24XA - Nondisplaced subtrochanteric fracture of right femur, initial encounter for closed fracture Chronic pain Qualifiers: Chronic pain type: due to neoplasm Qualified Code(s): G89.3 - Neoplasm related pain (acute) (chronic) Multiple myeloma Qualifiers: Multiple myeloma remission status: not in remission Qualified Code(s): C90.00 - Multiple myeloma not having achieved remission Condition: Fair Disposition: ADMITTED INPATIENT Admitting Provider: Isamar (Hospitalist) Unit Admitted: Telemetry
[2020-10-06] MEDS ORDERED: CEFAZOLIN 2 GM/D5W RTU 2 GM/50 ML RTUPB IV PRN (15:46)
--- NOTE | 2020-10-06 15:46 | PDOC CONSULTATION ---
Consultation Consult Date: 10/06/20 Provider Consulted: BETITO HERNÁNDEZ JR History of Present Illness Admission Date/PCP: ORA WILL MD History of Present Illness: VERONIQUE SOLIZ is a 65 year old male The patient has a complicated history including multiple myeloma as well as persistent and recurrent bilateral lower extremity venous stasis disease with recurrent left lower leg cellulitis. He also has a history of a left ankle fracture that was treated nonoperatively and has recently returned to weightbearing as tolerated over the last few weeks. He reports on going difficulty ambulating as well as difficulty sleeping. He has had right hip pain that is been present and progressive over the last month leading to difficulty standing and ambulating. Due to this he has been taking hard doses of medication that helps him sleep to the point that he feels he slept on his feet today and ultimately fell onto his right hip. He has had severe right hip pain at this time, 8 out of 10, prevents him from ambulating, worse with any range of motion, improved with rest, improved with pain medication, localized to the right hip, aching in nature. Past Medical History Cardiac Medical History: Reports: Hyperlipidema, Hypertension Denies: Myocardial Infarction Pulmonary Medical History: Reports: Bronchitis, Chronic Obstructive Pulmonary Disease (COPD), Sleep Apnea Endocrine Medical History: Reports: Diabetes Mellitus Type 2 GI Medical History: Reports: Cirrhosis - Nonalcoholic steatohepatitis with cirrhosis, Hepatitis - Hepatitis C Musculoskeltal Medical History: Reports: Arthritis Skin Medical History: Denies: Eczema, Psoriasis Psychiatric Medical History: Reports: Depression Hematology: Reports: Neutropenia Past Surgical History Past Surgical History: Reports: Appendectomy, Orthopedic Surgery - L knee, Tonsillectomy, Other - Nephrectomy, port placement Social History Smoking Status: Former Smoker Electronic Cigarette use?: No Frequency of Alcohol Use: None Hx Recreational Drug Use: No - Remote history greater than 30 years ago Drugs: None Hx Prescription Drug Abuse: No - Chronic pain medication for bony metastases Family History Family History: Hypertension, Other - Sister with bleeding varices, alcohol liver disease Parental Family History Reviewed: No Children Family History Reviewed: NA Sibling(s) Family History Reviewed.: NA Medication/Allergy Home Medications: Atorvastatin Calcium [Lipitor 20 mg Tablet] 20 mg PO QHS 11/03/19 Cholecalciferol (Vitamin D3) [Vitamin D3 2000 unit Tablet] 5,000 unit PO DAILY 11/03/19 Citalopram Hydrobromide [Celexa 40 mg Tablet] 40 mg PO DAILY 11/03/19 Docusate Sodium [Colace 100 mg Capsule] 100 mg PO DAILY 11/03/19 Furosemide [Lasix 40 mg Tablet] 40 mg PO QAM 11/03/19 Metformin HCl [Glucophage] 500 mg PO DAILY 11/03/19 Spironolactone [Aldactone] 50 mg PO DAILY 11/03/19 Umeclidinium Brm/Vilanterol Tr [Anoro Ellipta 62.5-25 Mcg INH] 1 puff PO BID 06/12/20 Gabapentin [Neurontin 400 mg Capsule] 400 mg PO Q8 #0 07/23/20 Buprenorphine HCl [Belbuca] 600 mcg PO QAM 10/06/20 Buprenorphine HCl [Belbuca] 750 mcg PO QHS 10/06/20 Hydromorphone HCl [Dilaudid 2 mg Tablet] 2 mg PO Q6HP PRN 10/06/20 Prednisone [Deltasone 10 mg Tablet] 10 mg PO DAILY 10/06/20 Ropinirole HCl 1 mg PO QHS 10/06/20 Allergies/Adverse Reactions: acetaminophen Adverse Reaction (Verified 01/31/20 15:41) Review of Systems Review of Systems: Constitutional: ABSENT: anorexia, chills, night sweats Cardiovascular: ABSENT: chest pain Respiratory: ABSENT: dyspnea Gastrointestinal: ABSENT: vomiting Genitourinary: ABSENT: dysuria Integumentary: Present, rash, cellulitis left lower extremity. Neurological: ABSENT: confusion, memory loss, numbness Psychiatric: ABSENT: hallucinations Hematologic/Lymphatic: ABSENT: easy bleeding Physical Exam Vital Signs: Temp Pulse Resp BP Pulse Ox 98.2 F 80 17 128/86 H 96 10/06/20 12:34 10/06/20 12:34 10/06/20 14:35 10/06/20 14:35 10/06/20 14:35 Intake & Output 10/05/20 10/06/20 10/07/20 06:59 06:59 06:59 Weight 131.542 kg Physical Exam: General appearance: PRESENT: no acute distress, cooperative, obese Head exam: PRESENT: atraumatic, normocephalic Eye exam: PRESENT: EOMI Ear exam: PRESENT: normal external ear exam Mouth exam: PRESENT: neck supple Neck exam: ABSENT: tracheal deviation Respiratory exam: PRESENT: symmetrical, unlabored. ABSENT: accessory muscle use, wheezes Pulses: PRESENT: normal radial pulses, normal dorsalis pedis pulse Vascular exam: PRESENT: normal capillary refill GI/Abdominal exam: ABSENT: distended, firm Neurological exam: PRESENT: alert, awake, oriented to person, oriented to place, oriented to time Psychiatric exam: PRESENT: appropriate affect. ABSENT: agitated Focused psych exam: ABSENT: catatonic Skin exam: PRESENT: intact. ABSENT: dry All as above aside from that noted in the HPI and the following: Right lower extremity -Pulses 1+ distally -Compartments soft -Sensation grossly intact to L3-4-5 S1 -Motor grossly intact to EHL TA gastroc and quad -Chronic venous stasis changes of the lower leg Pain with any range of motion of the right hip, positive logroll. Results Laboratory Results: 10/06/20 13:12 10/06/20 13:12 10/06/20 10/06/20 13:12 13:12 WBC 5.6 RBC 4.34 L Hgb 13.0 L Hct 39.6 MCV 91 MCH 30.1 MCHC 32.9 RDW 15.7 H Plt Count 97 L Seg Neutrophils % Not Reportable Sodium 139.5 Potassium 4.3 Chloride 101 Carbon Dioxide 29 Anion Gap 10 BUN 28 H Creatinine 0.98 Est GFR ( Amer) > 60 Glucose 92 Calcium 8.6 Total Bilirubin 0.8 AST 28 Alkaline Phosphatase 47 Total Protein 6.4 Albumin 4.0 Impressions: Hip/Pelvis X-Ray 10/06/20 12:00 IMPRESSION: Nondisplaced subtrochanteric right hip fracture. Humerus X-Ray 10/06/20 12:00 IMPRESSION: NEGATIVE STUDY OF THE LEFT HUMERUS. NO RADIOGRAPHIC EVIDENCE OF ACUTE INJURY. Elbow X-Ray 10/06/20 12:30 IMPRESSION: NEGATIVE STUDY OF THE LEFT ELBOW. NO RADIOGRAPHIC EVIDENCE OF ACUTE INJURY. Assessment & Plan - Diagnosis (1) Fracture, subtrochanteric, right femur, closed Is this a current diagnosis for this admission?: Yes Plan: On x-ray today the patient appears to have a subtrochanteric fracture that is nondisplaced of the right hip. It is possible that the patient has had a developing stress fracture at this level potentially in association with his multiple myeloma or prednisone use. The fall may have led to pain but may not directly be associated with the fracture. This is nondisplaced and appears somewhat chronic on my read. I would like to get a CT scan further evaluate -Patient understands he is high risk for surgery given his history of lower leg swelling, diabetes, multiple myeloma, however in order to provide him some pain relief and allow for fracture healing and return to ambulation he will likely need an cephalomedullary nail. Will discuss further surgical decision making pending CT scan. Keep n.p.o. tonight Nonweightbearing right lower extremity
[2020-10-06] MEDS ORDERED: MORPHINE SULFATE 10 MG/ML INJ IV ONE (15:51)
[2020-10-06 15:56] LABS: INTERNATIONAL RATION (INR) 0.97; PROTHROMBIN TIME 13.1 SEC (11.4-15.4)
[2020-10-06] MEDS ORDERED: ONDANSETRON HCL INJ/PF 4 MG/2 ML SDV IV PRN (16:09)
--- NOTE | 2020-10-06 16:41 | PDOC H&P ---
History of Present Illness Admission Date/PCP: ORA WILL MD History of Present Illness: VERONIQUE SOLIZ is a 65 year old male with multiple medical comorbidities including multiple myeloma not in remission, history of hepatitis C that has been treated, cirrhosis, his said he had heart failure at 1 point but she does not think he has it anymore and he has not had to follow with a hospice care sales consultant, chronic pain, morbid obesity, obstructive sleep apnea, and generalized weakness who presents after a fall at home. He was having some trouble sleeping last night so his gave him half of a sleeping pill and at some point he got up with his walker to go to the bathroom and his said he fell asleep standing up and then fell onto his left side. They called EMS and brought him in and did several images of his joints and found a hip fracture on his right side, instead of on the left side where he fell. His said the orthopedist told them that he suspects the patient actually broke it a few weeks ago when he slipped and stretched out his right hip and has had pain in it since then. The fracture was nondisplaced. Orthopedics is already seen him in the ER and is planning to operate on him tomorrow. Past Medical History Cardiac Medical History: Reports: Hyperlipidema, Hypertension Denies: Myocardial Infarction Pulmonary Medical History: Reports: Bronchitis, Chronic Obstructive Pulmonary Disease (COPD), Sleep Apnea Endocrine Medical History: Reports: Diabetes Mellitus Type 2 GI Medical History: Reports: Cirrhosis - Nonalcoholic steatohepatitis with cirrhosis, Hepatitis - Hepatitis C Musculoskeltal Medical History: Reports: Arthritis Skin Medical History: Denies: Eczema, Psoriasis Psychiatric Medical History: Reports: Depression Hematology: Reports: Neutropenia Past Surgical History Past Surgical History: Reports: Appendectomy, Orthopedic Surgery - L knee, Tonsillectomy, Other - Nephrectomy, port placement Social History Smoking Status: Former Smoker Electronic Cigarette use?: No Frequency of Alcohol Use: None Hx Recreational Drug Use: No - Remote history greater than 30 years ago Drugs: None Hx Prescription Drug Abuse: No - Chronic pain medication for bony metastases Family History Family History: Hypertension, Other - Sister with bleeding varices, alcohol liver disease Parental Family History Reviewed: Yes Children Family History Reviewed: Yes Sibling(s) Family History Reviewed.: Yes Medication/Allergy Home Medications: Atorvastatin Calcium [Lipitor 20 mg Tablet] 20 mg PO QHS 11/03/19 Cholecalciferol (Vitamin D3) [Vitamin D3 2000 unit Tablet] 5,000 unit PO DAILY 11/03/19 Citalopram Hydrobromide [Celexa 40 mg Tablet] 40 mg PO DAILY 11/03/19 Docusate Sodium [Colace 100 mg Capsule] 100 mg PO DAILY 11/03/19 Furosemide [Lasix 40 mg Tablet] 40 mg PO QAM 11/03/19 Metformin HCl [Glucophage] 500 mg PO DAILY 11/03/19 Spironolactone [Aldactone] 50 mg PO DAILY 11/03/19 Umeclidinium Brm/Vilanterol Tr [Anoro Ellipta 62.5-25 Mcg INH] 1 puff PO BID 06/12/20 Gabapentin [Neurontin 400 mg Capsule] 400 mg PO Q8 #0 07/23/20 Buprenorphine HCl [Belbuca] 600 mcg PO QAM 10/06/20 Buprenorphine HCl [Belbuca] 750 mcg PO QHS 10/06/20 Hydromorphone HCl [Dilaudid 2 mg Tablet] 2 mg PO Q6HP PRN 10/06/20 Prednisone [Deltasone 10 mg Tablet] 10 mg PO DAILY 10/06/20 Ropinirole HCl 1 mg PO QHS 10/06/20 Allergies/Adverse Reactions: acetaminophen Adverse Reaction (Verified 01/31/20 15:41) Review of Systems All systems: reviewed and no additional remarkable complaints except as stated - All systems were reviewed and were negative except as noted in the HPI Physical Exam Vital Signs: Temp Pulse Resp BP Pulse Ox 98.2 F 80 17 128/86 H 96 10/06/20 12:34 10/06/20 12:34 10/06/20 14:35 10/06/20 14:35 10/06/20 14:35 Intake & Output 10/05/20 10/06/20 10/07/20 06:59 06:59 06:59 Weight 131.542 kg General appearance: PRESENT: no acute distress, cooperative, disheveled, morbidly obese Head exam: PRESENT: atraumatic, normocephalic Eye exam: PRESENT: EOMI, PERRLA. ABSENT: conjunctival injection, nystagmus, scl eral icterus Ear exam: PRESENT: normal external ear exam Mouth exam: PRESENT: moist, neck supple Throat exam: ABSENT: post pharyngeal erythema Neck exam: PRESENT: full ROM. ABSENT: carotid bruit, JVD, lymphadenopathy, meningismus, tenderness, thyromegaly Respiratory exam: PRESENT: clear to auscultation pat, symmetrical, unlabored. ABSENT: accessory muscle use, chest wall tenderness, crackles, prolonged expiratory phas, rhonchi, tachypnea, wheezes Cardiovascular exam: PRESENT: RRR, +S1, +S2 Pulses: PRESENT: normal carotid pulses Vascular exam: PRESENT: normal capillary refill GI/Abdominal exam: PRESENT: normal bowel sounds, soft, other - Pendulous abdominal pannus. ABSENT: distended, guarding, rebound, tenderness Extremities exam: PRESENT: +1 edema, other - Bilateral chronic venous stasis, worse on the left. ABSENT: clubbing, pedal edema Musculoskeletal exam: PRESENT: normal inspection, tenderness - Over right greater trochanter. ABSENT: deformity Neurological exam: PRESENT: alert, awake, oriented to person, oriented to place, oriented to situation, CN II-XII grossly intact. ABSENT: motor sensory deficit Psychiatric exam: PRESENT: appropriate affect, normal mood Skin exam: PRESENT: dry, warm, other - Evidence of longstanding chronic venous stasis to bilateral lower extremities, worse on the left Results Laboratory Results: 10/06/20 13:12 10/06/20 13:12 10/06/20 10/06/20 13:12 13:12 WBC 5.6 RBC 4.34 L Hgb 13.0 L Hct 39.6 MCV 91 MCH 30.1 MCHC 32.9 RDW 15.7 H Plt Count 97 L Seg Neutrophils % Not Reportable Sodium 139.5 Potassium 4.3 Chloride 101 Carbon Dioxide 29 Anion Gap 10 BUN 28 H Creatinine 0.98 Est GFR ( Amer) > 60 Glucose 92 Calcium 8.6 Total Bilirubin 0.8 AST 28 Alkaline Phosphatase 47 Total Protein 6.4 Albumin 4.0 Impressions: Hip/Pelvis X-Ray 10/06/20 12:00 IMPRESSION: Nondisplaced subtrochanteric right hip fracture. Humerus X-Ray 10/06/20 12:00 IMPRESSION: NEGATIVE STUDY OF THE LEFT HUMERUS. NO RADIOGRAPHIC EVIDENCE OF ACUTE INJURY. Elbow X-Ray 10/06/20 12:30 IMPRESSION: NEGATIVE STUDY OF THE LEFT ELBOW. NO RADIOGRAPHIC EVIDENCE OF ACUTE INJURY. Assessment and Plan - Diagnosis (1) Fracture, subtrochanteric, right femur, closed Qualifiers: Encounter type: initial encounter Fracture alignment: nondisplaced Qualified Code(s): S72.24XA - Nondisplaced subtrochanteric fracture of right femur, initial encounter for closed fracture Is this a current diagnosis for this admission?: Yes (2) COPD (chronic obstructive pulmonary disease) Qualifiers: COPD type: chronic bronchitis Is this a current diagnosis for this admission?: Yes (3) Cirrhosis Qualifiers: Hepatic cirrhosis type: unspecified hepatic cirrhosis Ascites presence: without ascites Qualified Code(s): K74.60 - Unspecified cirrhosis of liver Is this a current diagnosis for this admission?: Yes (4) History of hepatitis C Is this a current diagnosis for this admission?: Yes (5) Morbid obesity with BMI of 45.0-49.9, adult Is this a current diagnosis for this admission?: Yes (6) Multiple myeloma Qualifiers: Multiple myeloma remission status: not in remission Qualified Code(s): C90.00 - Multiple myeloma not having achieved remission Is this a current diagnosis for this admission?: Yes (7) Sleep apnea in adult Is this a current diagnosis for this admission?: Yes (8) Venous stasis dermatitis of left lower extremity Is this a current diagnosis for this admission?: Yes (9) Weakness Is this a current diagnosis for this admission?: Yes - Plan Summary Summary: We will give him some pain medication and will continue his home medications. He has been seen by orthopedics. They have ordered a CT scan of his hip to better evaluate the fracture. It appears at this time that the plan is for him to have surgery in the morning. He can eat tonight but he is to be n.p.o. after midnight. We will resumed DVT prophylaxis postoperatively. We will follow up weightbearing recommendations and postoperative care per orthopedics. - Time Time Spent with patient: 35 or more minutes Anticipated Discharge Disposition: Care Home Facility Anticipated Discharge Timeframe: Undetermined - Inpatient Certification Based on my medical assessment, after consideration of the patient's comorbidities, presenting symptoms, or acuity I expect that the services needed warrant INPATIENT care.: Yes I certify that my determination is in accordance with my understanding of Medicare's requirements for reasonable and necessary INPATIENT services [42 CFR 412.3e].: Yes Medical Necessity: Significant Comorbidiites Make Outpatient Treatment Too Risky, Need Close Monitoring Due to Risk of Patient Decompensation, Need For Continuous Telemetry Monitoring, Need for Pain Control, Need for Surgery
--- NOTE | 2020-10-06 16:52 | RADIOLOGY REPORT (SQ) ---
EXAM DESCRIPTION: CHEST SINGLE VIEW IMAGES COMPLETED DATE/TIME: 10/06/2020 3:41 pm REASON FOR STUDY: preop COMPARISON: None. EXAM PARAMETERS: NUMBER OF VIEWS: One view. TECHNIQUE: Single frontal radiographic view of the chest acquired. RADIATION DOSE: NA LIMITATIONS: None. FINDINGS: LUNGS AND PLEURA: No opacities, masses or pneumothorax. No pleural effusion. MEDIASTINUM AND HILAR STRUCTURES: No masses. Contour normal. HEART AND VASCULAR STRUCTURES: Heart normal in size. Normal vasculature. BONES: No acute findings. HARDWARE: Right MediPort catheter with tip at the cavoatrial junction. OTHER: No other significant finding. IMPRESSION: NO ACUTE RADIOGRAPHIC FINDING IN THE CHEST. TECHNICAL DOCUMENTATION: JOB ID: [id number] 2010 [employer]- All Rights Reserved Reading location - IP/workstation name: [email or web address]
--- NOTE | 2020-10-06 17:24 | RADIOLOGY REPORT (SQ) ---
EXAM DESCRIPTION: CT RT LOWER EXTREMITY WITHOUT IMAGES COMPLETED DATE/TIME: 10/06/2020 3:38 pm REASON FOR STUDY: Eval right hip fracture, history of multiple myeloma. COMPARISON: Right hip radiograph same date. Bone survey, 08/28/2020. CT abdomen and pelvis 0 TECHNIQUE: CT scan of the right hip performed without intravenous or oral contrast. Images reviewed with soft tissue and bone windows. Reconstructed coronal and sagittal MPR images reviewed. All jose ges stored on PACS. All CT scanners at this facility use dose modulation, iterative reconstruction, and/or weight based d osing when appropriate to reduce radiation dose to as low as reasonably achievable (ALARA). [facility]: Dose Right [facility]: CareDose [facility]: Dose Right [facility]: Teradose 4D [facility]: Smart MOGL RADIATION DOSE: CT Rad equipment meets quality standard of care and radiation dose reduction techniq ues were employed. CTDIvol: 4.1 mGy. DLP: 179 mGy-cm. mGy. LIMITATIONS: None. FINDINGS: PELVIC BONES: Subtle sclerotic appearance of the right iliac bone stable from previous bon e survey and CT, probably related to myeloma. No pelvic fracture. VISUALIZED SPINE: Poorly evaluated. SYMPTOMATIC HIP: Incomplete insufficiency fracture in the proximal femoral metadiaphysis best seen on coronal images 35-43 and sagittal images 32-33. No displacement or angulation. No definite underly ing intramedullary lesion. No involvement of the trochanters or femoral neck. OPPOSITE HIP: Not imaged PELVIC SOFT TISSUES: No significant findings. EXTRAPELVIC SOFT TISSUES: No significant findings. OTHER: No other significant finding. IMPRESSION: 1. Nondisplaced insufficiency fracture in the proximal right femoral metadiaphysis. TECHNICAL DOCUMENTATION: JOB ID: [id number] Quality ID # [id number]: Final reports with documentation of one or more dose reduction techniques (e.g., Au tomated exposure control, adjustment of the mA and/or kV according to patient size, use of iterative reconstruction technique) 2010 [employer]- All Rights Reserved Reading location - IP/workstation name: [email or web address]
[2020-10-06] MEDS: HYDROMORPHONE HCL INJ/PF 2 MG/ML AMPULE IV PRN ×3 (17:28→21:51)
[2020-10-06] MEDS ORDERED: (PENDING PHARMACY ID) (Umeclidinium Brm/Vilanterol Tr [Anoro Ellipta 62.5-25 Mcg Inh] 1 PU PO SCH ×2 (18:00→20:00)
[2020-10-06] MEDS: GABAPENTIN 400 MG CAPSULE PO SCH (21:51)
[2020-10-06] MEDS: ROPINIROLE HCL 1 MG TABLET PO SCH (21:51)
[2020-10-06] MEDS: ATORVASTATIN CALCIUM 20 MG TABLET PO SCH (21:51)
[2020-10-06] MEDS ORDERED: BUPRENORPHINE HCL 750 MCG PO SCH (22:00)
[2020-10-07] MEDS: KETOROLAC TROMETHAMINE INJ/PF 30 MG/1 ML SDV IV PRN ×3 (05:06→19:46)
[2020-10-07] MEDS: GABAPENTIN 400 MG CAPSULE PO SCH ×3 (05:07→21:54)
[2020-10-07] MEDS: HYDROMORPHONE HCL INJ/PF 2 MG/ML AMPULE IV PRN ×2 (07:56→15:23)
[2020-10-07] MEDS: FUROSEMIDE 40 MG TABLET PO SCH (07:56)
[2020-10-07] MEDS ORDERED: BUPRENORPHINE HCL 600 MCG PO SCH (08:00)
[2020-10-07 08:22] LABS: HEMATOCRIT 39.6 % (37.9-51.0); HEMOGLOBIN 13.1 g/dL (13.5-17.0); MEAN CORPUSCULAR HEMOGLOBIN 30.1 pg (27.0-33.4); MEAN CORPUSCULAR VOLUME 91 fl (80-97); PLATELET COUNT 101 10^3/uL (150-450); RED BLOOD COUNT 4.34 10^6/uL (4.35-5.55); RED CELL DISTRIBUTION WIDTH 15.6 % (11.5-14.0); WHITE BLOOD COUNT 6.1 10^3/uL (4.0-10.5)
[2020-10-07 08:39] LABS: ANION GAP 10 (5-19); BLOOD UREA NITROGEN 32 mg/dL (7-20); CARBON DIOXIDE 29 mmol/L (22-30); CHLORIDE 99 mmol/L (98-107); GLUCOSE 96 mg/dL (75-110); POTASSIUM 4.7 mmol/L (3.6-5.0)
--- NOTE | 2020-10-07 08:46 | PDOC PROGRESS REPORT ---
Subjective Date:: 10/07/20 Subjective:: Patient reports continued pain at this time. No acute events overnight. No new complaints. Reason For Visit: RIGHT HIP FRACTURE Physical Exam Vital Signs: Temp Pulse Resp BP Pulse Ox 97.7 F 80 20 126/71 H 96 10/07/20 07:28 10/07/20 07:28 10/07/20 07:28 10/07/20 07:28 10/07/20 07:28 Intake & Output 10/06/20 10/07/20 10/08/20 06:59 06:59 06:59 Intake Total 118 Output Total 400 Balance -282 Weight 136.7 kg Physical Exam: No acute distress, alert and orient x3 Right lower extremity -Pulses 2+ distally -Compartments soft -Sensation grossly intact to L3-4-5 S1 -Motor grossly intact to EHL TA gastroc and quad Skin intact, no bruising over the area, severe pain to palpation of the greater trochanter. Results Laboratory Results: 10/07/20 07:21 10/06/20 10/06/20 10/07/20 13:12 13:12 07:21 WBC 5.6 6.1 RBC 4.34 L 4.34 L Hgb 13.0 L 13.1 L Hct 39.6 39.6 MCV 91 91 MCH 30.1 30.1 MCHC 32.9 33.0 RDW 15.7 H 15.6 H Plt Count 97 L 101 L Seg Neutrophils % Not Reportable Sodium 139.5 Potassium 4.3 Chloride 101 Carbon Dioxide 29 Anion Gap 10 BUN 28 H Creatinine 0.98 Est GFR ( Amer) > 60 Glucose 92 Calcium 8.6 Total Bilirubin 0.8 AST 28 Alkaline Phosphatase 47 Total Protein 6.4 Albumin 4.0 Impressions: Hip/Pelvis X-Ray 10/06/20 12:00 IMPRESSION: Nondisplaced subtrochanteric right hip fracture. Humerus X-Ray 10/06/20 12:00 IMPRESSION: NEGATIVE STUDY OF THE LEFT HUMERUS. NO RADIOGRAPHIC EVIDENCE OF ACUTE INJURY. Elbow X-Ray 10/06/20 12:30 IMPRESSION: NEGATIVE STUDY OF THE LEFT ELBOW. NO RADIOGRAPHIC EVIDENCE OF ACUTE INJURY. Lower Extremity CT 10/06/20 15:09 IMPRESSION: 1. Nondisplaced insufficiency fracture in the proximal right femoral metadiaphysis. Chest X-Ray 10/06/20 15:10 IMPRESSION: NO ACUTE RADIOGRAPHIC FINDING IN THE CHEST. Assessment & Plan - Diagnosis (1) Fracture, subtrochanteric, right femur, closed Qualifiers: Encounter type: initial encounter Fracture alignment: nondisplaced Qualified Code(s): S72.24XA - Nondisplaced subtrochanteric fracture of right femur, initial encounter for closed fracture Is this a current diagnosis for this admission?: Yes Plan: Plan will be for a cephalomedullary nail 10/09/2020 The patient is able to get out of bed at this time nonweightbearing right lower extremity Encourage bed to chair, encourage mobilization to the bathroom Discussed the options with the patient and his who understand and agree with the plan N.p.o. at midnight Friday night, hold all chemical DVT prophylaxis at that time. - Time Time Spent with patient: Less than 15 minutes
--- NOTE | 2020-10-07 09:46 | EKG REPORT ---
SEVERITY:- OTHERWISE NORMAL ECG - SINUS RHYTHM BORDERLINE LEFT AXIS DEVIATION : Confirmed by: Luis Velasquez 07-Oct-2020 09:45:29
[2020-10-07] MEDS ORDERED: (PENDING PHARMACY ID) (Citalopram Hydrobromide [Celexa 40 Mg Tablet] 40 MG) PO SCH (10:00)
[2020-10-07] MEDS ORDERED: CHOLECALCIFEROL PO SCH (10:00)
[2020-10-07] MEDS ORDERED: (PENDING PHARMACY ID) (Spironolactone [Aldactone] 50 MG) PO SCH (10:00)
[2020-10-07] MEDS ORDERED: [UNRECOGNIZED DRUG - OTHER] PO SCH (10:00)
[2020-10-07] MEDS: CHOLECALCIFEROL (D3) 1,000 UNIT (25 MCG) TABLET PO SCH (10:51)
[2020-10-07] MEDS: CITALOPRAM HYDROBROMIDE 20 MG TABLET PO SCH (10:52)
[2020-10-07] MEDS: DOCUSATE SODIUM 100 MG CAPSULE PO SCH (10:52)
[2020-10-07] MEDS: PREDNISONE 10 MG TABLET PO SCH (10:52)
[2020-10-07] MEDS: SPIRONOLACTONE 25 MG TABLET PO SCH (10:52)
[2020-10-07] MEDS: METFORMIN HCL 500 MG TABLET PO SCH (10:53)
--- NOTE | 2020-10-07 17:54 | PDOC PROGRESS REPORT ---
Subjective Date:: 10/07/20 Subjective:: No adverse events overnight. No new complaints. He is feeling fairly comfortab le. His brought in his buprenorphine transbuccal patch for him to have today. His hip surgery today was bumped because a more urgent procedure was prioritized in that OR this morning. It looks like he will be having his surgery on Friday. Reason For Visit: RIGHT HIP FRACTURE Physical Exam Vital Signs: Temp Pulse Resp BP Pulse Ox 97.7 F 84 12 106/77 97 10/07/20 11:14 10/07/20 14:00 10/07/20 11:14 10/07/20 11:14 10/07/20 11:14 Intake & Output 10/06/20 10/07/20 10/08/20 06:59 06:59 06:59 Intake Total 118 480 Output Total 400 Balance -282 480 Weight 136.7 kg General appearance: PRESENT: no acute distress, cooperative, disheveled, morbidly obese Respiratory exam: PRESENT: clear to auscultation pat, symmetrical, unlabored. ABSENT: accessory muscle use, chest wall tenderness, crackles, prolonged expiratory phase, rhonchi, tachypnea, wheezes Cardiovascular exam: PRESENT: RRR, +S1, +S2 Pulses: PRESENT: normal carotid pulses Vascular exam: PRESENT: normal capillary refill GI/Abdominal exam: PRESENT: normal bowel sounds, soft, other - Pendulous abdominal pannus. ABSENT: distended, guarding, rebound, tenderness Extremities exam: PRESENT: +1 edema, other - Bilateral chronic venous stasis, worse on the left. ABSENT: clubbing, pedal edema Musculoskeletal exam: PRESENT: normal inspection, tenderness - Over right greater trochanter. ABSENT: deformity Neurological exam: PRESENT: alert, awake, oriented to person, oriented to place, oriented to situation Psychiatric exam: PRESENT: appropriate affect, normal mood Skin exam: PRESENT: dry, warm, other - Evidence of longstanding chronic venous stasis to bilateral lower extremities, worse on the left Results Laboratory Results: 10/07/20 07:21 10/07/20 07:21 10/07/20 10/07/20 07:21 07:21 WBC 6.1 RBC 4.34 L Hgb 13.1 L Hct 39.6 MCV 91 MCH 30.1 MCHC 33.0 RDW 15.6 H Plt Count 101 L Sodium 138.3 Potassium 4.7 Chloride 99 Carbon Dioxide 29 Anion Gap 10 BUN 32 H Creatinine 1.07 Est GFR ( Amer) > 60 Glucose 96 Calcium 9.0 Impressions: Hip/Pelvis X-Ray 10/06/20 12:00 IMPRESSION: Nondisplaced subtrochanteric right hip fracture. Humerus X-Ray 10/06/20 12:00 IMPRESSION: NEGATIVE STUDY OF THE LEFT HUMERUS. NO RADIOGRAPHIC EVIDENCE OF ACUTE INJURY. Elbow X-Ray 10/06/20 12:30 IMPRESSION: NEGATIVE STUDY OF THE LEFT ELBOW. NO RADIOGRAPHIC EVIDENCE OF ACUTE INJURY. Lower Extremity CT 10/06/20 15:09 IMPRESSION: 1. Nondisplaced insufficiency fracture in the proximal right femoral metadiaphysis. Chest X-Ray 10/06/20 15:10 IMPRESSION: NO ACUTE RADIOGRAPHIC FINDING IN THE CHEST. Assessment and Plan - Diagnosis (1) Fracture, subtrochanteric, right femur, closed Qualifiers: Encounter type: initial encounter Fracture alignment: nondisplaced Qualified Code(s): S72.24XA - Nondisplaced subtrochanteric fracture of right femur, initial encounter for closed fracture Is this a current diagnosis for this admission?: Yes (2) COPD (chronic obstructive pulmonary disease) Qualifiers: COPD type: chronic bronchitis Is this a current diagnosis for this admission?: Yes (3) Cirrhosis Qualifiers: Hepatic cirrhosis type: unspecified hepatic cirrhosis Ascites presence: without ascites Qualified Code(s): K74.60 - Unspecified cirrhosis of liver Is this a current diagnosis for this admission?: Yes (4) History of hepatitis C Is this a current diagnosis for this admission?: Yes (5) Morbid obesity with BMI of 45.0-49.9, adult Is this a current diagnosis for this admission?: Yes (6) Multiple myeloma Qualifiers: Multiple myeloma remission status: not in remission Qualified Code(s): C90.00 - Multiple myeloma not having achieved remission Is this a current diagnosis for this admission?: Yes (7) Sleep apnea in adult Is this a current diagnosis for this admission?: Yes (8) Venous stasis dermatitis of left lower extremity Is this a current diagnosis for this admission?: Yes (9) Weakness Is this a current diagnosis for this admission?: Yes - Plan Summary Summary: Continue with his home medications for his comorbid conditions. We will continue with DVT prophylaxis and stop it before he has surgery. We will resume his diet and make him n.p.o. after midnight before his surgery. We will have physical therapy come evaluate him postoperatively pending surgical approval. - Time Time Spent with patient: 15-24 minutes Anticipated Discharge Disposition: [facility] Facility Anticipated Discharge Timeframe: Undetermined
[2020-10-07] MEDS: HEPARIN SOD (PORCINE) 5,000 UNIT/ML 1 ML VIAL SUBCUT SCH (21:49)
[2020-10-07] MEDS: ROPINIROLE HCL 1 MG TABLET PO SCH (21:54)
[2020-10-07] MEDS: ATORVASTATIN CALCIUM 20 MG TABLET PO SCH (21:54)
[2020-10-08] MEDS: HYDROMORPHONE HCL INJ/PF 2 MG/ML AMPULE IV PRN ×6 (00:25→20:10)
[2020-10-08] MEDS: HEPARIN SOD (PORCINE) 5,000 UNIT/ML 1 ML VIAL SUBCUT SCH ×3 (06:14→21:00)
[2020-10-08] MEDS: GABAPENTIN 400 MG CAPSULE PO SCH ×3 (06:15→21:22)
[2020-10-08 06:23] LABS: HEMOGLOBIN 12.4 g/dL (13.5-17.0); MEAN CORPUSCULAR HEMOGLOBIN 30.2 pg (27.0-33.4); MEAN CORPUSCULAR HGB CONC 33.5 g/dL (32.0-36.0); MEAN CORPUSCULAR VOLUME 90 fl (80-97); RED CELL DISTRIBUTION WIDTH 15.3 % (11.5-14.0); WHITE BLOOD COUNT 4.9 10^3/uL (4.0-10.5)
[2020-10-08 06:33] LABS: ANION GAP 8 (5-19); BLOOD UREA NITROGEN 35 mg/dL (7-20); CALCIUM 8.9 mg/dL (8.4-10.2); CARBON DIOXIDE 30 mmol/L (22-30); CHLORIDE 99 mmol/L (98-107); GLUCOSE 91 mg/dL (75-110); POTASSIUM 4.7 mmol/L (3.6-5.0)
[2020-10-08] MEDS: FUROSEMIDE 40 MG TABLET PO SCH (07:37)
--- NOTE | 2020-10-08 07:38 | PDOC PROGRESS REPORT ---
Subjective Date:: 10/08/20 Subjective:: Patient resting comfortably this morning, no acute events overnight. Reason For Visit: RIGHT HIP FRACTURE Physical Exam Vital Signs: Temp Pulse Resp BP Pulse Ox 97.9 F 76 16 124/67 92 10/07/20 23:31 10/08/20 02:00 10/07/20 23:31 10/07/20 23:31 10/07/20 23:31 Intake & Output 10/07/20 10/08/20 10/09/20 06:59 06:59 06:59 Intake Total 118 2120 Output Total 400 600 Balance -282 1520 Weight 136.7 kg 137.2 kg Physical Exam: No acute distress Right lower extremity -Pulses 2+ distally -Compartments soft -Sensation grossly intact to L3-4-5 S1 -Motor grossly intact to EHL TA gastroc and quad Results Laboratory Results: 10/08/20 05:30 10/07/20 10/07/20 10/08/20 07:21 07:21 05:30 WBC 6.1 RBC 4.34 L Hgb 13.1 L Hct 39.6 MCV 91 MCH 30.1 MCHC 33.0 RDW 15.6 H Plt Count 101 L Sodium 138.3 136.5 L Potassium 4.7 4.7 Chloride 99 99 Carbon Dioxide 29 30 Anion Gap 10 8 BUN 32 H 35 H Creatinine 1.07 1.10 Est GFR ( Amer) > 60 > 60 Glucose 96 91 Calcium 9.0 8.9 Impressions: Hip/Pelvis X-Ray 10/06/20 12:00 IMPRESSION: Nondisplaced subtrochanteric right hip fracture. Humerus X-Ray 10/06/20 12:00 IMPRESSION: NEGATIVE STUDY OF THE LEFT HUMERUS. NO RADIOGRAPHIC EVIDENCE OF ACUTE INJURY. Elbow X-Ray 10/06/20 12:30 IMPRESSION: NEGATIVE STUDY OF THE LEFT ELBOW. NO RADIOGRAPHIC EVIDENCE OF ACUTE INJURY. Lower Extremity CT 10/06/20 15:09 IMPRESSION: 1. Nondisplaced insufficiency fracture in the proximal right femoral metadiaphysis. Chest X-Ray 10/06/20 15:10 IMPRESSION: NO ACUTE RADIOGRAPHIC FINDING IN THE CHEST. Assessment & Plan - Diagnosis (1) Fracture, subtrochanteric, right femur, closed Qualifiers: Encounter type: initial encounter Fracture alignment: nondisplaced Qualified Code(s): S72.24XA - Nondisplaced subtrochanteric fracture of right femur, initial encounter for closed fracture Is this a current diagnosis for this admission?: Yes Plan: Patient currently pending cephalomedullary nail on 10/09/2020 Keep n.p.o. tonight Hold all chemical DVT prophylaxis at midnight tonight Continue current pain control Nonweightbearing right lower extremity until after surgery - Time Time Spent with patient: Less than 15 minutes
[2020-10-08 07:51] LABS: PLATELET COUNT 88 10^3/uL (150-450)
[2020-10-08] MEDS: KETOROLAC TROMETHAMINE INJ/PF 30 MG/1 ML SDV IV PRN ×3 (08:29→21:20)
[2020-10-08] MEDS: CHOLECALCIFEROL (D3) 1,000 UNIT (25 MCG) TABLET PO SCH (11:00)
[2020-10-08] MEDS: PREDNISONE 10 MG TABLET PO SCH (11:02)
[2020-10-08] MEDS: SPIRONOLACTONE 25 MG TABLET PO SCH (11:03)
[2020-10-08] MEDS: DOCUSATE SODIUM 100 MG CAPSULE PO SCH (11:03)
[2020-10-08] MEDS: METFORMIN HCL 500 MG TABLET PO SCH (11:03)
[2020-10-08] MEDS: CITALOPRAM HYDROBROMIDE 20 MG TABLET PO SCH (11:03)
--- NOTE | 2020-10-08 19:17 | PDOC PROGRESS REPORT ---
Subjective Date:: 10/08/20 Subjective:: No adverse events overnight. No new complaints. He is feeling fairly comfortab le. Eating and drinking without difficulty. He is eager to get his surgery over with. Reason For Visit: RIGHT HIP FRACTURE Physical Exam Vital Signs: Temp Pulse Resp BP Pulse Ox 97.9 F 73 16 93/68 L 96 10/08/20 15:29 10/08/20 15:29 10/08/20 15:29 10/08/20 15:29 10/08/20 15:29 Intake & Output 10/07/20 10/08/20 10/09/20 06:59 06:59 06:59 Intake Total 118 2120 1195 Output Total 400 600 900 Balance -282 1520 295 Weight 136.7 kg 137.2 kg 140.2 kg General appearance: PRESENT: no acute distress, cooperative, disheveled, morbidly obese Respiratory exam: PRESENT: clear to auscultation pat, symmetrical, unlabored. ABSENT: accessory muscle use, chest wall tenderness, crackles, prolonged expiratory phase, rhonchi, tachypnea, wheezes Cardiovascular exam: PRESENT: RRR, +S1, +S2 Pulses: PRESENT: normal carotid pulses Vascular exam: PRESENT: normal capillary refill GI/Abdominal exam: PRESENT: normal bowel sounds, soft, other - Pendulous abdominal pannus. ABSENT: distended, guarding, rebound, tenderness Extremities exam: PRESENT: +1 edema, other - Bilateral chronic venous stasis, worse on the left. ABSENT: clubbing, pedal edema Musculoskeletal exam: PRESENT: normal inspection, tenderness - Over right greater trochanter. ABSENT: deformity Neurological exam: PRESENT: alert, awake, oriented to person, oriented to place, oriented to situation Psychiatric exam: PRESENT: appropriate affect, normal mood Skin exam: PRESENT: dry, warm, other - Evidence of longstanding chronic venous stasis to bilateral lower extremities, worse on the left Results Laboratory Results: 10/08/20 05:30 10/08/20 05:30 10/08/20 10/08/20 05:30 05:30 WBC 4.9 RBC 4.10 L Hgb 12.4 L Hct 37.0 L MCV 90 MCH 30.2 MCHC 33.5 RDW 15.3 H Plt Count 88 L Sodium 136.5 L Potassium 4.7 Chloride 99 Carbon Dioxide 30 Anion Gap 8 BUN 35 H Creatinine 1.10 Est GFR ( Amer) > 60 Glucose 91 Calcium 8.9 Impressions: Hip/Pelvis X-Ray 10/06/20 12:00 IMPRESSION: Nondisplaced subtrochanteric right hip fracture. Humerus X-Ray 10/06/20 12:00 IMPRESSION: NEGATIVE STUDY OF THE LEFT HUMERUS. NO RADIOGRAPHIC EVIDENCE OF ACUTE INJURY. Elbow X-Ray 10/06/20 12:30 IMPRESSION: NEGATIVE STUDY OF THE LEFT ELBOW. NO RADIOGRAPHIC EVIDENCE OF ACUTE INJURY. Lower Extremity CT 10/06/20 15:09 IMPRESSION: 1. Nondisplaced insufficiency fracture in the proximal right femoral metadiaphysis. Chest X-Ray 10/06/20 15:10 IMPRESSION: NO ACUTE RADIOGRAPHIC FINDING IN THE CHEST. Assessment and Plan - Diagnosis (1) Fracture, subtrochanteric, right femur, closed Qualifiers: Encounter type: initial encounter Fracture alignment: nondisplaced Qualified Code(s): S72.24XA - Nondisplaced subtrochanteric fracture of right femur, initial encounter for closed fracture Is this a current diagnosis for this admission?: Yes (2) COPD (chronic obstructive pulmonary disease) Qualifiers: COPD type: chronic bronchitis Is this a current diagnosis for this admission?: Yes (3) Cirrhosis Qualifiers: Hepatic cirrhosis type: unspecified hepatic cirrhosis Ascites presence: without ascites Qualified Code(s): K74.60 - Unspecified cirrhosis of liver Is this a current diagnosis for this admission?: Yes (4) History of hepatitis C Is this a current diagnosis for this admission?: Yes (5) Morbid obesity with BMI of 45.0-49.9, adult Is this a current diagnosis for this admission?: Yes (6) Multiple myeloma Qualifiers: Multiple myeloma remission status: not in remission Qualified Code(s): C90.00 - Multiple myeloma not having achieved remission Is this a current diagnosis for this admission?: Yes (7) Sleep apnea in adult Is this a current diagnosis for this admission?: Yes (8) Venous stasis dermatitis of left lower extremity Is this a current diagnosis for this admission?: Yes (9) Weakness Is this a current diagnosis for this admission?: Yes - Plan Summary Summary: Continue with his home medications for his comorbid conditions. We will continue with DVT prophylaxis and stop it before he has surgery. We will resume his diet and make him n.p.o. after midnight before his surgery. We will have physical therapy come evaluate him postoperatively pending surgical approval. - Time Time Spent with patient: 15-24 minutes Anticipated Discharge Disposition: Care Home Facility Anticipated Discharge Timeframe: within 72 hours
[2020-10-08] MEDS ORDERED: DEXTROSE 50%-WATER 25 GM/50 ML DISP.SYRIN IV PRN ×2 (19:18)
[2020-10-08] MEDS ORDERED: DEXTROSE 40% GEL 15 GM TUBE PO PRN ×2 (19:18)
[2020-10-08] MEDS ORDERED: GLUCAGON,HUMAN RECOMB 1 MG INJ SUBCUT PRN (19:18)
[2020-10-08] MEDS: ROPINIROLE HCL 1 MG TABLET PO SCH (21:21)
[2020-10-08] MEDS: ATORVASTATIN CALCIUM 20 MG TABLET PO SCH (21:22)
[2020-10-09] MEDS: HYDROMORPHONE HCL INJ/PF 2 MG/ML AMPULE IV PRN ×4 (03:36→21:28)
[2020-10-09 06:21] LABS: ANION GAP 7 (5-19); BLOOD UREA NITROGEN 37 mg/dL (7-20); CALCIUM 8.7 mg/dL (8.4-10.2); CARBON DIOXIDE 31 mmol/L (22-30); CHLORIDE 100 mmol/L (98-107); GLUCOSE 103 mg/dL (75-110); POTASSIUM 4.7 mmol/L (3.6-5.0)
[2020-10-09] MEDS: KETOROLAC TROMETHAMINE INJ/PF 30 MG/1 ML SDV IV PRN ×2 (06:27→21:28)
[2020-10-09] MEDS: GABAPENTIN 400 MG CAPSULE PO SCH ×3 (06:27→21:29)
[2020-10-09 07:12] LABS: HEMATOCRIT 36.9 % (37.9-51.0); HEMOGLOBIN 12.4 g/dL (13.5-17.0); MEAN CORPUSCULAR HEMOGLOBIN 30.2 pg (27.0-33.4); MEAN CORPUSCULAR HGB CONC 33.5 g/dL (32.0-36.0); MEAN CORPUSCULAR VOLUME 90 fl (80-97); RED CELL DISTRIBUTION WIDTH 14.9 % (11.5-14.0)
[2020-10-09] MEDS ORDERED: ROCURONIUM BROMIDE INJ 50 MG/5 ML VIAL IV ONE (08:31)
[2020-10-09] MEDS ORDERED: SUCCINYLCHOLINE CHLORIDE INJ 200 MG/10 ML VIAL ONE (08:31)
--- NOTE | 2020-10-09 08:45 | PDOC CONSULTATION ---
Consultation Consult Date: 10/09/20 Provider Consulted: ORA WILL Consult reason:: Hematology/Oncology consult was requested for patient receiving active chemotherapy for multiple myeloma no with broken hip in need of surgery. History of Present Illness Admission Date/PCP: 10/06/20 17:10 ORA WILL MD History of Present Illness: VERONIQUE SOLIZ is a 65 year old male who has been undergoing treatment for his multiple myeloma since 2016. Most recently, he was receiving Kyprolis/Pomalys t/Dexamethasone. However, this treatment has been on hold since Jun due to multiple admissions for cellulitis and mental status changes. However, he has been receiving denosumab bone strengthener. His last dose was 2019. He presented to the ED after having fallen in the middle of the night while trying to get to the bathroom. He has a broken hip and plans are for ORIF later today. He states that he is tired, but otherwise, feeling well and anxious to get the surgery over with. No other complains today. Past Medical History Cardiac Medical History: Reports: Hyperlipidema, Hypertension Denies: Myocardial Infarction Pulmonary Medical History: Reports: Bronchitis, Chronic Obstructive Pulmonary Disease (COPD), Sleep Apnea Endocrine Medical History: Reports: Diabetes Mellitus Type 2 Malignancy Medical History: Reports: Other - Multiple myeloma GI Medical History: Reports: Cirrhosis - Nonalcoholic steatohepatitis with cirrhosis, Hepatitis - Hepatitis C Musculoskeltal Medical History: Reports: Arthritis Skin Medical History: Denies: Eczema, Psoriasis Psychiatric Medical History: Reports: Depression Hematology: Reports: Neutropenia Past Surgical History Past Surgical History: Reports: Appendectomy, Orthopedic Surgery - L knee, Tonsillectomy, Other - Nephrectomy, port placement Social History Lives with: Spouse/Significant other Smoking Status: Former Smoker Electronic Cigarette use?: No Frequency of Alcohol Use: None Hx Recreational Drug Use: No - Remote history greater than 30 years ago Drugs: Other Hx Prescription Drug Abuse: No Family History Family History: Hypertension, Other - Sister with bleeding varices, alcohol liver disease Parental Family History Reviewed: Yes - Both parents still living Children Family History Reviewed: Yes Sibling(s) Family History Reviewed.: Yes - Sister of alcoholism Medication/Allergy Home Medications: Atorvastatin Calcium [Lipitor 20 mg Tablet] 20 mg PO QHS 11/03/19 Cholecalciferol (Vitamin D3) [Vitamin D3 2000 unit Tablet] 5,000 unit PO DAILY 11/03/19 Citalopram Hydrobromide [Celexa 40 mg Tablet] 40 mg PO DAILY 11/03/19 Docusate Sodium [Colace 100 mg Capsule] 100 mg PO DAILY 11/03/19 Furosemide [Lasix 40 mg Tablet] 40 mg PO QAM 11/03/19 Metformin HCl [Glucophage] 500 mg PO DAILY 11/03/19 Spironolactone [Aldactone] 50 mg PO DAILY 11/03/19 Umeclidinium Brm/Vilanterol Tr [Anoro Ellipta 62.5-25 Mcg INH] 1 puff PO BID 06/12/20 Gabapentin [Neurontin 400 mg Capsule] 400 mg PO Q8 #0 07/23/20 Buprenorphine HCl [Belbuca] 600 mcg PO QAM 10/06/20 Buprenorphine HCl [Belbuca] 750 mcg PO QHS 10/06/20 Hydromorphone HCl [Dilaudid 2 mg Tablet] 2 mg PO Q6HP PRN 10/06/20 Prednisone [Deltasone 10 mg Tablet] 10 mg PO DAILY 10/06/20 Ropinirole HCl 1 mg PO QHS 10/06/20 Allergies/Adverse Reactions: acetaminophen Adverse Reaction (Verified 01/31/20 15:41) Review of Systems Constitutional: ABSENT: fever(s), headache(s) Eyes: ABSENT: visual disturbances Ears: ABSENT: hearing changes Nose, Mouth, and Throat: ABSENT: sore throat Cardiovascular: ABSENT: chest pain Respiratory: ABSENT: dyspnea Gastrointestinal: ABSENT: vomiting Genitourinary: ABSENT: dysuria Musculoskeletal: PRESENT: as per HPI Neurological: PRESENT: as per HPI Hematologic/Lymphatic: ABSENT: easy bleeding Physical Exam Vital Signs: Temp Pulse Resp BP Pulse Ox 98.3 F 74 18 126/77 H 96 10/09/20 08:00 10/09/20 08:00 10/09/20 08:00 10/09/20 08:00 10/09/20 08:00 Intake & Output 10/08/20 10/09/20 10/10/20 06:59 06:59 06:59 Intake Total 2120 1555 Output Total 600 1480 Balance 1520 75 Weight 137.2 kg 140.4 kg General appearance: PRESENT: no acute distress, morbidly obese Head exam: PRESENT: normocephalic Eye exam: PRESENT: EOMI Mouth exam: PRESENT: moist Respiratory exam: PRESENT: unlabored Extremities exam: ABSENT: joint swelling, pedal edema Musculoskeletal exam: PRESENT: other - Full exam deferred. Neurological exam: PRESENT: alert, awake Psychiatric exam: PRESENT: appropriate affect Skin exam: PRESENT: normal color Results Laboratory Results: 10/09/20 04:53 10/09/20 04:53 Sodium 138.2 Potassium 4.7 Chloride 100 Carbon Dioxide 31 H Anion Gap 7 BUN 37 H Creatinine 1.18 Est GFR ( Amer) > 60 Glucose 103 Calcium 8.7 Impressions: Hip/Pelvis X-Ray 10/06/20 12:00 IMPRESSION: Nondisplaced subtrochanteric right hip fracture. Humerus X-Ray 10/06/20 12:00 IMPRESSION: NEGATIVE STUDY OF THE LEFT HUMERUS. NO RADIOGRAPHIC EVIDENCE OF ACUTE INJURY. Elbow X-Ray 10/06/20 12:30 IMPRESSION: NEGATIVE STUDY OF THE LEFT ELBOW. NO RADIOGRAPHIC EVIDENCE OF ACUTE INJURY. Lower Extremity CT 10/06/20 15:09 IMPRESSION: 1. Nondisplaced insufficiency fracture in the proximal right femoral metadiaphysis. Chest X-Ray 10/06/20 15:10 IMPRESSION: NO ACUTE RADIOGRAPHIC FINDING IN THE CHEST. Assessment & Plan - Diagnosis (1) Fracture, subtrochanteric, right femur, closed Qualifiers: Encounter type: initial encounter Fracture alignment: nondisplaced Qualified Code(s): S72.24XA - Nondisplaced subtrochanteric fracture of right femur, initial encounter for closed fracture Is this a current diagnosis for this admission?: Yes Plan: As per Orthopedics. He did receive denosumab bone modulator on Aug 24, 2020. I will hold further doses of this, after surgery. (2) Morbid obesity with BMI of 45.0-49.9, adult Is this a current diagnosis for this admission?: Yes Plan: He sleeps with CPAP. (3) Multiple myeloma Qualifiers: Multiple myeloma remission status: not in remission Qualified Code(s): C90.00 - Multiple myeloma not having achieved remission Is this a current diagnosis for this admission?: Yes Plan: Currently stable with all treatment on hold. Please call me with any concerns.
[2020-10-09 09:07] LABS: PLATELET COUNT 88 10^3/uL (150-450)
[2020-10-09] MEDS ORDERED: CEFAZOLIN INJ 1 GM VIAL ONE ×2 (09:32→11:47)
[2020-10-09] MEDS ORDERED: DEXMEDETOMIDINE INJ 80 MCG/20 ML VIAL IV ONE (09:37)
[2020-10-09] MEDS ORDERED: ONDANSETRON HCL INJ/PF 4 MG/2 ML SDV ONE (09:37)
[2020-10-09] MEDS ORDERED: MIDAZOLAM 2 MG/2 ML INJ ONE (09:37)
[2020-10-09] MEDS ORDERED: FENTANYL CITRATE INJ/PF 100 MCG/2 ML AMPUL ONE ×3 (09:37→12:03)
[2020-10-09] MEDS ORDERED: PROPOFOL INJ 200 MG/20 ML VIAL IV ONE (09:38)
[2020-10-09] MEDS ORDERED: TRANEXAMIC ACID INJ/PF 1,000 MG/10 ML SDV ONE (09:40)
[2020-10-09] MEDS ORDERED: EPHEDRINE SULFATE INJ 50 MG/1 ML AMPULE ONE (10:25)
[2020-10-09] MEDS ORDERED: FENTANYL CITRATE INJ/PF 100 MCG/2 ML AMPUL IV PRN ×3 (10:38)
[2020-10-09] MEDS ORDERED: ONDANSETRON HCL INJ/PF 4 MG/2 ML SDV IV PRN (10:38)
[2020-10-09] MEDS ORDERED: DIPHENHYDRAMINE HCL 50 MG/ML VIAL IV PRN (10:38)
[2020-10-09] MEDS ORDERED: MORPHINE SULFATE 10 MG/ML INJ IV PRN (10:38)
[2020-10-09] MEDS ORDERED: MEPERIDINE HCL/PF INJ 25 MG/1 ML DISP.SYRIN IV PRN (10:38)
[2020-10-09] MEDS ORDERED: PROMETHAZINE HCL INJ 25 MG/1 ML VIAL IV PRN ×2 (10:38)
[2020-10-09] MEDS ORDERED: FENTANYL CITRATE INJ/PF 100 MCG/2 ML AMPUL IV ONE ×2 (12:05→12:13)
--- NOTE | 2020-10-09 12:09 | Operative Report ---
Operative Report DATE OF SURGERY: 10/09/20 PREOPERATIVE DIAGNOSIS: Right nondisplaced subtrochanteric hip fracture POSTOPERATIVE DIAGNOSIS: Right nondisplaced subtrochanteric hip fracture OPERATION: Right cephalomedullary nail, long SURGEON: BETITO HERNÁNDEZ JR ANESTHESIA: GA COMPLICATIONS: None ESTIMATED BLOOD LOSS: 300 cc PROCEDURE: Patient was brought in operating suite and provided with general anesthesia. They were then transferred to the traction table and placed supine. They are then appropriately positioned. 2 g Ancef was provided preoperatively, however given the patient's size we added a gram intraoperatively. I initially ordered 3 g preoperatively however anesthesia was unaware of this. After appropriate positioning fluoroscopy was used assisted with positioning and preoperative planning. The right lower extremity was then prepped and draped in standard sterile fashion. An appropriate timeout was performed and the site was marked and planned with the assistance of fluoroscopy. A proximal incision was made proximal to the greater trochanter which was gently carried through the abductor fascia. A guidewire was then inserted and evaluated under fluoroscopy to be centered in the femoral canal as well as at the tip of the greater trochanter. After adequate positioning of the guidewire, a reamer was used over the guidewire in order to open the canal. A long ball-tipped guidewire was then passed through the open canal and evaluated all the way down to the knee with fluoroscopy. Upon achieving appropriate location of the guidewire throughout the length of the femur, we began reaming starting with a 9 mm reamer. I was able to ream up until 12-1/2 mm reamer which achieved appropriate cortical chatter. An 11 nail was selected and we measured a 400 mm distance from the tip of the trochanter to the tip of the guidewire. An 11 x 400 mm nail was then passed over the guidewire and impacted into place carefully checking both distally and proximally to ensure appropriate position and avoid cortical penetration. Upon achieving appropriate depth, a trocar was inserted into the guide arm to determine the level of incision for the hip screw. An incision was made and carried deep with a curved Nait. The trocar was then gently approximated to bone followed by introduction of a guidewire. This guidewire was then advanced into the femoral neck. AP and lateral views were checked to ensure appropriate positioning of the guidewire in the femoral neck. This was then advanced to near center center of the femoral head. After doing this the wire was measured to a 90 mm. We then removed the inner liner of the trocar and inserted a reamer at the appropriate depth. We reamed under fluoroscopy to ensure appropriate positioning of the reamer and appropriate depth measurement. After this a 95 mm hip screw was selected and advanced over the guidewire again carefully checking on fluoroscopy to ensure that we advanced to the appropriate depth. A proximal locking screw was placed in the superior nail. The guide arm was removed. AP and lateral fluoroscopy was obtained in this position. We then turned our attention to the distal interlocking screw. Perfect circles were obtained distally. An incision was made at the level of the distal hole. This was carried bluntly to the bone with a curved Nati. I then proceeded to introduce a drill bit and achieve center position within the hole on fluoroscopy. This was advanced followed by measuring with a depth gauge. Of note, due to the obliquity of the distal femur I had an excellent Jamie for the appropriate screw length that appeared to be short but upon obtaining oblique x- rays it was in fact bicortical. 47.5 millimeter screw was then inserted and again checked under AP and lateral fluoroscopy. The wounds were then copiously irrigated with sterile saline solution with dilute Betadine. 2-0 Monocryl was used to close the fascia followed by inverted interrupted 2-0 Monocryl in the subcutaneous tissue followed by zahida superficially. Sterile dressings were then placed the patient was then awakened from anesthesia and transferred to PACU in stable condition.
[2020-10-09] MEDS ORDERED: ROPIVACAINE HCL 0.5% INJ/PF (5 MG/1 ML) 30 ML SDV ONE ×2 (12:17→12:45)
[2020-10-09] MEDS ORDERED: LIDOCAINE 2% INJ-PF (20 MG/ML) 10 ML AMPUL ONE (12:19)
--- NOTE | 2020-10-09 12:40 | PDOC PROGRESS REPORT ---
Subjective Date:: 10/09/20 Subjective:: Patient seen in the PACU. Awakening anesthesia. Pain currently controlled. Reason For Visit: RIGHT HIP FRACTURE Physical Exam Vital Signs: Temp Pulse Resp BP Pulse Ox 98.3 F 74 18 126/77 H 96 10/09/20 09:20 10/09/20 09:20 10/09/20 09:20 10/09/20 09:20 10/09/20 09:20 Intake & Output 10/08/20 10/09/20 10/10/20 06:59 06:59 06:59 Intake Total 2120 1555 250 Output Total 600 1480 Balance 1520 75 250 Weight 137.2 kg 140.4 kg Physical Exam: No acute distress, alert and x3 Right lower extremity -Pulses 1+ distally -Compartments soft -Sensation grossly intact to L3-4-5 S1 -Motor grossly intact to EHL TA gastroc and quad Chronic venous stasis changes distally Dressings clean dry and intact. Results Laboratory Results: 10/09/20 04:53 10/09/20 04:53 10/09/20 10/09/20 04:53 04:53 WBC 5.0 RBC 4.10 L Hgb 12.4 L Hct 36.9 L MCV 90 MCH 30.2 MCHC 33.5 RDW 14.9 H Plt Count 88 L Sodium 138.2 Potassium 4.7 Chloride 100 Carbon Dioxide 31 H Anion Gap 7 BUN 37 H Creatinine 1.18 Est GFR ( Amer) > 60 Glucose 103 Calcium 8.7 Impressions: Hip/Pelvis X-Ray 10/06/20 12:00 IMPRESSION: Nondisplaced subtrochanteric right hip fracture. Humerus X-Ray 10/06/20 12:00 IMPRESSION: NEGATIVE STUDY OF THE LEFT HUMERUS. NO RADIOGRAPHIC EVIDENCE OF ACUTE INJURY. Elbow X-Ray 10/06/20 12:30 IMPRESSION: NEGATIVE STUDY OF THE LEFT ELBOW. NO RADIOGRAPHIC EVIDENCE OF ACUTE INJURY. Lower Extremity CT 10/06/20 15:09 IMPRESSION: 1. Nondisplaced insufficiency fracture in the proximal right femoral metadiaphysis. Chest X-Ray 10/06/20 15:10 IMPRESSION: NO ACUTE RADIOGRAPHIC FINDING IN THE CHEST. Assessment & Plan - Diagnosis (1) Fracture, subtrochanteric, right femur, closed Qualifiers: Encounter type: initial encounter Fracture alignment: nondisplaced Qualified Code(s): S72.24XA - Nondisplaced subtrochanteric fracture of right femur, initial encounter for closed fracture Is this a current diagnosis for this admission?: Yes Plan: - 2 doses of Ancef postoperatively q 8 hours to complete 24 hours perioperatively -Weightbearing as tolerated, no precautions, encourage out of bed ASHA for ADL training - PT/OT -aspirin 325 daily for DVT prophylaxis for 6 weeks -multimodal pain management to avoid excessive narcotics, including gabapentin, tramadol, Toradol, acetaminophen. -Dressing changes as needed -May shower with the dressing intact, if it starts to come off she should not get the incision wet. -Follow-up with Dr. Moises Weinberg, orthopedic surgeon at [facility] for surgery, in 10 days. Call for an appointment. . [address], [place] [address] - Time Time Spent with patient: Less than 15 minutes
--- NOTE | 2020-10-09 14:12 | RADIOLOGY REPORT (SQ) ---
EXAM DESCRIPTION: FEMUR RIGHT IMAGES COMPLETED DATE/TIME: 10/09/2020 1:40 pm REASON FOR STUDY: post op COMPARISON: None. NUMBER OF VIEWS: Two views. TECHNIQUE: AP and lateral views of the right femur were obtained. LIMITATIONS: None. FINDINGS: MINERALIZATION: Normal. BONES: Status post ORIF of a nondisplaced insufficiency fracture of the proximal right femoral metadi aphysis with placement of an antegrade intramedullary nail and a helical blade. The subcutaneous emp hysema in the superolateral aspect of the right thigh is expected in the immediate postoperative radha od. SOFT TISSUES: As above. OTHER: No other findings. IMPRESSION: Status post ORIF of a nondisplaced insufficiency fracture of the proximal right femoral metadiaphysis with placement of an antegrade intramedullary nail and a helical blade. The subcutaneou s emphysema in the superolateral aspect of the right thigh is expected in the immediate postoperative period. TECHNICAL DOCUMENTATION: JOB ID: [id number] 2010 [employer]- All Rights Reserved Reading location - IP/workstation name: [email or web address]
[2020-10-09] MEDS: SPIRONOLACTONE 25 MG TABLET PO SCH (15:07)
[2020-10-09] MEDS: PREDNISONE 10 MG TABLET PO SCH (15:08)
[2020-10-09] MEDS: CITALOPRAM HYDROBROMIDE 20 MG TABLET PO SCH (15:09)
[2020-10-09] MEDS: FUROSEMIDE 40 MG TABLET PO SCH (15:09)
[2020-10-09] MEDS: CHOLECALCIFEROL (D3) 1,000 UNIT (25 MCG) TABLET PO SCH (15:10)
[2020-10-09] MEDS: METFORMIN HCL 500 MG TABLET PO SCH (15:10)
[2020-10-09] MEDS: DOCUSATE SODIUM 100 MG CAPSULE PO SCH (15:10)
--- NOTE | 2020-10-09 15:46 | RADIOLOGY REPORT (SQ) ---
EXAM DESCRIPTION: NO CHG FLUORO; HIP RIGHT AP/LATERAL IMAGES COMPLETED DATE/TIME: 10/09/2020 3:15 pm REASON FOR STUDY: ORIF/IM NAILING RIGHT HIP ASSISTED WITH FLUORO IN OR COMPARISON: None. FLUOROSCOPY TIME: 2.2 minutes 4 Images saved to PACS LIMITATIONS: None. PROCEDURE: ORIF right hip FINDINGS: Images from fluoro document placement of a long medullary viky in the femur and a cannulate d screw through the femoral neck. IMPRESSION: ORIF right hip. Refer to operative note for further information. COMMENT: PQRS 6045F: Fluoroscopy time of the procedure is documented in the report. TECHNICAL DOCUMENTATION: JOB ID: [id number] 2010 [employer]- All Rights Reserved Reading location - IP/workstation name: [email or web address]
--- NOTE | 2020-10-09 15:46 | RADIOLOGY REPORT (SQ) ---
EXAM DESCRIPTION: NO CHG FLUORO; HIP RIGHT AP/LATERAL IMAGES COMPLETED DATE/TIME: 10/09/2020 3:15 pm REASON FOR STUDY: ORIF/IM NAILING RIGHT HIP ASSISTED WITH FLUORO IN OR COMPARISON: None. FLUOROSCOPY TIME: 2.2 minutes 4 Images saved to PACS LIMITATIONS: None. PROCEDURE: ORIF right hip FINDINGS: Images from fluoro document placement of a long medullary viky in the femur and a cannulate d screw through the femoral neck. IMPRESSION: ORIF right hip. Refer to operative note for further information. COMMENT: PQRS 6045F: Fluoroscopy time of the procedure is documented in the report. TECHNICAL DOCUMENTATION: JOB ID: [id number] 2010 [employer]- All Rights Reserved Reading location - IP/workstation name: [email or web address]
[2020-10-09] MEDS: CEFAZOLIN SODIUM 3 GM in DEXTROSE 5%-WATER 100 ML IV SCH (17:49)
--- NOTE | 2020-10-09 19:30 | PDOC PROGRESS REPORT ---
Subjective Date:: 10/09/20 Subjective:: No adverse events overnight. No new complaints. He is feeling fairly comfortab le. N.p.o. awaiting surgery. Reason For Visit: RIGHT HIP FRACTURE Physical Exam Vital Signs: Temp Pulse Resp BP Pulse Ox 97.5 F 87 20 91/64 L 94 10/09/20 15:00 10/09/20 15:00 10/09/20 15:00 10/09/20 15:00 10/09/20 15:00 Intake & Output 10/08/20 10/09/20 10/10/20 06:59 06:59 06:59 Intake Total 2120 1555 730 Output Total 600 1480 Balance 1520 75 730 Weight 137.2 kg 140.4 kg General appearance: PRESENT: no acute distress, cooperative, disheveled, morbidly obese Respiratory exam: PRESENT: clear to auscultation pat, symmetrical, unlabored. ABSENT: accessory muscle use, chest wall tenderness, crackles, prolonged expiratory phase, rhonchi, tachypnea, wheezes Cardiovascular exam: PRESENT: RRR, +S1, +S2 Pulses: PRESENT: normal carotid pulses Vascular exam: PRESENT: normal capillary refill GI/Abdominal exam: PRESENT: normal bowel sounds, soft, other - Pendulous abdominal pannus. ABSENT: distended, guarding, rebound, tenderness Extremities exam: PRESENT: +1 edema, other - Bilateral chronic venous stasis, worse on the left. ABSENT: clubbing, pedal edema Musculoskeletal exam: PRESENT: normal inspection, tenderness - Over right greater trochanter. ABSENT: deformity Neurological exam: PRESENT: alert, awake, oriented to person, oriented to place, oriented to situation Psychiatric exam: PRESENT: appropriate affect, normal mood Skin exam: PRESENT: dry, warm, other - Evidence of longstanding chronic venous stasis to bilateral lower extremities, worse on the left Results Laboratory Results: 10/09/20 04:53 10/09/20 04:53 10/09/20 10/09/20 04:53 04:53 WBC 5.0 RBC 4.10 L Hgb 12.4 L Hct 36.9 L MCV 90 MCH 30.2 MCHC 33.5 RDW 14.9 H Plt Count 88 L Sodium 138.2 Potassium 4.7 Chloride 100 Carbon Dioxide 31 H Anion Gap 7 BUN 37 H Creatinine 1.18 Est GFR ( Amer) > 60 Glucose 103 Calcium 8.7 Impressions: Humerus X-Ray 10/06/20 12:00 IMPRESSION: NEGATIVE STUDY OF THE LEFT HUMERUS. NO RADIOGRAPHIC EVIDENCE OF ACUTE INJURY. Elbow X-Ray 10/06/20 12:30 IMPRESSION: NEGATIVE STUDY OF THE LEFT ELBOW. NO RADIOGRAPHIC EVIDENCE OF ACUTE INJURY. Lower Extremity CT 10/06/20 15:09 IMPRESSION: 1. Nondisplaced insufficiency fracture in the proximal right femoral metadiaphysis. Chest X-Ray 10/06/20 15:10 IMPRESSION: NO ACUTE RADIOGRAPHIC FINDING IN THE CHEST. Femur X-Ray 10/09/20 00:00 IMPRESSION: Status post ORIF of a nondisplaced insufficiency fracture of the proximal right femoral metadiaphysis with placement of an antegrade intramedullary nail and a helical blade. The subcutaneous emphysema in the superolateral aspect of the right thigh is expected in the immediate postoperat john period. Fluoroscopy 10/09/20 00:00 IMPRESSION: ORIF right hip. Refer to operative note for further information. Hip/Pelvis X-Ray 10/09/20 00:00 IMPRESSION: ORIF right hip. Refer to operative note for further information. Assessment and Plan - Diagnosis (1) Fracture, subtrochanteric, right femur, closed Qualifiers: Encounter type: initial encounter Fracture alignment: nondisplaced Qualified Code(s): S72.24XA - Nondisplaced subtrochanteric fracture of right femur, initial encounter for closed fracture Is this a current diagnosis for this admission?: Yes (2) COPD (chronic obstructive pulmonary disease) Qualifiers: COPD type: chronic bronchitis Is this a current diagnosis for this admission?: Yes (3) Cirrhosis Qualifiers: Hepatic cirrhosis type: unspecified hepatic cirrhosis Ascites presence: without ascites Qualified Code(s): K74.60 - Unspecified cirrhosis of liver Is this a current diagnosis for this admission?: Yes (4) History of hepatitis C Is this a current diagnosis for this admission?: Yes (5) Morbid obesity with BMI of 45.0-49.9, adult Is this a current diagnosis for this admission?: Yes (6) Multiple myeloma Qualifiers: Multiple myeloma remission status: not in remission Qualified Code(s): C90.00 - Multiple myeloma not having achieved remission Is this a current diagnosis for this admission?: Yes (7) Sleep apnea in adult Is this a current diagnosis for this admission?: Yes (8) Venous stasis dermatitis of left lower extremity Is this a current diagnosis for this admission?: Yes (9) Weakness Is this a current diagnosis for this admission?: Yes - Plan Summary Summary: Surgery pending for today. We will follow up postop recommendations from surgery. We will have physical therapy come evaluate him postoperatively pending surgical approval. - Time Time Spent with patient: 15-24 minutes [facility]ticipated [facility] Anticipated Discharge Timeframe: within 72 hours
[2020-10-09] MEDS: ROPINIROLE HCL 1 MG TABLET PO SCH (21:29)
[2020-10-09] MEDS: BELBUCA PO SCH (21:29)
[2020-10-09] MEDS: ATORVASTATIN CALCIUM 20 MG TABLET PO SCH (21:29)
[2020-10-09] MEDS: HEPARIN SOD (PORCINE) 5,000 UNIT/ML 1 ML VIAL SUBCUT SCH (21:34)
[2020-10-10] MEDS: CEFAZOLIN SODIUM 3 GM in DEXTROSE 5%-WATER 100 ML IV SCH (02:01)
[2020-10-10] MEDS: HYDROMORPHONE HCL INJ/PF 2 MG/ML AMPULE IV PRN ×6 (03:55→22:25)
[2020-10-10] MEDS: GABAPENTIN 400 MG CAPSULE PO SCH ×3 (05:53→22:15)
[2020-10-10] MEDS: HEPARIN SOD (PORCINE) 5,000 UNIT/ML 1 ML VIAL SUBCUT SCH ×3 (05:53→22:00)
[2020-10-10] MEDS: FUROSEMIDE 40 MG TABLET PO SCH (08:23)
[2020-10-10] MEDS: KETOROLAC TROMETHAMINE INJ/PF 30 MG/1 ML SDV IV PRN ×3 (08:35→22:15)
--- NOTE | 2020-10-10 08:39 | PDOC PROGRESS REPORT ---
Subjective Date:: 10/10/20 Subjective:: Patient is sleeping peacefully. CPAP in place. Nurses report that as long as h is pain is controlled, he is pleasant. No immediate needs voiced. He was able to undergo surgery yesterday. No bleeding difficulties noted. Reason For Visit: RIGHT HIP FRACTURE Physical Exam Vital Signs: Temp Pulse Resp BP Pulse Ox 98.3 F 92 11 L 105/56 L 95 10/09/20 23:41 10/10/20 02:00 10/10/20 03:45 10/09/20 23:41 10/10/20 06:59 Intake & Output 10/09/20 10/10/20 10/11/20 06:59 06:59 06:59 Intake Total 1555 730 Output Total 1480 575 Balance 75 155 Weight 140.4 kg 141.3 kg General appearance: PRESENT: no acute distress, morbidly obese Head exam: PRESENT: normocephalic Respiratory exam: PRESENT: unlabored Skin exam: PRESENT: normal color Results Laboratory Results: 10/09/20 04:53 10/09/20 04:53 10/09/20 04:53 WBC 5.0 RBC 4.10 L Hgb 12.4 L Hct 36.9 L MCV 90 MCH 30.2 MCHC 33.5 RDW 14.9 H Plt Count 88 L Impressions: Humerus X-Ray 10/06/20 12:00 IMPRESSION: NEGATIVE STUDY OF THE LEFT HUMERUS. NO RADIOGRAPHIC EVIDENCE OF ACUTE INJURY. Elbow X-Ray 10/06/20 12:30 IMPRESSION: NEGATIVE STUDY OF THE LEFT ELBOW. NO RADIOGRAPHIC EVIDENCE OF ACUTE INJURY. Lower Extremity CT 10/06/20 15:09 IMPRESSION: 1. Nondisplaced insufficiency fracture in the proximal right femoral metadiaphysis. Chest X-Ray 10/06/20 15:10 IMPRESSION: NO ACUTE RADIOGRAPHIC FINDING IN THE CHEST. Femur X-Ray 10/09/20 00:00 IMPRESSION: Status post ORIF of a nondisplaced insufficiency fracture of the proximal right femoral metadiaphysis with placement of an antegrade intramedullary nail and a helical blade. The subcutaneous emphysema in the superolateral aspect of the right thigh is expected in the immediate postoperative period. Fluoroscopy 10/09/20 00:00 IMPRESSION: ORIF right hip. Refer to operative note for further information. Hip/Pelvis X-Ray 10/09/20 00:00 IMPRESSION: ORIF right hip. Refer to operative note for further information. Assessment & Plan - Diagnosis (1) Fracture, subtrochanteric, right femur, closed Qualifiers: Encounter type: initial encounter Fracture alignment: nondisplaced Qualified Code(s): S72.24XA - Nondisplaced subtrochanteric fracture of right femur, initial encounter for closed fracture Is this a current diagnosis for this admission?: Yes Plan: ORIF yesterday. I do not believe that ASA is sufficient DVT prophylaxis. I wo uld recommend either Lovenox 40 mg SC daily or Xarelto 10 mg po daily for 6 weeks after surgery. This should start ASHA. HOLD aspirin while on anticoagulation. (2) Morbid obesity with BMI of 45.0-49.9, adult Is this a current diagnosis for this admission?: Yes (3) Multiple myeloma Qualifiers: Multiple myeloma remission status: not in remission Qualified Code(s): C90.00 - Multiple myeloma not having achieved remission Is this a current diagnosis for this admission?: Yes Plan: All treatment on hold. Will hold bone modulators in the coming months. I will follow as outpatient. - Time Time Spent with patient: Less than 15 minutes
[2020-10-10] MEDS: BUPRENORPHINE PO SCH (08:48)
[2020-10-10 10:02] LABS: HEMATOCRIT 36.7 % (37.9-51.0); HEMOGLOBIN 12.1 g/dL (13.5-17.0); MEAN CORPUSCULAR HEMOGLOBIN 29.9 pg (27.0-33.4); MEAN CORPUSCULAR VOLUME 91 fl (80-97); RED BLOOD COUNT 4.05 10^6/uL (4.35-5.55); RED CELL DISTRIBUTION WIDTH 15.2 % (11.5-14.0); WHITE BLOOD COUNT 6.7 10^3/uL (4.0-10.5)
[2020-10-10 10:22] LABS: PLATELET COUNT 89 10^3/uL (150-450)
[2020-10-10 10:24] LABS: ANION GAP 6 (5-19); BLOOD UREA NITROGEN 33 mg/dL (7-20); CALCIUM 8.4 mg/dL (8.4-10.2); CARBON DIOXIDE 31 mmol/L (22-30); CHLORIDE 99 mmol/L (98-107); GLUCOSE 119 mg/dL (75-110); POTASSIUM 5.5 mmol/L (3.6-5.0)
[2020-10-10] MEDS: METFORMIN HCL 500 MG TABLET PO SCH (11:12)
[2020-10-10] MEDS: DOCUSATE SODIUM 100 MG CAPSULE PO SCH (11:12)
[2020-10-10] MEDS: PREDNISONE 10 MG TABLET PO SCH (11:13)
[2020-10-10] MEDS: CHOLECALCIFEROL (D3) 1,000 UNIT (25 MCG) TABLET PO SCH (11:13)
[2020-10-10] MEDS: SPIRONOLACTONE 25 MG TABLET PO SCH (11:14)
[2020-10-10] MEDS: CITALOPRAM HYDROBROMIDE 20 MG TABLET PO SCH (11:14)
--- NOTE | 2020-10-10 16:47 | PDOC PROGRESS REPORT ---
Subjective Date:: 10/10/20 Subjective:: No adverse events overnight. No new complaints. Vital signs have been stable. Eating and drinking without difficulty. He is resting a lot as to be expected. He got up with physical therapy again today. Reason For Visit: RIGHT HIP FRACTURE Physical Exam Vital Signs: Temp Pulse Resp BP Pulse Ox 97.5 F 87 20 112/63 90 L 10/10/20 12:00 10/10/20 08:16 10/10/20 08:16 10/10/20 08:16 10/10/20 08:16 Intake & Output 10/09/20 10/10/20 10/11/20 06:59 06:59 06:59 Intake Total 1555 730 340 Output Total 1480 575 300 Balance 75 155 40 Weight 140.4 kg 141.3 kg 141.3 kg General appearance: PRESENT: no acute distress, cooperative, disheveled, morbidly obese Respiratory exam: PRESENT: clear to auscultation pat, symmetrical, unlabored. ABSENT: accessory muscle use, chest wall tenderness, crackles, prolonged expiratory phase, rhonchi, tachypnea, wheezes Cardiovascular exam: PRESENT: RRR, +S1, +S2 Pulses: PRESENT: normal carotid pulses Vascular exam: PRESENT: normal capillary refill GI/Abdominal exam: PRESENT: normal bowel sounds, soft, other - Pendulous abdominal pannus. ABSENT: distended, guarding, rebound, tenderness Extremities exam: PRESENT: +1 edema, other - Bilateral chronic venous stasis, worse on the left. ABSENT: clubbing, pedal edema Musculoskeletal exam: PRESENT: Clean surgical incision over right hip Neurological exam: PRESENT: awake, oriented to person, oriented to place, oriented to situation Psychiatric exam: PRESENT: appropriate affect, normal mood Skin exam: PRESENT: dry, warm, other - Evidence of longstanding chronic venous stasis to bilateral lower extremities, worse on the left Results Laboratory Results: 10/10/20 09:50 10/10/20 09:50 10/10/20 10/10/20 09:50 09:50 WBC 6.7 RBC 4.05 L Hgb 12.1 L Hct 36.7 L MCV 91 MCH 29.9 MCHC 33.0 RDW 15.2 H Plt Count 89 L Sodium 135.8 L Potassium 5.5 H Chloride 99 Carbon Dioxide 31 H Anion Gap 6 BUN 33 H Creatinine 0.99 Est GFR ( Amer) > 60 Glucose 119 H Calcium 8.4 Impressions: Humerus X-Ray 10/06/20 12:00 IMPRESSION: NEGATIVE STUDY OF THE LEFT HUMERUS. NO RADIOGRAPHIC EVIDENCE OF ACUTE INJURY. Elbow X-Ray 10/06/20 12:30 IMPRESSION: NEGATIVE STUDY OF THE LEFT ELBOW. NO RADIOGRAPHIC EVIDENCE OF ACUTE INJURY. Lower Extremity CT 10/06/20 15:09 IMPRESSION: 1. Nondisplaced insufficiency fracture in the proximal right femoral metadiaphysis. Chest X-Ray 10/06/20 15:10 IMPRESSION: NO ACUTE RADIOGRAPHIC FINDING IN THE CHEST. Femur X-Ray 10/09/20 00:00 IMPRESSION: Status post ORIF of a nondisplaced insufficiency fracture of the proximal right femoral metadiaphysis with placement of an antegrade intramedullary nail and a helical blade. The subcutaneous emphysema in the superolateral aspect of the right thigh is expected in the immediate postoperative period. Fluoroscopy 10/09/20 00:00 IMPRESSION: ORIF right hip. Refer to operative note for further information. Hip/Pelvis X-Ray 10/09/20 00:00 IMPRESSION: ORIF right hip. Refer to operative note for further information. Assessment and Plan - Diagnosis (1) Fracture, subtrochanteric, right femur, closed Qualifiers: Encounter type: initial encounter Fracture alignment: nondisplaced Qualified Code(s): S72.24XA - Nondisplaced subtrochanteric fracture of right femur, initial encounter for closed fracture Is this a current diagnosis for this admission?: Yes (2) COPD (chronic obstructive pulmonary disease) Qualifiers: COPD type: chronic bronchitis Is this a current diagnosis for this admission?: Yes (3) Cirrhosis Qualifiers: Hepatic cirrhosis type: unspecified hepatic cirrhosis Ascites presence: without ascites Qualified Code(s): K74.60 - Unspecified cirrhosis of liver Is this a current diagnosis for this admission?: Yes (4) History of hepatitis C Is this a current diagnosis for this admission?: Yes (5) Morbid obesity with BMI of 45.0-49.9, adult Is this a current diagnosis for this admission?: Yes (6) Multiple myeloma Qualifiers: Multiple myeloma remission status: not in remission Qualified Code(s): C90.00 - Multiple myeloma not having achieved remission Is this a current diagnosis for this admission?: Yes (7) Sleep apnea in adult Is this a current diagnosis for this admission?: Yes (8) Venous stasis dermatitis of left lower extremity Is this a current diagnosis for this admission?: Yes (9) Weakness Is this a current diagnosis for this admission?: Yes - Plan Summary Summary: Postop day #1 status post placement of a femoral nail. Continue physical therapy. Will look for [facility] facility placement. Dr. Silva is rec ommending 6 weeks of DVT prophylaxis with either Lovenox or Xarelto. - Time Time Spent with patient: 15-24 minutes Anticipated Discharge Disposition: [facility] Facility Anticipated Discharge Timeframe: within 72 hours
--- NOTE | 2020-10-10 17:04 | PDOC PROGRESS REPORT ---
Subjective Date:: 10/10/20 Subjective:: Patient doing well this morning. No acute events overnight. Resting comfortabl y. Reason For Visit: RIGHT HIP FRACTURE Physical Exam Vital Signs: Temp Pulse Resp BP Pulse Ox 97.5 F 87 20 112/63 90 L 10/10/20 12:00 10/10/20 08:16 10/10/20 08:16 10/10/20 08:16 10/10/20 08:16 Intake & Output 10/09/20 10/10/20 10/11/20 06:59 06:59 06:59 Intake Total 1555 730 340 Output Total 1480 575 300 Balance 75 155 40 Weight 140.4 kg 141.3 kg 141.3 kg Physical Exam: No acute distress Right lower extremity -Pulses 2+ distally -Compartments soft -Sensation grossly intact to L3-4-5 S1 -Motor grossly intact to EHL TA gastroc and quad -Wounds clean dry and intact Results Laboratory Results: 10/10/20 09:50 10/10/20 09:50 10/10/20 10/10/20 09:50 09:50 WBC 6.7 RBC 4.05 L Hgb 12.1 L Hct 36.7 L MCV 91 MCH 29.9 MCHC 33.0 RDW 15.2 H Plt Count 89 L Sodium 135.8 L Potassium 5.5 H Chloride 99 Carbon Dioxide 31 H Anion Gap 6 BUN 33 H Creatinine 0.99 Est GFR ( Amer) > 60 Glucose 119 H Calcium 8.4 Impressions: Humerus X-Ray 10/06/20 12:00 IMPRESSION: NEGATIVE STUDY OF THE LEFT HUMERUS. NO RADIOGRAPHIC EVIDENCE OF ACUTE INJURY. Elbow X-Ray 10/06/20 12:30 IMPRESSION: NEGATIVE STUDY OF THE LEFT ELBOW. NO RADIOGRAPHIC EVIDENCE OF ACUTE INJURY. Lower Extremity CT 10/06/20 15:09 IMPRESSION: 1. Nondisplaced insufficiency fracture in the proximal right femoral metadiaphysis. Chest X-Ray 10/06/20 15:10 IMPRESSION: NO ACUTE RADIOGRAPHIC FINDING IN THE CHEST. Femur X-Ray 10/09/20 00:00 IMPRESSION: Status post ORIF of a nondisplaced insufficiency fracture of the proximal right femoral metadiaphysis with placement of an antegrade intramedullary nail and a helical blade. The subcutaneous emphysema in the superolateral aspect of the right thigh is expected in the immediate postoperative period. Fluoroscopy 10/09/20 00:00 IMPRESSION: ORIF right hip. Refer to operative note for further information. Hip/Pelvis X-Ray 10/09/20 00:00 IMPRESSION: ORIF right hip. Refer to operative note for further information. Assessment & Plan - Diagnosis (1) Fracture, subtrochanteric, right femur, closed Qualifiers: Encounter type: initial encounter Fracture alignment: nondisplaced Qualified Code(s): S72.24XA - Nondisplaced subtrochanteric fracture of right femur, initial encounter for closed fracture Is this a current diagnosis for this admission?: Yes Plan: - 2 doses of Ancef postoperatively q 8 hours to complete 24 hours perioperatively -Weightbearing as tolerated, no precautions, encourage out of bed ASHA for ADL training - PT/OT -aspirin 325 daily for DVT prophylaxis for 6 weeks -multimodal pain management to avoid excessive narcotics, including gabapentin, tramadol, Toradol, acetaminophen. -Dressing should not be removed for 7 to 10 days until seen in the office -May shower with the dressing intact, if it starts to come off she should not get the incision wet. -Follow-up with Dr. Moises Weinberg, orthopedic surgeon at [facility] for surgery, in 10 days. Call for an appointment. . [address], [place] [address] - Time Time Spent with patient: Less than 15 minutes
[2020-10-10] MEDS: ATORVASTATIN CALCIUM 20 MG TABLET PO SCH (22:15)
[2020-10-10] MEDS: ROPINIROLE HCL 1 MG TABLET PO SCH (22:15)
[2020-10-10] MEDS: BELBUCA PO SCH (23:20)
[2020-10-11] MEDS: HYDROMORPHONE HCL INJ/PF 2 MG/ML AMPULE IV PRN ×5 (03:38→18:04)
[2020-10-11] MEDS: GABAPENTIN 400 MG CAPSULE PO SCH ×2 (05:29→13:30)
[2020-10-11] MEDS: KETOROLAC TROMETHAMINE INJ/PF 30 MG/1 ML SDV IV PRN ×3 (05:29→19:37)
[2020-10-11] MEDS: HEPARIN SOD (PORCINE) 5,000 UNIT/ML 1 ML VIAL SUBCUT SCH ×2 (05:40→13:32)
--- NOTE | 2020-10-11 07:46 | PDOC PROGRESS REPORT ---
Subjective Date:: 10/11/20 Subjective:: Patient seen and examined, no changes overnight. Reason For Visit: RIGHT HIP FRACTURE Physical Exam Vital Signs: Temp Pulse Resp BP Pulse Ox 97.5 F 72 15 90/71 L 96 10/10/20 23:07 10/11/20 02:00 10/11/20 03:50 10/10/20 23:07 10/10/20 23:07 Intake & Output 10/10/20 10/11/20 10/12/20 06:59 06:59 06:59 Intake Total 730 1080 Output Total 575 300 Balance 155 780 Weight 141.3 kg 140.7 kg Physical Exam: No acute distress, alert and x3 Right lower extremity -Pulses 2+ distally -Compartments soft -Sensation grossly intact to L3-4-5 S1 -Motor grossly intact to EHL TA gastroc and quad Dressings clean dry and intact. Minimal bleeding in dressing. Results Laboratory Results: 10/10/20 09:50 10/10/20 09:50 10/10/20 10/10/20 09:50 09:50 WBC 6.7 RBC 4.05 L Hgb 12.1 L Hct 36.7 L MCV 91 MCH 29.9 MCHC 33.0 RDW 15.2 H Plt Count 89 L Sodium 135.8 L Potassium 5.5 H Chloride 99 Carbon Dioxide 31 H Anion Gap 6 BUN 33 H Creatinine 0.99 Est GFR ( Amer) > 60 Glucose 119 H Calcium 8.4 Impressions: Humerus X-Ray 10/06/20 12:00 IMPRESSION: NEGATIVE STUDY OF THE LEFT HUMERUS. NO RADIOGRAPHIC EVIDENCE OF ACUTE INJURY. Elbow X-Ray 10/06/20 12:30 IMPRESSION: NEGATIVE STUDY OF THE LEFT ELBOW. NO RADIOGRAPHIC EVIDENCE OF ACUTE INJURY. Lower Extremity CT 10/06/20 15:09 IMPRESSION: 1. Nondisplaced insufficiency fracture in the proximal right femoral metadiaphysis. Chest X-Ray 10/06/20 15:10 IMPRESSION: NO ACUTE RADIOGRAPHIC FINDING IN THE CHEST. Femur X-Ray 10/09/20 00:00 IMPRESSION: Status post ORIF of a nondisplaced insufficiency fracture of the proximal right femoral metadiaphysis with placement of an antegrade i ntramedullary nail and a helical blade. The subcutaneous emphysema in the superolateral aspect of the right thigh is expected in the immediate postoperative period. Fluoroscopy 10/09/20 00:00 IMPRESSION: ORIF right hip. Refer to operative note for further information. Hip/Pelvis X-Ray 10/09/20 00:00 IMPRESSION: ORIF right hip. Refer to operative note for further information. Assessment & Plan - Diagnosis (1) Fracture, subtrochanteric, right femur, closed Qualifiers: Encounter type: initial encounter Fracture alignment: nondisplaced Qualified Code(s): S72.24XA - Nondisplaced subtrochanteric fracture of right femur, initial encounter for closed fracture Is this a current diagnosis for this admission?: Yes Plan: -Weightbearing as tolerated, no precautions, encourage out of bed ASHA for ADL training - PT/OT -Oncology requests Xarelto for DVT prophylaxis -multimodal pain management to avoid excessive narcotics, including gabapentin, tramadol, Toradol, acetaminophen. -Dressing should not be removed for 7 to 10 days until seen in the office -May shower with the dressing intact, if it starts to come off she should not get the incision wet. -Follow-up with Dr. Moises Weinberg, orthopedic surgeon at [facility] for surgery, in 10 days. Call for an appointment. . [address], [place] [address] -Orthopedically stable for discharge today Has been working well with physical therapy. - Time Time Spent with patient: Less than 15 minutes
--- NOTE | 2020-10-11 08:23 | PDOC PROGRESS REPORT ---
Subjective Date:: 10/11/20 Subjective:: Patient sitting up in bed eating breakfast. He has just spoken with the orthope dic surgeon. He states that he was able to walk in the wills without pain yesterday. He is eating well, but no BM yet. He understands that he needs to loose weight, but states that he cannot do this alone and it will take a team to help him. No other concerns today. Reason For Visit: RIGHT HIP FRACTURE Physical Exam Vital Signs: Temp Pulse Resp BP Pulse Ox 97.5 F 73 15 90/71 L 96 10/10/20 23:07 10/11/20 07:00 10/11/20 03:50 10/10/20 23:07 10/10/20 23:07 Intake & Output 10/10/20 10/11/20 10/12/20 06:59 06:59 06:59 Intake Total 730 1080 Output Total 575 300 Balance 155 780 Weight 141.3 kg 140.7 kg General appearance: PRESENT: no acute distress, morbidly obese Head exam: PRESENT: normocephalic Eye exam: PRESENT: EOMI Respiratory exam: PRESENT: unlabored Extremities exam: ABSENT: pedal edema Neurological exam: PRESENT: alert, awake Psychiatric exam: PRESENT: appropriate affect Skin exam: PRESENT: normal color Results Laboratory Results: 10/10/20 09:50 10/10/20 09:50 10/10/20 10/10/20 09:50 09:50 WBC 6.7 RBC 4.05 L Hgb 12.1 L Hct 36.7 L MCV 91 MCH 29.9 MCHC 33.0 RDW 15.2 H Plt Count 89 L Sodium 135.8 L Potassium 5.5 H Chloride 99 Carbon Dioxide 31 H Anion Gap 6 BUN 33 H Creatinine 0.99 Est GFR ( Amer) > 60 Glucose 119 H Calcium 8.4 Impressions: Humerus X-Ray 10/06/20 12:00 IMPRESSION: NEGATIVE STUDY OF THE LEFT HUMERUS. NO RADIOGRAPHIC EVIDENCE OF ACUTE INJURY. Elbow X-Ray 10/06/20 12:30 IMPRESSION: NEGATIVE STUDY OF THE LEFT ELBOW. NO RADIOGRAPHIC EVIDENCE OF ACUTE INJURY. Lower Extremity CT 10/06/20 15:09 IMPRESSION: 1. Nondisplaced insufficiency fracture in the proximal right femoral me tadiaphysis. Chest X-Ray 10/06/20 15:10 IMPRESSION: NO ACUTE RADIOGRAPHIC FINDING IN THE CHEST. Femur X-Ray 10/09/20 00:00 IMPRESSION: Status post ORIF of a nondisplaced insufficiency fracture of the proximal right femoral metadiaphysis with placement of an antegrade intramedullary nail and a helical blade. The subcutaneous emphysema in the superolateral aspect of the right thigh is expected in the immediate postoperative period. Fluoroscopy 10/09/20 00:00 IMPRESSION: ORIF right hip. Refer to operative note for further information. Hip/Pelvis X-Ray 10/09/20 00:00 IMPRESSION: ORIF right hip. Refer to operative note for further information. Assessment & Plan - Diagnosis (1) Fracture, subtrochanteric, right femur, closed Qualifiers: Encounter type: initial encounter Fracture alignment: nondisplaced Qualified Code(s): S72.24XA - Nondisplaced subtrochanteric fracture of right femur, initial encounter for closed fracture Is this a current diagnosis for this admission?: Yes Plan: As per Ortho. I discussed with Dr. Weinberg DVT prophylaxis. He feels patient is at low risk for DVT with this type of procedure. However, with his history of Myeloma an his obesity and poor mobility prior to surgery, I believe his risk of clotting is much higher than his risk of bleeding. He agrees with Xarelto for 6 weeks. I also discussed with Dr. Yap. I will arrange for the Xarelto on discharge. He will continue SC heparin TID for now. (2) Morbid obesity with BMI of 45.0-49.9, adult Is this a current diagnosis for this admission?: Yes Plan: He understands that he needs to loose weight. (3) Multiple myeloma Qualifiers: Multiple myeloma remission status: not in remission Qualified Code(s): C90.00 - Multiple myeloma not having achieved remission Is this a current diagnosis for this admission?: Yes Plan: All treatment on hold. - Time Time Spent with patient: 15-24 minutes
[2020-10-11] MEDS: BUPRENORPHINE PO SCH (08:39)
[2020-10-11] MEDS: FUROSEMIDE 40 MG TABLET PO SCH (08:39)
[2020-10-11] MEDS: CHOLECALCIFEROL (D3) 1,000 UNIT (25 MCG) TABLET PO SCH (09:00)
[2020-10-11] MEDS: PREDNISONE 10 MG TABLET PO SCH (09:00)
[2020-10-11] MEDS: METFORMIN HCL 500 MG TABLET PO SCH (09:01)
[2020-10-11] MEDS: DOCUSATE SODIUM 100 MG CAPSULE PO SCH (09:01)
[2020-10-11] MEDS: CITALOPRAM HYDROBROMIDE 20 MG TABLET PO SCH (09:01)
[2020-10-11] MEDS ORDERED: LACTULOSE SYRUP 20 GM/30 ML UDCUP PO PRN (12:52)
[2020-10-11] MEDS ORDERED: POLYETHYLENE GLYCOL 3350 POWDER 17 GM/1 PACKET PO SCH (13:30)
[2020-10-11 15:55] LABS: ABSOLUTE EOSINOPHILS # (AUTO) 0.2 10^3/uL (0.0-0.6); ABSOLUTE LYMPHOCYTES (AUTO) 0.6 10^3/uL (0.5-4.7); ABSOLUTE MONOCYTES (AUTO) 0.6 10^3/uL (0.1-1.4); ABSOLUTE NEUT (AUTO) 4.5 10^3/uL (1.7-8.2); BASOPHILS % (AUTO) 0.3 % (0-2); HEMATOCRIT 34.5 % (37.9-51.0); HEMOGLOBIN 11.3 g/dL (13.5-17.0); LYMPHOCYTES % (AUTO) 9.5 % (13-45); MEAN CORPUSCULAR HEMOGLOBIN 30.2 pg (27.0-33.4); MEAN CORPUSCULAR HGB CONC 32.8 g/dL (32.0-36.0); MEAN CORPUSCULAR VOLUME 92 fl (80-97); MONOCYTES % (AUTO) 10.9 % (3-13); RED BLOOD COUNT 3.75 10^6/uL (4.35-5.55); SEGMENTED NEUTROPHILS % (AUTO) 76.3 % (42-78); TOTAL CELLS COUNTED % (AUTO) 100 %; WHITE BLOOD COUNT 5.9 10^3/uL (4.0-10.5)
[2020-10-11 16:04] LABS: ANION GAP 8 (5-19); BLOOD UREA NITROGEN 33 mg/dL (7-20); CALCIUM 8.7 mg/dL (8.4-10.2); CARBON DIOXIDE 32 mmol/L (22-30); CHLORIDE 96 mmol/L (98-107); GLUCOSE 129 mg/dL (75-110); POTASSIUM 5.3 mmol/L (3.6-5.0)
[2020-10-11 16:26] LABS: PLATELET COUNT 84 10^3/uL (150-450)
--- NOTE | 2020-10-11 17:43 | PDOC DISCHARGE SUMMARY ---
Impression - Admit/DC Date/PCP Admission Date/Primary Care Provider: 10/06/20 17:10 ROA SILVA MD Discharge Date: 10/11/20 - Discharge Diagnosis (1) Fracture, subtrochanteric, right femur, closed Is this a current diagnosis for this admission?: Yes (2) COPD (chronic obstructive pulmonary disease) Is this a current diagnosis for this admission?: Yes (3) Cirrhosis Is this a current diagnosis for this admission?: Yes (4) Diabetes Is this a current diagnosis for this admission?: Yes (5) History of hepatitis C Is this a current diagnosis for this admission?: Yes (6) Multiple myeloma Is this a current diagnosis for this admission?: Yes (7) Sleep apnea in adult Is this a current diagnosis for this admission?: Yes (8) Venous stasis Is this a current diagnosis for this admission?: Yes - Assessment Summary: Postop day #1 status post placement of a femoral nail. Continue physical therapy. Will look for [facility] facility placement. Dr. Silva is recommending 6 weeks of DVT prophylaxis with either Lovenox or Xarelto. - Additional Information Resuscitation Status: Full Code Discharge Diet: Cardiac, Diabetic Discharge Activity: Activity As Tolerated Referrals: ORA SILVA MD [Primary Care Provider] - 10/13/20 (Call Office and make appt) Home Medications: Atorvastatin Calcium [Lipitor 20 mg Tablet] 20 mg PO QHS 11/03/19 Cholecalciferol (Vitamin D3) [Vitamin D3 2000 unit Tablet] 5,000 unit PO DAILY 11/03/19 Citalopram Hydrobromide [Celexa 40 mg Tablet] 40 mg PO DAILY 11/03/19 Docusate Sodium [Colace 100 mg Capsule] 100 mg PO DAILY 11/03/19 Furosemide [Lasix 40 mg Tablet] 40 mg PO QAM 11/03/19 Metformin HCl [Glucophage] 500 mg PO DAILY 11/03/19 Spironolactone [Aldactone] 50 mg PO DAILY 11/03/19 Umeclidinium Brm/Vilanterol Tr [Anoro Ellipta 62.5-25 Mcg INH] 1 puff PO BID 06/12/20 Gabapentin [Neurontin 400 mg Capsule] 400 mg PO Q8 #0 07/23/20 Buprenorphine HCl [Belbuca] 600 mcg PO QAM 10/06/20 Buprenorphine HCl [Belbuca] 750 mcg PO QHS 10/06/20 Hydromorphone HCl [Dilaudid 2 mg Tablet] 2 mg PO Q6HP PRN 10/06/20 Prednisone [Deltasone 10 mg Tablet] 10 mg PO DAILY 10/06/20 Ropinirole HCl 1 mg PO QHS 10/06/20 History of Present Illiness History of Present Illness: VERONIQUE SOLIZ is a 65 year old male Patient was admitted with ankle fracture after falling. He was found to have a subtrochanteric right femoral fracture. Hospital Course Hospital Course: Patient was admitted with ankle fracture after falling. He was found to have a subtrochanteric right femoral fracture. He was seen by orthopedist and had surgical intervention with right hip intramedullary nail placed done. Is advised weightbearing as tolerated. He was seen by oncology due to his history of multiple myeloma. He was felt that patient will benefit from Xarelto prophylactically and this is to be arranged by Dr. Gaona. The plan is for follow-up as outpatient with Dr. Weinberg in 10 days. Physical Exam Vital Signs: Temp Pulse Resp BP Pulse Ox 98.0 F 82 18 97/64 L 93 10/11/20 16:54 10/11/20 16:54 10/11/20 16:54 10/11/20 16:54 10/11/20 16:54 Intake & Output 10/10/20 10/11/20 10/12/20 06:59 06:59 06:59 Intake Total 730 1080 581 Output Total 575 300 200 Balance 155 780 381 Weight 141.3 kg 140.7 kg General appearance: PRESENT: no acute distress, morbidly obese, well-developed, well-nourished Head exam: PRESENT: atraumatic, normocephalic Eye exam: PRESENT: conjunctiva pink, EOMI, PERRLA. ABSENT: scleral icterus Ear exam: PRESENT: normal external ear exam Mouth exam: PRESENT: moist, tongue midline Neck exam: ABSENT: carotid bruit, JVD, lymphadenopathy, thyromegaly Respiratory exam: PRESENT: clear to auscultation pat. ABSENT: rales, rhonchi, wheezes Cardiovascular exam: PRESENT: RRR, +S1, +S2. ABSENT: diastolic murmur, rubs, systolic murmur Pulses: PRESENT: normal dorsalis pedis pul Vascular exam: PRESENT: normal capillary refill GI/Abdominal exam: PRESENT: normal bowel sounds, soft. ABSENT: distended, guarding, mass, organolmegaly, rebound, tenderness Rectal exam: PRESENT: deferred Extremities exam: PRESENT: other - R hip dressing. ABSENT: calf tenderness, clubbing, pedal edema Neurological exam: PRESENT: alert, awake, oriented to person, oriented to place, oriented to time, oriented to situation, CN II-XII grossly intact. ABSENT: motor sensory deficit Psychiatric exam: PRESENT: appropriate affect, normal mood. ABSENT: homicidal ideation, suicidal ideation Skin exam: PRESENT: dry, intact, warm. ABSENT: cyanosis, rash Results Laboratory Results: WBC 5.9 10^3/uL (4.0-10.5) 10/11/20 15:20 RBC 3.75 10^6/uL (4.35-5.55) L 10/11/20 15:20 Hgb 11.3 g/dL (13.5-17.0) L 10/11/20 15:20 Hct 34.5 % (37.9-51.0) L 10/11/20 15:20 MCV 92 fl (80-97) 10/11/20 15:20 MCH 30.2 pg (27.0-33.4) 10/11/20 15:20 MCHC 32.8 g/dL (32.0-36.0) 10/11/20 15:20 RDW 15.0 % (11.5-14.0) H 10/11/20 15:20 Plt Count 84 10^3/uL (150-450) L 10/11/20 15:20 Lymph % (Auto) 9.5 % (13-45) L 10/11/20 15:20 Greene % (Auto) 10.9 % (3-13) 10/11/20 15:20 Eos % (Auto) 3.0 % (0-6) 10/11/20 15:20 Baso % (Auto) 0.3 % (0-2) 10/11/20 15:20 Absolute Neuts (auto) 4.5 10^3/uL (1.7-8.2) 10/11/20 15:20 Absolute Lymphs (auto) 0.6 10^3/uL (0.5-4.7) 10/11/20 15:20 Absolute Monos (auto) 0.6 10^3/uL (0.1-1.4) 10/11/20 15:20 Absolute Eos (auto) 0.2 10^3/uL (0.0-0.6) 10/11/20 15:20 Absolute Basos (auto) 0.0 10^3/uL (0.0-0.2) 10/11/20 15:20 Total Counted 100 10/06/20 13:12 Seg Neutrophils % 76.3 % (42-78) 10/11/20 15:20 Seg Neuts % (Manual) 78 % (42-78) 10/06/20 13:12 Band Neutrophils % 2 % (3-5) L 10/06/20 13:12 Lymphocytes % (Manual) 9 % (13-45) L 10/06/20 13:12 Atypical Lymphs % 1 % (0) 10/06/20 13:12 Monocytes % (Manual) 8 % (3-13) 10/06/20 13:12 Eosinophils % (Manual) 1 % (0-6) 10/06/20 13:12 Basophils % (Manual) 0 % (0-2) 10/06/20 13:12 Metamyelocytes % 1 % (0-1) 10/06/20 13:12 Abs Neuts (Manual) 4.5 10^3/uL (1.7-8.2) 10/06/20 13:12 Abs Lymphs (Manual) 0.6 10^3/uL (0.5-4.7) 10/06/20 13:12 Abs Monocytes (Manual) 0.4 10^3/uL (0.1-1.4) 10/06/20 13:12 Absolute Eos (Manual) 0.1 10^3/uL (0.0-0.6) 10/06/20 13:12 Abs Basophils (Manual) 0.0 10^3/uL (0.0-0.2) 10/06/20 13:12 Platelet Comment DECREASED 10/06/20 13:12 Poikilocytosis 1+ 10/06/20 13:12 Anisocytosis 1+ 10/06/20 13:12 Tear Drop Cells SLIGHT 10/06/20 13:12 Ovalocytes 1+ 10/06/20 13:12 PT 13.1 SEC (11.4-15.4) 10/06/20 13:15 INR 0.97 10/06/20 13:15 Sodium 135.5 mmol/L (137-145) L 10/11/20 15:20 Potassium 5.3 mmol/L (3.6-5.0) H 10/11/20 15:20 Chloride 96 mmol/L (98-107) L 10/11/20 15:20 Carbon Dioxide 32 mmol/L (22-30) H 10/11/20 15:20 Anion Gap 8 (5-19) 10/11/20 15:20 BUN 33 mg/dL (7-20) H 10/11/20 15:20 Creatinine 0.90 mg/dL (0.52-1.25) 10/11/20 15:20 Est GFR ( Amer) > 60 (>60) 10/11/20 15:20 Est GFR (MDRD) Non-Af > 60 (>60) 10/11/20 15:20 Glucose 129 mg/dL (75-110) H 10/11/20 15:20 POC Glucose 166 mg/dL (70-110) H 10/07/20 11:14 Calcium 8.7 mg/dL (8.4-10.2) 10/11/20 15:20 Total Bilirubin 0.8 mg/dL (0.2-1.3) 10/06/20 13:12 Direct Bilirubin 0.1 mg/dL (0.0-0.4) 10/06/20 13:12 Neonat Total Bilirubin Not Reportable 10/06/20 13:12 Neonat Direct Bilirubin Not Reportable 10/06/20 13:12 Neonat Indirect Bili Not Reportable 10/06/20 13:12 AST 28 U/L (17-59) 10/06/20 13:12 ALT 23 U/L (<50) 10/06/20 13:12 Alkaline Phosphatase 47 U/L (38-126) 10/06/20 13:12 Total Protein 6.4 g/dL (6.3-8.2) 10/06/20 13:12 Albumin 4.0 g/dL (3.5-5.0) 10/06/20 13:12 SARS-CoV-2 (PCR) NEGATIVE (NEGATIVE) 10/06/20 16:51 Impressions: Hip/Pelvis X-Ray 10/06/20 12:00 IMPRESSION: Nondisplaced subtrochanteric right hip fracture. Humerus X-Ray 10/06/20 12:00 IMPRESSION: NEGATIVE STUDY OF THE LEFT HUMERUS. NO RADIOGRAPHIC EVIDENCE OF ACUTE INJURY. Elbow X-Ray 10/06/20 12:30 IMPRESSION: NEGATIVE STUDY OF THE LEFT ELBOW. NO RADIOGRAPHIC EVIDENCE OF ACUTE INJURY. Lower Extremity CT 10/06/20 15:09 IMPRESSION: 1. Nondisplaced insufficiency fracture in the proximal right femoral metadiaphysis. Chest X-Ray 10/06/20 15:10 IMPRESSION: NO ACUTE RADIOGRAPHIC FINDING IN THE CHEST. Femur X-Ray 10/09/20 00:00 IMPRESSION: Status post ORIF of a nondisplaced insufficiency fracture of the proximal right femoral metadiaphysis with placement of an antegrade intramedullary nail and a helical blade. The subcutaneous emphysema in the superolateral aspect of the right thigh is expected in the immediate postopera tive period. Fluoroscopy 10/09/20 00:00 IMPRESSION: ORIF right hip. Refer to operative note for further information. Hip/Pelvis X-Ray 10/09/20 00:00 IMPRESSION: ORIF right hip. Refer to operative note for further information. Plan Health Concerns: And to be discharged home on Xarelto prophylactically and this is to be arranged by Dr. Gaona Time Spent: Less than 30 Minutes Stroke Is this a Stroke Patient?: No Acute Heart Failure Is this a Heart Failure Patient?: No
[2020-10-11 20:30] VITALS: BP 105/66
== END 2020-10-11 20:15 | disposition home health service (06) | DRG 481 ==
LOC: ER 11:54 → EH 17:10 → 4S 17:50 → 4N 10-08 20:42
PROVIDERS: ADMIT Family Medicine; ATTEND Internal Medicine
PROC: 0QS636Z Reposition Right Upper Femur with Intramedullary Internal Fixation Device, Percutaneous Approach (ICD-10-PCS; principal; 2020-10-09 10:00)
DX: S72.24XA Nondisplaced subtrochanteric fracture of right femur, initial encounter for closed fracture (principal); C90.00 Multiple myeloma not having achieved remission; Z68.42 Body mass index [BMI] 45.0-49.9, adult; C79.51 Secondary malignant neoplasm of bone; W01.0XXA Fall on same level from slipping, tripping and stumbling without subsequent striking against object, initial encounter; Y92.012 Bathroom of single-family (private) house as the place of occurrence of the external cause; Y93.E8 Activity, other personal hygiene; K74.60 Unspecified cirrhosis of liver; E11.9 Type 2 diabetes mellitus without complications; R06.81 Apnea, not elsewhere classified; I87.8 Other specified disorders of veins; J42 Unspecified chronic bronchitis; E66.01 Morbid (severe) obesity due to excess calories; E78.5 Hyperlipidemia, unspecified; I10 Essential (primary) hypertension; K75.81 Nonalcoholic steatohepatitis (NASH); F32.9 Major depressive disorder, single episode, unspecified; D70.9 Neutropenia, unspecified; I87.2 Venous insufficiency (chronic) (peripheral); R53.1 Weakness; G89.3 Neoplasm related pain (acute) (chronic); Z86.19 Personal history of other infectious and parasitic diseases; Z79.899 Other long term (current) drug therapy; Z79.84 Long term (current) use of oral hypoglycemic drugs; Z90.5 Acquired absence of kidney; Z87.891 Personal history of nicotine dependence; Z88.6 Allergy status to analgesic agent; Z82.49 Family history of ischemic heart disease and other diseases of the circulatory system; Z81.1 Family history of alcohol abuse and dependence
CPT/HCPCS: 01230; 36415; 71045; 80048; 80053; 82962; 85025; 85027; 85610; 87635; 90471; 90715; 93005; 93010; 94660; 96374; 96375; 99285; C1713; C1769; C9803; G0283-GP; J0330; J0690; J1170; J1642; J1644; J1885; J2250; J2270; J2405; J2704; J2795; J3010; J3490; J7060; J7512